=== PATIENT | male | born 1935 | race Caucasian/White ===

== ENCOUNTER 2018-01-16 23:20 | Emergency (ER) | payer OTHER, BC ==
[2018-01-17] MEDS ORDERED: NA CHLORIDE 0.9% 1,000 ML ONE (00:34)
[2018-01-17] MEDS ORDERED: IBUPROFEN 200 MG TAB PO ONE (04:43)
[2018-01-17] MEDS ORDERED: IBUPROFEN 400 MG TAB ONE (04:43)
--- NOTE | 2018-01-17 04:46 | ER ---
Nurse's Notes [facility] Name: Rashida Blank Age: 82 yrs Sex: Male : 1935 Arrival Date: 01/16/2018 Time: 23:23 Bed 7 Private MD: Nina Washington Diagnosis: Contusion of unspecified back wall of thorax Presentation: 01/16 23:18 Presenting complaint: EMS states: reported pt had a fall at about 2200, denies ea hitting head and negative LOC. Patient complaining of pain to left shoulder and left upper back. Transition of care: patient was not received from another setting of care. Onset of symptoms was January 16, 2018. Risk Assessment: Do you want to hurt yourself or someone else? Patient reports no desire to harm self or others. Initial Sepsis Screen: Does the patient meet any 2 criteria? No. Patient's initial sepsis screen is negative. Does the patient have a suspected source of infection? No. Patient's initial sepsis screen is negative. Care prior to arrival: 20 G to LAC. 23:18 Method Of Arrival: EMS: [facility] ea 23:18 Acuity: IVONNE 3 ea 23:18 Mechanism of Injury: Fall from standing position. Trauma event details: Injury occurred ea in the [facility], Injury occurred: at home. Injury occurred: January 16, 2018 Injury occurred at: 22:00. Triage Assessment: 23:18 General: Appears uncomfortable, Behavior is calm, cooperative, appropriate for age. ea Pain: Complains of pain in left scapular area, left subscapular area and mid back area Pain currently is 7 out of 10 on a pain scale. Quality of pain is described as aching, Pain began 1 hour ago. Is continuous, Aggravated by movement. EENT: No deficits noted. Neuro: Level of Consciousness is awake, alert, obeys commands, Oriented to person, place, time, situation. Cardiovascular: Patient's skin is warm and dry. Respiratory: Airway is patent Respiratory effort is even, unlabored, Respiratory pattern is regular, symmetrical. Derm: Skin is pink, warm \T\ dry. Trauma Activation: Not Applicable Physician: ED Physician; Name: ; Notified At: ; Arrived At: Physician: General Surgeon; Name: ; Notified At: ; Arrived At: Physician: Radiology; Name: ; Notified At: ; Arrived At: Physician: Respiratory; Name: ; Notified At: ; Arrived At: Physician: Lab; Name: ; Notified At: ; Arrived At: Historical: - Allergies: 23:37 No Known Allergies; ea - Home Meds: 23:37 simvastatin 40 mg Oral tab 1 tab once daily [Active]; sotalol 120 mg Oral tab 1 tab 2 ea times per day [Active]; levothyroxine 50 mcg tab 1 tab once daily [Active]; warfarin 2 mg Oral tab 1 tab once daily [Active]; warfarin 2.5 mg Oral tab 1 tab once daily [Active]; - PMHx: 23:37 Hypothyroidism; Atrial Fib; ea - PSHx: 23:37 pacemaker; brendan hip replacement; ea - Immunization history:: Adult Immunizations up to date. - Social history:: Smoking status: Patient/guardian denies using tobacco. - Immunization history: Last tetanus immunization: unknown. - Ebola Screening: : No symptoms or risks identified at this time. Screenin:39 Abuse screen: Denies threats or abuse. Nutritional screening: No deficits noted. ea Tuberculosis screening: No symptoms or risk factors identified. Fall Risk Fall in past 12 months (25 points). Primary Survey: 23:18 A: Airway: patent. Breathing/Chest: Respiratory pattern: regular, Respiratory effort: ea spontaneous, unlabored, Breath sounds: clear, bilaterally. Circulation: Heart tones present. Skin color: pink, Skin temperature: warm. Disability Alert. 23:18 Reassessment Breathing/Chest Respiratory pattern Regular Respiratory effort Spontaneous ea Unlabored Circulation Heart tones Present Color [place] Temperature Warm Disability Alert. Secondary Survey: 23:18 HEENT: No deficits noted. Gastrointestinal: Abdomen is soft, Bowel sounds present in ea all quadrants. Palpation No deficit noted. : No signs and/or symptoms were reported regarding the genitourinary system. Musculoskeletal: Circulation, motion, and sensation intact. Assessment: 23:18 General: Appears uncomfortable, Behavior is calm, cooperative, appropriate for age. ea Neuro: Level of Consciousness is awake, alert, obeys commands, Oriented to person, place, time, situation. Respiratory: Airway is patent Respiratory effort is even, unlabored, Respiratory pattern is regular, symmetrical. Derm: Skin is pink, warm \T\ dry. 01/17 00:11 Reassessment: patient still awaiting initial assessment from the provider. rv 00:39 Reassessment: patients seen by provider. started IV infusion of NS 1L bolus. awaiting rv for CT scan. 01:58 Reassessment: Patient and/or family updated on plan of care and expected duration. Pain ea level reassessed. Patient is alert, oriented x 3, equal unlabored respirations, skin warm/dry/pink. 02:19 Reassessment: still awaiting for CT scan. rv 02:30 Reassessment: patient went to ct scan. rv 03:32 Reassessment: Patient appears in no apparent distress at this time. Patient and/or rv family updated on plan of care and expected duration. Pain level reassessed. Patient is alert, oriented x 3, equal unlabored respirations, skin warm/dry/pink. patient came back from ct scan. awaiting result. vital signs are stable. patient is lying comfortably on bed. 04:14 Reassessment: Patient and/or family updated on plan of care and expected duration. Pain ea level reassessed. Patient is alert, oriented x 3, equal unlabored respirations, skin warm/dry/pink. Awaiting on results. 05:07 Reassessment: Patient and/or family updated on plan of care and expected duration. Pain ea level reassessed. Patient is alert, oriented x 3, equal unlabored respirations, skin warm/dry/pink. Discharge instructions given to patient, verbalized the understanding of instruction. Vital Signs: 01/16 23:38 BP 125 / 84; Pulse 82; Resp 18; Temp 98.0(O); Pulse Ox 99% on R/A; Weight 68.95 kg; ea Height 5 ft. 6 in. (167.64 cm); Pain 7/10; 01/17 00:01 BP 108 / 69; Pulse 81; Resp 16; Pulse Ox 96% on R/A; rv 00:37 BP 101 / 78; Pulse 81; Resp 16; Pulse Ox 99% on R/A; rv 01:11 BP 129 / 86; Pulse 81; Resp 16; Pulse Ox 99% on R/A; mt 02:18 BP 143 / 85; Pulse 79; Resp 16; Pulse Ox 99% on R/A; mt 03:32 BP 121 / 81; Pulse 80; Resp 17; Pulse Ox 96% ; rv 04:38 BP 115 / 65; Pulse 79; Resp 18; Pulse Ox 99% on R/A; Pain 9/10; ea 05:04 BP 102 / 58; Pulse 70; Resp 18; Temp 98(O); Pulse Ox 97% on R/A; ea 01/16 23:38 Body Mass Index 24.53 (68.95 kg, 167.64 cm) ea [place] Coma Score: 01/16 23:18 Eye Response: spontaneous(4). Verbal Response: oriented(5). Motor Response: obeys ea commands(6). Total: 15. 01/17 03:32 Eye Response: spontaneous(4). Verbal Response: oriented(5). Motor Response: obeys ea commands(6). Total: 15. 04:38 Eye Response: spontaneous(4). Verbal Response: oriented(5). Motor Response: obeys ea commands(6). Total: 15. 05:04 Eye Response: spontaneous(4). Verbal Response: oriented(5). Motor Response: obeys ea commands(6). Total: 15. Trauma Score (Adult): 01/16 23:18 Eye Response: spontaneous(1); Verbal Response: oriented(1); Motor Response: obeys ea commands(2); Systolic BP: > 89 mm Hg(4); Respiratory Rate: 10 to 29 per min(4); Elroy Score: 15; Trauma Score: 12 ED Course: 23:18 Patient has correct armband on for positive identification. Bed in low position. Call ea light in reach. Side rails up X2. 23:18 Arm band placed on right wrist. Patient placed in an exam room, on a stretcher, on ea secured entrance monitor, on pulse oximetry. 23:18 Thermoregulation: warm blanket given to patient. ea 23:23 Patient arrived in ED. am2 23:24 Nina Washington MD is Private Physician. am2 23:29 Triage completed. ea 23:31 Rohan Gill MD is Attending Physician. gs 23:40 Maintain EMS IV. Dressing intact. Site clean \T\ dry. Gauge \T\ site: 20G to LAC. ea 23:57 Patient maintains SpO2 saturation greater than 95% on room air. ea 01/17 03:15 CT Head C Spine In Process Unspecified. EDMS 03:15 CT Chest Wo Con In Process Unspecified. EDMS 03:15 CT completed. Patient tolerated procedure well. Patient moved back from CT. kw1 05:01 No provider procedures requiring assistance completed. IV discontinued, intact, ea bleeding controlled, No redness/swelling at site. Pressure dressing applied. Administered Medications: 00:37 Drug: NS 0.9% 750 ml Route: IV; Rate: 1 bolus; Site: left antecubital; rv 01:30 Follow up: Response: No adverse reaction; IV Status: Completed infusion ea Intake: 05:03 PO: 0ml; Total: 0ml. ea Outcome: 04:46 Discharge ordered by . blaine 05:[address] resultsPatient's length of stay extended due to ea 05:02 Condition: good ea 05:02 Discharge instructions given to patient, Instructed on discharge instructions, follow up and referral plans. Demonstrated understanding of instructions, follow-up care. 05:03 Discharged to home via wheelchair, with significant other. ea 05:17 Patient left the ED. ea Signatures: Dispatcher [employer] EDMS Leatha Overton Moriah mt Antunez, Elena, RN RN Rohan Sparks MD MD gs Wilhelm, Kimberly kw1 Anson Link, MAGNUS RN rv Corrections: (The following items were deleted from the chart) 03:15 02:21 Patient moved to [place] via stretcher. kw1 kw1 05:04 05:02 Discharged to home via wheelchair, with significant other, ea ea
--- NOTE | 2018-01-17 04:46 | EDPHYS ---
Physician Documentation [facility] Name: Rashida Blank Age: 82 yrs Sex: Male : 1935 Arrival Date: 01/16/2018 Time: 23:23 Bed 7 Private MD: Nina Washington ED Physician Rohan Gill HPI: 01/17 04:38 This 82 yrs old Male presents to ER via EMS with unknown complaint. gs 04:38 Details of fall: The patient fell from an upright position. Onset: The symptoms/episode gs began/occurred acutely, just prior to arrival. Associated injuries: The patient sustained neck injury, injury to the chest, specifically the left lateral posterior chest, contusion. Severity of symptoms: At their worst the symptoms were moderate, in the emergency department the symptoms are unchanged. The patient has experienced similar episodes in the past, a few times. Historical: - Allergies: 01/16 23:37 No Known Allergies; ea - Home Meds: 23:37 simvastatin 40 mg Oral tab 1 tab once daily [Active]; sotalol 120 mg Oral tab 1 tab 2 ea times per day [Active]; levothyroxine 50 mcg tab 1 tab once daily [Active]; warfarin 2 mg Oral tab 1 tab once daily [Active]; warfarin 2.5 mg Oral tab 1 tab once daily [Active]; - PMHx: 23:37 Hypothyroidism; Atrial Fib; ea - PSHx: 23:37 pacemaker; brendan hip replacement; ea - Immunization history:: Adult Immunizations up to date. - Social history:: Smoking status: Patient/guardian denies using tobacco. - Immunization history: Last tetanus immunization: unknown. - Ebola Screening: : No symptoms or risks identified at this time. ROS: 01/17 04:38 All other systems are negative. gs Exam: 04:38 Head/Face: Normocephalic, atraumatic. Eyes: Pupils equal round and reactive to light, gs extra-ocular motions intact. Lids and lashes normal. Conjunctiva and sclera are non-icteric and not injected. Cornea within normal limits. Periorbital areas with no swelling, redness, or edema. ENT: Nares patent. No nasal discharge, no septal abnormalities noted. Tympanic membranes are normal and external auditory canals are clear. Oropharynx with no redness, swelling, or masses, exudates, or evidence of obstruction, uvula midline. Mucous membranes moist. Neck: Trachea midline, no thyromegaly or masses palpated, and no cervical lymphadenopathy. Supple, full range of motion without nuchal rigidity, or vertebral point tenderness. No Meningismus. Cardiovascular: Regular rate and rhythm with a normal S1 and S2. No gallops, murmurs, or rubs. Normal PMI, no JVD. No pulse deficits. Respiratory: Lungs have equal breath sounds bilaterally, clear to auscultation and percussion. No rales, rhonchi or wheezes noted. No increased work of breathing, no retractions or nasal flaring. Abdomen/GI: Soft, non-tender, with normal bowel sounds. No distension or tympany. No guarding or rebound. No evidence of tenderness throughout. Back: No spinal tenderness. No costovertebral tenderness. Full range of motion. Skin: Warm, dry with normal turgor. Normal color with no rashes, no lesions, and no evidence of cellulitis. MS/ Extremity: Pulses equal, no cyanosis. Neurovascular intact. Full, normal range of motion. Neuro: Awake and alert, GCS 15, oriented to person, place, time, and situation. Cranial nerves II-XII grossly intact. Motor strength 5/5 in all extremities. Sensory grossly intact. Cerebellar exam normal. Normal gait. 04:38 Constitutional: The patient appears alert, awake. 04:38 Chest/axilla: Inspection: no acute changes, Palpation: tenderness, that is moderate, of the right lateral posterior chest and left lateral posterior chest, that totally reproduces the patient's complaints. 04:38 ECG was reviewed by the Attending Physician. Vital Signs: 01/16 23:38 BP 125 / 84; Pulse 82; Resp 18; Temp 98.0(O); Pulse Ox 99% on R/A; Weight 68.95 kg; ea Height 5 ft. 6 in. (167.64 cm); Pain 7/10; 01/17 00:01 BP 108 / 69; Pulse 81; Resp 16; Pulse Ox 96% on R/A; rv 00:37 BP 101 / 78; Pulse 81; Resp 16; Pulse Ox 99% on R/A; rv 01:11 BP 129 / 86; Pulse 81; Resp 16; Pulse Ox 99% on R/A; mt 02:18 BP 143 / 85; Pulse 79; Resp 16; Pulse Ox 99% on R/A; mt 03:32 BP 121 / 81; Pulse 80; Resp 17; Pulse Ox 96% ; rv 04:38 BP 115 / 65; Pulse 79; Resp 18; Pulse Ox 99% on R/A; Pain 9/10; ea 05:04 BP 102 / 58; Pulse 70; Resp 18; Temp 98(O); Pulse Ox 97% on R/A; ea 01/16 23:38 Body Mass Index 24.53 (68.95 kg, 167.64 cm) ea [place] Coma Score: 01/16 23:18 Eye Response: spontaneous(4). Verbal Response: oriented(5). Motor Response: obeys ea commands(6). Total: 15. 01/17 03:32 Eye Response: spontaneous(4). Verbal Response: oriented(5). Motor Response: obeys ea commands(6). Total: 15. 04:38 Eye Response: spontaneous(4). Verbal Response: oriented(5). Motor Response: obeys ea commands(6). Total: 15. 05:04 Eye Response: spontaneous(4). Verbal Response: oriented(5). Motor Response: obeys ea commands(6). Total: 15. Trauma Score (Adult): 01/16 23:18 Eye Response: spontaneous(1); Verbal Response: oriented(1); Motor Response: obeys ea commands(2); Systolic BP: > 89 mm Hg(4); Respiratory Rate: 10 to 29 per min(4); Elroy Score: 15; Trauma Score: 12 MDM: 01/17 00:24 Patient medically screened. 04:38 Differential diagnosis: closed head injury, contusion, fracture, ich. Data reviewed: vital signs, nurses notes. 01/17 00:25 Order name: CT Head C Spine gs 06 00:25 Order name: CT Chest Wo Con gs EC:38 Rate is 82 beats/min. Rhythm is regular, Paced. IN interval is prolonged. QRS interval gs is normal. T waves are Normal. No ST changes noted. Clinical impression: Abnormal EKG without significant change. Interpreted by me. Administered Medications: 00:37 Drug: NS 0.9% 750 ml Route: IV; Rate: 1 bolus; Site: left antecubital; rv 01:30 Follow up: Response: No adverse reaction; IV Status: Completed infusion ea Disposition: 01/17/18 04:46 Discharged to Home. Impression: Contusion of unspecified back wall of thorax. - Condition is Stable. - Discharge Instructions: Contusion. - Medication Reconciliation Form, Thank You Letter, Antibiotic Education, Prescription Opioid Use form. - Follow up: Private Physician; When: 2 - 3 days; Reason: Re-evaluation by your physician. Signatures: Dispatcher [employer] Mehreen Crawford RN RN Rohan Sparks MD MD gs Vicente, Ronaldo, RN RN rv Corrections: (The following items were deleted from the chart) 05:17 04:46 01/17/2018 04:46 Discharged to Home. Impression: Contusion of unspecified back ea wall of thorax. Condition is Stable. Forms are Medication Reconciliation Form, Thank You Letter, Antibiotic Education, Prescription Opioid Use. Follow up: Private Physician; When: 2 - 3 days; Reason: Re-evaluation by your physician.
--- NOTE | 2018-01-17 11:51 | RAD REPORT ---
EXAM DESCRIPTION: CT - CTHCSPWOC - 01/17/2018 7:26 am CLINICAL HISTORY: Trauma, head and neck injury. PAIN COMPARISON: Soft Tissue Neck W/Contr dated 09/04/2016 TECHNIQUE: Axial 5 mm thick images of the head were obtained. Axial 2 mm thick images of the cervical spine were obtained with sagittal and coronal reconstruction images generated and reviewed. All CT scans are performed using dose optimization technique as appropriate and may include automated exposure control or mA/KV adjustment according to patient size. FINDINGS: CT HEAD WITHOUT CONTRAST: No acute hemorrhage, hydrocephalus or extra-axial collection is identified.Advanced generalized brain atrophy is present with advanced periventricular and deep white matter chronic microvascular ischemi c changes.No areas of brain edema or midline shift. The paranasal sinuses and mastoids are clear.The calvarium is intact. CT CERVICAL SPINE WITHOUT CONTRAST: No fracture or subluxation.Prominent C4-5 spondylosis.No prevertebral soft tissues swelling is identi fied. IMPRESSION: No acute intracranial or cervical spine findings. Prominent C4-5 spondylosis.
--- NOTE | 2018-01-17 11:58 | RAD REPORT ---
EXAM DESCRIPTION: CT - Thorax Wo Con CLINICAL HISTORY: Chest pain PAIN COMPARISON: No comparisons FINDINGS: Mild basilar subsegmental atelectasis bilaterally. No focal infiltrate. No pleural thicken ing or pleural effusion. No pneumothorax. No axillary, mediastinal or hilar adenopathy. Pacemaker device noted. No concerning bony finding. No gross upper abdominal finding. All CT scans are performed using dose optimization technique as appropriate and may include automated exposure control or mA/KV adjustment according to patient size. IMPRESSION: No acute abnormality detected.
--- NOTE | 2018-01-19 07:00 | EKG ---
Test Date: 2018-01-16 Test Time: 23:22:09 Head Still Operator: DEBBIE MEASUREMENT RESULTS: Intervals: Rate: 82 MA: 216 QRSD: 78 QT: 378 QTc: 441 [place]: P: -5 MA: 216 QRS: 54 T: 47 INTERPRETIVE STATEMENTS: Atrial-paced rhythm with prolonged AV conduction Abnormal ECG Compared to ECG 09/22/2017 13:33:15 Prolonged QT interval no longer present Electronically Signed On 01-19-18 06:59:27 CDT by Víctor Packer
== END 2018-01-17 05:17 | disposition home or self-care (01) ==
LOC: ER 23:20
DX: S20.229A Contusion of unspecified back wall of thorax, initial encounter (principal); W18.30XA Fall on same level, unspecified, initial encounter; Y93.9 Activity, unspecified; Y92.009 Unspecified place in unspecified non-institutional (private) residence as the place of occurrence of the external cause; E03.9 Hypothyroidism, unspecified; I48.91 Unspecified atrial fibrillation; Z79.01 Long term (current) use of anticoagulants; Z95.0 Presence of cardiac pacemaker
CPT/HCPCS: 70450; 71250; 72125; 93005; 96360; 99285; J7030

== ENCOUNTER 2018-05-26 06:41 | Day surgery (SDC) | payer OTHER, BC ==
[2018-05-20 11:39] LABS: Urine Appearance CLEAR; Urine Bilirubin NEGATIVE (NEG); Urine Blood NEGATIVE (NEG); Urine Color YELLOW; Urine Glucose NEGATIVE (NEG); Urine Protein NEGATIVE (NEG)
--- NOTE | 2018-05-20 11:42 | RAD REPORT ---
EXAM DESCRIPTION: RAD - Chest Pa And Lat (2 Views) - 05/20/2018 11:25 am CLINICAL HISTORY: PRE OP Chest pain. COMPARISON: Chest Pa And Lat (2 Views) dated 03/02/2018; Chest Pa And Lat (2 Views) dated 01/27/2018 FINDINGS: The lungs are clear. The heart is normal in size. No displaced fractures. A dual lead pace r device is in place. IMPRESSION: No acute or concerning finding suspected.
[2018-05-20 11:45] LABS: Urine Microscopic Reflex NO UMIC
[2018-05-20 11:51] LABS: Absolute Lymphocytes (CBC) 1.1 K/uL (0.7-4.9); Absolute Monocytes 0.5 K/uL (0.1-1.3); Absolute Neutrophil 2.6 K/uL (1.8-8.0); Eosinophils % 7.7 % (0-4.4); Hematocrit 47.5 % (39.6-49.0); Lymphocytes % 24.7 % (15.3-44.8); MCH 32.3 pg (27.0-35.0); MCV 95.2 fL (80-100); MPV 9.2 fL (7.6-11.3); Monocytes % 10.2 % (3.3-12.3); RBC Red Blood Cell Count 4.99 M/uL (4.33-5.43)
[2018-05-20 11:56] LABS: Bilirubin Total 0.6 mg/dL (0.2-1.0); Potassium 4.2 mmol/L (3.5-5.1); Protein, Total 7.1 g/dL (6.4-8.2)
--- NOTE | 2018-05-20 13:29 | EKG ---
Test Date: 2018-05-20 Test Time: 11:11:09 Visual Presentation Manager: JANICE MEASUREMENT RESULTS: Intervals: Rate: 83 AK: 188 QRSD: 86 QT: 434 QTc: 509 [place]: P: 54 AK: 188 QRS: -2 T: 4 INTERPRETIVE STATEMENTS: Electronic atrial pacemaker Nonspecific ST abnormality Prolonged QT Abnormal ECG Compared to ECG 01/16/2018 23:22:09 ST (T wave) deviation now present Prolonged QT interval now present Ventricular-paced complex(es) or rhythm no longer present Electronically Signed On 05-20-18 13:28:41 CDT by Víctor Packer
--- OUTSIDE RECORDS SUMMARY | 2018-05-26 06:49 | XMS REPORT ---
:1935 Author Organization [employer] Care Team Providers Name Role Phone [place], Na Provider Role Unavailable Allergies, Adverse Reactions, Alerts Substance Reaction Event Type N.K.D.A. 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 Assessment Contusion of upper back, left, S20.222A Active initial encounter Problem Chronic depressive person F34.1 Active Problem Seasonal allergic rhinitis due to J30.1 Active pollen Problem Urinary incontinence, unspecified R32 Active type Problem Closed fracture of multiple ribs S22.42XD Active of left side with routine healing, subsequent encounter Problem Unsteady gait R26.81 Active Problem Hyperlipidemia, unspecified E78.5 Active hyperlipidemia type Problem Muscle spasm of back M62.830 Active Assessment History of fall Z91.81 Active Problem History of fall Z91.81 Active Problem Contusion of upper back, left, S20.222A Active initial encounter Problem correction current use of Z79.01 Active anticoagulant Problem Osteoarthritis of cervical spine, M47.812 Active unspecified spinal osteoarthritis complication status Problem Chronic a-fib I48.2 Active Problem Acquired hypothyroidism E03.9 Active Problem Hypothyroidism E03.9 Active Problem Periumbilical hernia K42.9 Active Problem Chronic generalized pain R52 Active Problem Tinnitus H93.19 Active Problem Separation of muscle M62.00 Active (nontraumatic), unspecified site Problem Basal cell carcinoma of skin of C44.211 Active unspecified ear and external auricular canal Medications Medication Code Code Instructions Start End Status Dosage System Date Date Centrum Silver [facility] 67245421886 - Orally Active not defined Betapace [facility] 69905197006 120 MG Orally Active 1 tablet every 12 hrs Levothyroxine Sodium [facility] 73947863414 50 MCG Active TAKE ONE DAILY MethylPREDNISolone [facility] 13242605225 4 MG Orally Active 1 tablet with food or milk in the morning Garrochales [facility] 45669940124 10-325 MG December Active 1 tablet Orally every 6 25, 02, as needed hrs 2017 2017 Simvastatin [facility] 53000433487 40 MG Orally Active 1 tablet Once a day in the evening Coumadin [facility] 90201573940 6 MG Orally Active 1 tablet Once a day Results No Known Results Summary Purpose [employer] Submission
--- OUTSIDE RECORDS SUMMARY | 2018-05-26 06:49 | XMS REPORT ---
:1935 Author Organization [employer] Care Team Providers Name Role Phone [place], Na Provider Role Unavailable Allergies, Adverse Reactions, Alerts Substance Reaction Event Type N.K.D.A. 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 Problem Chronic depressive person F34.1 Active Problem Lymphadenopathy R59.1 Active Problem Unsteady gait R26.81 Active Assessment Medicare annual wellness visit, Z00.00 Active initial Problem clinical program consultant current use of Z79.01 Active anticoagulant Problem History of fall Z91.81 Active Problem Seasonal allergic rhinitis due to J30.1 Active pollen Problem Urinary incontinence, unspecified R32 Active type Problem Osteoarthritis of cervical spine, M47.812 Active unspecified spinal osteoarthritis complication status Problem Contusion of upper back, left, S20.222A Active initial encounter Problem Chronic a-fib I48.2 Active Problem Acquired hypothyroidism E03.9 Active Problem Hyperlipidemia, unspecified E78.5 Active hyperlipidemia type Problem Separation of muscle M62.00 Active (nontraumatic), unspecified site Problem Basal cell carcinoma of skin of C44.211 Active unspecified ear and external auricular canal Problem Hypothyroidism E03.9 Active Problem Chronic generalized pain R52 Active Problem Periumbilical hernia K42.9 Active Problem Tinnitus H93.19 Active Medications Medication Code Code Instructions Start End Status Dosage System Date Date Levothyroxine Sodium [facility] 05903405256 50 MCG Active TAKE ONE DAILY Simvastatin ND 93409589815 40 MG Orally Active 1 tablet Once a day in the evening MethylPREDNISolone ND 28524419424 4 MG Orally Active 1 tablet with food or milk in the morning Centrum Silver ND 92095655614 - Orally Active not defined Coumadin ND 77542587414 6 MG Orally Active 1 tablet Once a day Betapace ND 22816324853 120 MG Orally Active 1 tablet every 12 hrs Results No Known Results Summary Purpose [employer] Submission
--- OUTSIDE RECORDS SUMMARY | 2018-05-26 06:49 | XMS REPORT ---
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
--- OUTSIDE RECORDS SUMMARY | 2018-05-26 06:49 | XMS REPORT ---
:1935 Author Organization eClinicalWorks Care Team Providers Name Role Phone [place], Na Provider Role Unavailable Allergies, Adverse Reactions, Alerts Substance Reaction Event Type N.K.D.A. Info Not Available Non Drug Allergy Problems Problem Type Condition Code Onset Dates Condition Status Assessment Atelectasis J98.11 Active Assessment Pleural effusion on left J90 Active Assessment Chronic a-fib I48.2 Active Assessment custodial current use of Z79.01 Active anticoagulant Assessment History of fall Z91.81 Active Assessment Unsteady gait R26.81 Active Assessment Muscle spasm of back M62.830 Active Assessment Osteoarthritis of cervical spine, M47.812 Active unspecified spinal osteoarthritis complication status Assessment Closed fracture of multiple ribs S22.42XD Active of left side with routine healing, subsequent encounter Problem Chronic depressive person F34.1 Active Assessment Contusion of upper back, left, S20.222A Active initial encounter Problem Urinary incontinence, unspecified R32 Active type Problem Seasonal allergic rhinitis due to J30.1 Active pollen Problem Unsteady gait R26.81 Active Problem custodial current use of Z79.01 Active anticoagulant Problem Atelectasis J98.11 Active Problem Closed fracture of multiple ribs S22.42XD Active of left side with routine healing, subsequent encounter Problem Hypothyroidism E03.9 Active Problem 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 Problem Muscle spasm of back M62.830 Active Problem Hyperlipidemia, unspecified E78.5 Active hyperlipidemia type Problem Contusion of upper back, left, S20.222A Active initial encounter Problem History of fall Z91.81 Active Problem Pleural effusion on left J90 Active Problem Osteoarthritis of cervical spine, M47.812 Active unspecified spinal osteoarthritis complication status Problem Acquired hypothyroidism E03.9 Active Problem Lymphadenopathy R59.1 Active Problem Periumbilical hernia K42.9 Active Problem Chronic a-fib I48.2 Active Problem Chronic generalized pain R52 Active Problem Tinnitus H93.19 Active Problem Separation of muscle M62.00 Active (nontraumatic), unspecified site Problem Basal cell carcinoma of skin of C44.211 Active unspecified ear and external auricular canal Medications Medication Code Code Instructions Start End Status Dosage System Date Date Tizanidine HCl [facility] 62994840795 2 MG Orally December Active 1 tablet Three times a , 02, as needed day 2017 2017 Coumadin [facility] 68353240072 6 MG Orally Active 1 tablet Once a day Centrum Silver [facility] 46666383015 - Orally Active not defined MethylPREDNISolone [facility] 58226993958 4 MG Orally Active 1 tablet with food or milk in the morning Simvastatin ND 49140300657 40 MG Orally Active 1 tablet Once a day in the evening Tramadol HCl ND 01459053397 50 MG Orally January Active 1 tablet every 6 hrs 03, 10, as needed 2017 2017 Betapace [facility] 62022380729 120 MG Orally Active 1 tablet every 12 hrs Levothyroxine Sodium [facility] 66029956028 50 MCG Active TAKE ONE DAILY Results Name Result Date Reference Range Unit Abnormality Flag Chest Pa And Lat (2 Views) Summary Purpose eClinicalWorks Submission
--- OUTSIDE RECORDS SUMMARY | 2018-05-26 06:49 | XMS REPORT ---
:1935 Author Organization eClinicalWorks Care Team Providers Name Role Phone [place], Na Provider Role Unavailable Allergies, Adverse Reactions, Alerts Substance Reaction Event Type N.K.D.A. 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 Assessment Chronic a-fib I48.2 Active Problem Chronic depressive person F34.1 Active Problem Seasonal allergic rhinitis due to J30.1 Active pollen Problem Urinary incontinence, unspecified R32 Active type Problem Closed fracture of multiple ribs S22.42XD Active of left side with routine healing, subsequent encounter Problem Unsteady gait R26.81 Active Problem Hyperlipidemia, unspecified E78.5 Active hyperlipidemia type Problem Muscle spasm of back M62.830 Active Assessment Hypothyroidism E03.9 Active Problem History of fall Z91.81 Active Problem Contusion of upper back, left, S20.222A Active initial encounter 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 Problem [...] Start End Status Dosage System Date Date MethylPREDNISolone NDC 73190698858 4 MG Orally Inactive 1 tablet with food or milk in the morning Betapace ND 88320263999 120 MG Orally Active 1 tablet every 12 hrs Levothyroxine Sodium [facility] 69155874088 50 MCG Active TAKE ONE DAILY Simvastatin [facility] 33973126767 40 MG Orally Active 1 tablet Once a day in the evening Centrum Silver [facility] 49539917165 - Orally Active not defined Coumadin [facility] 99051832118 6 MG Orally Active 1 tablet Once a day Results No Known Results Summary Purpose eClinicalWorks Submission
--- OUTSIDE RECORDS SUMMARY | 2018-05-26 06:49 | XMS REPORT ---
:1936 Author Organization eClinicalWorks Care Team Providers Name Role Phone [place], Na Provider Role Unavailable Allergies, Adverse Reactions, Alerts Substance Reaction Event Type N.K.D.A. Info Not Available Non Drug Allergy Problems Problem Type Condition Code Onset Dates Condition Status Assessment Chronic a-fib I48.2 Active Assessment FDC current use of Z79.01 Active anticoagulant Assessment Unsteady gait R26.81 Active Assessment History of fall Z91.81 Active Assessment Muscle spasm of back M62.830 Active Assessment Pleural effusion on left J90 Active Assessment Osteoarthritis of cervical spine, M47.812 Active unspecified spinal osteoarthritis complication status Assessment Atelectasis J98.11 Active Assessment Contusion of upper back, left, S20.222A Active initial encounter Problem Chronic depressive person F34.1 Active Assessment Closed fracture of multiple ribs S22.42XD Active of left side with routine healing, subsequent encounter Problem Urinary incontinence, unspecified R32 Active type Problem Seasonal allergic rhinitis due to J30.1 Active pollen Problem Unsteady gait R26.81 Active 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 Problem [...] End Status Dosage System Date Date MethylPREDNISolone [facility] 72805097799 4 MG Orally Active 1 tablet with food or milk in the morning Centrum Silver [facility] 88198183355 - Orally Active not defined Simvastatin [facility] 65733001653 40 MG Orally Active 1 tablet Once a day in the evening Betapace [facility] 23098001444 120 MG Orally Active 1 tablet every 12 hrs Coumadin [facility] 54405508971 6 MG Orally Active 1 tablet Once a day Tramadol HCl [facility] 01205054164 50 MG Orally Aug Active 1 tablet every 12 hrs 08, as needed as needed for 2018 pain Levothyroxine Sodium [facility] 31899767552 50 MCG Active TAKE ONE DAILY Tizanidine HCl [facility] 57595892179 2 MG Orally Active 1 tablet Three times a as needed day Results No Known Results Summary Purpose eClinicalWorks Submission
--- OUTSIDE RECORDS SUMMARY | 2018-05-26 06:50 | XMS REPORT ---
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 Problem Hyperlipidemia, unspecified E78.5 Active hyperlipidemia type Problem Muscle spasm of back M62.830 Active Problem Contusion of upper back, left, [...] muscle M62.00 Active (nontraumatic), unspecified site Problem Chronic depressive person F34.1 Active Problem Basal cell carcinoma of skin of C44.211 Active unspecified ear and external auricular canal Problem Urinary incontinence, unspecified R32 Active type Medications Medication Code Code Instructions Start End Date Status Dosage System Date Tizanidine HCl [facility] 91682955755 2 MG Orally January 22, February 01, Active 1 tablet Three times a 2017 2018 as needed day Results No Known Results Summary Purpose eClinicalWorks Submission
[2018-05-26 07:26] LABS: Protime INR 1.01
[2018-05-26] MEDS ORDERED: Ringers Lactate 1,000 ML IV ONE (07:41)
[2018-05-26] MEDS ORDERED: CEFAZOLIN/SWI 1gm 1 GM/10 ML SYR ONE (07:42)
[2018-05-26] MEDS ORDERED: DEPO-MEDROL 40 MG/ML IM ONE (08:24)
[2018-05-26] MEDS ORDERED: BUPIVACAINE 0.25% PF 10 ML VIAL ONE (08:25)
[2018-05-26] MEDS ORDERED: PROPOFOL 200 MG/20 ML VIAL IV ONE (08:40)
[2018-05-26] MEDS ORDERED: LIDOCAINE 2% MPF 5 ML VIAL ONE (08:41)
[2018-05-26] MEDS ORDERED: FENTANYL CITR 100 MCG/2 ML ONE (08:41)
[2018-05-26] MEDS ORDERED: ONDANSETRON HCL 40 MG/20 ML VIAL ONE (08:41)
--- NOTE | 2018-05-26 09:45 | P.BOP ---
Preoperative diagnosis: Tigger finger right ring finger Postoperative diagnosis: same Primary procedure: Trigger release right ringfinger A1 vipul Interpreter Translator: Jonathan Rosario Estimated blood loss: < 1 mL Specimen: none Findings: A1 vipul snug, released Anesthesia: General Complications: None Implants: injected 1 m Fluids & blood products: lnj. 0.25%Marcaine 1 mL Transferred to: Recovery Room Condition: Good
--- NOTE | 2018-05-26 20:45 | OP ---
Date of Procedure: 05/26/2018 Surgeon: Jonathan Rosario MD Division Service Manager: Dr. Harris Rosario. Preoperative Diagnosis: Trigger finger of right ring finger. Postoperative Diagnosis: Trigger finger of right ring finger. Primary Procedure: Trigger release, right ring finger A1 vipul. Indications: This 82-year-old male is having difficulty extending his ring finger on the right hand after flexion. He has pain and tenderness at the A1 vipul. He has elected after discussion of risk s and benefits with all questions answered to proceed with a trigger release for the right hand ring finger. Technique: The patient was taken to the operating room and given a general anesthesia. The right up per extremity was prepped and draped with a tourniquet in the area adjacent to the axilla. The limb was exsanguinated with an Esmarch bandage and the tourniquet was raised to 250 mmHg for 18 minutes. The transverse incision was made just distal to the transverse palmar crease. Incision was made just distal to the transverse palmar crease at the base of the right ring finger. The incision was 1 cm in length and carried sharply through the skin and subcutaneous tissue directly over the A1 vipul. The soft tissue dissection was carried out carefully identifying the proximal margin of the A1 vipul . The scissors were introduced and the A1 vipul was divided in a longitudinal line nearly to its di stal border, this made a v-shaped defect in the A1 vipul. The wound was injected with less than 1 m L of 0.25% Marcaine and after irrigation, the closure was affected with 2 interrupted sutures of 4-0 nylon. Xeroform gauze, 4x4 gauze, flats, soft roll, and an JORGE L bandage were applied for the postoper ative bandage. The patient was taken to the recovery room, having tolerated this procedure well. A time-out was called before the surgery and all pertinent facts were discussed and agreed upon and it was decided at that time to proceed with the procedure as dictated. CHILO/LEENA Voice ID: [id number] Report ID: [id number]
== END 2018-05-26 11:05 | disposition home or self-care (01) ==
LOC: OR 06:41
PROVIDERS: ATTEND Orthopaedic Surgery
PROC: 0LN70ZZ Release Right Hand Tendon, Open Approach (ICD-10-PCS; principal; 2018-05-26 08:00)
DX: M65.341 Trigger finger, right ring finger (principal); E03.9 Hypothyroidism, unspecified; Z85.828 Personal history of other malignant neoplasm of skin; Z86.718 Personal history of other venous thrombosis and embolism; Z79.01 Long term (current) use of anticoagulants; Z95.0 Presence of cardiac pacemaker; Z80.42 Family history of malignant neoplasm of prostate; Z82.49 Family history of ischemic heart disease and other diseases of the circulatory system
CPT/HCPCS: 26055; 36415 ×2; 71046; 80053; 81003; 85025; 85610; 85730; 93005; J0690; J1030; J2405; J3010; J2704

== ENCOUNTER 2019-12-24 08:55 | Day surgery (SDC) | payer OTHER, BC ==
[2019-12-17 11:08] LABS: Absolute Lymphocytes (CBC) 1.2 K/uL (0.7-4.9); Basophils % 0.9 % (0-1.3); Hematocrit 49.5 % (39.6-49.0); Lymphocytes % 21.8 % (15.3-44.8); MPV 9.4 fL (7.6-11.3); RBC Red Blood Cell Count 5.28 M/uL (4.33-5.43)
[2019-12-17 11:15] LABS: Protime INR 1.93
[2019-12-17 11:27] LABS: Potassium 4.2 mmol/L (3.5-5.1)
--- NOTE | 2019-12-17 12:28 | RAD REPORT ---
EXAM DESCRIPTION: Vin Torres (2 Views)12/17/2019 12:18 pm CLINICAL HISTORY: Preop for hand surgery COMPARISON: 2019 FINDINGS: The lungs appear clear of acute infiltrate. The heart is normal size. Pacemaker leads in place IMPRESSION: No acute abnormalities displayed
[2019-12-24] MEDS ORDERED: CEFAZOLIN/SWI 1gm 1 GM/10 ML SYR ONE (09:09)
[2019-12-24] MEDS ORDERED: Ringers Lactate 1,000 ML IV ONE (09:09)
[2019-12-24] MEDS ORDERED: BUPIVACAINE 0.25% PF 30 ML VIAL ONE (09:53)
[2019-12-24] MEDS ORDERED: FENTANYL CITR 100 MCG/2 ML ONE (10:01)
[2019-12-24] MEDS ORDERED: LIDOCAINE 2% MPF 5 ML VIAL ONE (10:01)
[2019-12-24] MEDS ORDERED: propofoL 200 MG/20 ML VIAL IV ONE ×3 (10:01→10:30)
--- OUTSIDE RECORDS SUMMARY | 2019-12-24 10:12 | XMS REPORT ---
:1935 Author Organization [facility] t Address [address] [place] [address] Care Team Providers Name Role Phone Unavailable Unavailable Unavailable Problems Condition Condition Condition Status Onset Resolution Last Treating Co mments Source Name Details Category Date Date Treatment Clinician Date Spinal Spinal Problem Active [facility] stenosis stenosis [facility] - of lumbar of lumbar [place] region region l with with Outpati neurogenic neurogenic en t claudicati claudicati Cl inics on on Chronic Chronic Problem Active [facility] depressive depressive Theodora kes - person person Memoria l Outpati ent Clinics Lymphadeno Lymphadeno Problem Active [facility] jose jose [facility] Out[facility] Clinics Unsteady Unsteady Problem Active [facility] gait gait [facility] Clinics [facility] 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 Active [facility] current current [facility] - use of use of Memoria anticoagul anticoagul l ant ant Outpati ent Clinics History of History of Problem Active [facility] fall fall [facility] - [facility] Clinics Seasonal Seasonal Problem Active [facility] allergic allergic [facility] - rhinitis rhinitis Memori a due to due to l pollen pollen Outpati ent Clinics Urinary Urinary Problem Active [facility] incontinen incontinen Theodora kes - ce, ce, Memoria unspecifie unspecifie l d type d type Outpati ent Clinics Osteoarthr Osteoarthr Problem Active [facility] itis of itis of [facility]ukes - cervical cervical Memori a spine, spine, l unspecifie unspecifie Ou tpati d spinal d spinal ent osteoarthr osteoarthr Cl inics itis itis complicati complicati on status on status Contusion Contusion Problem Active [facility] of upper of upper [facility] - back, back, Memoria left, left, l initial initial Outpati encounter encounter ent Clinics Chronic Chronic Problem Active [facility] a-fib a-fib [facility] - [facility]ics Hypothyroi Hypothyroi Problem Active [facility] dism dism [facility] Hyperlipid Hyperlipid Problem Active [facility] emia, emia, Lukes - unspecifie unspecifie Me moria d d l hyperlipid hyperlipid Ou tpati emia type emia type ent Clinics Separation Separation Problem Active [facility] of muscle of muscle Luke s - (nontrauma (nontrauma Me moria tic), tic), l unspecifie unspecifie Ou tpati d site d site ent Clinics Basal cell Basal cell Problem Active [facility] carcinoma carcinoma Luke s - of skin of of skin of [place] moria unspecifie unspecifie l d ear and d ear and Outp ati external external ent auricular auricular Clin ics canal canal Chronic Chronic Problem Active [facility] generalize generalize Theodora kes - d pain d pain [facility] ent Clinics Periumbili Periumbili Problem Active [facility] karie hernia karie hernia Theodora kes - [facility] ent Clinics Tinnitus Tinnitus Problem [facility] Closed Closed Problem Active [facility] fracture fracture [facility] - of of [facility] multiple multiple l ribs of ribs of [facility] left side left side ent with with Clinics routine routine healing, healing, subsequent subsequent encounter encounter Muscle Muscle Problem Active [facility] spasm of spasm of [facility] - back back [facility] ent Clinics Atelectasi Atelectasi Problem Active [facility] s s [facility] - [facility] ent Clin[facility] Pleural Pleural Problem Active [facility] effusion effusion [facility] - on left on left [facility] ent Clinics Pain, Pain, Problem Active [facility] joint, joint, [facility] - hand, hand, Memoria right right l [facility] Trigger Trigger Problem Active [facility] finger, finger, [facility] - right ring right ring Me moria finger finger l [facility] Allergic Allergic Problem Active [facility] rhinitis, rhinitis, Luke s - unspecifie unspecifie Me moria d d l seasonalit seasonalit Ou tpati y, y, ent unspecifie unspecifie Cl inics d trigger d trigger Trigger Trigger Problem Active [facility] middle middle [facility] - finger of finger of [place] right hand right hand l [facility] Other Other Problem Active [facility] chronic chronic [facility]ics Low back Low back Problem Active [facility] Problem Active [facility] right hand right hand Theodora kes - [facility] Allergies, Adverse Reactions, Alerts This patient has no known allergies or adverse reactions. Medications Ordered Filled Start Stop Current Ordering Indication Dosage Frequency Signature Comments Components Source Medication Medication Date Date Medication? Clinician (SIG) Name Name Tylenol Tylenol Yes Felton [address] [facility] with with 12-21 Trevizo as needed [facility] - Codeine #3 Codeine #3 00:00: M emoria [facility] Procedures This patient has no known procedures. Encounters Start End Encounter Admission Attending Care Care Encounter Source Date/Time Date/Time Type Type Clinicians Facility Department ID 2019-12-22 2019-12-22 [facility] [id number] [facility] 09:19:00 09:19:00 t [facility] 2019-12-17 2019-12-17 [facility] [id number] 11:13:00 11:13:00 t [facility] 2019-12-09 2019-12-09 [facility] [id number] [facility] 10:51:00 10:51:00 t [facility] 2019-11-25 2019-11-25 [facility] [id number] 10:30:00 10:30:00 t Bone [facility] 2019-10-07 2019-10-07 [facility] [id number] 11:28:00 11:28:00 t Bone [facility] 2019-10-07 2019-10-07 [facility] [id number] 10:45:00 10:45:00 t Bone [facility] 2019-08-23 2019-08-23 [facility] [id number] 09:21:00 09:21:00 t [place] [employer] [employer] [facility] - [address] [facility] Clinics 2019-08-06 2019-08-06 [facility] [id number] 10:00:00 10:00:00 t Bone Bone and [facility] ent Clinics 2018-02-02 2018-02-02 [facility] [id number] 11:15:00 11:15:00 t [place] [address] [employer] - [address] [facility] Out[facility] Clinics 2018-01-27 2018-01-27 [facility] [id number] 11:15:00 11:15:00 t [place] [address] [employer] [address] - [address] [facility] Out[facility] Clinics 2018-01-22 2018-01-22 [facility] [id number] 09:44:00 09:44:00 t [place] [employer] [address] [facility] Out[facility] Clinics 2018-01-19 2018-01-19 [facility] [id number] 14:00:00 14:00:00 t [place] [employer] [facility] Out[facility] Clinics 2018-01-19 2018-01-19 [facility] [id number] 08:33:00 08:33:00 t [place] [employer] [address] [facility] Out[facility] ent Clinics 2017-12-18 2017-12-18 [facility] [id number] 11:00:00 11:00:00 t [place] [employer] - [address] [facility] Out[facility] ent Clinics 2017-11-27 2017-11-27 [facility] [id number] 14:30:00 14:30:00 t [place] [employer] [facility] Out[facility] ent Clinics Results This patient has no known results.
--- OUTSIDE RECORDS SUMMARY | 2019-12-24 10:13 | XMS REPORT ---
:1935 Author Organization eClinicalWorks Care Team Providers Name Role Phone Felton Trevizo Provider Role Unavailable Allergies, Adverse Reactions, Alerts Substance Reaction Event Type N.K.D.A. 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 Problem Chronic depressive person F34.1 Ac tive Problem Urinary incontinence, unspecified R32 Active type Problem Hypothyroidism E03.9 Active Problem Contusion of upper back, left, S20.222A Active initial encounter Problem Pleural effusion on left J90 Act devi Problem Periumbilical hernia K42.9 Active Problem Muscle spasm of back M62.830 Active Problem Atelectasis J98.11 Active Problem Closed fracture of multiple ribs S22.42XD Active of left side with routine healing, subsequent encounter Problem Pain, joint, hand, right M25.541 Act devi Problem Allergic rhinitis, unspecified J30.9 Active seasonality, unspecified trigger Problem Separation of muscle M62.00 Active (nontraumatic), unspecified site Problem Lymphadenopathy R59.1 Active Problem Trigger middle finger of right M65.331 Active hand Problem Chronic a-fib I48.2 Active Problem Other chronic pain G89.29 Active Problem Low back pain M54.5 Active Problem Pain of right hand M79.641 Active Problem Trigger finger, right ring finger M65.341 Active Problem Tinnitus H93.19 Active Problem Seasonal allergic rhinitis due to J30.1 Active pollen Problem Basal cell carcinoma of skin of C44.211 Active unspecified ear and external auricular canal Problem Chronic generalized pain R52 Act devi Problem History of fall Z91.81 Active Problem Osteoarthritis of cervical spine, M47.812 Active unspecified spinal osteoarthritis complication status Problem assisted current use of Z79.01 Act devi anticoagulant Problem Unsteady gait R26.81 Active Medications Medication Code Code Instructions Start End Status Dosage System Date Date Levothyroxine [facility] 58637784665 50 MCG Orally Active 1 tablet Sodium Once a day on an empty stomach in the morning Simvastatin [facility] 10892792384 40 MG Orally Active 1 t ablet Once a day in the evening Warfarin Sodium [facility] 12757708756 2.5 MG Oral Active TK 2 TS PO QD Sotalol HCl [facility] 32844372866 120 MG Oral Active TK 1 T PO Q 12 H Levothyroxine [facility] 94759750904 50 MCG Orally Active 1 tablet Sodium Once a day on an empty stomach in the morning Results No Known Results Summary Purpose eClinicalWorks Submission
--- OUTSIDE RECORDS SUMMARY | 2019-12-24 10:13 | XMS REPORT ---
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
--- OUTSIDE RECORDS SUMMARY | 2019-12-24 10:13 | XMS REPORT ---
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 Problem Unsteady gait R26.81 Active Medications Medication Code Code Instructions Start End Status Dosage System Date Date Levothyroxine [facility] 43016820692 50 MCG Orally Active 1 tablet Sodium Once a day on an empty stomach in the morning Warfarin Sodium [facility] 51428517737 2.5 MG Oral Active TK 2 TS PO QD Levothyroxine [facility] 91567493406 50 MCG Orally Active 1 tablet Sodium Once a day on an empty stomach in the morning Simvastatin [facility] 32843323404 40 MG Orally Active 1 t ablet Once a day in the evening Sotalol HCl [facility] 08657163087 120 MG Oral Active TK 1 T PO Q 12 H Results No Known Results Summary Purpose eClinicalWorks Submission
--- OUTSIDE RECORDS SUMMARY | 2019-12-24 10:14 | XMS REPORT ---
[...] Active unspecified spinal osteoarthritis complication status Problem longterm current use of Z79.01 Act devi anticoagulant Problem Unsteady gait R26.81 Active Medications Medication Code Code Instructions Start End Date Status Dosage System Date Tylenol with NDC 89117039367 300-30 MG Orally December 21, Active 1 tablet Codeine #3 every 6 hrs 2019 as needed Results No Known Results Summary Purpose eClinicalWorks Submission
--- OUTSIDE RECORDS SUMMARY | 2019-12-24 10:14 | XMS REPORT ---
[...] Active unspecified spinal osteoarthritis complication status Problem intermediate current use of Z79.01 Act devi anticoagulant Problem Unsteady gait R26.81 Active Medications No Known Medications Results No Known Results Summary Purpose eClinicalWorks Submission
--- OUTSIDE RECORDS SUMMARY | 2019-12-24 10:14 | XMS REPORT ---
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
--- NOTE | 2019-12-24 10:50 | P.BOP ---
Preoperative diagnosis: right middle finger trigger digit Postoperative diagnosis: same Primary procedure: right middle finger A1 vipul release Sales Team Manager: NONE,NONE Estimated blood loss: <5 cc Specimen: none Findings: see dictation Anesthesia: MAC Implants: none Fluids & blood products: per anesthesia record; TT: 19 mins @ 250 mmHg Transferred to: Recovery Room Condition: Good
[2019-12-24 13:25] VITALS: BP 106/78; O2SAT 98
[2019-12-24 13:45] VITALS: TEMP 97.7
--- NOTE | 2019-12-24 23:55 | OP ---
Date of Procedure: 12/24/2019 Surgeon: Felton Trevizo MD Preoperative Diagnosis: Right hand middle finger trigger digit. Postoperative Diagnosis: Right hand middle finger trigger digit. Procedure Performed: Right hand middle finger A1 vipul release. Anesthesia: Local MAC. Estimated Blood Loss: Less than 5 mL. Complications: None. Implants: None. Fluids: Per Anesthesia record. Tourniquet Time: 19 minutes at 250 mmHg. Indication For Procedure: Rashida is an 84-year-old male presented to my clinic with signs and symptoms consistent with right hand middle finger trigger digit. Patient failed conservative treatment measu res including corticosteroid injections, had significant pain and limited his activities of daily shay ing. I discussed with the patient at length risks and benefits associated with operative and nonoper ative treatment. He expressed understanding and elected to proceed with operative treatment. Description Of Procedure: After informed consent was obtained, the patient was identified in the pre operative holding area. The right hand middle finger was marked. The patient was then brought back to the operating room, transferred to the operating table in supine fashion, placed under local MAC a nesthesia. The right upper extremity was then prepped and draped in usual fashion. A time-out was i nitiated. The correct patient and procedure were confirmed and identified. The patient received his preoperative prophylactic antibiotics. The right upper extremity was exsanguinated using an Esmarch and the tourniquet was inflated to 250 mmHg. Approximately 1.5 cm longitudinal incision was made ce ntered over the A1 vipul of the middle finger. Dissection was then taken down to the flexor tendon sheath using Ragnell. A 15 blade was then used to incise the flexor tendon sheath. It was split bot h proximally and distally over the course of the A1 vipul with some extravasation of inflammatory fl uid. After release, a small section of the flexor tendon sheath was excised using a Ragnell. The fl exor tendons were then brought out through the incision for full excursion of the digit without any t riggering noted. The wound was then irrigated thoroughly with normal saline. Skin was approximated using a 5-0 Prolene. Sterile dressings were applied. Tourniquet was let down. The patient was awak ened and transferred to PACU in stable condition. Postoperative Plan: Rashida will be nonweightbearing of his right upper extremity. He will be working on range of motion exercises. He will follow up in 1 week for reevaluation and suture removal. CV/MODL Voice ID: [id number] Report ID: [id number]
== END 2019-12-24 12:15 | disposition home or self-care (01) ==
LOC: OR 08:55
PROVIDERS: ATTEND Orthopaedic Surgery Sports Medicine
PROC: 0LN70ZZ Release Right Hand Tendon, Open Approach (ICD-10-PCS; principal; 2019-12-24 10:15)
DX: M65.351 Trigger finger, right little finger (principal); Z11.59 Encounter for screening for other viral diseases; E03.9 Hypothyroidism, unspecified; M48.062 Spinal stenosis, lumbar region with neurogenic claudication; G89.29 Other chronic pain; Z95.0 Presence of cardiac pacemaker; Z79.01 Long term (current) use of anticoagulants; Z85.828 Personal history of other malignant neoplasm of skin; Z90.49 Acquired absence of other specified parts of digestive tract; Z80.42 Family history of malignant neoplasm of prostate
CPT/HCPCS: 85025; 80048; 36415; 85610; 85730; 71046; 26055; J2704 ×2; J3010; J0690; J7120

== ENCOUNTER 2020-06-12 15:55 | Emergency (ER) | payer OTHER, BC ==
--- OUTSIDE RECORDS SUMMARY | 2020-06-12 16:03 | XMS REPORT | Clinical Summary ---
:1935 Author Organization [facility] Address [address] [place] [address] Care Team Providers Name Role Phone Sheba Washington Primary Care Provider Allergies No Known Active Allergies Medications Medication Sig Dispensed Refills Start Date End Date Status warfarin (COUMADIN) Take 3 mg by 0 Active 3 MG tablet mouth daily. Take 3.5mg a day simvastatin (ZOCOR) Take 40 mg by 0 Active 40 mg tablet mouth nightly. Take one a day sotaloL (BETAPACE) Take 80 mg by 0 Active 80 MG tablet mouth 2 (two) times a day. Two a day levothyroxine Take 50 mcg 0 Acti ve (SYNTHROID) 50 mcg by mouth tablet daily. One a day cyclobenzaprine Take 1 tablet 30 tablet 0 06/01/2020 Active (FLEXERIL) 10 mg (10 mg total) tablet by mouth 2 (two) times a day as needed for muscle spasms. traMADoL (ULTRAM) 50 Take 2 60 tablet 0 06/05/2020 06/20/20 Active mg tablets (100 20 tabletIndications: mg total) by acute pain mouth every 6 (six) hours as needed for moderate pain or severe pain for up to 15 days .acute pain. traMADoL (ULTRAM) 50 Take 1 tablet 40 tablet 0 05/03/202004/28 Discontinued mg (50 mg total) 20 tabletIndications: by mouth acute pain every 6 (six) hours as needed for moderate pain for up to 30 days .acute pain. traMADoL (ULTRAM) 50 Take 1 tablet 40 tablet 0 05/22/202020 Discontinued mg (50 mg total) 20 tabletIndications: by mouth chronic pain every 6 (six) hours as needed for moderate pain for up to 30 days .chronic pain. cyclobenzaprine Take 1 tablet 30 tablet 1 06/01/2020 06/01/20 Discontinued (FLEXERIL) 10 mg (10 mg total) 20 (Reorder) tablet by mouth every 8 (eight) hours as needed for muscle spasms. 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/2020 Dysthymia 05/03/2020 Hyperlipidemia 05/03/2020 Hypothyroidism 05/03/2020 nursing home (current) use of anticoagulants 05/03/2020 Atrial fibrillation 10/11/2013 Cholecystitis 10/11/2013 Encounters Date Type Specialty Care Team Description 06/05/2020 Refill Sports Medicine Braunreiter, Acute midlin e low back pain without sciatica; Carson Stephens MD Compression fra cture of L1 lumbar vertebra, closed, initial encounter ([facility]) 06/02/2020 Office Visit Sports Medicine Braunreiter, Acute midlin e low back pain without sciatica (Primary Dx); Carson Stephens MD Compression fra cture of L1 lumbar vertebra, closed, initial encounter ([facility]) 06/01/2020 Refill Sports Medicine Sebas Abel MA 06/01/2020 Refill Sports Medicine Sebas Abel MA 06/01/2020 Travel 05/21/2020 Refill Sports Medicine Braunreiter, Acute midlin e low back pain without sciatica; Carson Stephens MD Compression fra cture of L1 lumbar vertebra, closed, initial encounter ([facility]) 05/10/2020 Hospital Encounter Radiology Carson Cordero MD 05/10/2020 Office Visit Sports Medicine Braunreiter, Acute midlin e low back pain without sciatica (Primary Dx); Carson Stephens MD Compression fra cture of L1 lumbar vertebra, closed, initial encounter ([facility]) 05/10/2020 Travel 05/08/2020 Travel 05/05/2020 Telephone Orthopedic Surgery Deng Feliciano MA 05/04/2020 Orders Only Sports Medicine Braunreiter, Acute midlin e low back pain without sciatica (Primary Dx); Carson Stephens MD Compression fra cture of L1 lumbar vertebra, closed, initial encounter ([facility]) 05/04/2020 Telephone Sports Medicine Sebas Abel MA 05/03/2020 Office Visit Sports Medicine Anil Cordero e low back pain without sciatica (Primary Dx); Carson Stephens MD Compression fra cture of L1 lumbar vertebra, closed, initial encounter ([facility]) 05/03/2020 Travel 04/26/2020 Travel after 06/12/2019 Surgical History Surgery Date Site/Laterality Comments ABDOMINAL SURGERY [place] EYE SURGERY Cataracts JOINT REPLACEMENT right hip repl acement 2013 JOINT REPLACEMENT left hip repla cment 2011 PROSTATE SURGERY 07/28/2002 - 07/27/2003 CARDIAC SURGERY 07/28/2013 - 07/27/2014 pacemaker GALLBLADDER SURGERY 07/28/2013 - 07/27/2014 ORTHOPEDIC SURGERY Hip replacement ORTHOPEDIC SURGERY trigger finger 2019 Medical History Medical History Date Comments Arthritis Heart disease atrial fibrilation Incontinence Tinnitus Vertigo Begnign positional v ertigo 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 05/03/2020 Family History Medical History Relation Name Comments Cancer Father Father Prostate Heart attack Father Father Relation Name Status Comments Father Father Social History Tobacco Use Types Packs/Day Years Used Date Never Smoker 0 0 Smokeless Tobacco: Never Used Alcohol Use Drinks/Week oz/Week Comments Yes 0 Glasses of wine 100.0 0 Cans of beer 100 Shots of liquor 0 Standard drinks or equivalent Sex Assigned at Date Recorded Not on file COVID-19 Exposure Response Date Recorded In the last month, have you been in contact with No / Unsure 06/01/2020 3: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 Last Filed Vital Signs Vital Sign Reading Time Taken Comments Blood Pressure 129/86 06/02/2020 2:27 PM DRY CELL ASSEMBLY SUPERVISOR Pulse 85 06/02/2020 2:27 PM DRY CELL ASSEMBLY SUPERVISOR Temperature - - Respiratory Rate 20 06/02/2020 2:27 PM DRY CELL ASSEMBLY SUPERVISOR Oxygen Saturation - - Inhaled Oxygen Concentration - - Weight 83.9 kg (185 lb) 06/02/2020 2:27 PM DRY CELL ASSEMBLY SUPERVISOR Height 177.8 cm (5' 10") 05/10/2020 1:10 PM CDT Body Mass Index 26.54 05/10/2020 1:10 PM CDT Plan of Treatment Date Type Specialty Care Team Description 06/30/2020 [place] [address] [place], [place] [address] Health Maintenance Due Date Last Done Comments SHINGLES VACCINES (#1) 1986 65+ PNEUMOCOCCAL VACCINE (1 of 1 - PPSV23) 2001 INFLUENZA VACCINE 02/26/2020 Procedures Procedure Name Priority Date/Time Associated Diagnosis Comme nts XR LUMBAR SPINE Routine 06/02/2020 3:44 PM Acute midline low Results for this COMPLETE 4+ VW DRY CELL ASSEMBLY SUPERVISOR back pain without procedur e are in sciatica the results Compression fracture section . of L1 lumbar vertebra, closed, initial encounter (HCC) CT SPINE EXTERNAL Routine 05/10/2020 4:05 PM Res ults for this STUDY CDT procedure are i n the results section. XR LUMBAR SPINE Routine 05/03/2020 10:39 AM Acute midline low Results for this COMPLETE 4+ VW CDT back pain without procedur e are in sciatica the results section. after 06/12/2019 Results XR Lumbar Spine Complete 4+ Vw (06/02/2020 3:44 PM DRY CELL ASSEMBLY SUPERVISOR)Only the most recent of2 resultswithin the time period is included. Specimen Narrative Performed At This result has an attachment that is no t available. 4 view x-ray series of the lumbar spine demonstrate previously diagnosed [facility] spondylosis/scoliosis, and no interval change in appea kae of the L1 compression fracture. Performing Organization Address City/[facility]/ZIP [facility] Phon e Number [facility] [address] [place] [address] CT Spine External Study (05/10/2020 4:05 PM CDT) Specimen Narrative Performed At This exam was not acquired at a [facility] t facility and has not been [facility] interpreted by a [facility] Provider. T he exam was imported into our imaging system. Performing Organization Address City/State/[facility] Phon e Number [facility] [address] [place] [address] after 06/12/2019 Insurance Payer Benefit Plan / Subscriber ID Effective Phone Address T ype Group Dates MEDICARE MEDICARE PART A [id number] 2001-Pres [place], [place] Medicare AND B ent BCBS COMMERCIAL BCBS MEDICARE [id number] 2001-Pres Commercial SUPPLEMENT ent Guarantor Name Account Type Relation to Date of Phone Billing Address Patient Rashida Blank Personal/Family Self 1935 [address] [place] [address] Advance Directives For more information, please contact: [phone] Type Date Recorded Patient 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
--- OUTSIDE RECORDS SUMMARY | 2020-06-12 16:04 | XMS REPORT | Continuity of Care Document ---
:1935 Author Organization [facility] t Address [address] [place] [address] Care Team Providers Name Role Phone Sheba Washington DO Primary Care Physician Gil PAK, A. Attending Clinician Colten ZAPATA Attending Clinician Unavailable Diego COMMERCIAL PROJECT MANAGER, F Attending Clinician Unavailable Kimberley PT Attending Clinician Unavailable Doctor Unassigned, Name Attending Clinician Unavailable Braden ZAPATA Attending Clinician Unavailable Payers Payer Name Policy Type Policy Effective Date Expiration Date Sour ce Number MEDICAREMEDICARE PART [id number] 2001 [place] A AND 00:00:00 [facility] [id number] [place] [facility] [place] [id number] 2001 [place] MEDICARE 3 00:00:00 [facility] [id number] 2001-PresentComm ercial Problems Condition Condition Condition Status Onset Resolution Last Treating Co mments Source Name Details Category Date Date Treatment Clinician Date Acquired Acquired Disease Active 2019-07 [place] trigger trigger 0-07 Methodi finger finger 00:00: st 00 Allergic Allergic Disease Active 2019-07 [place] rhinitis rhinitis 0-07 Method i 00:00: st 00 Basal cell Basal cell Disease Active 2019-07 [place] carcinoma carcinoma 0-07 Meth cayetano of auricle of auricle 00:00: st of ear of ear 00 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 0-07 Me thodi s without s without 00:00: st myelopathy myelopathy 00 Diastasis Diastasis Disease Active 2019-07 Lidia ston of muscle of muscle 0-07 Meth cayetano 00:00: st 00 Dysthymia Dysthymia Disease Active 2019-07 Lidia ston 0-07 Methodi 00:00: st 00 Hyperlipid Hyperlipid Disease Active 2019-07 H priyanka emia emia 0-07 Methodi 00:00: st 00 Hypothyroi Hypothyroi Disease Active 2019-07 H priyanka dism dism 0-07 Methodi 00:00: st 00 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 Family History Family Member Diagnosis Comments Start Date Stop Date Source Natural father Cancer [facility] Natural father Heart attack [facility] Social History Social Habit Start Date Stop Date Quantity Comments Source Sex Assigned At [facility] Tobacco use and 2020-06-02 2020-06-02 [facility]:00 00:00:00 Alcohol intake 2020-06-02 2020-06-02 Current drinker [facility] [facility] 00:00:00 00:00:00 of alcohol (finding) Smoking Status Start Date Stop Date Source Never smoker [facility] Medications Ordered Filled Start Stop Current Ordering Indication Dosage Frequency Signature Comments Components Source Medication Medication Date Date Medication? Clinician (SIG) Name Name traMADoL 2019-07 2020- Yes acute pain 100mg Q6H Take 2 [facility] (ULTRAM) 50 08-0524 tablets Meth c[place] mg tablet 00:00: 23:59 ([address] 00 :00 total) by mouth every 6 (six) hours as needed for moderate pain or severe pain for up to 15 days .acute pain. cyclobenzap 2019-07 Yes 10mg Q.5D Take 1 [place] rine 1-05 tablet (10 Methodi (FLEXERIL) 00:00: mg total) st 10 mg 00 by mouth 2 tablet (two) times a day as needed for muscle spasms. cyclobenzap 2019-07- No 10mg Q8H Take 1 Lidia ston rine 1-05 11-05 tablet (10 Methodi (FLEXERIL) 00:00: 00:00 mg total) s t 10 mg 00 :00 by mouth tablet every 8 (eight) hours as needed for muscle spasms. traMADoL 2019-07- No chronic 50mg Q6H Take 1 Lidia ston (ULTRAM) 50 0-26 11-09 pain tablet (50 M ethodi mg tablet 00:00: 00:00 mg total) st 00 :00 by mouth every 6 (six) hours as needed for moderate pain for up to 30 days .chronic pain. warfarin 2019-07 Yes 3mg QD Take 3 mg [place] (COUMADIN) 0-14 by mouth Metho di 3 MG tablet 13:15: daily. st 41 Take 3.5mg a day simvastatin 2019-07 Yes 40mg QD Take 40 mg [facility] (ZOCOR) 40 0-14 by mouth Metho di mg tablet 13:15: nightly. st 41 Take one a day sotaloL 2019-07 Yes 80mg Q.5D Take 80 mg [place] (BETAPACE) 0-14 by mouth 2 Met hodi 80 MG 13:15: (two) st tablet 41 times a day. Two a day levothyroxi 2019-07 Yes 50ug QD Take 50 Lidia ston ne 0-14 mcg by Methodi (SYNTHROID) 13:15: mouth st 50 mcg 41 daily. One tablet a day traMADoL 2019-07- No acute pain 50mg Q6H Take 1 Pathak (ULTRAM) 50 0-07 10-26 tablet (50 M ethodi mg tablet 00:00: 00:00 mg total) st 00 :00 by mouth every 6 (six) hours as needed for moderate pain for up to 30 days .acute pain. Tylenol Tylenol Yes Felton [address] [facility] with with 5-27 Trevizo as needed [facility] Code[facility]3 Codeine #3 00:00: M emoria 00 l [facility] Sotalol HCl Sotalol HCl Yes [place] TK [address] [facility] Trevizo Q 12 H [facility] Warfarin Warfarin Yes Felton TK [address] [facility] Sodium Sodium Trevizo QD [facility] Simvastatin Simvastatin Yes Felton [address] [facility] Trevizo in the [facility] Levothyroxi Levothyroxi Yes Felton [address] [facility] ne Sodium ne Sodium Trevizo on an Luke s - empty Memoria stomach in l the Outpati morning ent Clinics Betapace Betapace Yes [place] [address] [facility] Trevizo [facility] Sulfamethox Sulfamethox Yes Felton not [facility] azole-Trime azole-Trime Trevizo defined [facility] thoprim thoprim [facility] Tramadol Tramadol Yes [place] not [facility] HCl HCl Trevizo defined [facility] Cephalexin Cephalexin Yes [place] not [facility] Trevizo defined [facility] Acetaminoph Acetaminoph Yes [place] not [facility] en-Codeine en-Codeine Trevizo defined [facility]3 [facility] Tizanidine Tizanidine Yes Fel[place] not [facility] HCl HCl Trevizo defined [facility] Fluzone Fluzone Yes [place]ton not [facility] High-Dose High-Dose Trevizo defined Theodora kes - [facility] Vital Signs Vital Name Observation Time Observation Value Comments Source Systolic blood 2020-06-02 14:27:00 129 mm[Hg] Myles n [facility] pressure Diastolic blood 2020-06-02 14:27:00 86 mm[Hg] Nori on [facility] pressure Heart rate 2020-06-02 14:27:00 85 /min [facility] Respiratory rate 2020-06-02 14:27:00 20 /min Molly bunn [facility] Body weight 2020-06-02 14:27:00 83.915 kg Lawson Escalanteist BMI 2020-06-02 14:27:00 26.54 kg/m2 [place] Escalanteist Body height 2020-05-10 13:10:00 177.8 cm [place] Procedures Procedure Date / Time Performed Performing Clinician Sourc e XR LUMBAR SPINE 2020-06-02 15:44:10 Jason Cordero COMPLETE 4+ VW CT SPINE EXTERNAL STUDY 2020-05-10 16:05:52 Jason Cordero XR LUMBAR SPINE 2020-05-03 10:39:45 Jason Cordero COMPLETE 4+ VW Plan of Care Planned Activity Planned Date Details Comments Source Future Scheduled 2020-02-26 INFLUENZA VACCINE Myles jha [facility] Test 00:00:00 [code = INFLUENZA VACCINE] Future Scheduled 2001 65+ PNEUMOCOCCAL [facility] Test 00:00:00 VACCINE (1 of 1 - PPSV23) [code = 65+ PNEUMOCOCCAL VACCINE (1 of 1 - PPSV23)] Future Scheduled 1986 SHINGLES VACCINES (#1) [place] [facility] Test 00:00:00 [code = SHINGLES VACCINES (#1)] Encounters Start End Encounter Admission Attending Care Care Encounter Source Date/Time Date/Time Type Type Clinicians Facility Department ID 2020-06-06 2020-06-06 Outpatient [facility] [id number] [facility] 00:00:00 00:00:00 [facility] Clin[facility] 2020-06-02 2020-06-02 Out[place] [id number] [place] 00:00:00 00:00:00 , JASON [address] 2020-06-02 2020-06-02 Outpatient [facility] [id number] [place] 00:00:00 00:00:00 , JASON [address] 2020-05-30 2020-05-30 Ancillary LEIGHANN Cortez [id number] 15:32:51 16:12:51 Visit Fam Scott [id number] [place] [id number] Profsonja [id number] nal 179 [facility] 2020-05-25 2020-05-25 Ancillary LEIGHANN Cortez [id number] 09:07:19 09:47:19 Visit Fam Scott [id number] [place] [id number] Profsonja [id number] nal 179 [facility] 2020-05-23 2020-05-23 Ancillary LEIGHANN Cortez [id number] 15:31:51 16:11:51 Visit Fam Scott [id number] [place] [id number] Profsonja [id number] nal 179 [facility] 2020-05-17 2020-05-17 Ancillary Kimberley, NYKORI [id number] 08:27:26 09:27:26 Visit Aaliyah Scott [id number] [place] [id number] Professmacarena [id number] nal 179 [facility] 2020-05-17 2020-05-17 Orders Doctor AMOR [id number] 00:00:00 00:00:00 Only Unassigned, MIT[place] [id number] [place] [facility] [id number] [facility] 2020-05-10 2020-05-10 Outpatient [place] [id number] [place] 00:00:00 00:00:00 , JASON 708 Method i 2020-05-10 2020-05-10 Outpatient [place] [id number] [place] 00:00:00 00:00:00 , JASON 587 Method i 2020-05-03 2020-05-03 Outpatient [place] [id number] [place] 00:00:00 00:00:00 , JASON 732 Method i 2020-05-03 2020-05-03 Outpatient [place] [id number] [place] 00:00:00 00:00:00 , JASON [address] 2020-04-06 2020-04-06 [facility] [id number] [facility] [address] 13:00:00 13:00:00 t [facility] 2020-02-03 2020-02-03 [facility] [id number] 13:30:00 13:30:00 t [facility] 2020-02-03 2020-02-03 [facility] [id number] 11:00:00 11:00:00 t [employer] [facility] 2020-01-04 2020-01-04 [facility] [id number] 13:40:00 13:40:00 t [employer] [facility] 2019-12-30 2019-12-30 [facility] [id number] 08:30:00 08:30:00 t [facility] 2019-12-22 2019-12-22 [facility] [id number] 09:19:00 09:19:00 t [facility] 2019-12-17 2019-12-17 [facility] [id number] 11:13:00 11:13:00 t [facility] ent [facility] 2019-12-09 2019-12-09 [facility] [id number] 10:51:00 10:51:00 t [facility] ent [facility] 2019-11-25 2019-11-25 [facility] [id number] 10:30:00 10:30:00 t [facility] ent [facility] 2019-10-07 2019-10-07 [facility] [id number] 11:28:00 11:28:00 t [facility] ent [facility] 2019-10-07 2019-10-07 [facility] [id number] 10:45:00 10:45:00 t [facility] 2019-08-23 2019-08-23 [facility] [id number] 09:21:00 09:21:00 t [employer] [facility] Clin[facility] 2019-08-06 2019-08-06 [facility] [id number] 10:00:00 10:00:00 t [facility] ent Clinics 2018-02-02 2018-02-02 [facility] [id number] 11:15:00 11:15:00 t [employer] [facility] 2018-01-27 2018-01-27 [facility] [id number] 11:15:00 11:15:00 t [employer] [facility] 2018-01-22 2018-01-22 [facility] [id number] 09:44:00 09:44:00 t [employer] [facility] 2018-01-19 2018-01-19 [facility] [id number] 14:00:00 14:00:00 t [employer] [facility] 2018-01-19 2018-01-19 [facility] [id number] 08:33:00 08:33:00 t [employer] [facility] 2017-12-18 2017-12-18 [facility] [id number] 11:00:00 11:00:00 t [employer] [facility] 2017-11-27 2017-11-27 [facility] [id number] 14:30:00 14:30:00 t [employer] [facility] Results Test Description Test Time Test Comments Results Result [facility] e Comments CT Spine External 2020-05-10 This exam was not [facility] Study 16:05:56 acquired at a [facility] facility and has not been interpreted by a [facility] Provider. The exam was imported into our imaging system.
--- OUTSIDE RECORDS SUMMARY | 2020-06-12 16:04 | XMS REPORT ---
:1935 Author Organization [employer] Care Team Providers Name Role Phone Felton Trevizo Provider Role Unavailable Allergies, Adverse Reactions, Alerts Substance Reaction Event Type N.K.D.A. Info Not Available Non Drug Allergy Problems Problem Type Condition Code Onset Dates Condition Statu s Assessment Pain in joint of left hand M25.542 A ctive Assessment Trigger finger, right ring finger M65.341 Active Assessment Pain in joint of right hand M25.541 Active Assessment Trigger middle finger of left hand M65.332 Active Problem Hyperlipidemia, unspecified E78.5 Active hyperlipidemia [...] finger M65.341 Active Problem Tinnitus H93.19 Active Assessment Pain, joint, hand, right M25.541 Act devi Problem Seasonal allergic rhinitis due to J30.1 Active pollen Problem Basal cell carcinoma of skin of C44.211 Active unspecified ear and external auricular canal Problem Chronic generalized pain R52 Act devi Problem History of fall Z91.81 Active Problem Osteoarthritis of cervical spine, M47.812 Active unspecified spinal osteoarthritis complication status 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 Problem Unsteady gait R26.81 Active Medications Medication Code Code Instructions Start End Status Dosage System Date Date Sulfamethoxazole [facility] [address]-31 Active n ot -Trimethoprim defined Betapace ND 96025934455 80 MG Orally Active 1 tabl et every 12 hrs Tramadol HCl NDC 0 Active not defined Cephalexin [facility] [address]-73 Active not defined Tylenol with [facility] 47012351178 300-30 MG December 21, Active 1 tab let Codeine #3 Orally every 6 2020 as nee ded hrs Acetaminophen-Co [facility] [address]-20 Active n ot deine #3 defined Simvastatin ND 34774405144 40 MG Orally Active 1 t ablet Once a day in the evening Tizanidine HCl [facility] [address]-82 Active not defined Warfarin Sodium [facility] 58635588640 2.5 MG Oral Active TK 2 TS PO QD Fluzone NDC 0 Active not High-Dose defined Sotalol HCl ND 78895959845 120 MG Oral Active TK 1 T PO Q 12 H Levothyroxine ND 03592992991 50 MCG Orally Active 1 tablet Sodium Once a day on an empty stomach in the morning Results No Known Results Summary Purpose [employer] Submission
--- OUTSIDE RECORDS SUMMARY | 2020-06-12 16:04 | XMS REPORT ---
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 Problem Hypothyroidism E03.9 Active 70097542 Problem Urinary R32 Active 008491109 incontinence, unspecified type Problem Chronic a-fib I48.2 Active 32334454 Problem Periumbilical K42.9 Active 656669251 hernia Problem Muscle spasm of M62.830 Active 358111853 back Problem Pleural effusion J90 Active 59819404 on left Problem Tinnitus H93.19 Active 77510653 Problem Chronic R52 Active 91503047 generalized pain Problem longterm current Z79.01 Active 810243867 use of anticoagulant Problem Seasonal allergic J30.1 Active 40419112 rhinitis due to pollen Problem History of fall Z91.81 Active 865970912 Problem Unsteady gait R26.81 Active 63411815 Problem Contusion of S20.222A Active 20232987 upper back, left, initial encounter Problem 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 683438571 cervical spine, unspecified spinal osteoarthritis complication status Problem Closed fracture S22.42XD Active 66161831 of multiple ribs of left side with routine healing, subsequent encounter Problem Atelectasis J98.11 Active 65484031 Problem Low back pain M54.5 Active 021621018 Problem Pain, joint, M25.541 Active [id number] hand, right Problem Separation of M62.00 Active 602942910 muscle (nontraumatic), unspecified site Problem Trigger middle M65.331 Active 550794195 finger of right hand Problem Lymphadenopathy R59.1 Active 48150489 Problem Basal cell C44.211 Active 258471134 carcinoma 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 Problem Other chronic G89.29 Active 68442969 pain Problem Trigger finger, M65.341 Active 729879419 right ring finger Problem Pain of right M79.641 Active 439793105147444 hand Problem Allergic J30.9 Active 20962291 rhinitis, unspecified seasonality, unspecified trigger ALLERGIES No Known Allergies ENCOUNTERS from 1935 to 2020-06-07 Encounter Location Date Provider Diagnosis [facility] [address] May, 2020 Felton Trevizo Trig evi [facility] [address], finger of left hand [facility] [address] M65.332 ; Pain in joint of right hand M25.541 ; Pain in joint of left h and M25.542 and Tri gger finger, right r ing finger M65.341 IMMUNIZATIONS Vaccine Route Administration Date Status Depo-Medrol (Methylprednisolone) 40mg Unknown February 02 020 Administered LIDOCAINE HCL 20MG/ML Unknown Mar 02, 2018 Administer ed Betamethasone Sodium Phosphate Unknown Aug 06, 2019 A dministered Betamethasone Sodium Phosphate Unknown Mar 02, 2018 A dministered Depo Medrol (40mg) Unknown January 26, 2019 Administered LIDOCAINE HCL 10MG/ML Unknown February 03, 2020 Administer ed LIDOCAINE HCL 10MG/ML Unknown Aug 06, 2019 Administer ed LIDOCAINE HCL 10MG/ML Unknown January 26, 2019 Administer ed SOCIAL HISTORY Tobacco Use: Social History Observation Description Date Details (start date - stop date) Never Smoker Sex Assigned At : Social History Observation Description Sex Assigned At Unknown PHQ9 Question Answer Notes Little interest or pleasure in doing things Not at all Feeling down, depressed, or hopeless Not at all Trouble falling or staying asleep or sleeping too much Not a t all Feeling tired or having little energy Not at all Poor appetite or overeating Not at all Feeling bad about yourself, or that you are a failure, or goetz ve let Not at all yourself or your family down Trouble concentrating on things, such as reading the newspap er or Not at all watching television Moving or speaking so slowly that other people could have no ticed; Not at all or the opposite, being so fidgety or restless that you have been moving around a lot more than usual Total Score 0 Thoughts that you would be better off or of hurting you rself in Not at all some way Alcohol Screen Question Answer Notes Did you have a drink containing alcohol in the past year? No Points 0 Interpretation Negative Tobacco Use/Smoking Question Answer Notes Are you a never smoker Additional Findings: Tobacco Non-User Current non-smoker REASON FOR REFERRAL No Information VITAL SIGNS Height 70.00 in May, Weight 185 lbs May, Temperature 97.5 degrees Fahrenheit May, BMI 26.54 kg/m2 May, Blood pressure systolic 122 mm Hg May, Blood pressure diastolic 78 mm Hg May, MEDICATIONS Medication SIG (Take, Route, Start Date End Date Status Frequency, Duration) Acetaminophen-Codeine #3 Not -Taking Warfarin Sodium 2.5 MG TK 2 TS PO QD Oral for Active 30 Sotalol HCl 120 MG TK 1 T PO Q 12 H Oral Active for 90 Fluzone High-Dose Not-Taking Tylenol with Codeine #3 1 tablet as needed November, Active 300-30 MG Orally every 6 hrs Cyclobenzaprine HCl Active Tramadol HCl Active Cephalexin Not-Taking Betapace 80 MG 1 tablet Orally every Acti ve 12 hrs Sulfamethoxazole-Trimethoprim Not-Taking Levothyroxine Sodium 50 MCG 1 tablet on an empty Active stomach in the morning Orally Once a day for 90 Simvastatin 40 MG 1 tablet in the evening Active Orally Once a day Tizanidine HCl Not-Taking PROCEDURES No Information RESULTS No Results REASON FOR VISIT FU ARTUR. 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 Medical History Periumbilical hernia Medical History Separation of muscle (nontraumatic), uns pecified site Surgical History pacemaker 2013 Surgical History gallbladder 2013 Surgical History cholecystectomy Surgical History lt hip replacement 2011 Surgical History rt hip replacement 2013 Surgical History prostate surgery( radical s/p cancer) 20 03 Surgical History sling for UI 2003 Surgical History cataract 2002 Surgical History DVT (L) 2008 Surgical History uretheral sling 2012 Surgical History excision of male uretheral sling 2012 Surgical History right hand/ring finger A1 vipul release 2017 Surgical History right hand middle finger A1 vipul relea se 12/24/19 Goals Section No Information Health Concerns No Information MEDICAL EQUIPMENT No Information MENTAL STATUS No Information FUNCTIONAL STATUS No Information ASSESSMENTS Encounter Date Diagnosis Notes May, Pain in joint of left hand (ICD-10 - M25 .542) May, Pain in joint of right hand (ICD-10 - M2 5.541) May, Trigger finger, right ring finger (ICD-1 0 - M65.341) May, Trigger middle finger of left hand (ICD- 10 - M65.332) PLAN OF TREATMENT Treatment Notes Assessment Notes Clinical Notes Trigger middle finger of left hand -continue with conservati ve treatment measures-f/u in 2 months for reevaluation; if continued pain will discuss repeat injection Trigger finger, right ring finger -progress with activities as tolerated-f/u as needed Next Appt Details 2 Months Reason: Provider Name:Nina Washington, 2020-06-28 10:0 0:00 AM, [address], [address], [place], [address], Provider Name:Felton Trevizo 2020-08-03 0 1:00:00 PM, [address], [address], [place], [address], Provider Name:Nina Washington, 2021-02-07 11:0 0:00 AM, [address], [place], [address], Insurance Providers Payer Name Payer Address Payer Insured Patient Coverage Cover age Phone Name Relationship to Start Date End Date Insured [facility] [id number] [phone] Rosamaria,Onto self [address] [address] MEDICARE Attn Part B [id number] Rosamaria,Onto self 2000 [employer] Claims [phone] [facility] [address]
[2020-06-12] MEDS ORDERED: MORPHINE 4 MG/ML SYR ONE ×2 (20:17→21:40)
[2020-06-12] MEDS ORDERED: ONDANSETRON 4 MG (ODT) TAB ONE (20:18)
--- NOTE | 2020-06-12 20:43 | RAD REPORT ---
EXAM DESCRIPTION: US - Extrem Venous W Compress Christopher - 06/12/2020 8:35 pm CLINICAL HISTORY: SWELLING Bilateral leg edema and swelling. COMPARISON: Extremity Nonvascular Complete dated 01/17/2017 TECHNIQUE: Real-time sonographic interrogation of the left and right lower extremity deep venous sys tems was performed. FINDINGS: Normal compressibility, flow augmentation, phasic flow and spontaneous flow is identified in both the left and right lower extremity deep venous systems. IMPRESSION: No sonographic evidence of left or right lower extremity deep venous thrombosis.
--- NOTE | 2020-06-12 21:21 | EDPHYS ---
Physician Documentation [facility] Name: Rashida Blank Age: 84 yrs Sex: Male : 1935 Arrival Date: 06/12/2020 Time: 15:59 Bed 24 Private MD: Nina Washington ED Physician Omid Garcia HPI: 06/12 19:30 This 84 yrs old Male presents to ER via Wheelchair with complaints of Leg pm1 Swelling, Back Pain. 19:30 The patient presents with pain that is chronic, with no known mechanism of injury. The pm1 symptoms are located in the low back. Onset: The symptoms/episode began/occurred many years ago. The pain does not radiate. Associated signs and symptoms: Pertinent positives:. Patient presents to the ER with complaints of bilateral lower extremity swelling. 3 weeks ago right lower leg swelling and then 1 week ago left lower leg swelling. No chest pain or shortness of breath present. Patient also has chronic low back pain for many years. Historical: - Allergies: 16:18 No Known Allergies; ll1 - PMHx: 16:18 Atrial Fib; Hypothyroidism; ll1 - PSHx: 16:18 pacemaker; brendan hip replacement; prostate sx; Cholecystectomy; ll1 - Immunization history:: Flu vaccine is up to date. - Social history:: Smoking status: Patient denies any tobacco usage or history of. ROS: 19:30 Constitutional: Negative for fever, chills, and weight loss, Neck: Negative for injury, pm1 pain, and swelling, Respiratory: Negative for shortness of breath, cough, wheezing, and pleuritic chest pain, Abdomen/GI: Negative for abdominal pain, nausea, vomiting, diarrhea, and constipation, MS/Extremity: Negative for injury and deformity. 19:30 Skin: Negative for injury, rash, and discoloration, Neuro: Negative for headache, weakness, numbness, tingling, and seizure. 19:30 Cardiovascular: Positive for edema, Negative for chest pain, palpitations. 19:30 Back: Positive for chronic low back pain. Exam: 19:30 Constitutional: This is a well developed, well nourished patient who is awake, alert, pm1 and in no acute distress. Head/Face: Normocephalic, atraumatic. 19:30 MS/ Extremity: Pulses equal, no cyanosis. Neurovascular intact. Full, normal range of motion. 19:30 Cardiovascular: Exam negative for acute changes, Rate: normal, Rhythm: regular, Pulses: no pulse deficits are appreciated, Edema: pedal edema, that is mild. 19:30 Respiratory: Exam negative for acute changes, respiratory distress, shortness of breath. 19:30 Abdomen/GI: Exam negative for acute changes, Inspection: abdomen appears normal, Palpation: abdomen is soft and non-tender, in all quadrants. 19:30 Back: vertebral tenderness, is appreciated at lumbar spine. 19:30 Neuro: Exam negative for acute changes, Orientation: is normal, Mentation: is normal, Motor: is normal, moves all fours. Vital Signs: 16:13 BP 132 / 93; Pulse 88; Resp 17; Temp 97.9; Pulse Ox 95% ; Weight 83.91 kg; Height 5 ft. ll1 10 in. (177.80 cm); Pain 10/10; 19:20 BP 138 / 97; Pulse 90; Resp 15 S; Pulse Ox 100% on R/A; ca1 20:30 BP 136 / 98; Pulse 90; Resp 15 S; Pulse Ox 100% on R/A; ca1 21:30 BP 147 / 98; Pulse 85; Resp 16 S; Pulse Ox 100% on R/A; ca1 22:30 BP 138 / 89; Pulse 91; Resp 16 S; Pulse Ox 100% on R/A; ca1 16:13 Body Mass Index 26.54 (83.91 kg, 177.80 cm) ll1 MDM: 19:11 Patient medically screened. [facility] 21:19 Data reviewed: vital signs. Data interpreted: Pulse oximetry: on room air is 100 %. pm1 Interpretation: normal. Counseling: I had a detailed discussion with the patient and/or guardian regarding: the historical points, exam findings, and any diagnostic results supporting the discharge/admit diagnosis, radiology results, the need for outpatient follow up, to return to the emergency department if symptoms worsen or persist or if there are any questions or concerns that arise at home. 06/12 19:30 Order name: Extrem Venous W Compression Brendan US; Complete Time: 20:55 pm1 Administered Medications: 20:05 Drug: Ondansetron (Zofran) 4 mg Route: PO; ca1 21:00 Follow up: Response: No adverse reaction ca1 20:11 Drug: morphine 4 mg {Note: rass 0.} Route: IM; Site: right deltoid; ca1 21:20 Follow up: Response: No adverse reaction; Pain is unchanged, physician notified; RASS: ca1 Alert and Calm (0) 21:30 Drug: morphine 4 mg Route: IM; Site: left deltoid; ca1 22:30 Follow up: Response: No adverse reaction; Pain is decreased; RASS: Alert and Calm (0) ca1 Disposition: 06/13 08:30 Co-signature as Attending Physician, Omid Garcia MD I agree with the assessment and shea plan of care. Disposition: 06/12/20 21:21 Discharged to Home. Impression: Edema, unspecified - bialteral lower extermities, Low back pain. - Condition is Stable. - Discharge Instructions: Chronic Back Pain, Peripheral Edema. - Prescriptions for Tylenol- Codeine #3 300-30 mg Oral Tablet - take 2 tablets by ORAL route every 6 hours As needed; 20 tablet. - Medication Reconciliation Form, Thank You Letter, Antibiotic Education, Prescription Opioid Use form. - Follow up: Emergency Department; When: As needed; Reason: Worsening of condition. Follow up: Private Physician; When: 2 - 3 days; Reason: Recheck today's complaints, Continuance of care, Re-evaluation by your physician. - Problem is new. - Symptoms have improved. Signatures: Dispatcher [employer] EDOmid Fernandez MD MD cha Marinas, Patrick, PROCESS ENGINEERING INTERN PROCESS ENGINEERING INTERN pm1 Lucero Lee RN RN ca1 Quentin Roper RN RN ll1 Corrections: (The following items were deleted from the chart) 06/12 22:48 21:21 06/12/2020 21:21 Discharged to Home. Impression: Edema, unspecified - bialteral ca1 lower extermitiesLow back pain. Condition is Stable. Forms are Medication Reconciliation Form, Thank You Letter, Antibiotic Education, Prescription Opioid Use. Follow up: Emergency Department; When: As needed; Reason: Worsening of condition. Follow up: Private Physician; When: 2 - 3 days; Reason: Recheck today's complaints, Continuance of care, Re-evaluation by your physician. Problem is new. Symptoms have improved. pm1
--- NOTE | 2020-06-12 21:21 | ER ---
Nurse's Notes [facility] Name: Rashida Blank Age: 84 yrs Sex: Male : 1935 Arrival Date: 06/12/2020 Time: 15:59 Bed 24 Private MD: Nina Washington Diagnosis: Low back pain;Edema, unspecified-bialteral lower extermities Presentation: 06/12 16:13 Chief complaint: Patient states: Bilateral leg swelling for 4 days. Back pain/spasms ll1 for over 3 weeks, seeing his doctor for this. Coronavirus screen: Client denies travel out of the [place] in the last 14 days. At this time, the client does not indicate any symptoms associated with coronavirus-19. Ebola Screen: Patient denies travel to an Ebola-affected area in the 21 days before illness onset. Initial Sepsis Screen: Does the patient meet any 2 criteria? No. Patient's initial sepsis screen is negative. Initial Sepsis Screen: Does the patient have a suspected source of infection? No. Patient's initial sepsis screen is negative. Risk Assessment: Do you want to hurt yourself or someone else? Patient reports no desire to harm self or others. Onset of symptoms was May 28, 2020. 16:13 Method Of Arrival: Wheelchair ll1 16:13 Acuity: IVONNE 3 ll1 Historical: - Allergies: 16:18 No Known Allergies; ll1 - PMHx: 16:18 Atrial Fib; Hypothyroidism; ll1 - PSHx: 16:18 pacemaker; brendan hip replacement; prostate sx; Cholecystectomy; ll1 - Immunization history:: Flu vaccine is up to date. - Social history:: Smoking status: Patient denies any tobacco usage or history of. Screenin:20 Abuse screen: Denies threats or abuse. Denies injuries from another. Nutritional ca1 screening: No deficits noted. Tuberculosis screening: No symptoms or risk factors identified. 21:06 Fall Risk Ambulatory Aid- Crutches/Cane/Walker (15 pts). Total Nguyen Fall Scale ca1 indicates No Risk (0-24 pts). Assessment: 19:20 General: Appears in no apparent distress. uncomfortable, Behavior is calm, cooperative, ca1 appropriate for age. Pain: Complains of pain in low back area and mid back area Pain currently is 10 out of 10 on a pain scale. Pain began a week ago. Neuro: Level of Consciousness is awake, alert, obeys commands, Oriented to person, place, time, situation. Cardiovascular: Heart tones S1 S2 present Capillary refill < 3 seconds Patient's skin is warm and dry. Edema pitting to left ankle, left foot, left toes, right ankle, right foot and right toes Rhythm is regular. Respiratory: Airway is patent Respiratory effort is even, unlabored, Respiratory pattern is regular, symmetrical, Breath sounds are clear bilaterally. GI: Abdomen is round non-distended, Bowel sounds present X 4 quads. Abd is soft and non tender X 4 quads. : No signs and/or symptoms were reported regarding the genitourinary system. EENT: No signs and/or symptoms were reported regarding the EENT system. Derm: Skin is intact, is healthy with good turgor, Skin is pink, warm \T\ dry. Musculoskeletal: Circulation, motion, and sensation intact. Capillary refill < 3 seconds. 20:30 Reassessment: Patient appears in no apparent distress at this time. Patient and/or ca1 family updated on plan of care and expected duration. Pain level reassessed. Patient is alert, oriented x 3, equal unlabored respirations, skin warm/dry/pink. 21:30 Reassessment: Patient appears in no apparent distress at this time. Patient and/or ca1 family updated on plan of care and expected duration. Pain level reassessed. Patient is alert, oriented x 3, equal unlabored respirations, skin warm/dry/pink. 22:30 Reassessment: Patient appears in no apparent distress at this time. Patient and/or ca1 family updated on plan of care and expected duration. Pain level reassessed. Patient is alert, oriented x 3, equal unlabored respirations, skin warm/dry/pink. Vital Signs: 16:13 BP 132 / 93; Pulse 88; Resp 17; Temp 97.9; Pulse Ox 95% ; Weight 83.91 kg; Height 5 ft. ll1 10 in. (177.80 cm); Pain 10/10; 19:20 BP 138 / 97; Pulse 90; Resp 15 S; Pulse Ox 100% on R/A; ca1 20:30 BP 136 / 98; Pulse 90; Resp 15 S; Pulse Ox 100% on R/A; ca1 21:30 BP 147 / 98; Pulse 85; Resp 16 S; Pulse Ox 100% on R/A; ca1 22:30 BP 138 / 89; Pulse 91; Resp 16 S; Pulse Ox 100% on R/A; ca1 16:13 Body Mass Index 26.54 (83.91 kg, 177.80 cm) ll1 ED Course: 15:59 Patient arrived in ED. mr 15:59 Nina Washington MD is Private Physician. mr 16:17 Triage completed. ll1 16:18 Arm band placed on. ll1 18:57 Lucero Lee, MAGNUS is Primary Nurse. ca1 18:57 Rigo Womack NP is PHCP. pm1 18:57 Scott Cox MD is Attending Physician. pm1 19:11 Attending Physician role handed off by Scott Cox MD shea 19:11 Omid Garcia MD is Attending Physician. [facility] 19:20 Patient has correct armband on for positive identification. Placed in gown. Bed in low ca1 position. Call light in reach. Side rails up X 1. Pulse ox on. NIBP on. Warm blanket given. 20:36 Extrem Venous W Compression Brendan US In Process Unspecified. EDMS 22:48 No provider procedures requiring assistance completed. Patient did not have IV access ca1 during this emergency room visit. Administered Medications: 20:05 Drug: Ondansetron (Zofran) 4 mg Route: PO; ca1 21:00 Follow up: Response: No adverse reaction ca1 20:11 Drug: morphine 4 mg {Note: rass 0.} Route: IM; Site: right deltoid; ca1 21:20 Follow up: Response: No adverse reaction; Pain is unchanged, physician notified; RASS: ca1 Alert and Calm (0) 21:30 Drug: morphine 4 mg Route: IM; Site: left deltoid; ca1 22:30 Follow up: Response: No adverse reaction; Pain is decreased; RASS: Alert and Calm (0) ca1 Outcome: 21:21 Discharge ordered by MD. pm1 22:48 Discharged to home via wheelchair, with significant other. ca1 22:48 Condition: stable 22:48 Discharge instructions given to patient, Instructed on discharge instructions, follow up and referral plans. no drinking with medication, no driving heavy equipment, medication usage, Demonstrated understanding of instructions, follow-up care, medications, Prescriptions given X 1. 22:48 Patient left the ED. ca1 Signatures: Dispatcher [employer] EDOmid Fernandez MD MD cha Rivera, Lucie mr VuRigo, COFFEE FARMER COFFEE FARMER pm1 Lucero Lee RN RN ca1 Quentin Roper RN RN ll1 Corrections: (The following items were deleted from the chart) 21:06 19:20 Fall Risk IV access (20 points). ca1 ca1
[2020-06-13 07:06] VITALS: TEMP 97.9
[2020-06-13 07:08] VITALS: O2SAT 100
[2020-06-13 07:12] VITALS: BP 138/89
== END 2020-06-12 22:48 | disposition home or self-care (01) ==
LOC: ER 15:55
DX: R60.0 Localized edema (principal); I48.91 Unspecified atrial fibrillation; Z96.643 Presence of artificial hip joint, bilateral; Z95.0 Presence of cardiac pacemaker
CPT/HCPCS: 93970; 96372; 99284

== ENCOUNTER 2020-06-15 09:02 | Emergency (ER) | payer OTHER, BC ==
--- OUTSIDE RECORDS SUMMARY | 2020-06-15 09:32 | XMS REPORT | Continuity of Care Document ---
:1935 Author Organization [facility] t Address [address] [place] [address] Care Team Providers Name Role Phone Sheba Washington DO Primary Care Physician Gil PAK, A. Attending Clinician Colten ZAPATA Attending Clinician Unavailable Diego QM NURSE, F Attending Clinician Unavailable Kimberley PT Attending Clinician Unavailable Doctor Unassigned, Name Attending Clinician Unavailable Braden ZAPATA Attending Clinician Unavailable Payers Payer Name Policy Type Policy Effective Date Expiration Date Sour ce Number MEDICAREMEDICARE PART [id number] 2001 [place] A AND 00:00:00 [facility] [id number] 2002[place] [place] COMMERCIALBCBS [id number] 2001 [place] MEDICARE 3 00:00:00 Sabianist [id number] 2001-PresentComm ercial Problems Condition Condition Condition Status [...] dism dism 0-07 Methodi 00:00: st 00 [facility] 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 Family History Family Member Diagnosis Comments Start Date Stop Date Source Natural father Cancer [facility] Natural father Heart attack [facility] Social History Social Habit Start Date Stop Date Quantity Comments Source Sex Assigned At [facility] Exposure to Not sure [place] Metho dist SARS-CoV-2 (event) Tobacco use and 2020-06-02 2020-06-02 Never used [facility] exposure 00:00:00 00:00:00 Alcohol intake 2020-06-02 2020-06-02 Current drinker [place] [facility]ist 00:00:00 00:00:00 of alcohol (finding) Smoking Status Start Date Stop Date Source Never smoker [facility] t Medications Ordered Filled Start Stop Current Ordering Indication Dosage Frequency Signature Comments Components Source Medication Medication Date Date Medication? Clinician (SIG) Name Name cyclobenzap 2019-07 Yes 10mg Q.5D Take 1 [place] 1-18 tablet (10 Methodi (FLEXERIL) 00:00: mg total) st 10 mg 00 by mouth 2 tablet (two) times a day as needed for muscle spasms. traMADoL 2019-07- Yes acute pain 100mg Q6H Take 2 Pathak (ULTRAM) 50 1- 11-24 tablets Meth cayetano mg tablet 00:00: 23:59 ([address] 00 :00 total) by mouth every 6 (six) hours as needed for moderate pain or severe pain for up to 15 days .acute pain. cyclobenzap 2019-07- No 10mg Q.5D Take 1 Lidia ston rine 1-05 11-18 tablet (10 Methodi (FLEXERIL) 00:00: 00:00 mg total) s t 10 mg 00 :00 by mouth 2 tablet (two) times a [...] Take 1 Lidia ston (ULTRAM) 50 0-26 - pain tablet (50 M ethodi mg tablet [...] Codeine #3 00:00: M [facility] Sotalol HCl Sotalol HCl Yes Felton TK [address] [facility] Q 12 H [facility] Warfarin Warfarin Yes Fel[place] TK [address] [facility] [address] Sodium Sodium Tre[facility]izo QD [facility] Simvastatin Simvastatin Yes Felton [address] [facility] in the [facility] Levothyroxi Levothyroxi Yes Fel[place] [address] ne Sodium ne Sodium Trevizo on an Luke s - empty Memoria stomach in l the Out[facility] morning ent Clinics Betapace Betapace Yes Felton [address] [facility] Sulfamethox Sulfamethox Yes Felton not [facility] azole-Trime azole-Trime Trevizo defined [facility] th[facility]rim [facility]rim [facility] Tramadol Tramadol Yes Fel[place] not [facility] HCl HCl Trevizo defined [facility] Cephalexin Cephalexin Yes [place] not [facility] defined [facility] Acetaminoph Acetaminoph Yes [place] not [facility] en-Codeine en-Codeine Trevizo defined [facility] #3 #3 [facility] Tizanidine Tizanidine Yes Fel[place] not [facility] HCl HCl Trevizo defined [facility] Fluzone Fluzone Yes Felton not [facility] High-Dose High-Dose Trevizo defined Theodora [facility] Vital Signs Vital Name Observation Time Observation Value Comments Source Systolic blood 2020-06-02 14:27:00 129 mm[Hg] Myles jha [facility] pressure Diastolic blood 2020-06-02 14:27:00 86 mm[Hg] Nori plaza Sabianist pressure Heart rate 2020-06-02 14:27:00 85 /min Lawson Ecsalanteist Respiratory rate 2020-06-02 14:27:00 20 /min Molly [place] Body weight 2020-06-02 14:27:00 83.915 kg Lawson [place] BMI 2020-06-02 14:27:00 26.54 kg/m2 Lawson Castle Body height 2020-05-10 13:10:00 177.8 cm Lawson Castle Procedures Procedure Date / Time Performed Performing Clinician Sourc e XR LUMBAR SPINE 2020-06-02 15:44:10 Jason Cordero COMPLETE 4+ VW CT SPINE EXTERNAL STUDY 2020-05-10 16:05:52 Jason Cordero XR LUMBAR SPINE 2020-05-03 10:39:45 Jason Cordero COMPLETE 4+ VW Plan of Care Planned Activity Planned Date Details Comments Source Future Scheduled 2020-02-26 INFLUENZA VACCINE Myles jha [facility] Test 00:00:00 [code = INFLUENZA VACCINE] Future Scheduled 2001 65+ PNEUMOCOCCAL [place] Test 00:00:00 VACCINE (1 of 1 - PPSV23) [code = 65+ PNEUMOCOCCAL VACCINE (1 of 1 - PPSV23)] Future Scheduled 1986 SHINGLES VACCINES (#1) [place] [facility] Test 00:00:00 [code = SHINGLES VACCINES (#1)] Encounters Start End Encounter Admission Attending Care Care Encounter Source Date/Time Date/Time Type Type Clinicians Facility Department ID 2020-06-13 2020-06-13 [id number] 2020-06-12 2020-06-12 [facility] [id number] [facility] 2020-06-06 2020-06-06 [facility] [id number] [facility] 2020-06-02 2020-06-02 Outpatient [facility] [id number] [place] 00:00:00 00:00:00 JASON [address] 2020-06-02 2020-06-02 [id number] [place] 00:00:00 00:00:00 JASON [address] 2020-05-30 2020-05-30 LEIGHANN Scott [id number] 15:32:51 16:12:51 Visit Fam Scott [id number] [place] [id number] Professio [phone] nal [address] [facility] 2020-05-25 2020-05-25 Ancillary Diego [facility] [id number] 09:07:19 09:47:19 Visit Fam cSott [id number] [place] [id number] Professio [id number] nal [address] [facility] 2020-05-23 2020-05-23 Ancillary Diego [facility] [id number] 15:31:51 16:11:51 Visit Fam Scott [id number] [place] [id number] Professio [phone] nal [address] [facility] 2020-05-17 2020-05-17 Ancillary Kimberley [facility] [id number] 08:27:26 09:27:26 Visit Aaliyah Scott [id number] [place] [id number] Professio [id number] [facility] [address] [facility] 2020-05-17 2020-05-17 Orders Doctor AMOR [id number] 00:00:00 00:00:00 Only Unassigned, MITCHELL [id number] [place] [facility] [id number] [facility] 2020-05-10 2020-05-10 [facility] [id number] [place] 00:00:00 00:00:00 , JASON [address] 2020-05-10 2020-05-10 [facility] [id number] [place] 00:00:00 00:00:00 , JASON [address] 2020-05-03 2020-05-03 [facility] [id number] [place] 00:00:00 00:00:00 , JASON [address] 2020-05-03 2020-05-03 [facility] [id number] [place] 00:00:00 00:00:00 , JASON [address] 2020-04-06 2020-04-06 [facility] [id number] 13:00:00 13:00:00 t [facility] 2020-02-03 2020-02-03 [facility] [id number] 13:30:00 13:30:00 t [facility] 2020-02-03 2020-02-03 [facility] [id number] 11:00:00 11:00:00 t [facility] 2020-01-04 2020-01-04 [facility] [id number] 13:40:00 13:40:00 t [facility] 2019-12-30 2019-12-30 [facility] [id number] 08:30:00 08:30:00 t [facility] 2019-12-22 2019-12-22 [facility] [id number] 09:19:00 09:19:00 t [facility] 2019-12-17 2019-12-17 [facility] [id number] 11:13:00 11:13:00 t [facility] 2019-12-09 2019-12-09 [facility] [id number] 10:51:00 10:51:00 t [facility] 2019-11-25 2019-11-25 [facility] [id number] 10:30:00 10:30:00 t [facility] 2019-10-07 2019-10-07 [facility] [id number] 11:28:00 11:28:00 t Bone [facility] 2019-10-07 2019-10-07 [facility] [id number] 10:45:00 10:45:00 t Bone [facility] ent [facility] 2019-08-23 2019-08-23 [facility] [id number] 09:21:00 09:21:[address] [facility] [address] - [address] [facility] ent [facility] 2019-08-06 2019-08-06 [facility] [id number] 10:00:00 10:00:00 t Bone [facility] Clinics 2018-02-02 2018-02-02 [facility] [id number] 11:15:00 11:15:[address] [facility] 2018-01-27 2018-01-27 [facility] [id number] 11:15:00 11:15:[address] [facility] - [facility] 2018-01-22 2018-01-22 [facility] [id number] 09:44:00 09:44:[address] [facility] [address] [facility] 2018-01-19 2018-01-19 [facility] [id number] 14:00:00 14:00:[address] [facility] [address] - [address] [facility] 2018-01-19 2018-01-19 [facility] [id number] 08:33:00 08:33:[address] [facility] [address] [facility] 2017-12-18 2017-12-18 [facility] [id number] 11:00:00 11:00:00 [facility] 2017-11-27 2017-11-27 Outpatient Martha Putnam [id number] 14:30:00 14:30:00 [facility] ent [facility] Results Test Description Test Time Test Comments Results Result [facility] e Comments CT Spine External 2020-05-10 This exam was not Pathak Study 16:05:56 acquired at a Sabianist Sabian[facility] facility and has not been interpreted by a [facility]ian[facility] Provider. The exam was imported into our imaging system.
--- OUTSIDE RECORDS SUMMARY | 2020-06-15 09:32 | XMS REPORT | Clinical Summary ---
:1935 Author Organization [facility] Address [address] [place] [address] Care Team Providers Name Role Phone Sheba [...] by mouth tablet daily. One a day traMADoL (ULTRAM) 50 Take 2 60 tablet 0 06/05/2020 06/20/20 Active mg tablets (100 20 tabletIndications: mg total) by acute pain mouth every 6 (six) hours as needed for moderate pain or severe pain for up to 15 days .acute pain. cyclobenzaprine Take 1 tablet 30 tablet 0 06/14/2020 Active (FLEXERIL) 10 mg (10 mg total) tablet by mouth 2 (two) times a day as needed for muscle spasms. traMADoL (ULTRAM) 50 Take 1 tablet 40 tablet 0 05/03/202004/28 Discontinued mg (50 mg total) 20 tabletIndications: by mouth acute pain every 6 (six) hours as needed for moderate pain for up to 30 days .acute pain. traMADoL (ULTRAM) 50 Take 1 tablet 40 tablet 0 05/22/202004/16 Discontinued mg (50 mg total) 20 tabletIndications: by mouth chronic pain every 6 (six) hours as needed for moderate pain for up to 30 days .chronic pain. cyclobenzaprine Take 1 tablet 30 tablet 1 06/01/2020 06/01/20 Discontinued (FLEXERIL) 10 mg (10 mg total) 20 (Reorder) tablet by mouth every 8 (eight) hours as needed for muscle spasms. cyclobenzaprine Take 1 tablet 30 tablet 0 06/01/2020 06/14/20 Discontinued (FLEXERIL) 10 mg (10 mg total) 20 tablet by mouth 2 (two) times a day as needed for muscle spasms. 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/2020 Dysthymia 05/03/2020 Hyperlipidemia 05/03/2020 Hypothyroidism 05/03/2020 FPC (current) use of anticoagulants 05/03/2020 Atrial fibrillation 10/11/2013 Cholecystitis 10/11/2013 Encounters Date Type Specialty Care Team Description 06/14/2020 Refill Sports Medicine Carson Cordero MD 06/05/2020 Refill Sports Medicine Panchitoiter, Acute midlin e low back pain without sciatica; Carson Stephens MD Compression fra cture of L1 lumbar vertebra, closed, initial encounter (HCC) 06/02/2020 Office Visit Sports Medicine Panchitoiter, Acute midlin e low back pain without sciatica (Primary Dx); Carson Stephens MD Compression fra cture of L1 lumbar vertebra, closed, initial encounter ([facility]) 06/01/2020 Refill Sports Medicine Sebas Abel MA 06/01/2020 Refill Sports Medicine Sebas Abel MA 06/01/2020 Travel 05/21/2020 Refill Sports Medicine Panchitoiter, Acute midlin e low back pain without sciatica; Carson Stephens MD Compression fra cture of L1 lumbar vertebra, closed, initial encounter ([facility]) 05/10/2020 Hospital Encounter Radiology Carson Cordero MD 05/10/2020 Office Visit Sports Medicine Gil, Acute midlin e low back pain without sciatica (Primary Dx); Carson Stephens MD Compression fra cture of L1 lumbar vertebra, closed, initial encounter (HCC) 05/10/2020 Travel 05/08/2020 Travel 05/05/2020 Telephone Orthopedic Surgery Deng Feliciano MA 05/04/2020 Orders Only Sports Medicine Braunreiter, Acute midlin e low back pain without sciatica (Primary Dx); Carson Stephens MD Compression fra cture of L1 lumbar vertebra, closed, initial encounter ([facility]) 05/04/2020 Telephone Sports Medicine Sebas Abel MA 05/03/2020 Office Visit Sports Medicine Braunreiter, Acute midlin e low back pain without sciatica (Primary Dx); Carson Stephens MD Compression fra cture of L1 lumbar vertebra, closed, initial encounter ([facility]) 05/03/2020 Travel 04/26/2020 Travel after 06/15/2019 Surgical History Surgery Date Site/Laterality Comments ABDOMINAL [...] with No / Unsure 06/01/2020 3:09 PM [employer] someone who was confirmed or suspected to have Coronavirus / COVID-19? Last Filed Vital Signs Vital Sign Reading Time Taken Comments Blood Pressure 129/86 06/02/2020 2:27 PM [employer] Pulse 85 06/02/2020 2:27 PM [employer] Temperature - - Respiratory Rate 20 06/02/2020 2:27 PM [employer] Oxygen Saturation - - Inhaled Oxygen Concentration - - Weight 83.9 kg (185 lb) 06/02/2020 2:27 PM [employer] Height 177.8 cm (5' 10") 05/10/2020 1:10 PM CDT Body Mass Index 26.54 05/10/2020 1:10 PM CDT Plan of Treatment Date Type Specialty Care Team Description 06/30/2020 Office Visit [place] [address] [place], [place] [address] Health Maintenance Due Date Last Done Comments SHINGLES VACCINES (#1) 1986 65+ PNEUMOCOCCAL VACCINE (1 of 1 - PPSV23) 2001 INFLUENZA VACCINE 02/26/2020 Procedures Procedure Name Priority Date/Time Associated Diagnosis Comme nts XR LUMBAR SPINE Routine 06/02/2020 3:44 PM Acute midline low Results for this COMPLETE 4+ VW [employer] back pain without procedur e are in [...] are in sciatica the results section. after 06/15/2019 Results XR Lumbar Spine Complete 4+ Vw (06/02/2020 3:44 PM [employer])Only the most recent of2 resultswithin the time period is included. Specimen Narrative Performed At This result has an attachment that is no t available. 4 view x-ray series of the lumbar spine demonstrate previously diagnosed [facility] spondylosis/scoliosis, and no interval change in appea kae of the L1 compression fracture. Performing Organization Address City/[facility] Phon e Number [facility] [address] [place] [address] CT Spine External Study (05/10/2020 4:05 PM CDT) Specimen Narrative Performed At This exam was not acquired at a Methodis t facility and has not been [facility] interpreted by a [facility] Provider. T he exam was imported into our imaging system. Performing Organization Address City/State/ZIP Code Phon e Number [facility] [address] [place] [address] after 06/15/2019 Insurance Payer Benefit Plan / Subscriber ID Effective Phone Address T ype Group Dates MEDICARE MEDICARE PART A [id number] 2001-[place], [place] Medicare AND B ent BCBS COMMERCIAL BCBS MEDICARE [id number] 2001-Pres Commercial SUPPLEMENT ent Guarantor Name Account Type Relation to Date of Phone Billing Address Patient Rashida Blank Personal/Family Self 1935 [address] [place] [address] Advance Directives For more information, please contact: [phone] Type Date Recorded Patient Traveling Phlebotomist Explanati on Advance Directives, Living Will and Medical Power of Dry Box Tender
--- OUTSIDE RECORDS SUMMARY | 2020-06-15 09:32 | XMS REPORT ---
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 [address]-02 Active n ot -Trimethoprim defined Betapace ND 80673494638 80 MG Orally Active 1 tabl et every 12 hrs Tramadol HCl NDC 0 Active not defined Cephalexin [facility] [address]-58 Active not defined Tylenol with [facility] 59304867744 300-30 MG December 21, Active 1 tab let Codeine #3 Orally every 6 2020 as nee ded hrs Acetaminophen-Co [facility] [address]-58 Active n ot deine #3 defined Simvastatin ND 72795761288 40 MG Orally Active 1 t ablet Once a day in the evening Tizanidine HCl [facility] [address]-44 Active not defined Warfarin Sodium [facility] 51418976927 2.5 MG Oral Active TK 2 TS PO QD Fluzone NDC 0 Active not High-Dose defined Sotalol HCl ND 38286536929 120 MG Oral Active TK 1 T PO Q 12 H Levothyroxine ND 30764159353 50 MCG Orally Active 1 tablet Sodium Once a day on an empty stomach in the morning Results No Known Results Summary Purpose eClinicalWorks Submission
--- OUTSIDE RECORDS SUMMARY | 2020-06-15 09:33 | XMS REPORT ---
:1935 Author Organization [facility] Address 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 Problem Hypothyroidism E03.9 Active 97683605 Problem Urinary R32 Active 214146964 incontinence, unspecified type Problem Chronic a-fib I48.2 Active 72037378 Problem Periumbilical K42.9 Active 225885046 hernia Problem Muscle spasm of M62.830 Active 069626555 back Problem Pleural effusion J90 Active 10818216 on left Problem Tinnitus H93.19 Active 91500508 Problem Chronic R52 Active 15155185 generalized pain Problem senior care current Z79.01 Active 851306855 use of anticoagulant Problem Seasonal allergic J30.1 Active 82762042 rhinitis due to pollen Problem History of fall Z91.81 Active 157088027 Problem Unsteady gait R26.81 Active 16386737 Problem Contusion of S20.222A Active 99967805 upper back, left, initial encounter Problem 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 979122227 cervical spine, unspecified spinal osteoarthritis complication status Problem Closed fracture S22.42XD Active 93408066 of multiple ribs of left side with routine healing, subsequent encounter Problem Atelectasis J98.11 Active 28883763 Problem Low back pain M54.5 Active 641083708 Problem Pain, joint, M25.541 Active 7602042106768513 hand, right Problem Separation of M62.00 Active 683534302 muscle (nontraumatic), unspecified site Problem Trigger middle M65.331 Active 446011004 finger of right hand Problem Lymphadenopathy R59.1 Active 69778189 Problem Basal cell C44.211 Active 418860754 carcinoma 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 Problem Other chronic G89.29 Active 72840496 pain Problem Trigger finger, M65.341 Active 762513071 right ring finger Problem Pain of right M79.641 Active 890180511955601 hand Problem Allergic J30.9 Active 29294422 rhinitis, unspecified seasonality, unspecified trigger ALLERGIES No Known Allergies ENCOUNTERS from 1935 to 2020-06-13 Encounter Location Date Provider Diagnosis [facility] [address] [facility] [address] 17 May, 2020 [place] [address] IMMUNIZATIONS Vaccine Route Administration Date Status Depo-Medrol [...] REASON FOR REFERRAL No Information VITAL SIGNS No information MEDICATIONS Medication SIG (Take, Route, Notes Start Date End Date Status Frequency, Duration) Acetaminophen-Codeine #3 Not-Taking Warfarin Sodium 2.5 MG TK 2 TS PO QD Oral Active for 30 Sotalol HCl 120 MG TK 1 T PO Q 12 H Active Oral for 90 Fluzone High-Dose Not-Tommy ing Tylenol with Codeine #3 1 tablet as needed November, Active 300-30 MG Orally every 6 hrs Cyclobenzaprine HCl Activ e Tramadol HCl Active Cephalexin Not-Taking Betapace 80 MG 1 tablet Orally Activ e every 12 hrs Sulfamethoxazole-Trimethop Not-Taking rim Levothyroxine Sodium 50 1 tablet on an empty Active MCG stomach in the morning Orally Once a day for 90 Simvastatin 40 MG 1 tablet in the Ac tive evening Orally Once a day Tizanidine HCl Not-Taking PROCEDURES No Information RESULTS No Results REASON FOR VISIT ER follow up MEDICAL (GENERAL) HISTORY Type Description Date Medical [...] History cataract 2002 Surgical History DVT (L) 2009 Surgical History uretheral sling 2012 Surgical History excision of male uretheral sling 2012 Surgical History right hand/ring finger A1 ivpul release 2017 Surgical History right hand middle finger A1 vipul relea se 12/24/19 Goals Section No Information Health Concerns No Information MEDICAL EQUIPMENT No Information MENTAL STATUS No Information FUNCTIONAL STATUS No Information ASSESSMENTS No Information PLAN OF TREATMENT Next Appt Details Provider Name:Nina Washington, 2020-06-15 11:4 0:00 AM, [address], [place], [address], Provider Name:Nina Washington, 2020-06-28 10:0 0:00 AM, [address], [place], [address], Provider Name:Felton Trevizo, 2020-08-03 0 1:00:00 PM, [address] [facility] [address], [place], [address], Provider Name:Nina Washington, 2021-02-07 11:0 0:00 AM, [address], [place], [address], Insurance Providers Payer Name Payer Address Payer Insured Patient Coverage Cover age Phone Name Relationship to Start Date End Date Insured [facility] [address] [phone] Rosamaria,Onto self 2000 and [facility] [address] [facility] [address] MEDICARE Attn Part B [id number] Rosamaria,Onto self 2000 [employer] Claims [phone] [facility] [address]
--- OUTSIDE RECORDS SUMMARY | 2020-06-15 09:33 | XMS REPORT ---
:1935 Author Organization [facility] Address 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 Problem Hypothyroidism E03.9 Active 63043682 Problem Urinary R32 Active 547025815 incontinence, unspecified type Problem Chronic a-fib I48.2 Active 93258403 Problem Periumbilical K42.9 Active 311601918 hernia Problem Muscle spasm of M62.830 Active 970988202 back Problem Pleural effusion J90 Active 80593685 on left Problem Tinnitus H93.19 Active 22650617 Problem Chronic R52 Active 10532363 generalized pain Problem detention current Z79.01 Active 801099706 use of anticoagulant Problem Seasonal allergic J30.1 Active 40765346 rhinitis due to pollen Problem History of fall Z91.81 Active 328705824 Problem Unsteady gait R26.81 Active 56365349 Problem Contusion of S20.222A Active 98187107 upper back, left, initial encounter Problem 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, unspecified spinal osteoarthritis complication status Problem Closed fracture S22.42XD Active 54284619 of multiple ribs of left side with routine healing, subsequent encounter Problem Atelectasis J98.11 Active 71736558 Problem Low back pain M54.5 Active 063079278 Problem Pain, joint, M25.541 Active 6582450383781647 hand, right Problem Separation of M62.00 Active 004271389 muscle (nontraumatic), unspecified site Problem Trigger middle M65.331 Active 587083887 finger of right hand Problem Lymphadenopathy R59.1 Active 45362406 Problem Basal cell C44.211 Active 356137146 carcinoma 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 Problem Other chronic G89.29 Active 51701861 pain Problem Trigger finger, M65.341 Active 517125005 right ring finger Problem Pain of right M79.641 Active 465071119827652 hand Problem Allergic J30.9 Active 15205720 rhinitis, unspecified seasonality, unspecified trigger ALLERGIES No Known Allergies ENCOUNTERS from 1935 to 2020-06-12 Encounter Location Date Provider Diagnosis [facility] [address] May, 2020 [place] [address] IMMUNIZATIONS Vaccine Route Administration Date Status Depo-Medrol [...] Information RESULTS No Results REASON FOR VISIT swelling of legs MEDICAL (GENERAL) HISTORY Type Description Date Medical History Hypothyroidism Medical History Chronic generalized pain Medical History Spinal stenosis of lumbar region with ne urogenic claudication Medical History Chronic depressive person Medical History Tinnitus Medical History Lymphadenopathy Medical History 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 Medical History Periumbilical hernia Medical [...] 2012 Surgical History right hand/ring finger A1 vpiul release 2017 Surgical History right hand middle finger A1 vipul relea se 12/24/19 Goals Section No Information Health Concerns No Information MEDICAL EQUIPMENT No Information MENTAL STATUS No Information FUNCTIONAL STATUS No Information ASSESSMENTS No Information PLAN OF TREATMENT Next Appt Details Provider Name:Nina Washington, 2020-06-28 10:0 0:00 AM, [address], [place], [address], Provider Name:Felton Trevizo, 2020-08-03 0 1:00:00 PM, [address] [facility] [address], [place], [address], Provider Name:Nina Washington, 2021-02-07 11:0 0:00 AM, [address], [place], [address], Insurance Providers Payer Name Payer Address Payer Insured Patient Coverage Cover age Phone Name Relationship to Start Date End Date Insured MEDICARE Attn Part B [id number] Rosamaria,Onto self 2000 [employer] Claims [address] [facility] [address] [facility] [address] [phone] Rosamaria,Onto self 2000 and [facility] [address] [facility] [address]
[2020-06-15] MEDS ORDERED: LIDOCAINE 4% PATCH ONE (09:49)
[2020-06-15] MEDS ORDERED: MORPHINE 4 MG/ML SYR ONE (11:42)
[2020-06-15] MEDS ORDERED: ONDANSETRON 4 MG/2 ML VIAL ONE (11:42)
--- NOTE | 2020-06-15 13:21 | RAD REPORT ---
EXAM DESCRIPTION: RAD - Abdomen 1 View (KUB) - 06/15/2020 1:04 pm CLINICAL HISTORY: CONSTIPATION Pain COMPARISON: No comparisons FINDINGS: The bowel gas pattern is non-obstructive. No evidence of free air or pneumatosis. Signific ant stool is retained in the colon. Prostatectomy clips seen. Bilateral hip arthroplasties. IMPRESSION: Prominent constipation pattern.
--- NOTE | 2020-06-15 13:30 | ER ---
Nurse's Notes [facility] Name: Rashida Blank Age: 84 yrs Sex: Male : 1935 Arrival Date: 06/15/2020 Time: 09: Bed 18 Private MD: Diagnosis: Low back pain-chronic;Constipation Presentation: 06/15 09:05 Chief complaint: Chief complaint: EMS states: Pt. is 84 yr old c/o of back pain. Has a rb3 history of chronic back pain. NKDA, Vital signs are stable. BS 101. 20 G L AC. 09:05 Coronavirus screen: Client denies travel out of the [place] in the last 14 days. At this rb3 time, the client does not indicate any symptoms associated with coronavirus-19. Ebola Screen: Patient denies travel to an Ebola-affected area in the 21 days before illness onset. Initial Sepsis Screen: Does the patient meet any 2 criteria? No. Patient's initial sepsis screen is negative. Does the patient have a suspected source of infection? No. Patient's initial sepsis screen is negative. Risk Assessment: Do you want to hurt yourself or someone else? Patient reports no desire to harm self or others. Onset of symptoms is unknown. 09:05 Method Of Arrival: EMS: [facility] rb3 09:05 Acuity: IVONNE 3 rb3 Triage Assessment: 09:05 General: Appears uncomfortable, Behavior is calm, cooperative. Pain: Complains of pain rb3 in back Pain currently is 10 out of 10 on a pain scale. Neuro: Level of Consciousness is awake, alert, obeys commands, Oriented to person, place, time, situation. Cardiovascular: Capillary refill < 3 seconds Patient's skin is warm and dry. Respiratory: Airway is patent Respiratory effort is even, unlabored, Respiratory pattern is regular, symmetrical. GI: No signs and/or symptoms were reported involving the gastrointestinal system. : No signs and/or symptoms were reported regarding the genitourinary system. Historical: - Allergies: 09:05 No Known Allergies; rb3 - Home Meds: 09:05 levothyroxine 50 mcg tab 1 tab once daily [Active]; simvastatin 40 mg Oral tab 1 tab rb3 once daily [Active]; sotalol 120 mg Oral tab 1 tab 2 times per day [Active]; warfarin 2 mg Oral tab 1 tab once daily [Active]; warfarin 2.5 mg Oral tab 1 tab once daily [Active]; - PMHx: 09:05 Atrial Fib; Hypothyroidism; rb3 - PSHx: 09:05 pacemaker; brendan hip replacement; prostate sx; Cholecystectomy; rb3 - Immunization history:: Adult Immunizations up to date. - Social history:: Smoking status: Patient/guardian denies using. Screenin:05 Abuse screen: Denies threats or abuse. Nutritional screening: No deficits noted. rb3 Tuberculosis screening: No symptoms or risk factors identified. Fall Risk None identified. Assessment: 09:05 General: See triage assessment. rb3 10:02 Reassessment: Patient appears in no apparent distress at this time. No changes from rb3 previously documented assessment. Family at the bedside. 11:00 Reassessment: Patient appears in no apparent distress at this time. Patient and/or rb3 family updated on plan of care and expected duration. Pain level reassessed. Patient is alert, oriented x 3, equal unlabored respirations, skin warm/dry/pink. 12:05 Reassessment: Patient appears in no apparent distress at this time. Family at the 3 bedside. 13:00 Reassessment: Patient appears in no apparent distress at this time. Patient and/or rb3 family updated on plan of care and expected duration. Pain level reassessed. Patient is alert, oriented x 3, equal unlabored respirations, skin warm/dry/pink. 14:13 Reassessment: Patient appears in no apparent distress at this time. No changes from rb3 previously documented assessment. Discharge took time due to the pt. having to move slowly to get out of bed into the wheelchair because of his back pain. Surgical Training Specialist: 14:20 Surgical Training Specialist Note: Sw met with pt and pt. at the bedside. Pt. stated he has had cm8 many years of chronic back pain and recently it has been getting worse. Pt. stated he is falling at home and having back spasms where he is not able to get up off the floor. Pt. stated that he has an appointment with a payer specialist in 2 weeks in [facility]. Pt. stated he is concerned about going home because his cannot pick him up if he falls at home. Pt. stated he would like to try and go somewhere if possible to get therapy and give his a break. Sw stated there is different levels of care and since pt is not admitted to the hospital, there is some limitations. Juliana stated there is a rehab facility in [place], called [facility] that can accept patients from home into their rehab. Stated pt. would be able to work with PT and have specialist look at his spine. Pt. stated he would like to try that. Juliana provided pt. with information on [facility] as well as provider services at home to assist while they are working on getting pt. into Rehab. Juliana sent information to [facility], . Pt. was discharged home with this information. Vital Signs: 09:05 BP 141 / 115; Pulse 100; Resp 19; Temp 97.1(TE); Pulse Ox 98% ; Weight 83.91 kg; Height rb3 5 ft. 10 in. (177.80 cm); Pain 10/10; 10:01 BP 139 / 95; Pulse 103; Resp 17; Pulse Ox 98% ; rb3 11:35 BP 122 / 89; Pulse 106; Resp 19; Pulse Ox 99% ; rb3 12:30 BP 117 / 94; Pulse 101; Resp 20; Pulse Ox 97% ; rb3 13:30 BP 130 / 79; Pulse 107; Resp 19; Pulse Ox 97% ; rb3 09:05 Body Mass Index 26.54 (83.91 kg, 177.80 cm) rb3 ED Course: 09:05 Arm band placed on right wrist. rb3 09:05 Patient has correct armband on for positive identification. Bed in low position. Call rb3 light in reach. Side rails up X 1. Pulse ox on. NIBP on. Pillow given. 09:05 Maintain EMS IV. Dressing intact. Good blood return noted. Site clean \T\ dry. Gauge \T\ rb 3 site: 20 g L AC. 09:19 Patient arrived in ED. iw 09:20 Marilyn Kate FNP-C is PHCP. kb 09:20 Omid Garcia MD is Attending Physician. kb 09:29 Elin Ewing, MAGNUS is Primary Nurse. rb3 09:35 Triage completed. rb3 13:04 Abdomen 1 View (KUB) XRAY In Process Unspecified. EDMS 14:13 No provider procedures requiring assistance completed. IV discontinued, intact, rb3 bleeding controlled, No redness/swelling at site. Pressure dressing applied. Administered Medications: 09:41 Drug: Lidocaine Solution (4%) 1 patches Route: Topical; Site: affected area; iw 10:00 Drug: Robaxin 1 grams Route: IVPB; Infused Over: 1 hrs; Site: left antecubital; rb3 11:07 CANCELLED (Physician Discretion): Fairbanks 10 mg-325 mg 1 tabs PO once; RASS on ADMIN: kb Combtv4, Very Agttd3, Agttd2, Rstlss1, AlertClm0, Drwsy-1, Lt Sdtn-2, Mod Sdtn-3, Dp Sdtn-4, UnArsble-5 11:30 Drug: morphine 4 mg Route: IVP; Site: left antecubital; rb3 11:45 Follow up: Response: No adverse reaction; Pain is decreased rb3 11:30 Drug: Zofran (Ondansetron) 4 mg Route: IVP; Site: left antecubital; rb3 11:45 Follow up: Response: No adverse reaction rb3 13:40 Drug: Magnesium Citrate Liquid 300 ml Route: PO; rb3 14:14 Follow up: Response: No adverse reaction rb3 13:40 Drug: Dulcolax Suppository 10 mg Route: TX; rb3 14:13 Follow up: Response: No adverse reaction rb3 13:40 Drug: Fairbanks 10 mg-325 mg 1 tabs Route: PO; rb3 14:13 Follow up: Response: No adverse reaction rb3 Output: 10:01 Urine: 225ml (Voided); Total: 225ml. rb3 Outcome: 13:30 Discharge ordered by . germaine 14:13 Discharged to home via wheelchair, with family. rb3 14:13 Condition: stable 14:13 Discharge instructions given to patient, Instructed on discharge instructions, follow up and referral plans. medication usage, Demonstrated understanding of instructions, follow-up care, medications, Prescriptions given X 1. 14:16 Patient left the ED. rb3 Signatures: Dispatcher [employer] EDMS Marilyn Kate, Devi Guevara RN RN iw Elin Ewing RN RN rb3 Prachi Giron cm8 Corrections: (The following items were deleted from the chart) 09:35 09:30 Chief complaint: rb3 rb3
--- NOTE | 2020-06-15 13:30 | EDPHYS ---
Physician Documentation [facility] Name: Rashida Blank Age: 84 yrs Sex: Male : 1935 Arrival Date: 06/15/2020 Time: : Bed 18 Private MD: LORENZO Physician Omid Garcia HPI: 06/15 11:04 This 84 yrs old Male presents to ER via EMS with complaints of chronic back kb pain. 11:04 The patient presents with pain that is chronic, with no known mechanism of injury. The kb symptoms are located in the low back. Onset: The symptoms/episode began/occurred 30 year(s) ago, and became worse. The pain does not radiate. Associated signs and symptoms: The patient has no apparent associated signs or symptoms. The problem was sustained from a chronic condition. Modifying factors: The patient symptoms are alleviated by nothing, the patient symptoms are aggravated by any movement. Severity of symptoms: At their worst the symptoms were severe, in the emergency department the symptoms are unchanged. The patient has experienced similar episodes in the past, chronically. The patient has been recently seen by a physician:. Pt reports he has had lumbar back pain for 20-30 years. States it has been getting worse with spasms that cause him to fall. States he has been to several doctors for this, but no one has been able to resolve the issue. . Historical: - Allergies: 09:05 No Known Allergies; rb3 - Home Meds: 09:05 levothyroxine 50 mcg tab 1 tab once daily [Active]; simvastatin 40 mg Oral tab 1 tab rb3 once daily [Active]; sotalol 120 mg Oral tab 1 tab 2 times per day [Active]; warfarin 2 mg Oral tab 1 tab once daily [Active]; warfarin 2.5 mg Oral tab 1 tab once daily [Active]; - PMHx: 09:05 Atrial Fib; Hypothyroidism; rb3 - PSHx: 09:05 pacemaker; brendan hip replacement; prostate sx; Cholecystectomy; rb3 - Immunization history:: Adult Immunizations up to date. - Social history:: Smoking status: Patient/guardian denies using. ROS: 12:08 Constitutional: Negative for fever, chills, and weight loss, Cardiovascular: Negative kb for chest pain, palpitations, and edema, Respiratory: Negative for shortness of breath, cough, wheezing, and pleuritic chest pain, Abdomen/GI: Negative for abdominal pain, nausea, vomiting, diarrhea, and constipation, MS/Extremity: Negative for injury and deformity, Skin: Negative for injury, rash, and discoloration, Neuro: Negative for headache, weakness, numbness, tingling, and seizure. 12:08 Back: Positive for pain at rest, pain with movement, of the low back area. Exam: 12:08 Constitutional: This is a well developed, well nourished patient who is awake, alert, kb and in no acute distress. Head/Face: Normocephalic, atraumatic. Chest/axilla: Normal chest wall appearance and motion. Nontender with no deformity. No lesions are appreciated. Cardiovascular: Regular rate and rhythm with a normal S1 and S2. No gallops, murmurs, or rubs. Normal PMI, no JVD. No pulse deficits. Respiratory: Lungs have equal breath sounds bilaterally, clear to auscultation and percussion. No rales, rhonchi or wheezes noted. No increased work of breathing, no retractions or nasal flaring. Abdomen/GI: Soft, non-tender, with normal bowel sounds. No distension or tympany. No guarding or rebound. No evidence of tenderness throughout. Skin: Warm, dry with normal turgor. Normal color with no rashes, no lesions, and no evidence of cellulitis. MS/ Extremity: Pulses equal, no cyanosis. Neurovascular intact. Full, normal range of motion. Neuro: Awake and alert, GCS 15, oriented to person, place, time, and situation. Cranial nerves II-XII grossly intact. Motor strength 5/5 in all extremities. Sensory grossly intact. Cerebellar exam normal. Normal gait. 12:08 Back: pain, that is moderate, of the lumbar area, ROM is painful, muscle spasm, is appreciated in the low back area. Vital Signs: 09:05 BP 141 / 115; Pulse 100; Resp 19; Temp 97.1(TE); Pulse Ox 98% ; Weight 83.91 kg; Height rb3 5 ft. 10 in. (177.80 cm); Pain 10/10; 10:01 BP 139 / 95; Pulse 103; Resp 17; Pulse Ox 98% ; rb3 11:35 BP 122 / 89; Pulse 106; Resp 19; Pulse Ox 99% ; rb3 12:30 BP 117 / 94; Pulse 101; Resp 20; Pulse Ox 97% ; rb3 13:30 BP 130 / 79; Pulse 107; Resp 19; Pulse Ox 97% ; rb3 09:05 Body Mass Index 26.54 (83.91 kg, 177.80 cm) rb3 MDM: 09:20 Patient medically screened. kb 12:07 Data reviewed: vital signs, nurses notes. Data interpreted: Pulse oximetry: on room air kb is 99 %. Interpretation: normal. ED course: director volunteer services at bedside. 13:15 ED course: home health care social worker gave pt and information on resources and set up in home kb appt for evaluation for placement. . 13:29 Counseling: I had a detailed discussion with the patient and/or guardian regarding: the kb historical points, exam findings, and any diagnostic results supporting the discharge/admit diagnosis, radiology results, the need for outpatient follow up, a family practitioner, to return to the emergency department if symptoms worsen or persist or if there are any questions or concerns that arise at home. 06/15 11:30 Order name: Abdomen 1 View (KUB) XRAY; Complete Time: 13:28 kb 06/15 12:08 Order name: consult Order-director volunteer services kb Administered Medications: 09:41 Drug: Lidocaine Solution (4%) 1 patches Route: Topical; Site: affected area; iw 10:00 Drug: Robaxin 1 grams Route: IVPB; Infused Over: 1 hrs; Site: left antecubital; rb3 11:07 CANCELLED (Physician Discretion): Fountain 10 mg-325 mg 1 tabs PO once; RASS on ADMIN: kb Combtv4, Very Agttd3, Agttd2, Rstlss1, AlertClm0, Drwsy-1, Lt Sdtn-2, Mod Sdtn-3, Dp Sdtn-4, UnArsble-5 11:30 Drug: morphine 4 mg Route: IVP; Site: left antecubital; rb3 11:45 Follow up: Response: No adverse reaction; Pain is decreased rb3 11:30 Drug: Zofran (Ondansetron) 4 mg Route: IVP; Site: left antecubital; rb3 11:45 Follow up: Response: No adverse reaction rb3 13:40 Drug: Magnesium Citrate Liquid 300 ml Route: PO; rb3 14:14 Follow up: Response: No adverse reaction rb3 13:40 Drug: Dulcolax Suppository 10 mg Route: MI; rb3 14:13 Follow up: Response: No adverse reaction rb3 13:40 Drug: Fountain 10 mg-325 mg 1 tabs Route: PO; rb3 14:13 Follow up: Response: No adverse reaction rb3 Disposition: 15:11 Co-signature as Attending Physician, Omid Garcia MD I agree with the assessment and shea plan of care. Disposition: 06/15/20 13:30 Discharged to Home. Impression: Low back pain - chronic, Constipation. - Condition is Stable. - Discharge Instructions: Constipation, Adult, [id number], Back Pain, Adult, [id number]. - Prescriptions for Robaxin 500 mg Oral Tablet - take 2 tablets by ORAL route every 8 hours As needed; 20 tablet. - Medication Reconciliation Form, Thank You Letter, Antibiotic Education, Prescription Opioid Use form. - Follow up: Private Physician; When: 2 - 3 days; Reason: Recheck today's complaints, Continuance of care, Re-evaluation by your physician. Follow up: Emergency Department; When: As needed; Reason: Worsening of condition. Signatures: Dispatcher [employer] Marilyn Crowder, MEETA-C MEETA-Omid Pardo MD MD cha Williams, Irene, Elin Cortes RN, MAGNUS RN rb3 Corrections: (The following items were deleted from the chart) 11:07 11:06 Fountain 10 mg-325 mg 1 tabs PO once; RASS on ADMIN: Combtv4, Very Agttd3, Agttd2, kb Rstlss1, AlertClm0, Drwsy-1, Lt Sdtn-2, Mod Sdtn-3, Dp Sdtn-4, UnArsble-5 ordered. kb 14:16 13:30 06/15/2020 13:30 Discharged to Home. Impression: Low back pain - chronic; rb3 Constipation. Condition is Stable. Forms are Medication Reconciliation Form, Thank You Letter, Antibiotic Education, Prescription Opioid Use. Follow up: Private Physician; When: 2 - 3 days; Reason: Recheck today's complaints, Continuance of care, Re-evaluation by your physician. Follow up: Emergency Department; When: As needed; Reason: Worsening of condition. kb
[2020-06-15] MEDS ORDERED: BISACODYL 10 MG RECTAL SUPP ONE (13:52)
[2020-06-15] MEDS ORDERED: HYDROCODONE/APAP 10/325 TAB ONE (13:53)
[2020-06-15] MEDS ORDERED: MAGNESIUM CITRATE 300 ML BOT ONE (13:53)
[2020-06-15 22:52] VITALS: TEMP 97.1
[2020-06-15 22:56] VITALS: O2SAT 97
[2020-06-15 22:58] VITALS: BP 130/79
== END 2020-06-15 14:16 | disposition home or self-care (01) ==
LOC: ER 09:02
DX: K59.00 Constipation, unspecified (principal); E03.9 Hypothyroidism, unspecified; I48.91 Unspecified atrial fibrillation; Z95.0 Presence of cardiac pacemaker; Z79.01 Long term (current) use of anticoagulants
CPT/HCPCS: 74018; 96375; 96374; 99284; J2405; J2800

== ENCOUNTER 2021-01-01 02:41 | Emergency (ER) | payer OTHER, BC ==
--- OUTSIDE RECORDS SUMMARY | 2021-01-01 02:44 | XMS REPORT | Continuity of Care Document ---
:1935 Author Organization [facility] t Address [address] [place] [address] Care Team Providers Name Role Phone ABEL MORALES Primary Care Physician Unavailable ZAC MALDONADO Attending Clinician Unavailable Andreas ZAPATA Attending Clinician Unavailable Gil PAK, A. Attending Clinician Colten ZAPATA Attending Clinician Unavailable Diego BAKERY TEAM MEMBER, F Attending Clinician Unavailable Kimberley SQUIRES Attending Clinician Unavailable Doctor Unassigned, Name Attending Clinician Unavailable Braden ZAPATA Attending Clinician Unavailable Payers Payer Name Policy Type Policy Effective Date Expiration Date Sour ce Number MEDICAREMEDICARE PART [id number] 2001 Pavel Bell AND 00:00:00 Sabianist [id number] 2002- [place] [id number] 2001 [place] MED[place]ARE 3 00:00:00 Sabianist [id number] 2001- ercial Problems Condition Condition Condition Status Onset Resolution Last Treating Co mments Source Name Details Category Date Date Treatment Clinician Date Acquired Acquired Disease Active 2019-07 [place] trigger trigger 0-07 Methodi finger finger 00:00: st 00 Allergic Allergic Disease Active 2019-07 [place] rhinitis rhinitis 0-07 Method i 00:00: st 00 Basal cell Basal cell Disease Active 2019-07 H priyanka carcinoma carcinoma 0-07 Meth cayetano of auricle of auricle 00:00: st of ear of ear 00 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 0-07 Me thodi s without s without 00:00: st myelopathy myelopathy 00 Diastasis Diastasis Disease Active 2019-07 Ildia ston of muscle of muscle 0-07 Meth cayetano 00:00: st 00 Dysthymia Dysthymia Disease Active 2019-07 Lidia ston 0-07 Methodi 00:00: st 00 Hyperlipid Hyperlipid Disease Active 2019-07 H priyanka emia emia 0-07 Methodi 00:00: st 00 Hypothyroi Hypothyroi Disease Active 2019-07 H priyanka dism dism 0-07 Methodi 00:00: st 00 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 2019-07 Lidia ston (current) (current) 0-07 Meth cayetano use of use of 00:00: st anticoagul anticoagul 00 ants ants Atrial Atrial Disease Active [place] fibrillati fibrillati 3-17 Me thodi on on 00:00: st 00 Cholecysti Cholecysti Disease Active H priyanka tis tis 3-17 Methodi 00:00: st 00 Allergies, Adverse Reactions, Alerts Allergy Allergy Status Severity Reaction(s) Onset Inactive Treating Comm ents Source Name Type Date Date Clinician IODINE Allergy Active 2019-07 ENCGEN 2-14 21:02: 22 PORK Allergy Active 2019-07 ENCGEN 2-14 21:02: 22 TRAMADOL Allergy Active 2019-07 ENCGEN 2-14 21:02: 22 SHELLFIS Allergy Active 2019-07 ENCGEN H 2-14 21:02: 22 IODINE Allergy Active 2019-07 ENCGEN 2-14 21:02: 22 PORK Allergy Active 2019-07 ENCGEN 2-14 21:02: 22 TRAMADOL Allergy Active 2019-07 ENCGEN 2-14 21:02: 22 SHELLFIS Allergy Active 2019-07 ENCGEN H 2-14 21:02: 22 NKA Allergy Active 2019-07 ENCGEN 2-06 12:22: 47 NKA Allergy Active 2019-07 ENCGEN 2-06 12:22: 47 Family History Family Member Diagnosis Comments Start Date Stop Date Source Natural father Cancer [facility] thodist Natural father Heart attack [place] Sabianist Social History Social Habit Start Date Stop Date Quantity Comments Source Tobacco use and 2020-06-02 2020-06-02 Never used Lawson Ibarra ethodist exposure 00:00:00 00:00:00 Alcohol intake 2020-06-02 2020-06-02 Current drinker Mollyt on Sabianist 00:00:00 00:00:00 of alcohol (finding) Sex Ass[birth year] Lawson kirklandodist 00:00:00 00:00:00 Smoking Status Start Date Stop Date Source Never smoker Lawson Methodis t Medications Ordered Filled Start Stop Current Ordering Indication Dosage Frequency Signature Comments Components Source Medication Medication Date Date Medication? Clinician (SIG) Name Name cyclobenzap 2019-07 Yes 10mg Q.5D Take 1 [place] 1-18 tablet (10 Methodi (FLEXERIL) 00:00: mg total) st 10 mg 00 by mouth 2 tablet (two) times a day as needed for muscle spasms. traMADoL 2019-07- No acute pain 100mg Q6H Take 2 Pathak (ULTRAM) 50 08-05-24 tablets Meth cayetano mg tablet 00:00: 23:59 ([address] 00 :00 total) by mouth every 6 (six) hours as needed for moderate pain or severe pain for up to 15 days .acute pain. cyclobenzap 2019-07- No 10mg Q.5D Take 1 Lidia ston rine 1-05 -18 tablet (10 Methodi (FLEXERIL) 00:00: 00:00 mg total) s t 10 mg 00 :00 by mouth 2 tablet (two) times a day as needed for muscle spasms. cyclobenzap 2019-07- No 10mg Q8H Take 1 Lidia ston rine 1-05 -05 tablet (10 Methodi (FLEXERIL) 00:00: 00:00 mg total) s t 10 mg 00 :00 by mouth tablet every 8 (eight) hours as needed for muscle spasms. traMADoL 2019-07- No chronic 50mg Q6H Take 1 Lidia ston (ULTRAM) 50 0-06-05 pain tablet (50 M ethodi mg tablet [...] 41 daily. One tablet a day traMADoL 2019-07 2020- No acute pain 50mg Q6H Take 1 [...] Source Systolic blood 2020-06-02 14:27:00 129 mm[Hg] Mollyto n Sabianist pressure Diastolic blood 2020-06-02 14:27:00 86 mm[Hg] Nori on Sabianist pressure Heart rate 2020-06-02 14:27:00 85 /min [place] Respiratory rate 2020-06-02 14:27:00 20 /min Molly [...] Planned Date Details Comments Source Future Scheduled 2021-02-25 INFLUENZA VACCINE Mollyto n Sabianist Test 00:00:00 [code = INFLUENZA VACCINE] Future Scheduled 2001 65+ PNEUMOCOCCAL Lawson Sabianist Test 00:00:00 VACCINE (1 of 1 - PPSV23) [code = 65+ PNEUMOCOCCAL VACCINE (1 of 1 - PPSV23)] Future Scheduled 1986 SHINGLES VACCINES (#1) Yessi mathew Sabianist Test 00:00:00 [code = SHINGLES VACCINES (#1)] Future Scheduled 1947 COVID-19 VACCINE (1) Lidia mcbride Sabianist Test 00:00:00 [code = COVID-19 VACCINE (1)] Encounters Start End Encounter Admission Attending Care Care Encounter Source Date/Time Date/Time Type Type Clinicians Facility Department ID 2020-12-15 2020-12-15 Out[facility] [id number] 2020-11-27 2020-11-27 [facility] [id number] [facility] 2020-09-19 2020-09-19 [facility] [id number] [facility] 2020-07-02 2020-08-11 Outpatient READMISSIO ZAC ENCGEN ENCGEN [id number] ENCGEN 00:00:00 00:00:00 SANDY SIMMONS 2020-07-24 2020-07-24 [facility] [id number] [facility] 2020-07-06 2020-07-06 [facility] [id number] [facility] 2020-07-03 2020-07-03 [facility] [id number] [facility] 2020-06-15 2020-06-15 [facility] [id number] [facility] 2020-06-13 2020-06-13 Out[facility] [id number] [facility] 2020-06-12 2020-06-12 [facility] [id number] [facility] 2020-06-06 2020-06-06 Outpatient [facility] [id number] [facility] 2020-06-02 2020-06-02 [facility] [id number] [place] 00:00:00 00:00:00 , JASON [address] 2020-06-02 2020-06-02 Outpatient [facility] [id number] [place] 00:00:00 00:00:00 , JASON [address] 2020-05-30 2020-05-30 Ancillary Diego [facility] [id number] 15:32:51 16:12:51 Visit Fam Marieton [id number] Taylor [id number] Professio [id number] nal 179 [facility] 2020-05-25 2020-05-25 Ancillary Diego [facility] [id number] 09:07:19 09:47:19 Visit Fam Stewart Sonia [id number] Mickey [id number] Professio [phone] nal 179 [facility] 2020-05-23 2020-05-23 Ancillary Diego [facility] [id number] 15:31:51 16:11:51 Visit Fam Marieton [id number] Taylor [id number] Professio [id number] nal 179 [facility] 2020-05-17 2020-05-17 Ancillary Kimberley [facility] [id number] 08:27:26 09:27:26 Visit Aaliyah Scott [id number] Taylor [id number] Professio [phone] nal 179 [facility] 2020-05-17 2020-05-17 Orders Doctor CHINCHILLA [id number] 00:00:00 00:00:00 Only Unassigned, MITCHELL [id number] [place] [facility] [id number] [facility] 2020-05-10 2020-05-10 Outpatient [facility] [id number] [place] 00:00:00 00:00:00 , JASON [address] 2020-05-10 2020-05-10 [facility] [id number] [place] 00:00:00 00:00:00 , JASON [address] 2020-05-03 2020-05-03 [facility] [id number] [place] 00:00:00 00:00:00 , JASON [address] 2020-05-03 2020-05-03 [facility] [id number] [place] 00:00:00 00:00:00 , JASON [address] 2020-04-06 2020-04-06 [facility] [id number] [address] 13:00:00 13:00:00 [facility] 2020-02-03 2020-02-03 [facility] [id number] 13:30:00 13:30:00 t [facility] 2020-02-03 2020-02-03 [facility] [id number] 11:00:00 11:00:00 t [facility] 2020-01-04 2020-01-04 [facility] [id number] 13:40:00 13:40:00 t [facility] 2019-12-30 2019-12-30 [facility] [id number] 08:30:00 08:30:00 t [facility] 2019-12-22 2019-12-22 [facility] [id number] 09:19:00 09:19:00 t [facility] 2019-12-17 2019-12-17 [facility] [id number] 11:13:00 11:13:00 t [facility] 2019-12-09 2019-12-09 [facility] [id number] 10:51:00 10:51:00 t [facility] Clinics 2019-11-25 2019-11-25 [facility] [id number] 10:30:00 10:30:00 t [facility] 2019-10-07 2019-10-07 [facility] [id number] 11:28:00 11:28:00 t [facility] 2019-10-07 2019-10-07 [facility] [id number] 10:45:00 10:45:00 t [facility] Clinics 2019-08-23 2019-08-23 [facility] [id number] 09:21:00 09:21:00 t Lowell FabZat s - [facility] 2019-08-06 2019-08-06 [facility] [id number] 10:00:00 10:00:00 t [facility] Clinics 2018-02-02 2018-02-02 [facility] [id number] 11:15:00 11:15:00 t Lowell Lowell crobo s - [facility] ent Clinics 2018-01-27 2018-01-27 [facility] [id number] 11:15:00 11:15:[address] [employer] s - Drive [facility] ent Clinics 2018-01-22 2018-01-22 [facility] [id number] 09:44:00 09:44:00 t Lowell Lowell crobo s - [facility] ent Clinics 2018-01-19 2018-01-19 [facility] [id number] 14:00:00 14:00:00 [facility] ent Clinics 2018-01-19 2018-01-19 [facility] [id number] 08:33:00 08:33:00 [facility] Clinics 2017-12-18 2017-12-18 [facility] [id number] 11:00:00 11:00:00 Ingenic [employer] [facility] Clinics 2017-11-27 2017-11-27 [facility] [id number] 14:30:00 14:30:00 Ingenic [employer] [facility] Results Test Description Test Time Test Comments Results Result [facility] e Comments CT Spine External 2020-05-10 This exam was not Pathak Study 16:05:56 acquired at a Sabianist Sabianist facility and has not been interpreted by a Sabianist Provider. The exam was imported into our imaging system.
[2021-01-01] MEDS ORDERED: TRAMADOL HCL 50 MG TAB ONE (05:21)
[2021-01-01] MEDS ORDERED: HYDROCODONE/APAP 5/325 MG TAB ONE (06:50)
--- NOTE | 2021-01-01 06:57 | ER ---
Nurse's Notes [facility] Name: Rashida Blank Age: 85 yrs Sex: Male : 1935 Arrival Date: 01/01/2021 Time: 02:43 Bed 5 Private MD: Diagnosis: Contusion of lower back and pelvis Presentation: 01/01 02:40 Coronavirus screen: Client denies travel out of the [place] in the last 14 days. Ebola jb4 Screen: No symptoms or risks identified at this time. Initial Sepsis Screen: Does the patient meet any 2 criteria? HR > 90 bpm. Yes Does the patient have a suspected source of infection? No. Patient's initial sepsis screen is negative. Risk Assessment: Do you want to hurt yourself or someone else? Patient reports no desire to harm self or others. Onset of symptoms was January 01, 2021. 02:40 Transition of care: patient was not received from another setting of care. jb4 02:43 Chief complaint: EMS states: He was in the bathroom and fell. He is not on blood jb4 thinners, denies LOC and head injury. Is reporting lower back pain that radiates from the mid back down. Care prior to arrival: None. Mechanism of Injury: Fall from standing position. Trauma event details: Injury occurred in the [facility]. 02:43 Acuity: IVONNE 3 jb4 02:43 Method Of Arrival: EMS: [facility] jb4 Trauma Activation: Alert Physician: ED Physician; Name: ; Notified At: ; Arrived At: Physician: General Surgeon; Name: ; Notified At: ; Arrived At: Physician: Radiology; Name: ; Notified At: ; Arrived At: Physician: Respiratory; Name: ; Notified At: ; Arrived At: Physician: Lab; Name: ; Notified At: ; Arrived At: Historical: - Allergies: 02:54 No Known Allergies; jb4 - Home Meds: 02:54 warfarin 4 mg Oral tab 1 tab once daily [Active]; simvastatin 40 mg Oral tab 1 tab once jb4 daily [Active]; sotalol 80 mg oral tab 1 tab 2 times per day [Active]; levothyroxine 50 mcg tab 1 tab once daily [Active]; furosemide 40 mg Oral tab 1 tab once daily [Active]; methocarbamol 750 mg Oral tab 1 tab 3 times per day [Active]; Hydrocodone-Acetaminophen Oral [Active]; - PMHx: 02:54 Atrial Fib; Hypothyroidism; Arthritis; incontinence; tinnitus; benign positional jb4 vertigo; back pain; - PSHx: 02:54 pacemaker; brendan hip replacement; prostate sx; Cholecystectomy; trigger finger; back jb4 surgery; cataracts; - Immunization history:: Adult Immunizations up to date. - Social history:: Smoking status: Patient denies any tobacco usage or history of. - Immunization history: Last tetanus immunization: unknown. Screenin:40 Abuse screen: Denies threats or abuse. Nutritional screening: No deficits noted. jb4 Tuberculosis screening: No symptoms or risk factors identified. Fall risk At risk due to injury, prior history of falls. 07:45 Fall Risk Fall in past 12 months (25 points). Ambulatory Aid- Crutches/Cane/Walker (15 jd3 pts). Gait- Weak (10 pts.). Mental Status- Oriented to own ability (0 pts). Total Nguyen Fall Scale indicates High Risk Score (45 or more points). Fall prevention measures have been instituted. Side Rails Up X 2 Placed Close to Nursing Station Frequent Obs/Assessments Occuring Family Present and informed to notify staff if the need to leave the bedside. Primary Survey: 02:40 NO uncontrolled hemorrhage observed. A: The patient is alert. Airway: patent, No jb4 supplemental oxygen in use on arrival. Oral cavity: clear, gag reflex present. Breathing/Chest: Respiratory pattern: regular, Respiratory effort: spontaneous, unlabored, Chest inspection: symmetrical rise and fall of the chest. Circulation: Skin color: pink, Skin temperature: warm, dry. Disability Alert. Exposure/Environment: All clothing and personal items were removed. Forensic evidence collection is not deemed to be indicated at this time. Items placed in patient belonging bag. 03:30 Reassessment Airway Airway Patent Oxygen No O2 Oral cavity Clear +Gag reflex jb4 Breathing/Chest Respiratory pattern Regular Respiratory effort Spontaneous Unlabored Chest inspection Symmetrical Circulation Color [place] Temperature Warm Dry Disability Alert. Assessment: 02:40 General: Appears in no apparent distress. uncomfortable, Behavior is calm, cooperative, jb4 appropriate for age. Pain: Complains of pain in mid back area Pain does not radiate. Pain currently is 8 out of 10 on a pain scale. Neuro: Level of Consciousness is awake, alert, obeys commands, Oriented to person, place, time, situation. EENT: No signs and/or symptoms were reported regarding the EENT system. Cardiovascular: Patient's skin is warm and dry. Respiratory: Airway is patent Respiratory effort is even, unlabored, Respiratory pattern is regular, symmetrical. GI: No signs and/or symptoms were reported involving the gastrointestinal system. : No signs and/or symptoms were reported regarding the genitourinary system. Derm: Skin is intact, Skin is pink, warm \T\ dry. Musculoskeletal: Circulation, motion, and sensation intact. Range of motion: intact in all extremities. 03:40 Reassessment: Patient appears in no apparent distress at this time. Patient and/or jb4 family updated on plan of care and expected duration. Pain level reassessed. Patient is alert, oriented x 3, equal unlabored respirations, skin warm/dry/pink. 04:30 Reassessment: Patient appears in no apparent distress at this time. Patient and/or jb4 family updated on plan of care and expected duration. Pain level reassessed. Patient is alert, oriented x 3, equal unlabored respirations, skin warm/dry/pink. 05:30 Reassessment: Patient appears in no apparent distress at this time. Patient and/or jb4 family updated on plan of care and expected duration. Pain level reassessed. Patient is alert, oriented x 3, equal unlabored respirations, skin warm/dry/pink. 06:30 Reassessment: Patient appears in no apparent distress at this time. Patient and/or jb4 family updated on plan of care and expected duration. Pain level reassessed. Patient is alert, oriented x 3, equal unlabored respirations, skin warm/dry/pink. 07:44 Reassessment: Patient appears in no apparent distress at this time. Patient and/or jd3 family updated on plan of care and expected duration. Pain level reassessed. Patient is alert, oriented x 3, equal unlabored respirations, skin warm/dry/pink. Patient states feeling better. Vital Signs: 02:40 BP 123 / 87; Pulse 93; Resp 18; Temp 97.2(TE); Pulse Ox 92% ; Weight 74.84 kg; Height 5 jb4 ft. 6 in. (167.64 cm); Pain 8/10; 03:30 BP 112 / 81; Pulse 101; Resp 16; Pulse Ox 94% on R/A; jb4 04:30 BP 102 / 74; Pulse 98; Resp 18; Pulse Ox 92% on R/A; jb4 05:30 BP 105 / 81; Pulse 92; Resp 17; Pulse Ox 93% on R/A; jb4 06:15 BP 106 / 81; Pulse 98; Resp 18; Pulse Ox 92% on R/A; jb4 07:46 BP 109 / 74; Pulse 91; Resp 17 S; Pulse Ox 95% on R/A; jd3 02:40 Body Mass Index 26.63 (74.84 kg, 167.64 cm) jb4 [place] Coma Score: 02:40 Eye Response: spontaneous(4). Verbal Response: oriented(5). Motor Response: obeys jb4 commands(6). Total: 15. 03:30 Eye Response: spontaneous(4). Verbal Response: oriented(5). Motor Response: obeys jb4 commands(6). Total: 15. 04:30 Eye Response: spontaneous(4). Verbal Response: oriented(5). Motor Response: obeys jb4 commands(6). Total: 15. 06:15 Eye Response: spontaneous(4). Verbal Response: oriented(5). Motor Response: obeys jb4 commands(6). Total: 15. 07:47 Eye Response: spontaneous(4). Verbal Response: oriented(5). Motor Response: obeys jd3 commands(6). Total: 15. Trauma Score (Adult): 02:40 Eye Response: spontaneous(1); Verbal Response: oriented(1); Motor Response: obeys jb4 commands(2); Systolic BP: > 89 mm Hg(4); Respiratory Rate: 10 to 29 per min(4); Elroy Score: 15; Trauma Score: 12 03:30 Eye Response: spontaneous(1); Verbal Response: oriented(1); Motor Response: obeys jb4 commands(2); Systolic BP: > 89 mm Hg(4); Respiratory Rate: 10 to 29 per min(4); [place] Score: 15; Trauma Score: 12 04:30 Eye Response: spontaneous(1); Verbal Response: oriented(1); Motor Response: obeys jb4 commands(2); Systolic BP: > 89 mm Hg(4); Respiratory Rate: 10 to 29 per min(4); [place] Score: 15; Trauma Score: 12 06:15 Eye Response: spontaneous(1); Verbal Response: oriented(1); Motor Response: obeys jb4 commands(2); Systolic BP: > 89 mm Hg(4); Respiratory Rate: 10 to 29 per min(4); Elroy Score: 15; Trauma Score: 12 07:47 Eye Response: spontaneous(1); Verbal Response: oriented(1); Motor Response: obeys jd3 commands(2); Systolic BP: > 89 mm Hg(4); Respiratory Rate: 10 to 29 per min(4); [place] Score: 15; Trauma Score: 12 ED Course: 02:40 Patient has correct armband on for positive identification. Bed in low position. Call jb4 light in reach. Side rails up X 1. 02:40 Patient maintains SpO2 saturation greater than 95% on room air. Thermoregulation: warm jb4 blanket given to patient. 02:43 Patient arrived in ED. jb4 02:43 Marc Marinelli MD is Attending Physician. tw4 02:45 Triage completed. jb4 02:54 Arm band placed on right wrist. jb4 03:53 CT Head C Spine In Process Unspecified. EDMS 03:53 CT Thoracic Spine Wo Cont In Process Unspecified. EDMS 03:53 CT Lumbar Spine Wo Con In Process Unspecified. EDMS 04:00 Fede Canchola, RN is Primary Nurse. jb4 07:21 Primary Nurse role handed off by Fede Canchola, RN sv 07:44 No provider procedures requiring assistance completed. Patient did not have IV access jd3 during this emergency room visit. Administered Medications: 05:30 Drug: traMADol 50 mg Route: PO; jb4 06:32 Follow up: Response: No adverse reaction; No change in condition; RASS: Alert and Calm jb4 (0) 06:32 Not Given (Other Intervention Used): morphine 4 mg IM once; RASS on ADMIN: Combtv4, jb4 Very Agttd3, Agttd2, Rstlss1, AlertClm0, Drwsy-1, Lt Sdtn-2, Mod Sdtn-3, Dp Sdtn-4, UnArsble-5 06:39 Drug: [place] (HYDROcodone-acetaminophen) 5 mg-325 mg 1 tabs Route: PO; jb4 07:35 Follow up: Response: No adverse reaction; RASS: Alert and Calm (0) jd3 Intake: 02:40 PO: 0ml; Total: 0ml. jb4 Output: 02:40 Urine: 0ml; Total: 0ml. jb4 Outcome: 06:57 Discharge ordered by . tw4 07:45 Discharged to home via wheelchair, with family. jd3 07:45 Condition: stable 07:45 Discharge instructions given to patient, Instructed on discharge instructions, follow up and referral plans. medication usage, Demonstrated understanding of instructions, follow-up care, medications, Prescriptions given X 1. 07:46 Patient's length of stay in the Emergency Department was greater than 2 hours. due to jatiya waiting for resultsPatient's length of stay extended due to 07:48 Patient left the ED. anayeli Signatures: Dispatcher [employer] EDMS Tori Silva RN RN sv Bryson, James, RN RN jb4 Davies, Jonathon, RN RN jd3 Wadley, Terrence, MD MD tw4
--- NOTE | 2021-01-01 06:58 | EDPHYS ---
Physician Documentation [facility] Name: Rashida Blank Age: 85 yrs Sex: Male : 1935 Arrival Date: 01/01/2021 Time: 02:43 Bed 5 Private MD: ED Physician Marc Marinelli HPI: 01/01 06:27 This 85 yrs old Male presents to ER via EMS with complaints of Fall Injury. tw4 06:27 Details of fall: The patient fell from an upright position, while walking. Onset: The tw4 symptoms/episode began/occurred today. Severity of symptoms: At their worst the symptoms were moderate, in the emergency department the symptoms are unchanged. The patient has not experienced similar symptoms in the past. 06:29 Associated injuries: The patient sustained upper back injury, contusion, injury to the tw4 low back, contusion. Historical: - Allergies: 02:54 No Known Allergies; jb4 - Home Meds: 02:54 warfarin 4 mg Oral tab 1 tab once daily [Active]; simvastatin 40 mg Oral tab 1 tab once jb4 daily [Active]; sotalol 80 mg oral tab 1 tab 2 times per day [Active]; levothyroxine 50 mcg tab 1 tab once daily [Active]; furosemide 40 mg Oral tab 1 tab once daily [Active]; methocarbamol 750 mg Oral tab 1 tab 3 times per day [Active]; Hydrocodone-Acetaminophen Oral [Active]; - PMHx: 02:54 Atrial Fib; Hypothyroidism; Arthritis; incontinence; tinnitus; benign positional jb4 vertigo; back pain; - PSHx: 02:54 pacemaker; brendan hip replacement; prostate sx; Cholecystectomy; trigger finger; back jb4 surgery; cataracts; - Immunization history:: Adult Immunizations up to date. - Social history:: Smoking status: Patient denies any tobacco usage or history of. - Immunization history: Last tetanus immunization: unknown. ROS: 06:27 Constitutional: Negative for fever, chills, and weight loss, Eyes: Negative for injury, tw4 pain, redness, and discharge, Cardiovascular: Negative for chest pain, palpitations, and edema, Respiratory: Negative for shortness of breath, cough, wheezing, and pleuritic chest pain, Abdomen/GI: Negative for abdominal pain, nausea, vomiting, diarrhea, and constipation. Exam: 06:29 Constitutional: This is a well developed, well nourished patient who is awake, alert, tw4 and in no acute distress. Head/Face: Normocephalic, atraumatic. Chest/axilla: Normal chest wall appearance and motion. Nontender with no deformity. No lesions are appreciated. Cardiovascular: Regular rate and rhythm with a normal S1 and S2. No gallops, murmurs, or rubs. Normal PMI, no JVD. No pulse deficits. Respiratory: Lungs have equal breath sounds bilaterally, clear to auscultation and percussion. No rales, rhonchi or wheezes noted. No increased work of breathing, no retractions or nasal flaring. Abdomen/GI: Soft, non-tender, with normal bowel sounds. No distension or tympany. No guarding or rebound. No evidence of tenderness throughout. 06:29 MS/ Extremity: Pulses equal, no cyanosis. Neurovascular intact. Full, normal range of motion. Neuro: Awake and alert, GCS 15, oriented to person, place, time, and situation. Cranial nerves II-XII grossly intact. Motor strength 5/5 in all extremities. Sensory grossly intact. Cerebellar exam normal. Normal gait. 06:29 Back: pain, that is mild, ROM is normal, normal spinal alignment noted. Vital Signs: 02:40 BP 123 / 87; Pulse 93; Resp 18; Temp 97.2(TE); Pulse Ox 92% ; Weight 74.84 kg; Height 5 jb4 ft. 6 in. (167.64 cm); Pain 8/10; 03:30 BP 112 / 81; Pulse 101; Resp 16; Pulse Ox 94% on R/A; jb4 04:30 BP 102 / 74; Pulse 98; Resp 18; Pulse Ox 92% on R/A; jb4 05:30 BP 105 / 81; Pulse 92; Resp 17; Pulse Ox 93% on R/A; jb4 06:15 BP 106 / 81; Pulse 98; Resp 18; Pulse Ox 92% on R/A; jb4 07:46 BP 109 / 74; Pulse 91; Resp 17 S; Pulse Ox 95% on R/A; jd3 02:40 Body Mass Index 26.63 (74.84 kg, 167.64 cm) jb4 Elroy Coma Score: 02:40 Eye Response: spontaneous(4). Verbal Response: oriented(5). Motor Response: obeys jb4 commands(6). Total: 15. 03:30 Eye Response: spontaneous(4). Verbal Response: oriented(5). Motor Response: obeys jb4 commands(6). Total: 15. 04:30 Eye Response: spontaneous(4). Verbal Response: oriented(5). Motor Response: obeys jb4 commands(6). Total: 15. 06:15 Eye Response: spontaneous(4). Verbal Response: oriented(5). Motor Response: obeys jb4 commands(6). Total: 15. 07:47 Eye Response: spontaneous(4). Verbal Response: oriented(5). Motor Response: obeys jd3 commands(6). Total: 15. Trauma Score (Adult): 02:40 Eye Response: spontaneous(1); Verbal Response: oriented(1); Motor Response: obeys jb4 commands(2); Systolic BP: > 89 mm Hg(4); Respiratory Rate: 10 to 29 per min(4); Elroy Score: 15; Trauma Score: 12 03:30 Eye Response: spontaneous(1); Verbal Response: oriented(1); Motor Response: obeys jb4 commands(2); Systolic BP: > 89 mm Hg(4); Respiratory Rate: 10 to 29 per min(4); Elroy Score: 15; Trauma Score: 12 04:30 Eye Response: spontaneous(1); Verbal Response: oriented(1); Motor Response: obeys jb4 commands(2); Systolic BP: > 89 mm Hg(4); Respiratory Rate: 10 to 29 per min(4); Elroy Score: 15; Trauma Score: 12 06:15 Eye Response: spontaneous(1); Verbal Response: oriented(1); Motor Response: obeys jb4 commands(2); Systolic BP: > 89 mm Hg(4); Respiratory Rate: 10 to 29 per min(4); Elroy Score: 15; Trauma Score: 12 07:47 Eye Response: spontaneous(1); Verbal Response: oriented(1); Motor Response: obeys jd3 commands(2); Systolic BP: > 89 mm Hg(4); Respiratory Rate: 10 to 29 per min(4); Elroy Score: 15; Trauma Score: 12 MDM: 02:43 Patient medically screened. tw4 06/07 02:48 Order name: CT Head C Spine 4 01/01 03:21 Order name: CT Thoracic Spine Wo Cont 4 01/01 03:21 Order name: CT Lumbar Spine Wo Con tw4 Administered Medications: 05:30 Drug: traMADol 50 mg Route: PO; jb4 06:32 Follow up: Response: No adverse reaction; No change in condition; RASS: Alert and Calm jb4 (0) 06:32 Not Given (Other Intervention Used): morphine 4 mg IM once; RASS on ADMIN: Combtv4, jb4 Very Agttd3, Agttd2, Rstlss1, AlertClm0, Drwsy-1, Lt Sdtn-2, Mod Sdtn-3, Dp Sdtn-4, UnArsble-5 06:39 Drug: [place] (HYDROcodone-acetaminophen) 5 mg-325 mg 1 tabs Route: PO; jb4 07:35 Follow up: Response: No adverse reaction; RASS: Alert and Calm (0) jd3 Disposition: 01/01/21 06:57 Discharged to Home. Impression: Contusion of lower back and pelvis. - Condition is Stable. - Discharge Instructions: Contusion. - Prescriptions for Tramadol 50 mg Oral Tablet - take 1 tablet by ORAL route every 8 hours as needed; 12 tablet. - Medication Reconciliation Form, Thank You Letter, Antibiotic Education, Prescription Opioid Use form. - Follow up: Private Physician; When: Upon discharge from the Emergency Department; Reason: Recheck today's complaints, Continuance of care, Re-evaluation by your physician. - Problem is new. - Symptoms have improved. Signatures: Dispatcher [employer] EDMS Fede Canchola RN RN jb4 Parish Mondragon RN RN jd3 Marc Marinelli MD MD tw4 Corrections: (The following items were deleted from the chart) 06:30 06:27 Associated injuries: The patient sustained no obvious injury, 07:48 06:57 01/01/2021 06:57 Discharged to Home. Impression: Contusion of lower back and jd3 pelvis. Condition is Stable. Forms are Medication Reconciliation Form, Thank You Letter, Antibiotic Education, Prescription Opioid Use. Follow up: Private Physician; When: Upon discharge from the Emergency Department; Reason: Recheck today's complaints, Continuance of care, Re-evaluation by your physician. Problem is new. Symptoms have improved. tw4
[2021-01-01 07:58] VITALS: BP 109/74; O2SAT 95
--- NOTE | 2021-01-01 10:55 | RAD REPORT ---
EXAM DESCRIPTION: CT - Head C Spine Mpr Wo Con - 01/01/2021 9:23 am CLINICAL HISTORY: PAIN COMPARISON: None. TECHNIQUE: CT Head and Cervical spine WO contrast on 01/01/2021 2:48 AM CDT This exam was performed according to our departmental dose-optimization program, which includes autom ated exposure control, adjustment of the mA and/or kV according to patient size and/or use of iterati ve reconstruction technique. FINDINGS: Brain: There is no acute hemorrhage, mass effect or midline shift. Parks-white differentiat ion is preserved. There is no hydrocephalus. There is no significant volume loss for age. The calvarium is intact. Orbits and globes are unremarkable. The paranasal sinuses are clear. Mastoid air cells are clear. Cervical Spine: There is no acute fracture. Alignment is anatomic. Mild diffuse facet arthritis. There is mild narrowing of the C4-5 and C5-6 and C6-7 discs. Vertebral body heights are preserved. So ft tissues are unremarkable. IMPRESSION: No acute postraumatic findings. Electronically signed by: Jamari Diaz MD 01/01/2021 4:29 AM CDT Due to temporary technical issues with the PACS/Fluency reporting system, reports are being signed by the in house radiologist without review as a courtesy to ensure prompt reporting. The interpreting r adiologist is fully responsible for the content of the report.
--- NOTE | 2021-01-01 10:57 | RAD REPORT ---
EXAM DESCRIPTION: CTThoracic Spine W/o Cont01/01/2021 9:24 am CLINICAL HISTORY: The patient is 85 years old and is Male; LOWER BACK PAIN TECHNIQUE: Axial computed tomography images of the thoracic spine without intravenous contrast. Sa gittal and coronal reformatted images were created and reviewed. This CT exam was performed using o ne or more of the following dose reduction techniques: automated exposure control, adjustment of th e mA and/or kV according to patient size, and/or use of iterative reconstruction technique. COMPARISON: No relevant prior studies available. FINDINGS: Vertebrae: There is vertebral body height loss with evidence of vertebral augmentation f rom T11-L1. Osteopenia. Exaggerated kyphosis of the thoracic spine. Artifact from vertebral augmentation limiting evaluation of the canal and neural foramina. No acute fracture. Discs/spinal canal/neural foramina: Moderate bilateral neural foraminal narrowing at T11-T12 and T12-L1. Multilevel disc space narrowing with degenerative endplate changes. Soft tissues: Unremarkable. * A single impression for all exams can be found at the end of this report EXAM DESCRIPTION: CT Lumbar Spine Without Intravenous Contrast CLINICAL HISTORY: The patient is 85 years old and is Male; LOWER BACK PAIN TECHNIQUE: Axial computed tomography images of the lumbar spine without intravenous contrast. Sagi ttal and coronal reformatted images were created and reviewed. This CT exam was performed using one or more of the following dose reduction techniques: automated exposure control, adjustment of the mA and/or kV according to patient size, and/or use of iterative reconstruction technique. COMPARISON: No relevant prior studies available. FINDINGS: Vertebrae: Osteopenia. Minimal vertebral body height loss at L5. Artifact from vertebral augmentation limiting evaluation of the canal and neural foramina. No acute fracture. Discs/spinal canal/neural foramina: There is the suggestion of trilateral moderate spinal canal narrowing at L3-L4. Moderate bilateral neural foraminal narrowing at L2-L3. Moderate bilateral neural foraminal narrowing at L3-L4. Moderate bilateral neural foraminal narrowing at L4-L5. Soft tissues: Unremarkable. Other findings: Partially visualized bilateral hip arthroplasty. * A single impression for all exams can be found at the end of this report IMPRESSION: CT Thoracic Spine Without Intravenous Contrast: 1. No acute fracture. 2. There is vertebral body height loss with evidence of vertebral augmentation from T11-L1. 3. Osteopenia limiting evaluation. 4. Moderate bilateral neural foraminal narrowing at T11-T12 and T12-L1. CT Lumbar Spine Without Intravenous Contrast: 1. No acute fracture. 2. Osteopenia limiting evaluation. 3. There is the suggestion of trilateral moderate spinal canal narrowing at L3-L4. 4. Multilevel neural foraminal narrowing as described above. Electronically signed by: Rosalino Roth MD 01/01/2021 4:34 AM CDT Due to temporary technical issues with the PACS/Fluency reporting system, reports are being signed by the in house radiologist without review as a courtesy to ensure prompt reporting. The interpreting r adiologist is fully responsible for the content of the report.
== END 2021-01-01 07:48 | disposition home or self-care (01) ==
LOC: ER 02:41
DX: S30.0XXA Contusion of lower back and pelvis, initial encounter (principal); S29.9XXA Unspecified injury of thorax, initial encounter; W19.XXXA Unspecified fall, initial encounter; I48.91 Unspecified atrial fibrillation; E03.9 Hypothyroidism, unspecified; M19.90 Unspecified osteoarthritis, unspecified site; Z95.0 Presence of cardiac pacemaker; Z96.643 Presence of artificial hip joint, bilateral
CPT/HCPCS: 70450; 72125; 72128; 72131; 99284; G0390

== ENCOUNTER 2021-06-21 08:39 | Emergency (ER) | payer OTHER, BC ==
--- OUTSIDE RECORDS SUMMARY | 2021-06-21 08:43 | XMS REPORT | Continuity of Care Document ---
:1935 Author Organization [facility] t Address [address] [place] [address] Care Team Providers Name Role Phone Sebas Doshi MD Primary Care Physician WILLIAM MONTANEZ Attending Clinician Unavailable Nurse, Pob Immunization Attending Clinician Unavailable William Montanez DO Attending Clinician Fred KIRAN Attending Clinician Unavailable ZAC MALDONADO Attending Clinician Unavailable BECKY Attending Clinician Unavailable ASHANTI Attending Clinician Unavailable Diego TEMPLATE CHECKER, F Attending Clinician Unavailable Sebas Doshi MD Attending Clinician SEBAS DOSHI Attending Clinician Unavailable Kimberley SQUIRES Attending Clinician Unavailable Natalio Jacobsen MD Attending Clinician Natalio JACOBSEN Attending Clinician Unavailable Doctor Unassigned, Name Attending Clinician Unavailable Payers Payer Name Policy Type Policy Number Effective Date Expiration Date S ource MEDICARE PART A \T\ [id number] 2001 B 00:00:00 [employer] TRADITIONAL [id number] 2001 00:00:00 Problems Condition Condition Condition Status Onset Resolution Last Treating Co mments Source Name Details Category Date Date Treatment Clinician Date Acute low Acute low Disease Active 2019-07 Uni vers back pain back pain 0-21 ity of without without 00:00: [place] sciatica sciatica 00 Medica l Branch Compressio Compressio Disease Active 2019-07 U nivers n fracture n fracture 0- it y of of L1 of L1 00:00: [place] lumbar lumbar Medical vertebra vertebra Branch Unspecifie Unspecifie Disease Active 2019-07 U nivers d d 0-21 ity of abnormalit abnormalit [place] of 00 Medical gait and gait and Branch mobility mobility Muscle Muscle Disease Active 2019-07 Univers weakness-g weakness-g 021 it y of eneral eneral 00:00: [place] 00 [facility] Allergies, Adverse Reactions, Alerts Allergy Allergy Status [...] Allergy Active 2019-07 ENCGEN 2-06 12:22: 47 NO KNOWN Drug Active Univers ALLERGIE Class ity of S [facility] Social History Social Habit Start Date Stop Date Quantity Comments Source Exposure to Not sure [facility] SARS-CoV-2 (event) Medica l Branch Sex Assigned At [birth year] [facility] 00:00:00 00:00:00 [facility] Smoking Status Start Date Stop Date Source Unknown if ever smoked [facility] Medications Ordered Filled Start Stop Current Ordering [...] Betapace Yes Fel[place] [address] [facility] Immunizations Ordered Filled Immunization Date Status Comments Sourc e Immunization Name Name SARS-COV-2 COVID-19 2021-05-03 Completed Unive rsity of [facility] VACCINE 00:00:00 [facility] SARS-COV-2 COVID-19 2020-10-10 Completed Unive rsity of [facility] VACCINE 00:00:00 [facility] SARS-COV-2 COVID-19 2020-09-19 Completed Unive rsity of [facility] VACCINE 00:00:00 [facility] Procedures Procedure Date / Time Performed Performing Clinician Sour e SARS-COV-2 COVID-19 2021-05-03 15:48:34 Doctor Unassigned, No [facility] [place] VACCINE,0.3ML,IM Name Medical Branch ([facility]) REFERRAL- 2020-05-17 05:01:00 Doctor Unassigned, No [facility] REQUEST/RESPONSE Name [facility] Encounters Start End Encounter Admission Attending Care Care Encounter Source Date/Time Date/Time Type Type Clinicians Facility Department ID 2021-05-22 2021-05-22 Out[facility] [id number] [facility] 2021-05-17 2021-05-17 Out[facility] [id number] [facility] 2021-05-09 2021-05-09 Out[facility] [id number] [facility] 2021-05-07 2021-05-07 Outpatient Dayanara MONTANEZ [facility] [id number] Univers 10:30[facility]00 [facility]-03 2021-05-03 Outpatient Dayanara MONTANEZ [facility] [id number] Univers 10:50:00 10:50:00 OSITO ricardo [facility] 2021-05-03 2021-05-03 Imm/Inj Nurse, Adc Pob Immunization [facility] [id number] Univers 10:47:40 10:47:55 Visit Osito Montanez [id number] .10 [facility] [id number] Luis Appiah [phone] Mo dical [address] 2021-05-03 2021-05-03 Outpatient [facility] [id number] [facility] 2021-05-03 2021-05-03 Out[facility] [id number] [facility] 2021-04-26 2021-04-26 [facility] [id number] [facility] 2021-04-26 2021-04-26 Outpatient [facility] [id number] [facility] 2021-04-19 2021-04-19 Outpatient [facility] [id number] [facility] 2021-02-13 2021-02-13 Outpatient [facility] [id number] [facility] 2021-02-13 2021-02-13 Outpatient [facility] [id number] [facility] 2021-02-08 2021-02-08 Outpatient [facility] [id number] [facility] 2021-01-09 2021-01-09 Outpatient [facility] [id number] [facility] 2021-01-08 2021-01-08 Outpatient [facility] [id number] [facility] 2020-12-15 2020-12-15 Outpatient [facility] [id number] [facility] 2020-11-27 2020-11-27 Outpatient [facility] [id number] [facility] 2020-10-10 2020-10-10 Outpatient Dayanara KIRAN [facility] [id number] Univers 10:20:00 10:20:[id number] [facility] 2020-10-10 2020-10-10 Outpatient Dayanara KIRAN [facility] [id number] Univers 10:20:00 10:20:[address] [facility] 2020-09-19 2020-09-19 Outpatient Dayanara KIRAN [facility] [id number] Univers 09:40:00 09:40:[id number] [facility] 2020-09-19 2020-09-19 Outpatient Dayanara KIRAN, [facility] [id number] Univers 09:40:00 09:40:[address] [facility] 2020-09-19 2020-09-19 Outpatient [facility] [id number] [facility] 2020-07-02 2020-08-11 Outpatient READMISSIO ZAC ENCGEN ENCGEN [id number] ENCGEN 00:00:00 00:00:00 SANDY SIMMONS 2020-07-24 2020-07-24 Outpatient [facility] [id number] [facility] 2020-07-06 2020-07-06 Outpatient [facility] [id number] [facility] 2020-07-03 2020-07-03 Outpatient [facility] [id number] [facility] 2020-06-23 2020-06-23 Outpatient BECKYSAW [id number] [facility] 13:57:00 13:57:00 KIMBERLEY [id number] [facility] 2020-06-15 2020-06-15 Outpatient [facility] [id number] [facility] 2020-06-13 2020-06-13 Outpatient [facility] [id number] [facility] 2020-06-12 2020-06-12 Outpatient [facility] [id number] [facility] 2020-06-08 2020-06-08 Outpatient [facility] [id number] Univers 15:40:00 15:40:[id number] [facility] 2020-06-06 2020-06-06 Outpatient [facility] [id number] Univers 15:40:00 15:40:00 ity [facility] 2020-06-06 2020-06-06 Outpatient [facility] [id number] [facility] 2020-06-02 2020-06-02 Outpatient [facility]ITER [facility] [id number] [place] 00:00:00 00:00:00 , JASON [address] 2020-06-02 2020-06-02 Outpatient [facility] [id number] [place] 00:00:00 00:00:00 , JASON [address] 2020-06-01 2020-06-01 Outpatient [facility] [id number] Univers 15:40:00 [facility]40[facility] 2020-05-30 2020-05-30 Ancillary Fam Cortez [facility] 1.2.840. [id number] Univers 15:32:51 16:12:51 Visit Parish Doshi 350.1.1 3.10 itricardo [facility] [id number] [place] [phone] Mo dical [address] 2020-05-30 2020-05-30 Ancillary LEIGHANN Cortez [id number] 15:32:51 16:12:51 Visit Fam Scott [id number] [place] [id number] Professio [phone] [address] 2020-05-30 2020-05-30 Outpatient [facility] [id number] Univers 15:40:00 15:40:00 ity [facility] 2020-05-30 2020-05-30 Outpatient Dayanara DOSHI [facility] [id number] Univers 15:40:00 15:40:00 PARISH ity [facility] 2020-05-25 2020-05-25 Outpatient [facility] [id number] Univers 16:00:00 16:00:[id number] [facility] 2020-05-25 2020-05-25 Ancillary Fam Cortez [facility] 1.2.840. [id number] Univers 09:07:19 09:47:19 Visit Parish Doshi Sonia 350.1.1 3.10 it[id number] [phone] Mo dical nal 179 [facility] 2020-05-25 2020-05-25 Ancillary Diego [facility] [id number] 09:07:19 09:47:19 Visit Fam Stewrat Sonia [id number] [place] [id number] Professio [phone] [facility] 179 Building 2020-05-23 2020-05-23 Ancillary Fam Cortez [facility] 1.2.840. [id number] [facility] [place] [facility] 15:31:51 16:11:51 Visit Parish Doshi Sonia 350.1.1 3.10 [id number] [phone] Mo dical nal 179 [facility] 2020-05-23 2020-05-23 Jarocho Cortez [facility] [id number] 15:31:51 16:11:51 Visit Fam Stewart [place] [id number] [place] [id number] Professio [phone] [facility] 179 [facility] 2020-05-23 2020-05-23 Outpatient R [facility] [id number] [facility] [place] [facility] 15:40:00 15:40:00 [id number] ity of [facility] 2020-05-17 2020-05-17 Ancillary Aaliyah Chu [facility] 1.2.840. [id number] [facility] [place] [facility] 08:27:26 09:27:26 Visit Keith Jacobsen [id number] [place] [id number] [phone] Mo dical nal 179 [facility] 2020-05-17 2020-05-17 Ancillary Kimberley [facility] [id number] 08:27:26 09:27:26 Visit Aaliyah Scott [id number] [place] [id number] Professio [phone] [address] 2020-05-17 2020-05-17 Outpatient Dayanara JACOBSEN [facility] [id number] [facility] [place] [facility] 08:20:00 08:20:00 KEITH itricardo [facility] 2020-05-17 2020-05-17 Orders Doctor AMOR [id number] Univers 00:00:00 00:00:00 Only Unassigned, [place] [id number] ity [place] [facility] [id number] [facility] as [phone] [address] 2020-05-17 2020-05-17 Orders Doctor AMOR [id number] 00:00:00 00:00:00 Only Unassigned, MITCHELL [id number] [place] [facility] [id number] [phone] [facility] 2020-05-10 2020-05-10 Outpatient [facility] [id number] [place] 00:00:00 00:00:00 , JASON [address] 2020-05-10 2020-05-10 Outpatient [facility] [id number] [place] 00:00:00 00:00:00 , JASON [address] 2020-05-03 2020-05-03 Outpatient [facility] [id number] [place] 00:00:00 00:00:00 , JASON [address] 2020-05-03 2020-05-03 Outpatient [facility] [id number] [place] 00:00:00 00:00:00 , JASON [address] 2020-04-06 2020-04-06 [facility] [id number] 13:00:00 13:00:00 t [facility] Clinics 2020-02-03 2020-02-03 [facility] [id number] 13:30:00 13:30:00 t [facility] ent Clinics 2020-02-03 2020-02-03 [facility] [id number] 11:00:00 11:00:[address] [facility] s [facility] 2020-01-04 2020-01-04 [facility] [id number] 13:40:00 13:40:00 t [employer] [facility] 2019-12-30 2019-12-30 [facility] [id number] 08:30:00 08:30:00 t [facility] 2019-12-22 2019-12-22 [facility] [id number] 09:19:00 09:19:00 t [facility] 2019-12-17 2019-12-17 [facility] [id number] 11:13:00 11:13:00 t [facility] 2019-12-09 2019-12-09 [facility] [id number] 10:51:00 10:51:00 t [facility] 2019-11-25 2019-11-25 [facility] [id number] 10:30:00 10:30:00 t [facility] 2019-10-07 2019-10-07 [facility] [id number] 11:28:00 11:28:00 t [facility] 2019-10-07 2019-10-07 [facility] [id number] 10:45:00 10:45:00 t [facility] 2019-08-23 2019-08-23 [facility] [id number] 09:21:00 09:21:00 t Almo [employer] s - Drive [facility] [place] Medicine Outpati ent Clinics 2019-08-06 2019-08-06 [facility] [id number] 10:00:00 10:00:00 t [facility] Clinics 2018-02-02 2018-02-02 [facility] [id number] 11:15:00 11:15:00 t Almo [employer] s - Drive [facility] Medicine Medicine Outpati ent Clinics 2018-01-27 2018-01-27 [facility] [id number] 11:15:00 11:15:00 t Almo [employer] s - [employer] [facility] [place] Medicine Outpati ent Clinics 2018-01-22 2018-01-22 [facility] [id number] 09:44:00 09:44:00 t Almo [employer] s - [employer] [facility] [place] Medicine Outpati ent Clinics 2018-01-19 2018-01-19 [facility] [id number] 14:00:00 14:00:00 t Almo [employer] s - [employer] [facility] [place] Medicine Outpati ent Clinics 2018-01-19 2018-01-19 [facility] [id number] 08:33:00 08:33:00 t Almo [employer] s - [employer] [facility] [place] Medicine Outpati ent Clinics 2017-12-18 2017-12-18 [facility] [id number] 11:00:00 11:00:00 t Almo [employer] [facility] [place] Medicine Outpati ent Clinics 2017-11-27 2017-11-27 [facility] [id number] 14:30:00 14:30:00 t [employer]mo [employer] [place] [facility] [place] Medicine Outpati ent Clinics Results Test Description Test Time Test Comments Results Result Comments Source PROTHROMBIN TIME 2020-06-23 14:28:00 Test Item Value Reference Range Interpretation Comme nts PT PATIENT (test code = PTP) 18.4 SECONDS 9.3-12.9 H INTERNATIONAL NORMAL RATIO (test code = INR) 1.61 INR Unit 0.8-1.2 H BASIC METABOLIC [id number] 14:27:00 Test Item Value Reference Range Interpretation Comments SODIUM (test code = NA) 137 mmol/L 134-147 N POTASSIUM (test code = 3.3 mmol/L 3.4-5.0 L K) CHLORIDE (test code = 100 mmol/L 100-108 N CL) CARBON DIOXIDE (test 28 mmol/L 21-32 N code = CO2) ANION GAP (test code = 9.0 GAP calc 4.0-15.0 N GAP) GLUCOSE (test code = 116 MG/DL 70-110 H GLU) BLOOD UREA NITROGEN 17 MG/DL 7-18 N (test code = BUN) GLOMERULAR FILTRATION >=60 max estimate >60 RATE (test code = GFR) estGFR CREATININE (test code = 0.8 MG/DL 0.6-1.0 N CREAT) CALCIUM (test code = CA) 8.6 MG/DL 8.5-10.1 N CBC W/AUTO [id number] 14:23:00 Test Item Value Reference Range Interpretation Comments WHITE BLOOD CELL (test code = 4.1 K/mm3 3.5-11.0 N WBC) RED BLOOD CELL (test code = 5.14 M/mm3 4.70-6.10 N RBC) HEMOGLOBIN (test code = HGB) 16.1 G/DL 10.4-14.9 H HEMATOCRIT (test code = HCT) 48.1 % 31.5-44.1 H MEAN CELL VOLUME (test code = 93.6 Fl 84.5-98.6 N MCV) MEAN CELL HGB (test code = MCH) 31.3 pg 27.0-34.2 N MEAN CELL HGB CONCETRATION 33.5 G/DL 31.5-34.0 N (test code = MCHC) RED CELL DISTRIBUTION WIDTH 12.6 SD 11.5-14.5 N (test code = RDW) PLATELET COUNT (test code = 180 K/mm3 150-450 N PLT) MEAN PLATELET VOLUME (test code 10.70 fL 7.0-10.5 H = MPV) NEUTROPHIL % (test code = NT%) 69.8 % 40-76 N IMMATURE GRANULOCYTE % (test 0.5 % 0.0-5.0 N code = IG%) LYMPHOCYTE % (test code = LY%) 19.9 % 20.5-51.1 L MONOCYTE % (test code = MO%) 8.1 % 1.7-9.3 N EOSINOPHIL % (test code = EO%) 1.5 % 0.0-6.0 N BASOPHIL % (test code = BA%) 0.2 % 0.0-2.0 N NUCLEATED RBC % (test code = 0.0 /100WBC% 0.0-1.0 N NRBC%) NEUTROPHIL # (test code = NT#) 2.9 K/mm3 1.8-7.6 N IMMATURE GRANULOCYTE # (test 0.02 x10 3/uL 0.00-0.03 N code = IG#) LYMPHOCYTE # (test code = LY#) 0.8 K/mm3 0.6-3.2 N MONOCYTE # (test code = MO#) 0.3 K/mm3 0.3-1.1 N EOSINOPHIL # (test code = EO#) 0.1 K/mm3 0.0-0.4 N BASOPHIL # (test code = BA#) 0.0 K/mm3 0.0-0.1 N NUCLEATED RBC # (test code = 0.0 K/mm3 0.0-0.1 N NRBC#) MANUAL DIFF REQUIRED (test code NO DIFF/SCN CRITERIA = MDIFF)
[2021-06-21] MEDS ORDERED: ONDANSETRON 4 MG/2 ML VIAL ONE (09:10)
[2021-06-21] MEDS ORDERED: NA CHLORIDE 0.9% 1,000 ML ONE (09:10)
[2021-06-21] MEDS ORDERED: HYDROMORPHONE HCL 1 MG/ML INJ ONE ×3 (09:11→14:33)
[2021-06-21 09:46] LABS: Absolute Lymphocytes (CBC) 1.2 K/uL (0.7-4.9); Basophils % 0.9 % (0-1.3); Lymphocytes % 11.1 % (15.3-44.8); MPV 7.7 fL (7.6-11.3); RBC Red Blood Cell Count 4.96 M/uL (4.33-5.43)
[2021-06-21 10:00] LABS: Albumin 3.6 g/dL (3.4-5.0); Bilirubin Direct 0.2 mg/dL (0-0.2); Potassium 3.6 mmol/L (3.5-5.1); Protein, Total 7.1 g/dL (6.4-8.2)
[2021-06-21] MEDS ORDERED: TETANUS & DIPHTHERIA TOX,ADULT 0.5 ML VIAL ONE (10:20)
--- NOTE | 2021-06-21 10:24 | RAD REPORT ---
EXAM DESCRIPTION: CT - Head C Spine Cap Jose Rafael Rees - 06/21/2021 9:53 am CLINICAL HISTORY: Head and neck injury with chest and abdominal pain status post fall. Head and neck pain . TECHNIQUE: Computed axial tomography of the head and cervical spine was obtained Computed axial tomography of the chest, abdomen and pelvis was obtained. 100 cc Isovue-300 was given intravenously coronal and sagittal reconstruction was performed. All CT scans are performed using dose optimization technique as appropriate and may include automated exposure control or mA/KV adjustment according to patient size. COMPAR[facility]: [facility] [facility] FINDINGS: An intracranial bleed is not seen. Cerebral atrophy. Mild to moderate low-density areas wi thin periventricular, deep and subcortical white matter likely ischemic changes secondary to small ve ssel disease. Prominence of the ventricles without significant change likely related to atrophy. . An extra-axial fluid collection is not noted. Fluid within the sinuses is not seen A cervical fracture is not seen. No dislocation is seen. A mediastinal hematoma is not noted. A pleural effusion is not present. A lung contusion is not seen. The liver, spleen, pancreas, adrenals, kidneys and bladder do not demonstrate a traumatic injury. Small renal and hepatic cysts. Bilateral hip arthroplasties have been performed. Cement has been placed into old vertebral fractures . Cortical regularity involves the left inferior pubic ramus IMPRESSION: No acute intracranial abnormality is seen A cervical fracture is not visualized. If the patient continues have symptoms to suggest intracranial /spinal cord pathology then MRI would be recommended. No acute traumatic injury involving the chest, or abdomen Cortical regularity left inferior pubic ramus may represent a nondisplaced fracture of indeterminate age
--- NOTE | 2021-06-21 10:36 | RAD REPORT ---
EXAM DESCRIPTION: Vin Single View06/21/2021 10:05 am CLINICAL HISTORY: Chest pain COMPARISON: 2019 FINDINGS: The lungs appear clear of acute infiltrate. The heart is mildly enlarged. Pacemaker leads are in place. IMPRESSION: No acute abnormalities displayed
--- NOTE | 2021-06-21 10:37 | RAD REPORT ---
EXAM DESCRIPTION: RAD - Hip Left 2 View - 06/21/2021 10:06 am CLINICAL HISTORY: Left hip pain status post injury FINDINGS: A left hip prosthesis in good position without evidence of loosening. No dislocation Cortical regularity involves the left inferior pubic ramus consistent with a nondisplaced fracture. I t probably is acute or subacute
--- NOTE | 2021-06-21 10:39 | RAD REPORT ---
EXAM DESCRIPTION: RAD - Elbow Left 3 View - 06/21/2021 10:05 am CLINICAL HISTORY: Left elbow pain status post trauma FINDINGS: No fracture or dislocation is seen.
[2021-06-21 10:55] LABS: Protime INR 1.65
--- NOTE | 2021-06-21 11:11 | EDPHYS ---
Physician Documentation [facility] Name: Rashida Blank Age: 85 yrs Sex: Male : 1935 Arrival Date: 06/21/2021 Time: 08:41 Bed 5 Private MD: ED Physician Bobby Hanna HPI: 06/21 09:52 This 85 yrs old Male presents to ER via EMS with complaints of Fall Injury. ma2 09:52 Details of fall: The patient fell from an upright position. Onset: The symptoms/episode ma2 began/occurred suddenly, 1 hour(s) ago. Associated injuries: The patient sustained injury to the low back, left elbow and left knee and left hip. Severity of symptoms: At their worst the symptoms were mild, in the emergency department the symptoms are unchanged. The patient has not experienced similar symptoms in the past. Historical: - Allergies: 08:45 No Known Allergies; kd3 - Home Meds: 08:45 simvastatin 40 mg Oral tab 1 tab once daily [Active]; levothyroxine 50 mcg tab 1 tab kd3 once daily [Active]; sotalol 80 mg oral tab 1 tab 2 times per day [Active]; warfarin 4 mg oral tab 1 tab once daily [Active]; - PMHx: 08:45 Arthritis; Atrial Fib; Back pain; benign positional vertigo; Hypothyroidism; kd3 incontinence; tinnitus; - Immunization history:: Adult Immunizations up to date. - Social history:: Smoking status: Patient denies any tobacco usage or history of. Patient/guardian denies using alcohol, street drugs, The patient lives with family. - Family history:: not pertinent. ROS: 09:52 Constitutional: Negative for fever, chills, and weight loss. ma2 09:52 All other systems are negative. Exam: 09:52 Constitutional: This is a well developed, well nourished patient who is awake, alert, ma2 and in no acute distress. Head/Face: Normocephalic, atraumatic. Eyes: Pupils equal round and reactive to light, extra-ocular motions intact. Lids and lashes normal. Conjunctiva and sclera are non-icteric and not injected. Cornea within normal limits. Periorbital areas with no swelling, redness, or edema. ENT: Nares patent. No nasal discharge, no septal abnormalities noted. Tympanic membranes are normal and external auditory canals are clear. Oropharynx with no redness, swelling, or masses, exudates, or evidence of obstruction, uvula midline. Mucous membranes moist. Neck: Trachea midline, no thyromegaly or masses palpated, and no cervical lymphadenopathy. Supple, full range of motion without nuchal rigidity, or vertebral point tenderness. No Meningismus. Chest/axilla: Normal chest wall appearance and motion. Nontender with no deformity. No lesions are appreciated. Cardiovascular: Regular rate and rhythm with a normal S1 and S2. No gallops, murmurs, or rubs. Normal PMI, no JVD. No pulse deficits. Respiratory: Lungs have equal breath sounds bilaterally, clear to auscultation and percussion. No rales, rhonchi or wheezes noted. No increased work of breathing, no retractions or nasal flaring. Abdomen/GI: Soft, non-tender, with normal bowel sounds. No distension or tympany. No guarding or rebound. No evidence of tenderness throughout. Back: No spinal tenderness. has bilateral lower back costovertebral tenderness. Full range of motion. Skin: abrasions to left knee, wound with skin loss on left elbow Warm, dry with normal turgor. Normal color with no rashes, no lesions, and no evidence of cellulitis. MS/ Extremity: Pulses equal, no cyanosis. Neurovascular intact. Full, normal range of motion. Neuro: Awake and alert, GCS 15, oriented to person, place, time, and situation. Cranial nerves II-XII grossly intact. Motor strength 5/5 in all extremities. Sensory grossly intact. Cerebellar exam normal. Normal gait. Vital Signs: 08:45 Pulse 97; Resp 16; Pulse Ox 100% on R/A; kd3 10:55 BP 144 / 101; Pulse 126; Resp 16; Pulse Ox 100% on R/A; bp 10:55 Pain 8/10; bp 13:51 BP 112 / 86; Pulse 140; Resp 16; Pulse Ox 100% on R/A; kd3 MDM: 08:57 Patient medically screened. ma2 09:53 Differential diagnosis: abrasion, closed head injury, contusion, fracture. ma2 11:09 Data reviewed: vital signs, nurses notes, EMS record. Counseling: I had a detailed ma2 discussion with the patient and/or guardian regarding: the historical points, exam findings, and any diagnostic results supporting the discharge/admit diagnosis, the presence of at least one elevated blood pressure reading (>120/80) during this emergency department visit, the need to transfer to another facility. Response to treatment: the patient's symptoms have markedly improved after treatment. 11:09 ED course: Patient has inferior pubic ramus fracture, no orthopedic available in our [facility] will transfer to higher level of care.. 12:04 ED course: discussed and accepted by orthopedics at [facility] 06/21 09:02 Order name: BMP; Complete Time: 10:19 [facility] 06/21 09:02 Order name: CBC with Diff; Complete Time: 10: [facility] 06/21 09:02 Order name: Hepatic Function; Complete Time: 10: [facility] 06/21 09:02 Order name: Lipase; Complete Time: 10: [facility] 06/21 09:02 Order name: Amylase, Serum; Complete Time: 10: [facility] 06/21 09:02 Order name: ETOH Level; Complete Time: 10: [facility] 06/21 10:23 Order name: COVID-19 SARS RT PCR (Document "Date of Onset" if Symptomatic) ss 06/21 10:29 Order name: Protime (+inr); Complete Time: 12:00 bp 06/21 09:02 Order name: XRAY Chest (1 view); Complete Time: 10:50 [facility] 06/21 09:02 Order name: Hip Left 2 View XRAY; Complete Time: 10:50 [facility] 06/21 09:02 Order name: Elbow Left 3 View XRAY; Complete Time: 10:50 [facility] 06/21 09:26 Order name: Head C Spine Cap W Con; Complete Time: 10:33 EDMS 06/21 10:29 Order name: Ptt, Activated; Complete Time: 12:00 bp 06/21 09:02 Order name: IV Saline Lock; Complete Time: :38 [facility] 06/21 09:02 Order name: Labs collected and sent; Complete Time: 09:38 [facility] 06/21 09:02 Order name: NPO; Complete Time: :38 [facility] 06/21 09:02 Order name: EKG; Complete Time: 09:03 [facility] 06/21 09:02 Order name: EKG - Nurse/Tech; Complete Time: 11:47 ma2 06/21 09:02 Order name: O2 Per Protocol; Complete Time: 09:39 ma2 06/21 09:02 Order name: O2 Sat Monitoring; Complete Time: 09:39 ma2 Administered Medications: 09:38 Drug: Dilaudid (HYDROmorphone) 1 mg Route: IVP; Site: left forearm; kd3 09:38 Drug: NS 0.9% 1000 ml Route: IV; Rate: 1000 ml; Site: left forearm; kd3 13:52 Follow up: IV Status: Completed infusion; IV Intake: 1000ml kd3 09:38 Drug: Zofran (Ondansetron) 4 mg Route: IVP; Site: left forearm; kd3 10:29 Drug: Tetanus-Diphtheria Toxoid Adult 0.5 ml {Production [employer]: [employer]. Exp: 12/08/2022. Lot #: [id number]. } Route: IM; Site: right deltoid; 10:48 Follow up: Response: No adverse reaction bp 13:53 Follow up: Response: No adverse reaction kd3 11:21 Drug: Dilaudid (HYDROmorphone) 1 mg Route: IVP; Site: left forearm; kd3 12:30 Follow up: Response: Pain is decreased kd3 13:53 Follow up: Response: No adverse reaction kd3 11:29 Drug: Ativan (LORazepam) 1 mg Route: IVP; Site: left forearm; kd3 12:29 Follow up: Response: Anxiety decreased kd3 13:52 Follow up: Response: No adverse reaction kd3 Disposition Summary: 06/21/21 11:11 Transfer Ordered Transfer Location: Other Acute Care Facility ma2 Reason: Higher level of care ma2 Condition: Stable ma2 Problem: new ma2 Symptoms: are unchanged ma2 Accepting Physician: ortho\\E\\(06/21/21 14:52) kd3 Diagnosis - Fracture of other parts of pelvis - inferior pubic ramus fracture - left ma2 Forms: - Medication Reconciliation Form ma2 - SBAR form ma2 Signatures: Dispatcher [employer] Gerard Paris RN RN bp Bobby Hanna MD MD ma2 Ronit Harden RN RN kd3 Corrections: (The following items were deleted from the chart) 09:03 09:03 BASIC METABOLIC PANEL+C.LAB.BRZ ordered. EDMS EDMS 09: 09:03 Head C Spine MPR Wo Con+CT.RAD.BRZ ordered. EDMS EDMS 09: 09:03 Abdomen Pelvis W Con+CT.RAD.BRZ ordered. EDMS EDMS 09: 09:03 Thoracic Spine WO Cont+CT.RAD.BRZ ordered. EDMS EDMS 09: 09:03 Spine Lumbar Wo Con+CT.RAD.BRZ ordered. EDMS EDMS 10:27 09:03 TYPE AND SCREEN+BB.LAB.BRZ ordered. EDMS EDMS 10:46 10:35 Pelvis+RAD.RAD.BRZ ordered. EDMS EDMS 14:52 11:11 ortho\\E\\ ma2 kd3
--- NOTE | 2021-06-21 11:11 | ER ---
Nurse's Notes [facility] Name: Rashida Blank Age: 85 yrs Sex: Male : 1935 Arrival Date: 06/21/2021 Time: 08:41 Bed 5 Private MD: Diagnosis: Fracture of other parts of pelvis-inferior pubic ramus fracture - left Presentation: 06/21 08:42 Chief complaint: Patient states: MECHANICAL FALL FROM STANDING. Coronavirus screen: At kd3 this time, the client does not indicate any symptoms associated with coronavirus-19. Ebola Screen: No symptoms or risks identified at this time. Initial Sepsis Screen: Does the patient meet any 2 criteria? No. Patient's initial sepsis screen is negative. Does the patient have a suspected source of infection? No. Patient's initial sepsis screen is negative. Risk Assessment: Do you want to hurt yourself or someone else? Patient reports no desire to harm self or others. Onset of symptoms was June 21, 2021. 08:42 Method Of Arrival: EMS: [facility] 08:42 Acuity: IVONNE 3 kd3 Triage Assessment: 08:45 General: Appears in no apparent distress. Behavior is calm, cooperative, appropriate kd3 for age. Pain: Complains of pain in left hip. 08:45 EENT: No deficits noted. Neuro: No deficits noted. Level of Consciousness is awake, kd3 alert, obeys commands, Oriented to person, Appropriate for age. Cardiovascular: No deficits noted. Rhythm is atrial pacer. Respiratory: No deficits noted. Airway is patent. GI: Reports diarrhea. : No deficits noted. No signs and/or symptoms were reported regarding the genitourinary system. Derm: SCATTERED ABRASIONS, VARIOUS STAGES OF HEALING. Musculoskeletal: Reports pain in left hip. Injury Description: Abrasion is SCATTERED VARIOUS STAGES OF HEALING. Historical: - Allergies: 08:45 No Known Allergies; kd3 - Home Meds: 08:45 simvastatin 40 mg Oral tab 1 tab once daily [Active]; levothyroxine 50 mcg tab 1 tab kd3 once daily [Active]; sotalol 80 mg oral tab 1 tab 2 times per day [Active]; warfarin 4 mg oral tab 1 tab once daily [Active]; - PMHx: 08:45 Arthritis; Atrial Fib; Back pain; benign positional vertigo; Hypothyroidism; kd3 incontinence; tinnitus; - Immunization history:: Adult Immunizations up to date. - Social history:: Smoking status: Patient denies any tobacco usage or history of. Patient/guardian denies using alcohol, street drugs, The patient lives with family. - Family history:: not pertinent. Screenin:52 Abuse screen: Denies threats or abuse. Denies injuries from another. Nutritional kd3 screening: No deficits noted. Tuberculosis screening: No symptoms or risk factors identified. Fall Risk Fall in past 12 months (25 points). Assessment: 08:45 General: SEE TRIAGE NOTE . kd3 Vital Signs: 08:45 Pulse 97; Resp 16; Pulse Ox 100% on R/A; kd3 10:55 BP 144 / 101; Pulse 126; Resp 16; Pulse Ox 100% on R/A; bp 10:55 Pain 8/10; bp 13:51 BP 112 / 86; Pulse 140; Resp 16; Pulse Ox 100% on R/A; kd3 ED Course: 08:41 Patient arrived in ED. kd3 08:45 Triage completed. kd3 08:45 Arm band placed on right wrist. kd3 08:52 Patient has correct armband on for positive identification. Bed in low position. Call kd3 light in reach. Side rails up X2. 08:53 Dressings: 4X4s. kd3 08:54 Ronit Harden, MAGNUS is Primary Nurse. kd3 08:57 Bobby Hanna MD is Attending Physician. ma2 09:52 Head C Spine Cap W Con In Process Unspecified. EDMS 10:03 XRAY Chest (1 view) In Process Unspecified. EDMS 10:03 Hip Left 2 View XRAY In Process Unspecified. EDMS 10:03 Elbow Left 3 View XRAY In Process Unspecified. EDMS Administered Medications: 09:38 Drug: Dilaudid (HYDROmorphone) 1 mg Route: IVP; Site: left forearm; kd3 09:38 Drug: NS 0.9% 1000 ml Route: IV; Rate: 1000 ml; Site: left forearm; kd3 13:52 Follow up: IV Status: Completed infusion; IV Intake: 1000ml kd3 09:38 Drug: Zofran (Ondansetron) 4 mg Route: IVP; Site: left forearm; kd3 10:29 Drug: Tetanus-Diphtheria Toxoid Adult 0.5 ml {Healthcare Specialist: [employer]. Exp: bp 12/08/2022. Lot #: [id number]. } Route: IM; Site: right deltoid; 10:48 Follow up: Response: No adverse reaction bp 13:53 Follow up: Response: No adverse reaction kd3 11:21 Drug: Dilaudid (HYDROmorphone) 1 mg Route: IVP; Site: left forearm; kd3 12:30 Follow up: Response: Pain is decreased kd3 13:53 Follow up: Response: No adverse reaction kd3 11:29 Drug: Ativan (LORazepam) 1 mg Route: IVP; Site: left forearm; kd3 12:29 Follow up: Response: Anxiety decreased kd3 13:52 Follow up: Response: No adverse reaction kd3 Intake: 13:52 IV: 1000ml; Total: 1000ml. kd3 Outcome: 11:11 ER care complete, transfer ordered by . donna 14:52 Patient left the ED. kd3 Signatures: Dispatcher [employer] Gerard Paris RN RN bp Alzahri, Mohammad, MD MD ma2 Doucette, Kyli, RN RN kd3
[2021-06-21] MEDS ORDERED: LORazepam 2 MG/ML VIAL ONE (11:25)
[2021-06-21 14:59] VITALS: O2SAT 100
[2021-06-21 15:02] VITALS: BP 112/86
== END 2021-06-21 14:52 ==
LOC: ER 08:39
DX: S32.592A Other specified fracture of left pubis, initial encounter for closed fracture (principal); W19.XXXA Unspecified fall, initial encounter; E03.9 Hypothyroidism, unspecified; I48.91 Unspecified atrial fibrillation; Z79.01 Long term (current) use of anticoagulants; Z23 Encounter for immunization; Z20.822 Contact with and (suspected) exposure to COVID-19
CPT/HCPCS: 96361; 93005; 85025; 80048; 36415; 80320; 82150; 85610; 82565; 80076; 85730; 83690; 70450; 72125; 71260; 74177; 71045; 73502; 73080; 90471; 90714; 96375; 96374; 99284; U0003; Q9967; J1170 ×3; J7030; J2405

== ENCOUNTER 2021-06-27 11:18 | Inpatient (IN) | payer OTHER, BC ==
--- NOTE | 2021-06-28 12:10 | R.PREADM ---
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 ACUTE HOSPITAL RECRUITER/DC PROGRAM EVALUATION CONSULTANT Connie Fortune ATTENDING PHYSICIAN Dr. Laura Deleon REFERRING PHYSICIAN Dr. Laura Deleon REHAB FACILITY [facility] CLINICAL LIAISON Colleen Xiao PHYSICIAN REVIEWER Dr. Gato Vasquez M.D. MR# [id number] NAME Rashida Blank Sharri ADDRESS [address] [place] [address] PHONE [facility] [id number] DATE OF 1935 AGE 85 SSN# [id number] GENDER male MARITAL STATUS RACE white ADMIT FROM 02 - [facility] PRE-HOSPITAL LIVING SETTING 01 - Home (private home/apt. board/care, assisted living, intermediate, transitional living) HOME TYPE AND DETAILS Type of home: single family house # of steps to enter the residence: 0 # of steps within the residence: 0 # of levels in the residence: 1 PRE-HOSPITAL LIVING WITH Family/Relatives FAMILY SUPPORT Yes FAMILY SUPPORT DETAILS Per OT Noel kincaid lives at home with his elderly PRIMARY FAMILY CONTACT NAME Hollie Onto PRIMARY FAMILY CONTACT PHONE PRIMARY FAMILY CONTACT RELATIONSHIP Spouse PHONE PRIMARY FAMILY CONTACT ON ADM.? no IS PRIMARY FAMILY CONTACT AUTH. REP.? no 1ST EMERGENCY CONTACT Hollie Onto 1ST CONTACT PHONE 1ST CONTACT RELATIONSHIP Spouse PHONE 1ST CONTACT ON ADM. no IS 1ST CONTACT AUTH. REP.? no PHONE 2ND CONTACT ON ADM.? no PATIENT EMPLOYMENT STATUS Retired (for age) PATIENT EMPLOYER No Employer PAYOR INFORMATION: 1ST PAYOR NAME Medicare 1ST PAYOR PHONE 1ST PAYOR 2ND PAYOR NAME [employer] [place] 2ND PAYOR INJURY/ILLNESS DUE TO ACCIDENT? No ANOTHER [employer] RESPONSIBLE? No PRIMARY REHAB/ACUTE DIAGNOSIS: L Pelvic Fracture after mechanical fall ONSET DATE 06/21/2021 REHAB IMPAIRMENT CATEGORY (CORBIN): 07 Fracture of LE (FracLE) MEETS 60% rule PRIMARY DIAGNOSIS-RELATED SURGERIES: No surgeries related to the primary diagnosis were performed. INTERVENTIONS: - A Fib with RVR administer medication as ordered by MD - Mechanical Fall, recurrent Xrays and CT demonstrate no acute injuries Continue with therapy intervention - Hypothyroidism Administer meds as ordered by MD - Non-Displaced Left Inferior Pubic Ramus Fracture Conservative management and therapy All of the above information was obtained from MD progress notes on 06/23/2021 and 06/25/2021 RISK FOR COMPLICATIONS: - Fx Educate on prevention of worsening pelvic fx - UTI Monitor for frequency, burning, discomfort, or incontinence - Skin Breakdown Nursing will assess skin daily using assessment tool and will place on Skin Breakdown Precautions as Indicated per protocol - Pain Clinical staff will assess patient's pain level every shift per protocol to monitor for pain manageme nt effectiveness Educate patient on pain management strategies Medications will be given and the pain level reassessed. Clinical Staff may employ other methods such as: massage, distraction, decrease stimulus, etc. as needed - Falls Educated pt on fall prevention strategies to reduce/eliminate fall risk Patient will be evaluated for Fall Precautions and will be placed on Fall Precautions as indicated pe r protocol. - Impaired Safety Educate patient on safety awareness strategies. Educate patient on safety hazards SUMMARY OF ACUTE HOSPITALIZATION: Pt. is a 85 yo white male. On 06/21/2021 he was admitted to [facility] with diagnosis L Pelvic Fracture after mechanical fall. His impairment category is Orthopaedic Disorders 08 - Pelvic Fracture (08.3). Pre-morbidly, Pt. was independent/mod-I in Locomotion, Social Cognition, Sphincter Control, Communica tion, and Endurance; and he had good Locomotion, Social Cognition, Sphincter Control, Communication, and Endurance. Currently, he has deficits of Locomotion, Safety Awareness, Balance, Transfers Control, Self-Care, an d Endurance. Pt. is now referred to [facility] for acute in-patient rehabilitation in order to maximize patient's functional independence in activities of daily living, strength, ROM, and mobi lity. Patient has realistic goal of being discharged at assistance level partial assist to set up to reside at Home with Family/Relatives. interdisciplinary approach by acute IRF, pt. demonstrates great potential and motivation to get stronger, safer, and more independent to return to [facility]. Pt demonstrates a strong need for an intensive team: rehab doctor, nurse, health and social care teacher, and therapist to meet functional and medical goals. It is reasonable and necessary for the patient to come to acute IRF to safely dc. Pt is medically stable but in need of 24 hour nursing, doctor supervision, and oversight while receiving active and ongoing intensive (OT/PT/ST). The patient is reasonably expected to participate in 3 hours of therapy a day/15 hours a week. COVID-19 screening performed. Patient denies a new onset of fever, cough, difficulty breathing, sore throat, body aches and non-allergy nasal congestion in the past 24 hours. Patient denies travel outside of [place] in the past 14 days. Patient denies any contact with someone who has a confirmed diagnosis of or is under investigation for COVID-19 in the past 14 days. Patient has been tested negative for COVID- 19. 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 Eye Surgery 2007 Joint replacement left and right hips 2011,2013 Prostatectomy 12 years ago at age 66 Robotic Laparoscopy, Cholecystectomy 01/25/2014 Urethral Sling done 3x (18 months after prostatectomy MEDICATION ALLERGIES: ENVIRONMENTAL ALLERGIES: - Substance Allergies - Other Allergies CODE STATUS: Full code WEIGHT/HEIGHT/BMI: WEIGHT 173 lbs HEIGHT 5' 10" BMI 24.8 DIET: - Diet Type Clear Liquid Diet per MD progress note on 06/25/2021 - Diet - Solid Texture Regular - Diet - Liquid Texture Regular - Tube Feed N/A Chronic Back pain reported in OT eval as severe Left elbow pain reported, scale not provided LLE pain reported in OT eval, scale not provided L pelvis pain reported in OT note and rated as 6/10 REVIEW OF SYSTEMS: - Gen Alert and awake Lying in bed No apparent distress Oriented to: person, time, and place - Vital Signs Temperature: 96.1 F SBP/DBP: 120/68 Pulse: 87 Resp: 18 Vital signs stable, afebrile - CVS RRR VITAL SIGNS Temperature: 96.1 F Tympanic SBP/DBP: 120/68 R arm Pulse: 87 Resp: 18 Vital signs stable, afebrile Vitals recorded on MD progress note for 06/25/2021 MEDICATIONS/TREATMENT: Other- See attached MAR (Medication Administration Record). CURRENT SPHINCTER CONTROL: Pre-hospital bladder status: unspecified # of bladder accidents in the last 7 days prior to screenin Pre-hospital bowel status: unspecified # of bowel accidents in the last 7 days prior to screenin Last Bowel Movement Date: 06/27/2021 CURRENT LOCOMOTION STATUS: distance walked 0 feet DETAILED CURRENT FUNCTIONAL STATUS: - Bladder accident frequency: 7-Ind - No accidents in the past 7 days - Bowel accident frequency: 7-Ind - No accidents in the past 7 days - Walking score based on distance walked: 0(N/A) - Wheelchair score based on distance traveled: 0(N/A) QI SCORES: - Self-Care A. Eating 05-Setup or clean-up assistance B. Oral hygiene 04-Supervision or touching assistance C. Toileting hygiene 02-Substantial/maximal assistance E. Shower/bathe self 02-Substantial/maximal assistance F. Upper body dressing 02-Substantial/maximal assistance G. Lower body dressing 02-Substantial/maximal assistance H. Putting on/taking off footwear 02-Substantial/maximal assistance - Mobility A. Roll left and right 01-Dependent B. Sit to lying 01-Dependent C. Lying to sitting on side of bed 01-Dependent D. Sit to stand 01-Dependent E. Chair/frl-el-wauuv transfer 88-Not attempted due to medical condition or safety concerns F. Toilet transfer 88-Not attempted due to medical condition or safety concerns G. Car transfer 88-Not attempted due to medical condition or safety concerns I. Walk 10 feet 88-Not attempted due to medical condition or safety concerns J. Walk 50 feet with two turns 88-Not attempted due to medical condition or safety concerns K. Walk 150 feet 88-Not attempted due to medical condition or safety concerns L. Walking 10 feet on uneven surfaces 88-Not attempted due to medical condition or safety concerns M. 1 step (curb) 88-Not attempted due to medical condition or safety concerns N. 4 steps 88-Not attempted due to medical condition or safety concerns O. 12 steps 88-Not attempted due to medical condition or safety concerns P. Picking up object 88-Not attempted due to medical condition or safety concerns R. Wheel 50 feet with two turns 09-Not applicable S. Wheel 150 feet 09-Not applicable - Bladder and Bowel Bladder continence Bowel continence - Endurance Poor - Balance Poor - Safety Awareness Poor CURRENT FUNC. DEFICITS: Self-Care, Mobility, Endurance, Balance, and Safety Awareness CURRENT / PREVIOUS ASSISTIVE DEVICES: BSC Raised Toilet Rolling Walker HISTORY OF FALLS. HAS THE PATIENT HAD TWO OR MORE FALLS IN THE PAST YEAR OR ANY FALL WITH INJURY IN T HE PAST YEAR?: Yes PRIOR SURGERY. DID THE PATIENT HAVE MAJOR SURGERY DURING THE 100 DAYS PRIOR TO ADMISSION?: Unknown THERAPY NOTES FROM ACUTE CARE: Zeny Blank Clinicals.pdf ttached. SPECIAL NEEDS: - Safety Concerns Skin breakdown precautions needed due to skin breakdown risk Chair alarm Bed alarm Fall precautions needed due to Poor balance - Pain Medications as prescribed by MD. PRECAUTIONS: - Fall Precaution Bed alarm TABS alarm Wheel chair alarm - Pelvis fracture WBAT per OT note, pt cleared by Ortho PATIENT NEEDS ACTIVE AND ONGOING THERAPEUTIC INTERVENTION OF MULTIPLE THERAPY DISCIPLINES, INCLUDING: - Dietary and Nutrition Adequate Nutrition. Nutritional Education. Nutritional Supplements. - Occupational Therapy Cognitive Retraining. Visual Perceptual Training. ADL Training. Adaptive Equipment. Community Reinteg ration. Evaluate and Treat. Household Tasks. Patient/Family Education. Safety Awareness. Transfer Tra ining. UE ROM. UE Strengthening. - Speech Therapy Cognitive Training. Expressive Language Skills. Memory Strategies. Receptive Language Skills. Speech Intelligibility Training. - Physical Therapy Balance Training. Evaluate and Treat. Gait Training. LE ROM. LE Strengthening. Medical Equipment Asse ssment and Evaluation. Mobility Training. Patient/Family Education. Safety Awareness. Transfer Traini ng. PATIENT NEEDS CLOSE MEDICAL SUPERVISION BY A REHABILITATION PHYSICIAN FOR: Coordination of Treatment Team Medical and Co-Morbidity Management Pain Management medication management PATIENT REQUIRES 24X7 REHAB NURSING FOR MEDICAL AND FUNCTIONAL MGT. OF THE FOLLOWING DEFICITS: Disease Management Medication Management Patient/Family Education Providing Safe Environment Skin Integrity Ambulation ADL's Pain Management Transfers PATIENT REQUIRES INTENSIVE, COORDINATED INTERDISCIPLINARY APPROACH TO REHAB: Arranging Home Equipment/Services Discharge Planning Family Intervention/Training Re Etcher/Case Management PATIENT REHAB POTENTIAL: Shari Blank is able and expected to receive 3 hours of individualized therapy daily on at least 5 of steve ry 7 days Shari Blank's prognosis for significant practical improvement within a reasonable period of time appears Good Expected level of measurable improvement will be of a practical value to Shari Blank's functional capaci ty or adaptations to impairments Has a viable Discharge Plan Medically appropriate; condition is sufficiently stable to participate in intensive rehab program DISCHARGE PLAN: - Estimated Length of Stay (days) 14. - Consensus on plan Discharge plan has been discussed with primary caregiver. Patient/Family is in agreement with the regino n. Primary caregiver is in agreement with the plan. - Patient/Family Goals Return home independently. - Planned Living Setting Upon Discharge Home, to live with Family/Relatives. Transitional Living. RECOMMENDED CARE LEVEL: IRF RECOMMENDATION DETAILS: Recommended Admission to Comprehensive Rehabilitation Program to Increase Functional [place] SCREENER'S COMPLETENESS CONFIRMATION: - Screening Confirmation The patient data collection on this preadmission screening form is finished PHYSICIANS REVIEW AND ADMISSION DETERMINATION Admit - Based on my review of the Pre-Admission Screening results, in my medical judgment and experie nce, I concur with the findings and recommend admission to [facility], as this patient requires an IRF level of care. 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 Gato Vasquez M.D. on 06/28/2021 at 12:08 (SI[employer] HORSE HITCH DRIVER )
--- OUTSIDE RECORDS SUMMARY | 2021-06-28 20:16 | XMS REPORT | Continuity of Care Document ---
:1935 Author Organization [facility] t Address [address] [place] [address] Care Team Providers Name Role Phone ILAN Primary Care Physician Unavailable ARMOND Attending Clinician Unavailable NEAL ALVARADO Attending Clinician Unavailable WILLIAM MONTANEZ Attending Clinician Unavailable Nurse, Pob Immunization Attending Clinician Unavailable William Montanez DO Attending Clinician Fred KIRAN Attending Clinician Unavailable ZAC MALDONADO Attending Clinician Unavailable BECKY Attending Clinician Unavailable ASHANTI Attending Clinician Unavailable Diego POWER [employer]IVEN BRUSH MAKER, F Attending Clinician Unavailable Sebas Doshi MD Attending Clinician SEBAS DOSHI Attending Clinician Unavailable Kimberley SQUIRES Attending Clinician Unavailable Natalio Jacobsen MD Attending Clinician Natalio JACOBSEN Attending Clinician Unavailable Doctor Unassigned, Name Attending Clinician Unavailable ROBBIE SORIANO Admitting Clinician Unavailable Payers Payer Name Policy Type Policy Number Effective Date Expiration Date S ource MEDICARE A B [id number] 2001 00:00:00 [facility] [id number] 2001 OS 00:00:00 MEDICARE PART A \T\ [id number] 2001 B 00:00:00 BC TRADITIONAL [id number] 2001 00:00:00 Problems Condition Condition Condition Status Onset Resolution Last Treating Co mments Source Name Details Category Date Date Treatment Clinician Date Acute low Acute low Disease Active 2019-07 Uni vers back pain back pain 0-21 ity of without without 00:00: [place] sciatica sciatica 00 Medica l Branch Compressio Compressio Disease Active 2019-07 U nivers n fracture n fracture 0-21 it y of of L1 of L1 00:00: [place] lumbar lumbar 00 Medical vertebra vertebra Branch Unspecifie Unspecifie Disease Active 2019-07 U nivers d d 0-21 ity of abnormalit abnormalit [place] of 00 Medical gait and gait and Branch mobility mobility Muscle Muscle Disease Active 2019-07 Univers weakness-g weakness-g 0-21 it y of eneral eneral 00:00: [place] 00 Medical Branch Allergies, Adverse Reactions, Alerts Allergy Allergy Status Severity Reaction(s) Onset Inactive Treating Comm ents Source Name Type Date Date Clinician SHELLFIS Allergy Active 2019-07 ENCGEN H 2-14 [...] Allergy Active 2019-07 ENCGEN 2-14 21:02: 22 NKA Allergy Active 2019-07 ENCGEN 2-06 12:22: 47 NKA Allergy Active 2019-07 ENCGEN 2-06 12:22: 47 NO KNOWN Drug Active Univers ALLERGIE Class ity of S [facility] NO KNOWN Allergy Active [facility] ALLERGIE S Social History Social Habit Start Date Stop Date Quantity Comments Source Exposure to Not sure [facility] SARS-CoV-2 (event) Medica l Branch Sex Assigned At [birth year] [facility] [place] 00:[facility] 00:00:00 Medical Branch Smoking Status Start Date Stop Date Source Unknown if ever smoked [facility] Medications Ordered Filled Start Stop Current [...] Immunizations Ordered Filled Immunization Date Status Comments Sour e Immunization Name Name SARS-COV-2 COVID-19 2021-05-03 Completed Unive rsity of PFIZER VACCINE 00:00:00 [facility] SARS-COV-2 COVID-19 2020-10-10 Completed Unive rsity of PFIZER VACCINE 00:00:00 [facility] SARS-COV-2 COVID-19 2020-09-19 Completed Unive rsity of PFIZER VACCINE 00:00:00 [facility] Procedures Procedure Date / Time Performed Performing Clinician Sourc e SARS-COV-2 COVID-19 2021-05-03 15:48:34 Doctor Unassigned, No [facility] [place] VACCINE,0.3ML,IM Name [facility] Branch (PFIZER) REFERRAL- 2020-05-17 05:01:00 Doctor Unassigned, No [facility] [place] REQUEST/RESPONSE Name [facility] Branch Encounters Start End Encounter Admission Attending Care Care Encounter Source Date/Time Date/Time Type Type Clinicians Facility Department ID 2021-06-21 2021-06-28 Inpatient ER LEAHY [facility] Orthopaedic 004 [id number] [facility] 15:58:00 19:06:00 PREETI 2021-06-22 2021-06-22 Outpatient [facility] [id number] [facility] 00:00:00 23:59:00 Santiago campo of Medicin e 2021-05-22 2021-05-22 Out[facility] [id number] [facility] 2021-05-17 2021-05-17 Out[facility] [id number] [facility] 2021-05-09 2021-05-09 Out[facility] [id number] [facility] 2021-05-07 2021-05-07 Outpatient Dayanara MONTANEZ [facility] [id number] Univers 10:30:00 10:30:00 OSITO eden [facility] 2021-05-03 2021-05-03 Outpatient Dayanara MONTANEZ [facility] [id number] Univers 10:50:00 10:50:00 OSITO eden [facility] 2021-05-03 2021-05-03 Imm/Inj Nurse, Dee Pob Immunization [facility] [[email or web address]] [id number] Univers 10:47:40 10:47:55 Visit Osito Montanez 350.1.13 .10 Domingo [id number] Luis Appiah [phone] [place]ical [facility] [address] [facility] 2021-05-03 2021-05-03 Outpatient [facility] [id number] [facility] 2021-05-03 2021-05-03 Outpatient [facility] [id number] [facility] 2021-04-26 2021-04-26 Outpatient [facility] [id number] [facility] 2021-04-26 2021-04-26 Outpatient [facility] [id number] [facility] 2021-04-19 2021-04-19 Outpatient [facility] [id number] [facility] 2021-02-13 2021-02-13 Outpatient [facility] [id number] [facility] 2021-02-13 2021-02-13 Outpatient [facility] [id number] [facility] 2021-02-08 2021-02-08 Outpatient [facility] [id number] [facility] 2021-01-09 2021-01-09 Outpatient [facility] [id number] [facility] 2021-01-08 2021-01-08 Outpatient [facility] [id number] [facility] 2020-12-15 2020-12-15 Outpatient [facility] [id number] [facility] 2020-11-27 2020-11-27 Outpatient [facility] [id number] [facility] 2020-10-10 2020-10-10 Outpatient Dayanara KIRAN [facility] [id number] Univers 10:20:00 10:20:00 ZIYAD [id number] [facility] 2020-10-10 2020-10-10 Outpatient Dayanara KIRAN [facility] [id number] Univers 10:20:00 10:20:00 ZIYAD [facility] 2020-09-19 2020-09-19 Outpatient Dayanara KIRAN [facility] [id number] Univers 09:40:00 09:40:00 ZIYAD [id number] [facility] 2020-09-19 2020-09-19 Outpatient Dayanara KIRAN [facility] [id number] Univers 09:40:00 09:40:00 ZIYAD [facility] 2020-09-19 2020-09-19 Outpatient [facility] [id number] [facility] 2020-07-02 2020-08-11 Outpatient READMISSIO ZAC ENCGEN ENCGEN [id number] ENCGEN 00:00:00 00:00:00 SANDY SIMMONS 2020-07-24 2020-07-24 Outpatient [facility] [id number] [facility] 2020-07-06 2020-07-06 Outpatient [facility] [id number] [facility] 2020-07-03 2020-07-03 Outpatient [facility] [id number] [facility] 2020-06-23 2020-06-23 Outpatient SAW PENA [id number] [id number] [facility] 13:57:00 13:57:00 KIMBERLEY [id number] [facility] 2020-06-15 2020-06-15 Outpatient [facility]ML[facility] [id number] [facility] 2020-06-13 2020-06-13 [facility] [id number] [facility] 2020-06-12 2020-06-12 [facility] [id number] [facility] 2020-06-08 2020-06-08 Outpatient [facility] [id number] Univers 15:40:00 15:40:00 [id number] [facility] 2020-06-06 2020-06-06 Outpatient [facility] [id number] Univers 15:40:00 15:40:00 [facility] 2020-06-06 2020-06-06 [id number] 2020-06-02 2020-06-02 [facility] [id number] [place] 00:00:00 00:00:00 , JASON [address] 2020-06-02 2020-06-02 [facility] [id number] [place] 00:00:00 00:00:00 , JASON [address] 2020-06-01 2020-06-01 Outpatient [facility] [id number] Univers 15:40:00 15:40:00 [facility] 2020-05-30 2020-05-30 Ancillary Fam Cortez [facility] [[email or web address]] 1.2.840. 114 [id number] [facility] 15:32:51 16:12:51 Visit Parish Doshi 350.1.1 3.10 ity Mickey [id number] Luis Appiah [phone] [address] 2020-05-30 2020-05-30 Ancillary Diego [facility] [[email or web address]] [id number] 15:32:51 16:12:51 Visit Fam Scott [id number] [place] [id number] Professio [phone] nal 179 [facility] 2020-05-30 2020-05-30 Outpatient [facility] [id number] Univers 15:40:00 15:40:00 ity [facility] 2020-05-30 2020-05-30 Outpatient R GLENDA [facility] [id number] Univers 15:40:00 15:40:00 PARISH ity [facility] 2020-05-25 2020-05-25 Outpatient [facility] [id number] Univers 16:00:00 16:00:00 [id number] ity [facility] 2020-05-25 2020-05-25 Ancillary DiegoFam [facility] [[email or web address]] 1.2.840. 114 [id number] [facility] 09:07:19 09:47:19 Visit Parish Doshi 350.1.1 3.10 ity [place] [phone] [place] dical nal [address] [facility] 2020-05-25 2020-05-25 Ancillary Diego [facility] [[email or web address]] [id number] 09:07:19 09:47:19 Visit Fam Scott [id number] [place] [id number] Professio [phone] [facility] 179 [facility] 2020-05-23 2020-05-23 Ancillary Fam Cortez [facility] [[email or web address]] 1.2.840. 114 [id number] Univers 15:31:51 16:11:51 Visit Parish Doshi 350.1.1 3.10 [place] [phone] [place] nal [address] [facility] 2020-05-23 2020-05-23 Ancillary Diego [facility] [[email or web address]] [id number] 15:31:51 16:11:51 Visit Fam Scott [id number] [place] [id number] Professio [phone] nal 179 [facility] 2020-05-23 2020-05-23 Outpatient R [facility] [id number] Univers 15:40:00 15:40:00 [id number] ity [facility] 2020-05-17 2020-05-17 Ancillary Aaliyah Chu [facility] [[email or web address]] 1.2.840. 114 [id number] [facility] 08:27:26 09:27:26 Visit Delmar Keith Natalio Parsons [id number] it[id number] [phone] [place] dical [address] 2020-05-17 2020-05-17 Ancillary Kimberley [facility] [[email or web address]] [id number] 08:27:26 09:27:26 Visit Aaliyah Scott 350.1.13.10 [place] [id number] Professio [phone] [address] 2020-05-17 2020-05-17 Outpatient R DELMAR [facility] [id number] [facility] 08:20:00 08:20:00 KEITH eden [facility] 2020-05-17 2020-05-17 Orders Doctor AMOR 1.2.840.114 [id number] [facility] 00:00:00 00:00:00 Only Unassigned, MITCHELL 350.1.13.10 ity of [place] [facility] 4.2.7.2.686 Raúl as [phone] [address] 2020-05-17 2020-05-17 Orders Doctor AMOR 1.2.840.114 [id number] 00:00:00 00:00:00 Only Unassigned, MITCHELL 350.1.13.10 [place] [facility] 4.2.7.2.686 [phone] [facility] 2020-05-10 2020-05-10 Outpatient [facility] 821 [id number] [place] 00:00:00 00:00:00 , JASON [address] 2020-05-10 2020-05-10 Outpatient [facility] [id number] [place] 00:00:00 00:00:00 , JASON [address] 2020-05-03 2020-05-03 Outpatient [facility] [id number] [place] 00:00:00 00:00:00 , JASON 732 [facility] 2020-05-03 2020-05-03 Outpatient [facility] [id number] [place] 00:00:00 00:00:[address] [facility] 2020-04-06 2020-04-06 [facility] [id number] [facility] 13:00:00 13:00:00 [facility] 2020-02-03 2020-02-03 [facility] [id number] 13:30:00 13:30:00 t [facility] 2020-02-03 2020-02-03 [facility] [id number] 11:00:00 11:00:00 t [facility] 2020-01-04 2020-01-04 [facility] [id number] [facility] 13:40:00 13:40:00 t [facility] 2019-12-30 2019-12-30 [facility] [id number] 08:30:00 08:30:00 [facility] 2019-12-22 2019-12-22 [facility] [id number] 09:19:00 09:19:00 t [facility] 2019-12-17 2019-12-17 [facility] [id number] 11:13:00 11:13:00 t [facility] 2019-12-09 2019-12-09 [facility] [id number] 10:51:00 10:51:00 t [facility] 2019-11-25 2019-11-25 [facility] [id number] 10:30:00 10:30:00 t [facility] ent Clinics 2019-10-07 2019-10-07 [facility] [id number] 11:28:00 11:28:00 t [facility] ent Clinics 2019-10-07 2019-10-07 [facility] [id number] 10:45:00 10:45:00 t [facility] ent Clinics 2019-08-23 2019-08-23 [facility] [id number] 09:21:00 09:21:[address] - Drive [facility] ent Clinics 2019-08-06 2019-08-06 [facility] [id number] 10:00:00 10:00:00 t [facility] ent Clinics 2018-02-02 2018-02-02 [facility] [id number] 11:15:00 11:15:[address] Luke [address] - Drive [facility] ent Clinics 2018-01-27 2018-01-27 [facility] [id number] 11:15:00 11:15:[address] Luke [address] - Drive [facility] 2018-01-22 2018-01-22 [facility] [id number] 09:44:00 09:44:[address] Luke [address] - Drive [facility] 2018-01-19 2018-01-19 [facility] [id number] 14:00:00 14:00:[address] Luke s - Drive [facility] 2018-01-19 2018-01-19 [facility] [id number] 08:33:00 08:33:[address] Luke [address] - Drive [facility] 2017-12-18 2017-12-18 Outpatient Martha Putnam [id number] 11:00:00 11:00:00 [facility] [place] [facility] ent [facility] 2017-11-27 2017-11-27 Outpatient Martha Putnam [id number] 14:30:00 14:30:00 [facility] Results Test Description Test Time Test Comments Results Result Comments Source SARS-COV2/RT-PCR ([facility]) 2021-06-28 13:58:57 Test Item Value Reference Range Interpretation Comme nts SARS-COV2/RT-PCR (test code = Negative Negative The SARS-CoV-2 target nucleic [id number]) acids are not d etected in this specimen. Nega tive results do not preclude SA RS-CoV-2 infection and s hould not be used as the sole bas is for patient management deci sions. Negative results must be combined with clinical observ ations, patient history, and ep idemiological information. A false negative result may occu r if a specimen is improperly c ollected, transported or handled. This SARS CoV-2 test is a rapid, real-time RT-PC R test intended for the qualita tive detection of nucleic acid fr om SARS-CoV-2 in a nasopharyngea l swab specimen collected from individuals suspected of CO VID-19 by their healthcare [facility] ider. This test has been authorized by FDA under an EUA for use by authorized laboratories. This test is only authorized for the duration of the declaration that circumstances exist justifying the authorization of emergency use of in vitro diagnostic tests for detection and/or diagnosis of COVID-19 under Section 564(b)(1) of the Federal Food, Drug and Cosmetic Act, 21 U.S.C. 360bbb- 3(b)(1), unless the authorization is terminated or revoked sooner. Fact Sheet for Healthcare Providers: https://www.[employer]/Documents/Xpert%20Xpress%20SARS%20CoV-2/Fact%20Sheets/302-9996%20SARS-COV -2%20HEALTHCARE%20PROVIDERS%20FACT%20SHEET.pdf Fact Sheet for Healthcare Patients: https://www.[employer]/Documents/Xpert %20Xpress%20SARS%20CoV-2/Fact%20Sheets/3023801%17AINO-YBK-6%20PATIENT%20FACT%20 SHEET.pdfPROTHROMBIN TIME/[id number] 14:32:25 Test Item Value Reference Range Interpretation Comments PROTIME (BEAKER) 13.3 seconds 11.9-14.2 (test code = 759) INR (BEAKER) (test 1.03 See_Comment [Automat ed message] code = 370) The system [employer]port[employer] generated this result transmitted ref erence range: <=5.90. The reference range was not used to int erpret this result as normal/abnormal . RECOMMENDED COUMADIN/WARFARIN INR THERAPY RANGESSTANDARD DOSE: 2.0 - 3.0 Includes: PROPHYLAXIS forvenous thrombosis, systemic embolization; TREATMENT for venous thrombosis and/or pulmonary embolus.HIGH RISK: Target INR is 2.5-3.5 for patients with mechanical heart valves.BASIC METABOLIC [id number] 06:43:21 Test Item Value Reference Range Interpretation Comments SODIUM (BEAKER) 133 meq/L 136-145 L (test code = 381) POTASSIUM (BEAKER) 4.1 meq/L 3.5-5.1 Specimen slightly (test code = 379) hemolyzed CHLORIDE (BEAKER) 102 meq/L 98-107 (test code = 382) CO2 (BEAKER) (test 22 meq/L 22-29 code = 355) BLOOD UREA NITROGEN 7 mg/dL 7-21 (BEAKER) (test code = 354) CREATININE (BEAKER) 0.58 mg/dL 0.57-1.25 Specimen slightly (test code = 358) hemolyzed GLUCOSE RANDOM 87 mg/dL 70-105 (BEAKER) (test code = 652) CALCIUM (BEAKER) 8.6 mg/dL 8.4-10.2 (test code = 697) EGFR (BEAKER) (test 133 mL/min/1.73 ESTIM ATED GFR IS code = 1092) sq m NOT ACCURATE CREATININE CLEARANCE IN PREDICTING GLOMERULAR FILTRATION RATE . ESTIMATED GFR I S NOT APPLICABLE FOR DIALYSIS PATIEN TS. Collections Agent ID - SANAM [id number] 06:43:20 Test Item Value Reference Range Interpretation Comments MAGNESIUM (BEAKER) 1.7 mg/dL 1.6-2.6 Specimen slightly (test code = 627) hemolyzed Collections Agent RADHA MARION WCBC W/PLT COUNT & AUTO [id number] 06:20:37 Test Item Value Reference Range Interpretation Comments WHITE BLOOD CELL COUNT (BEAKER) 6.1 K/ L 3.5-10.5 (test code = 775) RED BLOOD CELL COUNT (BEAKER) 3.84 M/ L 4.63-6.08 L (test code = 761) HEMOGLOBIN (BEAKER) (test code = 12.7 GM/DL 13.7-17.5 L 410) HEMATOCRIT (BEAKER) (test code = 36.3 % 40.1-51.0 L 411) MEAN CORPUSCULAR VOLUME (BEAKER) 94.5 fL 79.0-92.2 H (test code = 753) MEAN CORPUSCULAR HEMOGLOBIN 33.1 pg 25.7-32.2 H (BEAKER) (test code = 751) MEAN CORPUSCULAR HEMOGLOBIN CONC 35.0 GM/DL 32.3-36.5 (BEAKER) (test code = 752) RED CELL DISTRIBUTION WIDTH 12.9 % 11.6-14.4 (BEAKER) (test code = 412) PLATELET COUNT (BEAKER) (test 143 K/CU MM 150-450 L code = 756) MEAN PLATELET VOLUME (BEAKER) 9.4 fL 9.4-12.4 (test code = 754) NUCLEATED RED BLOOD CELLS 0 /100 WBC 0-0 (BEAKER) (test code = 413) NEUTROPHILS RELATIVE PERCENT 72 % (BEAKER) (test code = 429) LYMPHOCYTES RELATIVE PERCENT 14 % (BEAKER) (test code = 430) MONOCYTES RELATIVE PERCENT 10 % (BEAKER) (test code = 431) EOSINOPHILS RELATIVE PERCENT 3 % (BEAKER) (test code = 432) BASOPHILS RELATIVE PERCENT 1 % (BEAKER) (test code = 437) NEUTROPHILS ABSOLUTE COUNT 4.43 K/ L 1.78-5.38 (BEAKER) (test code = 670) LYMPHOCYTES ABSOLUTE COUNT 0.84 K/ L 1.32-3.57 L (BEAKER) (test code = 414) MONOCYTES ABSOLUTE COUNT (BEAKER) 0.60 K/ L 0.30-0.82 (test code = 415) EOSINOPHILS ABSOLUTE COUNT 0.17 K/ L 0.04-0.54 (BEAKER) (test code = 416) BASOPHILS ABSOLUTE COUNT (BEAKER) 0.03 K/ L 0.01-0.08 (test code = 417) IMMATURE GRANULOCYTES-RELATIVE 1 % 0-1 PERCENT (BEAKER) (test code = 2801) [id number] 04:59:17 Test Item Value Reference Range Interpretation Comments MAGNESIUM (BEAKER) 1.6 mg/dL 1.6-2.6 Specimen slightly (test code = 627) hemolyzed Collections Agent ID - SANAM WBASIC METABOLIC [id number] 04:59:17 Test Item Value Reference Range Interpretation Comments SODIUM (BEAKER) 129 meq/L 136-145 L (test code = 381) POTASSIUM (BEAKER) 3.9 meq/L 3.5-5.1 Specimen slightly (test code = 379) hemolyzed CHLORIDE (BEAKER) 101 meq/L 98-107 (test code = 382) CO2 (BEAKER) (test 19 meq/L 22-29 L code = 355) BLOOD UREA NITROGEN 10 mg/dL 7-21 (BEAKER) (test code = 354) CREATININE (BEAKER) 0.56 mg/dL 0.57-1.25 L Specimen slightly (test code = 358) hemolyzed GLUCOSE RANDOM 84 mg/dL 70-105 (BEAKER) (test code = 652) CALCIUM (BEAKER) 8.1 mg/dL 8.4-10.2 L (test code = 697) EGFR (BEAKER) (test 139 mL/min/1.73 ESTIM ATED GFR IS code = 1092) sq m NOT ACCURATE CREATININE CLEARANCE IN PREDICTING GLOMERULAR FILTRATION RATE . ESTIMATED GFR I S NOT APPLICABLE FOR DIALYSIS PATIEN TS. Collections Agent ID - SANAM WCBC W/PLT COUNT & AUTO [id number] 04:42:53 Test Item Value Reference Range Interpretation Comments WHITE BLOOD CELL COUNT (BEAKER) 6.9 K/ L 3.5-10.5 (test code = 775) RED BLOOD CELL COUNT (BEAKER) 3.87 M/ L 4.63-6.08 L (test code = 761) HEMOGLOBIN (BEAKER) (test code = 12.4 GM/DL 13.7-17.5 L 410) HEMATOCRIT (BEAKER) (test code = 36.9 % 40.1-51.0 L 411) MEAN CORPUSCULAR VOLUME (BEAKER) 95.3 fL 79.0-92.2 H (test code = 753) MEAN CORPUSCULAR HEMOGLOBIN 32.0 pg 25.7-32.2 (BEAKER) (test code = 751) MEAN CORPUSCULAR HEMOGLOBIN CONC 33.6 GM/DL 32.3-36.5 (BEAKER) (test code = 752) RED CELL DISTRIBUTION WIDTH 12.9 % 11.6-14.4 (BEAKER) (test code = 412) PLATELET COUNT (BEAKER) (test 124 K/CU MM 150-450 L code = 756) MEAN PLATELET VOLUME (BEAKER) 9.7 fL 9.4-12.4 (test code = 754) NUCLEATED RED BLOOD CELLS 0 /100 WBC 0-0 (BEAKER) (test code = 413) NEUTROPHILS RELATIVE PERCENT 75 % (BEAKER) (test code = 429) LYMPHOCYTES RELATIVE PERCENT 12 % (BEAKER) (test code = 430) MONOCYTES RELATIVE PERCENT 9 % (BEAKER) (test code = 431) EOSINOPHILS RELATIVE PERCENT 3 % (BEAKER) (test code = 432) BASOPHILS RELATIVE PERCENT 0 % (BEAKER) (test code = 437) NEUTROPHILS ABSOLUTE COUNT 5.13 K/ L 1.78-5.38 (BEAKER) (test code = 670) LYMPHOCYTES ABSOLUTE COUNT 0.84 K/ L 1.32-3.57 L (BEAKER) (test code = 414) MONOCYTES ABSOLUTE COUNT (BEAKER) 0.64 K/ L 0.30-0.82 (test code = 415) EOSINOPHILS ABSOLUTE COUNT 0.18 K/ L 0.04-0.54 (BEAKER) (test code = 416) BASOPHILS ABSOLUTE COUNT (BEAKER) 0.03 K/ L 0.01-0.08 (test code = 417) IMMATURE GRANULOCYTES-RELATIVE 1 % 0-1 PERCENT (BEAKER) (test code = 2801) BASIC METABOLIC [id number] 05:46:43 Test Item Value Reference Range Interpretation Comments SODIUM (BEAKER) 129 meq/L 136-145 L (test code = 381) POTASSIUM (BEAKER) 4.2 meq/L 3.5-5.1 Specimen slightly (test code = 379) hemolyzed CHLORIDE (BEAKER) 102 meq/L 98-107 (test code = 382) CO2 (BEAKER) (test 18 meq/L 22-29 L code = 355) BLOOD UREA NITROGEN 12 mg/dL 7-21 (BEAKER) (test code = 354) CREATININE (BEAKER) 0.56 mg/dL 0.57-1.25 L Specimen slightly (test code = 358) hemolyzed GLUCOSE RANDOM 91 mg/dL 70-105 (BEAKER) (test code = 652) CALCIUM (BEAKER) 8.2 mg/dL 8.4-10.2 L (test code = 697) EGFR (BEAKER) (test 139 mL/min/1.73 ESTIM ATED GFR IS code = 1092) sq m NOT ACCURATE CREATININE CLEARANCE IN PREDICTING GLOMERULAR FILTRATION RATE . ESTIMATED GFR I S NOT APPLICABLE FOR DIALYSIS PATIEN TS. Collections Agent ID - YUNIER [id number] 05:46:42 Test Item Value Reference Range Interpretation Comments MAGNESIUM (BEAKER) 1.7 mg/dL 1.6-2.6 Specimen slightly (test code = 627) hemolyzed Collections Agent ID - YUNIER MCBC W/PLT COUNT & AUTO [id number] 05:37:48 Test Item Value Reference Range Interpretation Comments WHITE BLOOD CELL COUNT (BEAKER) 7.1 K/ L 3.5-10.5 (test code = 775) RED BLOOD CELL COUNT (BEAKER) 4.16 M/ L 4.63-6.08 L (test code = 761) HEMOGLOBIN (BEAKER) (test code = 13.8 GM/DL 13.7-17.5 410) HEMATOCRIT (BEAKER) (test code = 40.3 % 40.1-51.0 411) MEAN CORPUSCULAR VOLUME (BEAKER) 96.9 fL 79.0-92.2 H (test code = 753) MEAN CORPUSCULAR HEMOGLOBIN 33.2 pg 25.7-32.2 H (BEAKER) (test code = 751) MEAN CORPUSCULAR HEMOGLOBIN CONC 34.2 GM/DL 32.3-36.5 (BEAKER) (test code = 752) RED CELL DISTRIBUTION WIDTH 13.2 % 11.6-14.4 (BEAKER) (test code = 412) PLATELET COUNT (BEAKER) (test 153 K/CU MM 150-450 code = 756) MEAN PLATELET VOLUME (BEAKER) 10.0 fL 9.4-12.4 (test code = 754) NUCLEATED RED BLOOD CELLS 0 /100 WBC 0-0 (BEAKER) (test code = 413) NEUTROPHILS RELATIVE PERCENT 72 % (BEAKER) (test code = 429) LYMPHOCYTES RELATIVE PERCENT 15 % (BEAKER) (test code = 430) MONOCYTES RELATIVE PERCENT 10 % (BEAKER) (test code = 431) EOSINOPHILS RELATIVE PERCENT 2 % (BEAKER) (test code = 432) BASOPHILS RELATIVE PERCENT 1 % (BEAKER) (test code = 437) NEUTROPHILS ABSOLUTE COUNT 5.09 K/ L 1.78-5.38 (BEAKER) (test code = 670) LYMPHOCYTES ABSOLUTE COUNT 1.05 K/ L 1.32-3.57 L (BEAKER) (test code = 414) MONOCYTES ABSOLUTE COUNT (BEAKER) 0.67 K/ L 0.30-0.82 (test code = 415) EOSINOPHILS ABSOLUTE COUNT 0.16 K/ L 0.04-0.54 (BEAKER) (test code = 416) BASOPHILS ABSOLUTE COUNT (BEAKER) 0.04 K/ L 0.01-0.08 (test code = 417) IMMATURE GRANULOCYTES-RELATIVE 1 % 0-1 PERCENT (BEAKER) (test code = 2801) LACTIC ACID, [id number] 05:37:01 Test Item Value Reference Range Interpretation Comments LACTATE BLOOD VENOUS 1.11 mmol/L 0.50-2.20 Specime n moderately (2) (BEAKER) (test hemolyzed code = 2872) Collections Agent ID - ADMINSARS-COV2/RT-PCR ([facility])2021-06-22 12:12:39 Test Item Value Reference Range Interpretation Comments SARS-COV2/RT-PCR (test Negative Not Detected, Negative, code = 0416668) See external report for linked test SARS-COV-[address] [facility] (test code = 7331688) Negative result for this test determines that SARS-CoV-2 RNA was not present in the specimen above the Limit of Detection (LOD). However, Negative results do not preclude SARS-CoV-2 infection and should not be used as the sole basis for treatment or patient management decisions. Negative results mustbe combined with clinical observations, patient history, and epidemiological information. A false negative result may occur if a specimen is improperly collected, transported or handled. A false negative result should be considered if patient's recent exposures or clinical presentation indicate that COVID-19 (SARS-CoV-2) is likely and diagnostic tests for other causes of illness are negative. Re-testing should be considered in cases of suspected false negatives.The limit of detection for this assay is 800 copies/mL.This SARS CoV-2 test is a real-time RT-PCR test intended for the qualitative detection of nucleic acid from SARS-CoV-2 in a nasopharyngeal swab specimen collected from individuals susp ected of COVID-19 by their healthcare provider.This test has not been Food and Drug Administration (FDA) cleared or approved. This is a modified version of an approved Emergency Use Authorization (EUA) and is in the process of review by the FDA. Once authorized by the FDA, the issued EUA will be effective until the declaration that circumstances exist justifying the authorization of the emergency use of in vitro diagnostic tests for detection and/or diagnosis of COVID-19 is terminated under Section 564(b)(2) of the Act or the EUA is revoked under Section 564(g) of the Act.Fact Sheet for Healthcare Providers:https://www.[employer]/sites/default/files/product/documents/Fact_Shee i_WK_Pyutjsrov_Jqlj_JXFY-WbV-5.pdfFact Sheet for Healthcare Patients:https://www.[employer]/sites/default/files/product/ documents/Zmxb_Qnpvf_Ckwzvmru_Diih_AOXQ-QyK-6.pdfPerforming Laboratory:[facility], [place] [id number] 06:00:33 Test Item Value Reference Range Interpretation Comments MAGNESIUM (BEAKER) (test code = 1.8 mg/dL 1.6-2.6 627) Collections Agent RADHA MARION WBASIC METABOLIC [id number] 06:00:32 Test Item Value Reference Range Interpretation Comments SODIUM (BEAKER) 130 meq/L 136-145 L (test code = 381) POTASSIUM (BEAKER) 4.0 meq/L 3.5-5.1 (test code = 379) CHLORIDE (BEAKER) 102 meq/L 98-107 (test code = 382) CO2 (BEAKER) (test 18 meq/L 22-29 L code = 355) BLOOD UREA NITROGEN 12 mg/dL 7-21 (BEAKER) (test code = 354) CREATININE (BEAKER) 0.62 mg/dL 0.57-1.25 (test code = 358) GLUCOSE RANDOM 87 mg/dL 70-105 (BEAKER) (test code = 652) CALCIUM (BEAKER) 8.3 mg/dL 8.4-10.2 L (test code = 697) EGFR (BEAKER) (test 124 mL/min/1.73 ESTIM ATED GFR IS code = 1092) sq m NOT ACCURATE CREATININE CLEARANCE IN PREDICTING GLOMERULAR FILTRATION RATE . ESTIMATED GFR I S NOT APPLICABLE FOR DIALYSIS PATIEN TS. Collections Agent ID - SANAM WCBC W/PLT COUNT & AUTO [id number] 05:25:03 Test Item Value Reference Range Interpretation Comments WHITE BLOOD CELL COUNT (BEAKER) 7.1 K/ L 3.5-10.5 (test code = 775) RED BLOOD CELL COUNT (BEAKER) 4.40 M/ L 4.63-6.08 L (test code = 761) HEMOGLOBIN (BEAKER) (test code = 14.3 GM/DL 13.7-17.5 410) HEMATOCRIT (BEAKER) (test code = 42.0 % 40.1-51.0 411) MEAN CORPUSCULAR VOLUME (BEAKER) 95.5 fL 79.0-92.2 H (test code = 753) MEAN CORPUSCULAR HEMOGLOBIN 32.5 pg 25.7-32.2 H (BEAKER) (test code = 751) MEAN CORPUSCULAR HEMOGLOBIN CONC 34.0 GM/DL 32.3-36.5 (BEAKER) (test code = 752) RED CELL DISTRIBUTION WIDTH 13.2 % 11.6-14.4 (BEAKER) (test code = 412) PLATELET COUNT (BEAKER) (test 150 K/CU MM 150-450 code = 756) MEAN PLATELET VOLUME (BEAKER) 9.4 fL 9.4-12.4 (test code = 754) NUCLEATED RED BLOOD CELLS 0 /100 WBC 0-0 (BEAKER) (test code = 413) NEUTROPHILS RELATIVE PERCENT 74 % (BEAKER) (test code = 429) LYMPHOCYTES RELATIVE PERCENT 14 % (BEAKER) (test code = 430) MONOCYTES RELATIVE PERCENT 9 % (BEAKER) (test code = 431) EOSINOPHILS RELATIVE PERCENT 2 % (BEAKER) (test code = 432) BASOPHILS RELATIVE PERCENT 1 % (BEAKER) (test code = 437) NEUTROPHILS ABSOLUTE COUNT 5.29 K/ L 1.78-5.38 (BEAKER) (test code = 670) LYMPHOCYTES ABSOLUTE COUNT 0.96 K/ L 1.32-3.57 L (BEAKER) (test code = 414) MONOCYTES ABSOLUTE COUNT (BEAKER) 0.63 K/ L 0.30-0.82 (test code = 415) EOSINOPHILS ABSOLUTE COUNT 0.14 K/ L 0.04-0.54 (BEAKER) (test code = 416) BASOPHILS ABSOLUTE COUNT (BEAKER) 0.04 K/ L 0.01-0.08 (test code = 417) IMMATURE GRANULOCYTES-RELATIVE 1 % 0-1 PERCENT (BEAKER) (test code = 2801) TSH/FREE T4 IF [id number] 00:09:17 Test Item Value Reference Range Interpretation Comments THYROID STIMULATING HORMONE 2.803 uIU/mL 0.350-4.940 (BEAKER) (test code = 772) Collections Agent ID - DBCOMPREHENSIVE METABOLIC [id number] 23:49:41 Test Item Value Reference Range Interpretation Comments TOTAL PROTEIN 5.9 gm/dL 6.0-8.3 L (BEAKER) (test code = 770) ALBUMIN (BEAKER) 3.7 g/dL 3.5-5.0 (test code = 1145) ALKALINE PHOSPHATASE 47 U/L 40-150 (BEAKER) (test code = 346) BILIRUBIN TOTAL 1.6 mg/dL 0.2-1.2 H (BEAKER) (test code = 377) SODIUM (BEAKER) (test 133 meq/L 136-145 L code = 381) POTASSIUM (BEAKER) 4.2 meq/L 3.5-5.1 (test code = 379) CHLORIDE (BEAKER) 102 meq/L 98-107 (test code = 382) CO2 (BEAKER) (test 21 meq/L 22-29 L code = 355) BLOOD UREA NITROGEN 11 mg/dL 7-21 (BEAKER) (test code = 354) CREATININE (BEAKER) 0.67 mg/dL 0.57-1.25 (test code = 358) GLUCOSE RANDOM 104 mg/dL 70-105 (BEAKER) (test code = 652) CALCIUM (BEAKER) 8.9 mg/dL 8.4-10.2 (test code = 697) AST (SGOT) (BEAKER) 21 U/L 5-34 (test code = 353) ALT (SGPT) (BEAKER) 24 U/L 6-55 (test code = 347) EGFR (BEAKER) (test 113 ESTIMATE D GFR IS code = 1092) mL/min/1.73 sq NOT ACCURA TE m CREATININE CLEARANCE IN PREDICTING GLOMERULAR FILTRATION RATE . ESTIMATED GFR I S NOT APPLICABLE FOR DIALYSIS PATIEN TS. Collections Agent ID - [id number] 23:49:41 Test Item Value Reference Range Interpretation Comments MAGNESIUM (BEAKER) (test code = 1.8 mg/dL 1.6-2.6 627) Collections Agent ID - [id number] 23:42:15 Test Item Value Reference Range Interpretation Comments PROTIME (BEAKER) (test 18.6 seconds 11.9-14.2 H code = 759) INR (BEAKER) (test 1.58 See_Comment [Automat ed code = 370) message] The sy stem which generated this result transmitted reference range : <=5.90. The reference range was not used to interpret this result as normal/abnormal . PARTIAL THROMBOPLASTIN 40.7 seconds 22.5-36.0 H TIME (BEAKER) (test code = 760) RECOMMENDED COUMADIN/WARFARIN INR THERAPY RANGESSTANDARD DOSE: 2.0 - 3.0 Includes: PROPHYLAXIS forvenous thrombosis, systemic embolization; TREATMENT for venous thrombosis and/or pulmonary embolus.HIGH RISK: Target INR is 2.5-3.5 for patients with mechanical heart valves.RAD, ELBOW, 3 VIEWS, [id number] 23:36:00Reason for exam:->trauma [facility] : 1935 Sex: MFINAL REPORT TECHNIQUE: Frontal, oblique, and lateral views of the leftelbow. INDICATION: trauma. COMPARISON: None. FINDINGS:No acute fracture or dislocation.Joint spaces are preserved. No evidence of a joint effusion.Soft tissues are unremarkable. IMPRESSION:No acute osseous abnormality of the left elbow. Signed: Parish Tysno MDReport Verified Date/Time: 06/21/2021 23:36:16 CBC W/PLT COUNT & AUTO [id number] 23:35:37 Test Item Value Reference Range Interpretation Comments WHITE BLOOD CELL COUNT (BEAKER) 8.2 K/ L 3.5-10.5 (test code = 775) RED BLOOD CELL COUNT (BEAKER) 4.48 M/ L 4.63-6.08 L (test code = 761) HEMOGLOBIN (BEAKER) (test code = 14.5 GM/DL 13.7-17.5 410) HEMATOCRIT (BEAKER) (test code = 41.4 % 40.1-51.0 411) MEAN CORPUSCULAR VOLUME (BEAKER) 92.4 fL 79.0-92.2 H (test code = 753) MEAN CORPUSCULAR HEMOGLOBIN 32.4 pg 25.7-32.2 H (BEAKER) (test code = 751) MEAN CORPUSCULAR HEMOGLOBIN CONC 35.0 GM/DL 32.3-36.5 (BEAKER) (test code = 752) RED CELL DISTRIBUTION WIDTH 13.1 % 11.6-14.4 (BEAKER) (test code = 412) PLATELET COUNT (BEAKER) (test 145 K/CU MM 150-450 L code = 756) MEAN PLATELET VOLUME (BEAKER) 9.7 fL 9.4-12.4 (test code = 754) NUCLEATED RED BLOOD CELLS 0 /100 WBC 0-0 (BEAKER) (test code = 413) NEUTROPHILS RELATIVE PERCENT 76 % (BEAKER) (test code = 429) LYMPHOCYTES RELATIVE PERCENT 12 % (BEAKER) (test code = 430) MONOCYTES RELATIVE PERCENT 10 % (BEAKER) (test code = 431) EOSINOPHILS RELATIVE PERCENT 1 % (BEAKER) (test code = 432) BASOPHILS RELATIVE PERCENT 0 % (BEAKER) (test code = 437) NEUTROPHILS ABSOLUTE COUNT 6.19 K/ L 1.78-5.38 H (BEAKER) (test code = 670) LYMPHOCYTES ABSOLUTE COUNT 0.99 K/ L 1.32-3.57 L (BEAKER) (test code = 414) MONOCYTES ABSOLUTE COUNT (BEAKER) 0.78 K/ L 0.30-0.82 (test code = 415) EOSINOPHILS ABSOLUTE COUNT 0.10 K/ L 0.04-0.54 (BEAKER) (test code = 416) BASOPHILS ABSOLUTE COUNT (BEAKER) 0.03 K/ L 0.01-0.08 (test code = 417) IMMATURE GRANULOCYTES-RELATIVE 1 % 0-1 PERCENT (BEAKER) (test code = 2801) RAD, CHEST, 1 VIEW, NON [id number] 23:35:00Reason for exam:->eval pacemakerShould this be performed at the bedside?->Yes [facility] : 1935 Sex: MFINAL REPORT INDICATION: eval pacemaker COMPARISON: None TECHNIQUE: Single frontal view of the chest. IMPRESSION: Lungs and pleura: There is central venous congestion without airspace consolidation or sizable effusion. No pneumothorax. Heart and mediastinum: Cardiac mediastinal silhouette is magnified by technique. A left subclavian pacemaker is in place with leads overlying the right atrium and right ventricle. Osseous structures: No acute abnormality. Prior multilevel vertebral body augmentation of the lower thoracic spine. Other: None. Signed: Parish Tyson MDReport Verified Date/Time: 06/21/2021 23:35:25 PROTHROMBIN [id number] 14:28:00 Test Item Value Reference Range Interpretation Comments PT PATIENT (test code = PTP) 18.4 SECONDS 9.3-12.9 H INTERNATIONAL NORMAL RATIO 1.61 INR Unit 0.8-1.2 H (test code = INR) BASIC METABOLIC [id number] 14:27:00 Test Item Value Reference Range Interpretation [...] CA) 8.6 MG/DL 8.5-10.1 N CBC W/AUTO [id number] 14:23:00 Test Item Value Reference Range Interpretation [...]
[2021-06-28] MEDS: ATORVASTATIN 20 MG TAB PO SCH ×2 (21:00→21:29)
[2021-06-28] MEDS ORDERED: HYDROCODONE/APAP 5/325 MG TAB PO PRN (21:25)
[2021-06-29] MEDS: HYDROCODONE/APAP 5/325 MG TAB PO PRN ×4 (04:04→19:54)
[2021-06-29] MEDS: SOTALOL HCL 80 MG TAB PO SCH ×2 (05:07→17:16)
[2021-06-29 05:09] LABS: Urine Appearance CLEAR (Clear); Urine Blood NEGATIVE (Negative); Urine Color DK YELLOW (Yellow); Urine Glucose NEGATIVE (Negative); Urine Protein NEGATIVE (Negative); Urine Specific Gravity 1.025 (1.005-1.030); Urine Urobilinogen 0.2 mg/dL (0.2-1.0); Urine pH 5.5 (5.0-7.0)
[2021-06-29 05:18] LABS: Urine Bilirubin NEGATIVE (Negative)
[2021-06-29 05:23] LABS: Urine Bacteria 20-50 /HPF (NONE SEEN); Urine Mucus 3+ /HPF (NONE SEEN); Urine RBC <5 /HPF (NONE SEEN)
[2021-06-29 06:30] LABS: Absolute Lymphocytes (CBC) 0.9 K/uL (0.7-4.9); Basophils % 0.6 % (0-1.3); Hematocrit 42.3 % (39.6-49.0); Lymphocytes % 15.4 % (15.3-44.8); MPV 7.5 fL (7.6-11.3); RBC Red Blood Cell Count 4.35 M/uL (4.33-5.43)
[2021-06-29] MEDS: LEVOTHYROXINE SOD 0.05 MG TABLET PO SCH (06:33)
[2021-06-29 07:24] LABS: Albumin 2.9 g/dL (3.4-5.0); BUN Blood Urea Nitrogen 13 mg/dL (7-18); Bicarbonate 21 mmol/L (21-32); Glucose Level 80 mg/dL (74-106); Magnesium 1.9 mg/dL (1.8-2.4); Potassium 3.8 mmol/L (3.5-5.1); Prealbumin 18.4 mg/dL (20-40); Sodium Level 131 mmol/L (136-145)
[2021-06-29] MEDS ORDERED: POLYETHYL GLY 3350 17 GM/DOSE PO SCH (08:00)
[2021-06-29] MEDS ORDERED: HYDROCODONE/APAP 5/325 MG TAB PO SCH ×2 (08:00)
[2021-06-29] MEDS ORDERED: DOCUSATE NA/SENNA CONC 1 TAB PO SCH (08:00)
--- NOTE | 2021-06-29 09:59 | P.RH.PN ---
Estimated Length of Stay: 14 Expected Discharge Date: 07/11/21 Discharge Disposition Plan: Home Family Support: Yes Vital Signs: Last Vital Signs Temp 97.7 F 06/29/21 07:31 Pulse 120 H 06/29/21 07:31 Resp 14 06/29/21 09:01 BP 109/88 06/29/21 07:31 Pulse Ox 98 06/29/21 09:01 Laboratory: Laboratory Last Values WBC 5.60 K/uL (4.3-10.9) D 06/29/21 06:11 RBC 4.35 M/uL (4.33-5.43) 06/29/21 06:11 Hgb 14.1 g/dL (13.6-17.9) 06/29/21 06:11 Hct 42.3 % (39.6-49.0) 06/29/21 06:11 MCV 97.2 fL (80-100) 06/29/21 06:11 MCH 32.5 pg (27.0-35.0) 06/29/21 06:11 MCHC 33.4 g/dL (32.0-36.0) 06/29/21 06:11 RDW 13.4 % (12.1-15.2) 06/29/21 06:11 Plt Count 224 K/uL (152-406) 06/29/21 06:11 MPV 7.5 fL (7.6-11.3) L 06/29/21 06:11 Neutrophils % 72.0 % (41.7-73.7) 06/29/21 06:11 Lymphocytes % 15.4 % (15.3-44.8) 06/29/21 06:11 Monocytes % 9.5 % (3.3-12.3) 06/29/21 06:11 Eosinophils % 2.5 % (0-4.4) 06/29/21 06:11 Basophils % 0.6 % (0-1.3) 06/29/21 06:11 Absolute Neutrophils 4.1 K/uL (1.8-8.0) 06/29/21 06:11 Absolute Lymphocytes 0.9 K/uL (0.7-4.9) 06/29/21 06:11 Absolute Monocytes 0.5 K/uL (0.1-1.3) 06/29/21 06:11 Absolute Eosinophils 0.1 K/uL (0-0.5) 06/29/21 06:11 Absolute Basophils 0.0 K/uL (0-0.5) 06/29/21 06:11 Sodium 131 mmol/L (136-145) L 06/29/21 06:11 Potassium 3.8 mmol/L (3.5-5.1) 06/29/21 06:11 Chloride 100 mmol/L (98-107) 06/29/21 06:11 Carbon Dioxide 21 mmol/L (21-32) 06/29/21 06:11 BUN 13 mg/dL (7-18) 06/29/21 06:11 Creatinine 0.46 mg/dL (0.55-1.3) L 06/29/21 06:11 Estimated GFR > 90 mL/min (=/>90) 06/29/21 06:11 Glucose 80 mg/dL (74-106) 06/29/21 06:11 Calcium 8.5 mg/dL (8.5-10.1) 06/29/21 06:11 Magnesium 1.9 mg/dL (1.8-2.4) D 06/29/21 06:11 Albumin 2.9 g/dL (3.4-5.0) L 06/29/21 06:11 Prealbumin 18.4 mg/dL (20-40) L 06/29/21 06:11 Urine Color Dk yellow (Yellow) 06/29/21 04:50 Urine Appearance Clear (Clear) 06/29/21 04:50 Urine pH 5.5 (5.0-7.0) 06/29/21 04:50 Ur Specific Center 1.025 (1.005-1.030) 06/29/21 04:50 Glucose (UA)(Auto) Negative (Negative) 06/29/21 04:50 Urine Ketones 2+ (Negative) H 06/29/21 04:50 Urine Blood Negative (Negative) 06/29/21 04:50 Urine Nitrite Negative (Negative) 06/29/21 04:50 Urine Bilirubin Negative (Negative) 06/29/21 04:50 Urine Urobilinogen 0.2 mg/dL (0.2-1.0) 06/29/21 04:50 Ur Leukocyte Esterase Negative (Negative) 06/29/21 04:50 Urine RBC <5 /HPF (NONE SEEN) 06/29/21 04:50 Urine WBC <5 /HPF (<5) 06/29/21 04:50 Ur Squamous Epith Cells <5 /HPF (NONE SEEN) 06/29/21 04:50 Urine Bacteria 20-50 /HPF (NONE SEEN) H 06/29/21 04:50 Urine Mucus 3+ /HPF (NONE SEEN) H 06/29/21 04:50 Urine Culture Reflexed Not needed 06/29/21 04:50 Urine Total Protein Negative (Negative) 06/29/21 04:50 SARS-CoV-2 Rap RNA(RT-PCR) Negative (NEGATIVE) 06/28/21 23:30 Weight: 173 lb 3.2 oz Wound Present: Yes Physician Update: He is a moderate to max assistance to do sit to stand due to pelvic pain. He is fearful of pain in the pelvic fracture area. Labs were reviewed and are stable. Summary: Patient's care plan and nursing home goals have been reviewed and revised as necessary. Please see the Rehabilitation Signature page for all necessary signatures.
[2021-06-29] MEDS: LIDOCAINE 4% PATCH TOP SCH (10:47)
[2021-06-29] MEDS ORDERED: POLYETHYL GLY 3350 17 GM/DOSE PO PRN (12:13)
--- NOTE | 2021-06-29 13:08 | R.HP ---
HISTORY AND PHYSICAL FACILITY: [facility] ENCOUNTER DATE AND TIME: 06/29/2021 13:02 (SYSTEMS MGR) MR#: [id number] NAME Rashida Blank ADDRESS: [address] [place] [address] CITY: [place] [address]IP [address] PHONE: DATE OF : 1935 AGE: 85 SSN# [id number] GENDER: Male DEXTERITY Unknown dexterity MARITAL STATUS RACE White PRE-HOSPITAL LIVING SETTING 01 - Home (private home/apt. board/care, assisted living, fpc, transitional living) PRE-HOSPITAL LIVING WITH Family/Relatives ENCOUNTER PHYSICIAN: Dr. Gato Vasquez M.D. REFERRING DOCTOR: Dr. Laura Deleon DATE OF ADMISSION: 06/29/2021 13:02 (SYSTEMS MGR) REFERRING FACILITY [facility] HOME TYPE AND DETAILS: Type of home: single family house # of steps to enter the residence: 0 # of steps within the residence: 0 # of levels in the residence: 1 ONSET DATE: 06/21/2021 PRIMARY DIAGNOSIS-RELATED SURGERIES: No surgeries related to the primary diagnosis were performed. HISTORY OF PRESENT ILLNESS (HPI): Pt. is a 85 yo white male. On 06/21/2021 he was admitted to [facility] with diagnosis L Pelvic Fracture after mechanical fall. His impairment category is Orthopaedic Disorders 08 - Pelvic Fracture (08.3). Pre-morbidly, Pt. was independent/mod-I in Locomotion, Social Cognition, Sphincter Control, Communica tion, and Endurance; and he had good Locomotion, Social Cognition, Sphincter Control, Communication, and Endurance. Currently, he has deficits of Locomotion, Safety Awareness, Balance, Transfers Control, Self-Care, an d Endurance. Pt. is now referred to [facility] for acute in-patient rehabilitation in order to maximize patient's functional independence in activities of daily living, strength, ROM, and mobi lity. Patient has realistic goal of being discharged at assistance level partial assist to set up to reside at Home with Family/Relatives. interdisciplinary approach by acute IRF, pt. demonstrates great potential and motivation to get stronger, safer, and more independent to return to [facility]. Pt demonstrates a strong need for an intensive team: rehab doctor, nurse, social service director, and therapist to meet functional and medical goals. It is reasonable and necessary for the patient to come to acute IRF to safely dc. Pt is medically stable but in need of 24 hour nursing, doctor supervision, and oversight while receiving active and ongoing intensive (OT/PT/ST). The patient is reasonably expected to participate in 3 hours of therapy a day/15 hours a week. COVID-19 screening performed. Patient denies a new onset of fever, cough, difficulty breathing, sore throat, body aches and non-allergy nasal congestion in the past 24 hours. Patient denies travel outside of [place] in the past 14 days. Patient denies any contact with someone who has a confirmed diagnosis of or is under investigation for COVID-19 in the past 14 days. Patient has been tested negative for COVID- 19. 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 Eye Surgery 2006 Joint replacement left and right hips 2011,2013 Prostatectomy 12 years ago at age 66 Robotic Laparoscopy, Cholecystectomy 01/25/2014 Urethral Sling done 3x (18 months after prostatectomy SOCIAL HISTORY: - Home Living Family/Relatives REVIEW OF SYSTEMS: - Gen No Chills Fatigue No Fever - Eyes No Double Vision No itchiness - ENMT No Difficulty Swallowing - CVS No Chest Discomfort No Chest Pain Fatigue No Weight Gain - Resp No Cough No Shortness of Breath - GI Continent No Abdominal Pain No Constipation No Diarrhea - Continent No Kidney Pain No Painful Urination No Urinary Urgency - MSK No Joint Pain Muscle Cramps Stiffness - Skin No Itching No Rash No Suspicious Lesions - Neuro Coordination Difficulty No Difficulty with Concentration No Memory Loss No Seizures Weakness - Psych No Anxiety No Depression No HIV Exposure No Persistent Infections No Seasonal Allergies - Endo No Cold/Heat Intolerance No Excessive Hunger No Excessive Thirst No Excessive Urination PHYSICAL EXAM - Gen Alert and awake Lying in bed No apparent distress Oriented to: person, time, and place - Skin No skin breakdown. Normacephalic - Eyes No abnormalities - ENMT No abnormalities - Neck No abnormalities - CVS RRR - Chest No abnormalities - Abd Soft - GI Non distended Deferred - No abnormalities - Ext Mild bilateral lower extremity edema. - MSK 4+/5 weakness in both lower extremities. - Neuro No focal deficits - Psych No abnormalities VITAL SIGNS Temperature: 97.7 F Tympanic SBP/DBP: 109/88 R arm Pulse: 97 Resp: 18 NURSING: - Shower allowing shower - Skin care per protocol PRECAUTIONS: - Fall Precaution Bed alarm TABS alarm Wheel chair alarm - Pelvis fracture WBAT per OT note, pt cleared by Ortho ACTIVITIES OOB only with supervision QI SCORES: - Self-Care A. Eating 05-Setup or clean-up assistance B. Oral hygiene 04-Supervision or touching assistance C. Toileting hygiene 02-Substantial/maximal assistance E. Shower/bathe self 02-Substantial/maximal assistance F. Upper body dressing 02-Substantial/maximal assistance G. Lower body dressing 02-Substantial/maximal assistance H. Putting on/taking off footwear 02-Substantial/maximal assistance - Mobility A. Roll left and right 01-Dependent B. Sit to lying 01-Dependent C. Lying to sitting on side of bed 01-Dependent D. Sit to stand 01-Dependent E. Chair/wfg-cd-[id number] transfer 88-Not attempted due to medical condition or safety concerns F. Toilet transfer 88-Not attempted due to medical condition or safety concerns G. Car transfer 88-Not attempted due to medical condition or safety concerns I. Walk 10 feet 88-Not attempted due to medical condition or safety concerns J. Walk 50 feet with two turns 88-Not attempted due to medical condition or safety concerns K. Walk 150 feet 88-Not attempted due to medical condition or safety concerns L. Walking 10 feet on uneven surfaces 88-Not attempted due to medical condition or safety concerns M. 1 step (curb) 88-Not attempted due to medical condition or safety concerns N. 4 steps 88-Not attempted due to medical condition or safety concerns O. 12 steps 88-Not attempted due to medical condition or safety concerns P. Picking up object 88-Not attempted due to medical condition or safety concerns R. Wheel 50 feet with two turns 09-Not applicable S. Wheel 150 feet 09-Not applicable - Bladder and Bowel Bladder continence Bowel continence - Endurance Poor - Balance Poor - Safety Awareness Poor CURRENT FUNC. DEFICITS: Self-Care, Mobility, Endurance, Balance, and Safety Awareness MEDICATIONS: - Other See attached MAR (Medication Administration Record) ASSESSMENT: Pt. is a 85 yo white male.On 06/21/2021 he was admitted to [facility] with diagnosis L Pelvic Fracture after mechanical fall.His impairment category is Orthopa edic Disorders 08 - Pelvic Fracture (08.3).Pre-morbidly, Pt. was independent/mod-I in Locomotion, So cial Cognition, Sphincter Control, Communication, and Endurance; and he had good Locomotion, Social C ognition, Sphincter Control, Communication, and Endurance.Currently, he has deficits of Locomotion, S afety Awareness, Balance, Transfers Control, Self-Care, and Endurance.Pt. is now referred to [facility] for acute in-patient rehabilitation in order to maximize patient's function al independence in activities of daily living, strength, ROM, and mobility.- Rehab Goal Patient has realistic goal of being discharged at assistance level partial assist to set up to reside at Home with Family/Relatives. interdisciplinary approach by acute IRF, pt. demonstrates great potential and motivation to get stronger, safer, and more independent to return to [facility]. Pt demonstrates a strong need for an intensive team: rehab doctor, nurse, social service director, and therapist to meet functional and medical goals. It is reasonable and necessary for the patient to come to acute IRF to safely dc. Pt is medically stable but in need of 24 hour nursing, doctor supervision, and oversight while receiving active and ongoing intensive (OT/PT/ST). The patient is reasonably expected to participate in 3 hours of therapy a day/15 hours a week. COVID-19 screening performed. Patient denies a new onset of fever, cough, difficulty breathing, sore throat, body aches and non-allergy nasal congestion in the past 24 hours. Patient denies travel outside of [place] in the past 14 days. Patient denies any contact with someone who has a confirmed diagnosis of or is under investigation for COVID-19 in the past 14 days. Patient has been tested negative for COVID- 19.REHAB PLAN: - Physical Therapy Decreased range of motion - to improve, our physical therapists will perform initial evaluation of pt 's status upon admission and devise an individualized program for increasing patient's Range of Motio n. Gait dysfunction - to improve, our physical therapists will perform initial evaluation of pt's status upon admission and devise an individualized program for Gait Training, and Wheel Chair mobility Inability to transfer - to improve, our physical therapists will perform initial evaluation of pt's s tatus upon admission and devise an individualized program for Bed mobility Need for home safety evaluation - to improve, our physical therapists will perform initial evaluation of pt's status upon admission and devise an individualized program for Home Evaluation Need in caregiver upon discharge - to improve, our physical therapists will perform initial evaluatio n of pt's status upon admission and devise an individualized program for Caregiver Training New precaution - to improve, our physical therapists will perform initial evaluation of pt's status u ghazal admission and devise an individualized program for Patient precaution education Edema - to improve, our physical therapists will perform initial evaluation of pt's status upon admi ssion and devise an individualized program for Elevation Training, and Lymphedema Therapy Poor balance - to improve, our physical therapists will perform initial evaluation of pt's status upo n admission and devise an individualized program for Balance Training Poor endurance - to improve, our physical therapists will perform initial evaluation of pt's status u ghazal admission and devise an individualized program for Endurance Training Weakness - to improve, our physical therapists will perform initial evaluation of pt's status upon ad mission and devise an individualized program for Aquatic Therapy, Neuromuscular Reeducation, and Stre ngthening Achieving independence - to improve, our physical therapists will perform initial evaluation of pt's status upon admission and devise an individualized program for Community Reintegration Activities - Occupational Therapy ADL deficits - to improve, our occupation therapists will perform initial evaluation of pt's status u ghazal admission and devise an individualized program for Bathing, Bed mobility, Community Reintegration , Cooking, Dressing, Eating, Fine Motor Skills, Grooming, Homemaking, Kitchen Mobility, Laundry, Christine ent Education, Safety Awareness, Splinting - Positioning, Transfers(Toilet, Tub, Shower), and Wheel C hair Management Need for career development coordinator/teacher - to improve, our occupation therapists will perform initial evaluation of pt's s tatus upon admission and devise an individualized program for Caregiver Training Weakness - to improve, our occupation therapists will perform initial evaluation of pt's status upon admission and devise an individualized program for Aquatic Therapy, Balance, Endurance, UE ROM, and U E strengthening MEDICAL PLAN: - Diet Type Start Clear Liquid Diet per MD progress note on 06/25/2021 - Diet - Liquid Texture Start Regular - Tube Feed Start N/A - Fall Precaution Bed alarm TABS alarm Wheel chair alarm - Skin care per protocol - Other See attached MAR (Medication Administration Record) - Diet - Solid Texture Regular - Shower shower - Pelvis fracture WBAT per OT note, pt cleared by Ortho DISCHARGE PLAN: - Estimated Length of Stay (days) 14. - Consensus on plan Discharge plan has been discussed with primary caregiver. Patient/Family is in agreement with the regino n. Primary caregiver is in agreement with the plan. - Patient/Family Goals Return home independently. - Planned Living Setting Upon Discharge Home, to live with Family/Relatives. Transitional Living. SIGNATURE PANEL: (SYSTEMS MGR)
--- NOTE | 2021-06-29 13:10 | PAPE ---
POST ADMISSION PHYSICIAN EVALUATION PATIENT: [facility] MR# [id number] REFERRING DOCTOR Dr. Laura Deleon EVALUATION DATE AND TIME 06/29/2021 13:08 (GAS METER PROVER) NAME Rashida Blank DATE OF 1935 AGE 85 PHONE SSN# [id number] GENDER male EVALUATING PHYSICIAN Dr. Gato Vasquez M.D. ADMISSION DIAGNOSIS: L Pelvic Fracture after mechanical fall ONSET DATE 06/21/2021 POST-ADMISSION FUNCTIONAL/MEDICAL STATUS: - Bladder Same accident frequency: 7-Ind - No accidents in the past 7 days - Bowel Same accident frequency: 7-Ind - No accidents in the past 7 days - Walking Same score based on distance walked: 0(N/A) - Wheelchair Same score based on distance traveled: 0(N/A) STATUS CHANGE EVALUATION: No change in Functional or Medical Status is identified compared with Pre-Admission screening. PATIENT NEEDS CLOSE MEDICAL SUPERVISION BY A REHABILITATION PHYSICIAN FOR: Coordination of Treatment Team Medical and Co-Morbidity Management Pain Management medication management PATIENT REQUIRES 24X7 REHAB NURSING FOR MEDICAL AND FUNCTIONAL MGT. OF THE FOLLOWING DEFICITS: Disease Management Medication Management Patient/Family Education Providing Safe Environment Skin Integrity Ambulation ADL's Pain Management Transfers PATIENT REQUIRES INTENSIVE, COORDINATED INTERDISCIPLINARY APPROACH TO REHAB: Arranging Home Equipment/Services Discharge Planning Family Intervention/Training Pediatric Intensive Physician/Case Management LIST OF IDENTIFIED AND POTENTIAL PROBLEMS: Alteration in leisure activities Bladder, Incontinence Bowel, Incontinence Falls, Actual or Potential Infection, Actual or Potential Mobility Impaired Pain, Alteration in Comfort Self Care Deficit Skin Integrity, Actual or Potential Urinary Tract Infection (UTI), Actual or Potential RISK FOR COMPLICATIONS - Fx Educate on prevention of worsening pelvic fx. - UTI Monitor for frequency, burning, discomfort, or incontinence. - Skin Breakdown Nursing will assess skin daily using assessment tool and will place on Skin Breakdown Precautions as Indicated per protocol. - Pain Clinical staff will assess patient's pain level every shift per protocol to monitor for pain manageme nt effectiveness. Educate patient on pain management strategies. Medications will be given and the pa in level reassessed. Clinical Staff may employ other methods such as: massage, distraction, decrease stimulus, etc. as needed. - Falls Educated pt on fall prevention strategies to reduce/eliminate fall risk. Patient will be evaluated fo r Fall Precautions and will be placed on Fall Precautions as indicated per protocol. - Impaired Safety Educate patient on safety awareness strategies. Educate patient on safety hazards. INTERVENTIONS - A Fib with RVR administer medication as ordered by MD. - Mechanical Fall, recurrent Xrays and CT demonstrate no acute injuries. Continue with therapy intervention. - Hypothyroidism Administer meds as ordered by MD. - Non-Displaced Left Inferior Pubic Ramus Fracture Conservative management and therapy. All of the above information was obtained from MD progress notes on 06/23/2021 and 06/25/2021. PATIENT COULD BE AT RISK FOR COMPLICATIONS FROM ADVERSE MEDICAL CONDITIONS DUE TO HIS/HER COMORBIDITI ES AND THE RIGORS OF THE INTENSIVE REHABILLITATION PROGRAM. METHODS OR INTERVENTIONS TO AVOID COMPLIC ATIONS INCLUDE: - Infection Clinical staff to assess and manage the signs and symptoms of infection including fever, redness, war mth, etc. - Urinary Tract Infection - Falls Patient will be evaluated for Fall Precautions and will be placed on Fall Precautions as indicated pe r protocol. - Skin Breakdown Nursing will assess skin daily using assessment tool and will place on Skin Breakdown Precautions as indicated per protocol. - Pain Clinical staff may employ non-medication methods such as massage, distraction, decrease stimulus, etc . as needed. Clinical staff will assess patient's pain level every shift per protocol to assess and e nsure pain management effectiveness. Medications will be given and the pain level re-assessed. PRELIMINARY PLAN OF CARE: - Physical Therapy Patient needs Physical Therapy for a daily minimum of 1.5 hours at least 5 out of 7 days, to improve: Mobility, Strengthening, Transfers, Stretching, ROM, Endurance, Ability to manage stairs, Gait, and Balance. - Speech Therapy Patient needs Speech Therapy for a daily minimum of 0.5 hours at least 5 out of 7 days, to improve: S wallowing, Cognition, Language Skills, and Compensatory Strategies. - Rehabilitation Nursing Patient requires 24x7 Rehabilitation Nursing for: Pain Issues, Identifying and preventing risk factor s, Monitoring and reporting current medical conditions, Assisting with ambulation and transfer, Ernesto ting with all ADL-s, Teaching patients about disease process and medications, Family teaching, Provid ing safe environment, Bowel and Bladder Issues, Skin Integrity, and Medication Management. Patient needs Pediatric Intensive Physician and/or Case Management for: Discharge Planning, Arranging Home Equipmen t or Services, and Family Interventions. - Dietary and Nutrition Services Patient needs Dietary and Nutrition Services for: Adequate Nutrition, Nutritional Supplements, and Nu tritional Education. - Occupational Therapy Patient needs Occupational Therapy for a daily minimum of 1.5 hours at least 5 out of 7 days, to impr ove Activities of Daily Living, including: Eating, Grooming, Bathing, Dressing, Toileting, Toilet Tra nsfers, Community Reintegration, Higher functional activities, Adaptive Equipment, Splinting, Househo ld Tasks, and Other activities as determined. QI SCORES: - Self-Care A. Eating 05-Setup or clean-up assistance B. Oral hygiene 04-Supervision or touching assistance C. Toileting hygiene 02-Substantial/maximal assistance E. Shower/bathe self 02-Substantial/maximal assistance F. Upper body dressing 02-Substantial/maximal assistance G. Lower body dressing 02-Substantial/maximal assistance H. Putting on/taking off footwear 02-Substantial/maximal assistance - Mobility A. Roll left and right 01-Dependent B. Sit to lying 01-Dependent C. Lying to sitting on side of bed 01-Dependent D. Sit to stand 01-Dependent E. Chair/kpy-qi-rmuba transfer 88-Not attempted due to medical condition or safety concerns F. Toilet transfer 88-Not attempted due to medical condition or safety concerns G. Car transfer 88-Not attempted due to medical condition or safety concerns I. Walk 10 feet 88-Not attempted due to medical condition or safety concerns J. Walk 50 feet with two turns 88-Not attempted due to medical condition or safety concerns K. Walk 150 feet 88-Not attempted due to medical condition or safety concerns L. Walking 10 feet on uneven surfaces 88-Not attempted due to medical condition or safety concerns M. 1 step (curb) 88-Not attempted due to medical condition or safety concerns N. 4 steps 88-Not attempted due to medical condition or safety concerns O. 12 steps 88-Not attempted due to medical condition or safety concerns P. Picking up object 88-Not attempted due to medical condition or safety concerns R. Wheel 50 feet with two turns 09-Not applicable S. Wheel 150 feet 09-Not applicable - Bladder and Bowel Bladder continence Bowel continence - Endurance Poor - Balance Poor - Safety Awareness Poor POTENTIAL FUNCTIONAL GOALS FOR PATIENT TO ACHIEVE BY DISCHARGE: - Safety Precaution Patient will remain free from falls or injury at time of discharge. - Bed Mobility Patient will perform bed mobility at 4-[place]ak[place] level of assistance. - Transfers Patient will complete transfers from bed to chair at 4-[place]ak[place] level of assistance. - Mobility Patient will ambulate 150 ft with 4-Dakota level of assistance with RW. PATIENT REHAB POTENTIAL Shari Blank is able and expected to receive 3 hours of individualized therapy daily on at least 5 of steve ry 7 days Shari Smiths prognosis for significant practical improvement within a reasonable period of time appears Good Expected level of measurable improvement will be of a practical value to Shari Blank's functional capaci ty or adaptations to impairments Has a viable Discharge Plan Medically appropriate; condition is sufficiently stable to participate in intensive rehab program DISCHARGE PLAN: - Estimated Length of Stay (days) 14. - Consensus on plan Discharge plan has been discussed with primary caregiver. Patient/Family is in agreement with the regino n. Primary caregiver is in agreement with the plan. - Patient/Family Goals Return home independently. - Planned Living Setting Upon Discharge Home, to live with Family/Relatives. Transitional Living. CONCLUSION ON REHABILITATION NECESSITY: I have evaluated patient's pre-admission functional status and, comparing it to the patient's post-ad mission functional status now, I conclude that the pre-admission assessment was accurate. Patient's c ondition on admission supports the medical necessity of admission to IRF. It is safe to proceed with patient's therapy program. SIGNATURE PANEL: (GAS METER PROVER)
[2021-06-29] MEDS: GABAPENTIN 300 MG CAP PO SCH ×2 (16:05→19:54)
[2021-06-29 17:45] LABS: Protime INR 1.92
[2021-06-29] MEDS: WARFARIN SODIUM 4 MG TAB PO SCH (18:14)
[2021-06-29] MEDS: ATORVASTATIN 20 MG TAB PO SCH (19:54)
[2021-06-29] MEDS: DOCUSATE NA/SENNA CONC 1 TAB PO PRN (19:54)
[2021-06-29] MEDS: CRANBERRY FRUIT EXTRACT 400 MG CAP PO SCH (19:54)
[2021-06-30] MEDS: SOTALOL HCL 80 MG TAB PO SCH ×2 (05:05→18:00)
[2021-06-30] MEDS: LEVOTHYROXINE SOD 0.05 MG TABLET PO SCH (06:22)
[2021-06-30] MEDS: HYDROCODONE/APAP 5/325 MG TAB PO PRN ×2 (06:22→18:48)
[2021-06-30 07:24] LABS: Protime INR 1.91
[2021-06-30] MEDS: GABAPENTIN 300 MG CAP PO SCH ×2 (08:11→18:48)
[2021-06-30] MEDS: CRANBERRY FRUIT EXTRACT 400 MG CAP PO SCH ×2 (08:11→18:48)
[2021-06-30] MEDS: LIDOCAINE 4% PATCH TOP SCH (08:14)
[2021-06-30] MEDS: TRAMADOL HCL 50 MG TAB PO PRN ×2 (08:47→17:14)
[2021-06-30] MEDS: WARFARIN SODIUM 4 MG TAB PO SCH (17:15)
[2021-06-30] MEDS: DOCUSATE NA/SENNA CONC 1 TAB PO PRN (18:48)
[2021-06-30] MEDS: ATORVASTATIN 20 MG TAB PO SCH (18:48)
[2021-07-01] MEDS: HYDROCODONE/APAP 5/325 MG TAB PO PRN ×4 (02:22→20:26)
[2021-07-01] MEDS: SOTALOL HCL 80 MG TAB PO SCH ×2 (05:02→17:05)
[2021-07-01] MEDS: LEVOTHYROXINE SOD 0.05 MG TABLET PO SCH (06:29)
[2021-07-01] MEDS: LIDOCAINE 4% PATCH TOP SCH ×2 (07:26→08:00)
[2021-07-01] MEDS: GABAPENTIN 300 MG CAP PO SCH ×2 (08:03→20:26)
[2021-07-01] MEDS: CRANBERRY FRUIT EXTRACT 400 MG CAP PO SCH ×2 (08:03→20:26)
[2021-07-01] MEDS: DOCUSATE NA/SENNA CONC 1 TAB PO PRN (12:48)
[2021-07-01] MEDS: WARFARIN SODIUM 4 MG TAB PO SCH (17:06)
[2021-07-01] MEDS ORDERED: POLYETHYL GLY 3350 17 GM/DOSE PO SCH (20:00)
[2021-07-01] MEDS: ATORVASTATIN 20 MG TAB PO SCH (20:26)
[2021-07-02] MEDS: SOTALOL HCL 80 MG TAB PO SCH ×2 (05:13→17:18)
[2021-07-02] MEDS: LEVOTHYROXINE SOD 0.05 MG TABLET PO SCH (06:50)
[2021-07-02] MEDS: CRANBERRY FRUIT EXTRACT 400 MG CAP PO SCH ×2 (07:23→20:54)
[2021-07-02] MEDS: POLYETHYL GLY 3350 17 GM/DOSE PO SCH (07:23)
[2021-07-02] MEDS: GABAPENTIN 300 MG CAP PO SCH ×2 (07:23→20:54)
[2021-07-02] MEDS: LIDOCAINE 4% PATCH TOP SCH (07:23)
[2021-07-02] MEDS: DOCUSATE NA/SENNA CONC 1 TAB PO PRN (07:48)
[2021-07-02] MEDS: HYDROCODONE/APAP 5/325 MG TAB PO PRN ×3 (13:37→21:15)
[2021-07-02] MEDS ORDERED: SILVER SULFADIAZINE 1% 25 GM TOP SCH (16:00)
[2021-07-02] MEDS: WARFARIN SODIUM 4 MG TAB PO SCH (16:55)
--- NOTE | 2021-07-02 17:51 | R.PN ---
PROGRESS NOTES ENCOUNTER DATE AND TIME: 07/02/2021 17:40 (SPA COORDINATOR) NAME Rashida Blank DATE OF : 1935 DATE OF ADMISSION: 06/29/2021 13:02 (SPA COORDINATOR) L Pelvic Fracture after mechanical fallCHIEF COMPLAINT: Pelvic fracture SUBJECTIVE: Pt denied any depression. Pt denied any Shortness of Breath. CBC with differential is normal. INR is 1.91. Prealbumin 18.4, Na is 131. UA: bacteria 20-50. COVID-1 9 is negative. Ambulated 5' with maximum assistance using a rolling walker. Left elbow superficial scrap after falling is followed by wound care with Silver Sulfadiazine applica tion and wet to dry dressing daily. VITAL SIGNS Temperature: 97.4 F SBP/DBP: 118/75 R arm Pulse: 84 Resp: 16 MEDICATION ALLERGIES: ENVIRONMENTAL ALLERGIES: - Substance Allergies - Other Allergies NURSING: - Shower allowing shower - Skin care per protocol PRECAUTIONS: - Fall Precaution Bed alarm TABS alarm Wheel chair alarm - Pelvis fracture WBAT per OT note, pt cleared by Ortho ACTIVITIES OOB only with supervision THERAPIES: - Dietary and Nutrition Adequate Nutrition. Nutritional Education. Nutritional Supplements. - Occupational Therapy Cognitive Retraining. Visual Perceptual Training. ADL Training. Adaptive Equipment. Community Reinteg ration. Evaluate and Treat. Household Tasks. Patient/Family Education. Safety Awareness. Transfer Tra ining. UE ROM. UE Strengthening. - Speech Therapy Cognitive Training. Expressive Language Skills. Memory Strategies. Receptive Language Skills. Speech Intelligibility Training. - Physical Therapy Balance Training. Evaluate and Treat. Gait Training. LE ROM. LE Strengthening. Medical Equipment Asse ssment and Evaluation. Mobility Training. Patient/Family Education. Safety Awareness. Transfer Traini ng. PHYSICAL EXAM - Gen Alert and awake Lying in bed No apparent distress Oriented to: person, time, and place - Skin Left elbow superficial scrap after falling. Normacephalic - Eyes No abnormalities - ENMT No abnormalities - Neck No abnormalities - CVS RRR - Chest No abnormalities - Abd Soft - GI Non distended Deferred - No abnormalities - Ext Mild bilateral lower extremity edema. - MSK 4+/5 weakness in both lower extremities. - Neuro No focal deficits - Psych No abnormalities ASSESSMENT: Pt. is a 85 yo white male.On 06/21/2021 he was admitted to [facility] with diagnosis L Pelvic Fracture after mechanical fall.His impairment category is Orthopa edic Disorders 08 - Pelvic Fracture (08.3).Pre-morbidly, Pt. was independent/mod-I in Locomotion, So cial Cognition, Sphincter Control, Communication, and Endurance; and he had good Locomotion, Social C ognition, Sphincter Control, Communication, and Endurance.Currently, he has deficits of Locomotion, S afety Awareness, Balance, Transfers Control, Self-Care, and Endurance.Pt. is now referred to [facility] for acute in-patient rehabilitation in order to maximize patient's function al independence in activities of daily living, strength, ROM, and mobility.- Rehab Goal Patient has realistic goal of being discharged at assistance level partial assist to set up to reside at Home with Family/Relatives. MDM/PLAN: - Physical Therapy Decreased range of motion - to improve, our physical therapists will perform initial evaluation of p t's status upon admission and devise an individualized program for increasing patient's Range of [place] on. Gait dysfunction - to improve, our physical therapists will perform initial evaluation of pt's statu s upon admission and devise an individualized program for Gait Training, and Wheel Chair mobility Inability to transfer - to improve, our physical therapists will perform initial evaluation of pt's status upon admission and devise an individualized program for Bed mobility Need for home safety evaluation - to improve, our physical therapists will perform initial evaluatio n of pt's status upon admission and devise an individualized program for Home Evaluation Need in caregiver upon discharge - to improve, our physical therapists will perform initial evaluati on of pt's status upon admission and devise an individualized program for Caregiver Training New precaution - to improve, our physical therapists will perform initial evaluation of pt's status upon admission and devise an individualized program for Patient precaution education Edema - to improve, our physical therapists will perform initial evaluation of pt's status upon admis rolando and devise an individualized program for Elevation Training, and Lymphedema Therapy Poor balance - to improve, our physical therapists will perform initial evaluation of pt's status up on admission and devise an individualized program for Balance Training Poor endurance - to improve, our physical therapists will perform initial evaluation of pt's status upon admission and devise an individualized program for Endurance Training Weakness - to improve, our physical therapists will perform initial evaluation of pt's status upon a dmission and devise an individualized program for Aquatic Therapy, Neuromuscular Reeducation, and Str engthening Achieving independence - to improve, our physical therapists will perform initial evaluation of pt's status upon admission and devise an individualized program for Community Reintegration Activities - Occupational Therapy ADL deficits - to improve, our occupation therapists will perform initial evaluation of pt's status upon admission and devise an individualized program for Bathing, Bed mobility, Community Reintegratio n, Cooking, Dressing, Eating, Fine Motor Skills, Grooming, Homemaking, Kitchen Mobility, Laundry, Pat ient Education, Safety Awareness, Splinting - Positioning, Transfers(Toilet, Tub, Shower), and Wheel Chair Management Need for summer child caregiver - to improve, our occupation therapists will perform initial evaluation of pt's status upon admission and devise an individualized program for Caregiver Training Weakness - to improve, our occupation therapists will perform initial evaluation of pt's status upon admission and devise an individualized program for Aquatic Therapy, Balance, Endurance, UE ROM, and UE strengthening - Other See attached MAR (Medication Administration Record) - Diet Type Continue Clear Liquid Diet per MD progress note on 06/25/2021 - Diet - Liquid Texture Continue Regular - Tube Feed Continue N/A - Fall Precaution Bed alarm TABS alarm Wheel chair alarm - Skin care per protocol - Diet - Solid Texture Continue Regular - Shower allowing shower - Pelvis fracture WBAT per OT note, pt cleared by Ortho FUNCTIONAL STATUS: UPDATED AT WEEKLY TEAM CONFERENCE - Bladder Same accident frequency: 7-Ind - No accidents in the past 7 days - Bowel Same accident frequency: 7-Ind - No accidents in the past 7 days - Walking Same score based on distance walked: 0(N/A) - Wheelchair Same score based on distance traveled: 0(N/A) FUNCTIONAL STATUS: - Self-Care A. Eating Ind B. Grooming sup C. Bathing modA D. Dressing - [place] E. Dressing - Lower modA F. Toileting Monika - Sphincter Control G. Bladder control sup H. Bowel control Monika - Transfers Control I. Bed/Chair/Wheelchair maxA J. Toilet maxA K. Tub/Shower maxA - Locomotion L. Walk/Wheelchair (B) maxA M. Stairs maxA - Communication N. Comprehension (B) Ind O. Expression (B) Ind - Social Cognition P. Social Interaction Monika Q. Problem Solving Monika R. Memory Ind - Endurance Poor - Balance Poor - Safety Awareness Good QI SCORES: - Self-Care A. Eating 05-Setup or clean-up assistance B. Oral hygiene 04-Supervision or touching assistance C. Toileting hygiene 02-Substantial/maximal assistance E. Shower/bathe self 02-Substantial/maximal assistance F. Upper body dressing 02-Substantial/maximal assistance G. Lower body dressing 02-Substantial/maximal assistance H. Putting on/taking off footwear 02-Substantial/maximal assistance - Mobility A. Roll left and right 01-Dependent B. Sit to lying 01-Dependent C. Lying to sitting on side of bed 01-Dependent D. Sit to stand 01-Dependent E. Chair/dhn-gu-[id number] transfer 88-Not attempted due to medical condition or safety concerns F. Toilet transfer 88-Not attempted due to medical condition or safety concerns G. Car transfer 88-Not attempted due to medical condition or safety concerns I. Walk 10 feet 88-Not attempted due to medical condition or safety concerns J. Walk 50 feet with two turns 88-Not attempted due to medical condition or safety concerns K. Walk 150 feet 88-Not attempted due to medical condition or safety concerns L. Walking 10 feet on uneven surfaces 88-Not attempted due to medical condition or safety concerns M. 1 step (curb) 88-Not attempted due to medical condition or safety concerns N. 4 steps 88-Not attempted due to medical condition or safety concerns O. 12 steps 88-Not attempted due to medical condition or safety concerns P. Picking up object 88-Not attempted due to medical condition or safety concerns R. Wheel 50 feet with two turns 09-Not applicable S. Wheel 150 feet 09-Not applicable - Bladder and Bowel Bladder continence Bowel continence - Endurance Poor - Balance Poor - Safety Awareness Poor CURRENT FUNC. DEFICITS: Self-Care, Mobility, Endurance, Balance, and Safety Awareness SIGNATURE PANEL: (SPA COORDINATOR)
[2021-07-02] MEDS: ATORVASTATIN 20 MG TAB PO SCH (20:54)
[2021-07-03] MEDS: SOTALOL HCL 80 MG TAB PO SCH ×2 (05:22→17:16)
[2021-07-03] MEDS: LEVOTHYROXINE SOD 0.05 MG TABLET PO SCH (06:34)
[2021-07-03] MEDS: HYDROCODONE/APAP 5/325 MG TAB PO PRN ×3 (06:36→16:02)
[2021-07-03] MEDS ORDERED: SILVER SULFADIAZINE 1% 50 GM TOP SCH (08:00)
[2021-07-03] MEDS: POLYETHYL GLY 3350 17 GM/DOSE PO SCH (08:30)
[2021-07-03] MEDS: CRANBERRY FRUIT EXTRACT 400 MG CAP PO SCH ×2 (08:30→21:08)
[2021-07-03] MEDS: GABAPENTIN 300 MG CAP PO SCH ×2 (08:30→21:08)
[2021-07-03] MEDS: LIDOCAINE 4% PATCH TOP SCH (09:03)
[2021-07-03] MEDS: SILVER SULFADIAZINE 1% 25 GM TOP SCH (10:09)
[2021-07-03] MEDS: WARFARIN SODIUM 4 MG TAB PO SCH (17:16)
--- NOTE | 2021-07-03 17:25 | R.PN ---
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 Pt denied any Shortness of Breath. CBC with differential is normal. INR is 1.91. Prealbumin 18.4, Na is 131. UA: bacteria 20-50. COVID-1 9 is negative. Ambulated 26' with moderate assistance using a rolling walker. Left elbow superficial scrap after falling is followed by wound care with Silver Sulfadiazine applica tion and wet to dry dressing daily. VITAL SIGNS Temperature: 97.0 F SBP/DBP: 119/69 R arm Pulse: 79 Resp: 16 MEDICATION ALLERGIES: ENVIRONMENTAL ALLERGIES: - Substance Allergies - Other Allergies NURSING: - Shower allowing shower - Skin care per protocol PRECAUTIONS: - Fall Precaution Bed alarm TABS alarm Wheel chair alarm - Pelvis fracture WBAT per OT note, pt cleared by Ortho ACTIVITIES OOB only with supervision THERAPIES: - Dietary and Nutrition Adequate Nutrition. Nutritional Education. Nutritional Supplements. - Occupational Therapy Cognitive Retraining. Visual Perceptual Training. ADL Training. Adaptive Equipment. Community Reinteg ration. Evaluate and Treat. Household Tasks. Patient/Family Education. Safety Awareness. Transfer Tra ining. UE ROM. UE Strengthening. - Speech Therapy Cognitive Training. Expressive Language Skills. Memory Strategies. Receptive Language Skills. Speech Intelligibility Training. - Physical Therapy Balance Training. Evaluate and Treat. Gait Training. LE ROM. LE Strengthening. Medical Equipment Asse ssment and Evaluation. Mobility Training. Patient/Family Education. Safety Awareness. Transfer Traini ng. PHYSICAL EXAM - Gen Alert and awake Lying in bed No apparent distress Oriented to: person, time, and place - Skin Left elbow superficial scrap after falling. Normacephalic - Eyes No abnormalities - ENMT No abnormalities - Neck No abnormalities - CVS RRR - Chest No abnormalities - Abd Soft - GI Non distended Deferred - No abnormalities - Ext Mild bilateral lower extremity edema. - MSK 4+/5 weakness in both lower extremities. - Neuro No focal deficits - Psych No abnormalities ASSESSMENT: Pt. is a 85 yo white male.On 06/21/2021 he was admitted to [facility] with diagnosis L Pelvic Fracture after mechanical fall.His impairment category is Orthopa edic Disorders 08 - Pelvic Fracture (08.3).Pre-morbidly, Pt. was independent/mod-I in Locomotion, So cial Cognition, Sphincter Control, Communication, and Endurance; and he had good Locomotion, Social C ognition, Sphincter Control, Communication, and Endurance.Currently, he has deficits of Locomotion, S afety Awareness, Balance, Transfers Control, Self-Care, and Endurance.Pt. is now referred to [facility] for acute in-patient rehabilitation in order to maximize patient's function al independence in activities of daily living, strength, ROM, and mobility.- Rehab Goal Patient has realistic goal of being discharged at assistance level partial assist to set up to reside at Home with Family/Relatives. MDM/PLAN: - Physical Therapy Decreased range of motion - to improve, our physical therapists will perform initial evaluation of p t's status upon admission and devise an individualized program for increasing patient's Range of [place] on. Gait dysfunction - to improve, our physical therapists will perform initial evaluation of pt's statu s upon admission and devise an individualized program for Gait Training, and Wheel Chair mobility Inability to transfer - to improve, our physical therapists will perform initial evaluation of pt's status upon admission and devise an individualized program for Bed mobility Need for home safety evaluation - to improve, our physical therapists will perform initial evaluatio n of pt's status upon admission and devise an individualized program for Home Evaluation Need in caregiver upon discharge - to improve, our physical therapists will perform initial evaluati on of pt's status upon admission and devise an individualized program for Caregiver Training New precaution - to improve, our physical therapists will perform initial evaluation of pt's status upon admission and devise an individualized program for Patient precaution education Edema - to improve, our physical therapists will perform initial evaluation of pt's status upon admi ssion and devise an individualized program for Elevation Training, and Lymphedema Therapy Poor balance - to improve, our physical therapists will perform initial evaluation of pt's status up on admission and devise an individualized program for Balance Training Poor endurance - to improve, our physical therapists will perform initial evaluation of pt's status upon admission and devise an individualized program for Endurance Training Weakness - to improve, our physical therapists will perform initial evaluation of pt's status upon a dmission and devise an individualized program for Aquatic Therapy, Neuromuscular Reeducation, and Str engthening Achieving independence - to improve, our physical therapists will perform initial evaluation of pt's status upon admission and devise an individualized program for Community Reintegration Activities - Occupational Therapy ADL deficits - to improve, our occupation therapists will perform initial evaluation of pt's status upon admission and devise an individualized program for Bathing, Bed mobility, Community Reintegratio n, Cooking, Dressing, Eating, Fine Motor Skills, Grooming, Homemaking, Kitchen Mobility, Laundry, Pat ient Education, Safety Awareness, Splinting - Positioning, Transfers(Toilet, Tub, Shower), and Wheel Chair Management Need for adult daycare coordinator - to improve, our occupation therapists will perform initial evaluation of pt's status upon admission and devise an individualized program for Caregiver Training Weakness - to improve, our occupation therapists will perform initial evaluation of pt's status upon admission and devise an individualized program for Aquatic Therapy, Balance, Endurance, UE ROM, and UE strengthening - Other See attached MAR (Medication Administration Record) - Diet Type Continue Clear Liquid Diet per MD progress note on 06/25/2021 - Diet - Liquid Texture Continue Regular - Tube Feed Continue N/A - Fall Precaution Bed alarm TABS alarm Wheel chair alarm - Skin care per protocol - Diet - Solid Texture Continue Regular - Shower allowing shower - Pelvis fracture WBAT per OT note, pt cleared by Ortho FUNCTIONAL STATUS: UPDATED AT WEEKLY TEAM CONFERENCE - Bladder Same accident frequency: 7-Ind - No accidents in the past 7 days - Bowel Same accident frequency: 7-Ind - No accidents in the past 7 days - Walking Same score based on distance walked: 0(N/A) - Wheelchair Same score based on distance traveled: 0(N/A) FUNCTIONAL STATUS: - Self-Care A. Eating Ind B. Grooming sup C. Bathing modA D. Dressing - [place] E. Dressing - Lower modA F. Toileting Monika - Sphincter Control G. Bladder control sup H. Bowel control Monika - Transfers Control I. Bed/Chair/Wheelchair maxA J. Toilet maxA K. Tub/Shower maxA - Locomotion L. Walk/Wheelchair (B) maxA M. Stairs maxA - Communication N. Comprehension (B) Ind O. Expression (B) Ind - Social Cognition P. Social Interaction Monika Q. Problem Solving Monika R. Memory Ind - Endurance Poor - Balance Poor - Safety Awareness Good QI SCORES: - Self-Care A. Eating 05-Setup or clean-up assistance B. Oral hygiene 04-Supervision or touching assistance C. Toileting hygiene 02-Substantial/maximal assistance E. Shower/bathe self 02-Substantial/maximal assistance F. Upper body dressing 02-Substantial/maximal assistance G. Lower body dressing 02-Substantial/maximal assistance H. Putting on/taking off footwear 02-Substantial/maximal assistance - Mobility A. Roll left and right 01-Dependent B. Sit to lying 01-Dependent C. Lying to sitting on side of bed 01-Dependent D. Sit to stand 01-Dependent E. Chair/[id number] transfer 88-Not attempted due to medical condition or safety concerns F. Toilet transfer 88-Not attempted due to medical condition or safety concerns G. Car transfer 88-Not attempted due to medical condition or safety concerns I. Walk 10 feet 88-Not attempted due to medical condition or safety concerns J. Walk 50 feet with two turns 88-Not attempted due to medical condition or safety concerns K. Walk 150 feet 88-Not attempted due to medical condition or safety concerns L. Walking 10 feet on uneven surfaces 88-Not attempted due to medical condition or safety concerns M. 1 step (curb) 88-Not attempted due to medical condition or safety concerns N. 4 steps 88-Not attempted due to medical condition or safety concerns O. 12 steps 88-Not attempted due to medical condition or safety concerns P. Picking up object 88-Not attempted due to medical condition or safety concerns R. Wheel 50 feet with two turns 09-Not applicable S. Wheel 150 feet 09-Not applicable - Bladder and Bowel Bladder continence Bowel continence - Endurance Poor - Balance Poor - Safety Awareness Poor CURRENT FUNC. 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
[2021-07-03] MEDS: DOCUSATE NA/SENNA CONC 1 TAB PO PRN (21:08)
[2021-07-03] MEDS: ATORVASTATIN 20 MG TAB PO SCH (21:08)
[2021-07-04] MEDS: HYDROCODONE/APAP 5/325 MG TAB PO PRN ×3 (04:19→20:31)
[2021-07-04] MEDS: SOTALOL HCL 80 MG TAB PO SCH ×2 (05:13→17:23)
[2021-07-04] MEDS: LEVOTHYROXINE SOD 0.05 MG TABLET PO SCH (06:50)
[2021-07-04 07:21] LABS: Basophils % 0.9 % (0-1.3); Hematocrit 38.3 % (39.6-49.0); MPV 7.3 fL (7.6-11.3); Protime INR 2.4; RBC Red Blood Cell Count 3.99 M/uL (4.33-5.43)
[2021-07-04 07:48] LABS: BUN Blood Urea Nitrogen 14 mg/dL (7-18); Bicarbonate 25 mmol/L (21-32); Glucose Level 91 mg/dL (74-106); Potassium 3.5 mmol/L (3.5-5.1); Sodium Level 138 mmol/L (136-145)
[2021-07-04] MEDS: LIDOCAINE 4% PATCH TOP SCH ×2 (08:00→08:44)
[2021-07-04] MEDS: POLYETHYL GLY 3350 17 GM/DOSE PO SCH ×2 (08:00→08:44)
[2021-07-04] MEDS: CRANBERRY FRUIT EXTRACT 400 MG CAP PO SCH ×2 (08:45→20:31)
[2021-07-04] MEDS: GABAPENTIN 300 MG CAP PO SCH ×2 (08:45→20:32)
[2021-07-04] MEDS: SILVER SULFADIAZINE 1% 25 GM TOP SCH (11:00)
[2021-07-04] MEDS: WARFARIN SODIUM 4 MG TAB PO SCH (17:23)
[2021-07-04] MEDS: ATORVASTATIN 20 MG TAB PO SCH (20:31)
[2021-07-04] MEDS: DOCUSATE NA/SENNA CONC 1 TAB PO PRN (20:31)
[2021-07-05] MEDS: SOTALOL HCL 80 MG TAB PO SCH ×2 (05:24→17:09)
[2021-07-05] MEDS: LEVOTHYROXINE SOD 0.05 MG TABLET PO SCH (06:41)
[2021-07-05] MEDS: POLYETHYL GLY 3350 17 GM/DOSE PO SCH (08:00)
[2021-07-05] MEDS: LIDOCAINE 4% PATCH TOP SCH (08:26)
[2021-07-05] MEDS: CRANBERRY FRUIT EXTRACT 400 MG CAP PO SCH ×2 (08:26→19:42)
[2021-07-05] MEDS: GABAPENTIN 300 MG CAP PO SCH ×2 (08:27→19:42)
[2021-07-05] MEDS: HYDROCODONE/APAP 5/325 MG TAB PO PRN ×2 (08:29→19:42)
[2021-07-05] MEDS: DOCUSATE NA/SENNA CONC 1 TAB PO PRN (08:39)
[2021-07-05] MEDS: SILVER SULFADIAZINE 1% 25 GM TOP SCH (11:23)
[2021-07-05] MEDS: WARFARIN SODIUM 4 MG TAB PO SCH (17:09)
--- NOTE | 2021-07-05 18:18 | R.PN ---
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 Pt denied any Shortness of Breath. CBC with differential is normal. INR is 2.4. Prealbumin 17.0, Na is 131. UA: bacteria 20-50. COVID-19 is negative. Ambulated 40' with minimum assistance using a rolling walker. Self-propelled wheelchair 60' with seema dby assistance. Left elbow superficial scrap is improving while being treated by wound care with Silver Sulfadiazine application and wet to dry dressing daily. VITAL SIGNS Temperature: 97.0 F SBP/DBP: 126/62 R arm Pulse: 92 Resp: 16 MEDICATION ALLERGIES: ENVIRONMENTAL ALLERGIES: - Substance Allergies - Other Allergies NURSING: - Shower allowing shower - Skin care per protocol PRECAUTIONS: - Fall Precaution Bed alarm TABS alarm Wheel chair alarm - Pelvis fracture WBAT per OT note, pt cleared by Ortho ACTIVITIES OOB only with supervision THERAPIES: - Dietary and Nutrition Adequate Nutrition. Nutritional Education. Nutritional Supplements. - Occupational Therapy Cognitive Retraining. Visual Perceptual Training. ADL Training. Adaptive Equipment. Community Reinteg ration. Evaluate and Treat. Household Tasks. Patient/Family Education. Safety Awareness. Transfer Tra ining. UE ROM. UE Strengthening. - Speech Therapy Cognitive Training. Expressive Language Skills. Memory Strategies. Receptive Language Skills. Speech Intelligibility Training. - Physical Therapy Balance Training. Evaluate and Treat. Gait Training. LE ROM. LE Strengthening. Medical Equipment Asse ssment and Evaluation. Mobility Training. Patient/Family Education. Safety Awareness. Transfer Traini ng. PHYSICAL EXAM - Gen Alert and awake Lying in bed No apparent distress Oriented to: person, time, and place - Skin Left elbow superficial scrap after falling. Normacephalic - Eyes No abnormalities - ENMT No abnormalities - Neck No abnormalities - CVS RRR - Chest No abnormalities - Abd Soft - GI Non distended Deferred - No abnormalities - Ext Mild bilateral lower extremity edema. - MSK 4+/5 weakness in both lower extremities. - Neuro No focal deficits - Psych No abnormalities ASSESSMENT: Pt. is a 85 yo white male.On 06/21/2021 he was admitted to [facility] with diagnosis L Pelvic Fracture after mechanical fall.His impairment category is Orthopa edic Disorders 08 - Pelvic Fracture (08.3).Pre-morbidly, Pt. was independent/mod-I in Locomotion, So cial Cognition, Sphincter Control, Communication, and Endurance; and he had good Locomotion, Social C ognition, Sphincter Control, Communication, and Endurance.Currently, he has deficits of Locomotion, S afety Awareness, Balance, Transfers Control, Self-Care, and Endurance.Pt. is now referred to [facility] for acute in-patient rehabilitation in order to maximize patient's function al independence in activities of daily living, strength, ROM, and mobility.- Rehab Goal Patient has realistic goal of being discharged at assistance level partial assist to set up to reside at Home with Family/Relatives. MDM/PLAN: - Physical Therapy Decreased range of motion - to improve, our physical therapists will perform initial evaluation of p t's status upon admission and devise an individualized program for increasing patient's Range of [place] on. Gait dysfunction - to improve, our physical therapists will perform initial evaluation of pt's statu s upon admission and devise an individualized program for Gait Training, and Wheel Chair mobility Inability to transfer - to improve, our physical therapists will perform initial evaluation of pt's status upon admission and devise an individualized program for Bed mobility Need for home safety evaluation - to improve, our physical therapists will perform initial evaluatio n of pt's status upon admission and devise an individualized program for Home Evaluation Need in caregiver upon discharge - to improve, our physical therapists will perform initial evaluati on of pt's status upon admission and devise an individualized program for Caregiver Training New precaution - to improve, our physical therapists will perform initial evaluation of pt's status upon admission and devise an individualized program for Patient precaution education Edema - to improve, our physical therapists will perform initial evaluation of pt's status upon admi ssion and devise an individualized program for Elevation Training, and Lymphedema Therapy Poor balance - to improve, our physical therapists will perform initial evaluation of pt's status up on admission and devise an individualized program for Balance Training Poor endurance - to improve, our physical therapists will perform initial evaluation of pt's status upon admission and devise an individualized program for Endurance Training Weakness - to improve, our physical therapists will perform initial evaluation of pt's status upon a dmission and devise an individualized program for Aquatic Therapy, Neuromuscular Reeducation, and Str engthening Achieving independence - to improve, our physical therapists will perform initial evaluation of pt's status upon admission and devise an individualized program for Community Reintegration Activities - Occupational Therapy ADL deficits - to improve, our occupation therapists will perform initial evaluation of pt's status upon admission and devise an individualized program for Bathing, Bed mobility, Community Reintegratio n, Cooking, Dressing, Eating, Fine Motor Skills, Grooming, Homemaking, Kitchen Mobility, Laundry, Pat ient Education, Safety Awareness, Splinting - Positioning, Transfers(Toilet, Tub, Shower), and Wheel Chair Management Need for clinical manager home care - to improve, our occupation therapists will perform initial evaluation of pt's status upon admission and devise an individualized program for Caregiver Training Weakness - to improve, our occupation therapists will perform initial evaluation of pt's status upon admission and devise an individualized program for Aquatic Therapy, Balance, Endurance, UE ROM, and UE strengthening - Other See attached MAR (Medication Administration Record) - Diet Type Continue Clear Liquid Diet per MD progress note on 06/25/2021 - Diet - Liquid Texture Continue Regular - Tube Feed Continue N/A - Fall Precaution Bed alarm TABS alarm Wheel chair alarm - Skin care per protocol - Diet - Solid Texture Continue Regular - Shower allowing shower - Pelvis fracture WBAT per OT note, pt cleared by Ortho FUNCTIONAL STATUS: UPDATED AT WEEKLY TEAM CONFERENCE - Bladder Same accident frequency: 7-Ind - No accidents in the past 7 days - Bowel Same accident frequency: 7-Ind - No accidents in the past 7 days - Walking Same score based on distance walked: 0(N/A) - Wheelchair Same score based on distance traveled: 0(N/A) FUNCTIONAL STATUS: - Self-Care A. Eating Ind B. Grooming sup C. Bathing modA D. Dressing - [place] E. Dressing - Lower modA F. Toileting Monika - Sphincter Control G. Bladder control sup H. Bowel control Monika - Transfers Control I. Bed/Chair/Wheelchair maxA J. Toilet maxA K. Tub/Shower maxA - Locomotion L. Walk/Wheelchair (B) maxA M. Stairs maxA - Communication N. Comprehension (B) Ind O. Expression (B) Ind - Social Cognition P. Social Interaction Monika Q. Problem Solving Monika R. Memory Ind - Endurance Poor - Balance Poor - Safety Awareness Good QI SCORES: - Self-Care A. Eating 05-Setup or clean-up assistance B. Oral hygiene 04-Supervision or touching assistance C. Toileting hygiene 02-Substantial/maximal assistance E. Shower/bathe self 02-Substantial/maximal assistance F. Upper body dressing 02-Substantial/maximal assistance G. Lower body dressing 02-Substantial/maximal assistance H. Putting on/taking off footwear 02-Substantial/maximal assistance - Mobility A. Roll left and right 01-Dependent B. Sit to lying 01-Dependent C. Lying to sitting on side of bed 01-Dependent D. Sit to stand 01-Dependent E. Chair/[id number] transfer 88-Not attempted due to medical condition or safety concerns F. Toilet transfer 88-Not attempted due to medical condition or safety concerns G. Car transfer 88-Not attempted due to medical condition or safety concerns I. Walk 10 feet 88-Not attempted due to medical condition or safety concerns J. Walk 50 feet with two turns 88-Not attempted due to medical condition or safety concerns K. Walk 150 feet 88-Not attempted due to medical condition or safety concerns L. Walking 10 feet on uneven surfaces 88-Not attempted due to medical condition or safety concerns M. 1 step (curb) 88-Not attempted due to medical condition or safety concerns N. 4 steps 88-Not attempted due to medical condition or safety concerns O. 12 steps 88-Not attempted due to medical condition or safety concerns P. Picking up object 88-Not attempted due to medical condition or safety concerns R. Wheel 50 feet with two turns 09-Not applicable S. Wheel 150 feet 09-Not applicable - Bladder and Bowel Bladder continence Bowel continence - Endurance Poor - Balance Poor - Safety Awareness Poor CURRENT FUNC. 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
[2021-07-05] MEDS: ATORVASTATIN 20 MG TAB PO SCH (19:43)
[2021-07-06] MEDS: SOTALOL HCL 80 MG TAB PO SCH ×2 (05:22→16:51)
[2021-07-06] MEDS: LEVOTHYROXINE SOD 0.05 MG TABLET PO SCH (07:31)
[2021-07-06] MEDS: LIDOCAINE 4% PATCH TOP SCH ×2 (07:32→08:00)
[2021-07-06] MEDS: CRANBERRY FRUIT EXTRACT 400 MG CAP PO SCH ×2 (07:32→20:31)
[2021-07-06] MEDS: POLYETHYL GLY 3350 17 GM/DOSE PO SCH (07:33)
[2021-07-06] MEDS: GABAPENTIN 300 MG CAP PO SCH ×2 (07:33→20:31)
[2021-07-06] MEDS: SILVER SULFADIAZINE 1% 25 GM TOP SCH (07:33)
--- NOTE | 2021-07-06 09:56 | P.RH.PN ---
Estimated Length of Stay: 17 Expected Discharge Date: 07/15/21 Discharge Disposition Plan: Home Family Support: Yes Detention Goal: Mobility, Transfers, Self Care Vital Signs: Last Vital Signs Temp 97.8 F 07/06/21 07:41 Pulse 89 07/06/21 07:41 Resp 16 07/06/21 07:41 BP 118/82 07/06/21 07:41 Pulse Ox 98 07/06/21 07:41 Laboratory: Laboratory Last Values WBC 5.70 K/uL (4.3-10.9) 07/04/21 06:45 RBC 3.99 M/uL (4.33-5.43) L 07/04/21 06:45 Hgb 13.0 g/dL (13.6-17.9) L 07/04/21 06:45 Hct 38.3 % (39.6-49.0) L 07/04/21 06:45 MCV 95.9 fL (80-100) 07/04/21 06:45 MCH 32.5 pg (27.0-35.0) 07/04/21 06:45 MCHC 33.9 g/dL (32.0-36.0) 07/04/21 06:45 RDW 13.8 % (12.1-15.2) 07/04/21 06:45 Plt Count 323 K/uL (152-406) D 07/04/21 06:45 MPV 7.3 fL (7.6-11.3) L 07/04/21 06:45 Neutrophils % 68.6 % (41.7-73.7) 07/04/21 06:45 Lymphocytes % 18.0 % (15.3-44.8) 07/04/21 06:45 Monocytes % 9.1 % (3.3-12.3) 07/04/21 06:45 Eosinophils % 3.4 % (0-4.4) 07/04/21 06:45 Basophils % 0.9 % (0-1.3) 07/04/21 06:45 Absolute Neutrophils 3.9 K/uL (1.8-8.0) 07/04/21 06:45 Absolute Lymphocytes 1.0 K/uL (0.7-4.9) 07/04/21 06:45 Absolute Monocytes 0.5 K/uL (0.1-1.3) 07/04/21 06:45 Absolute Eosinophils 0.2 K/uL (0-0.5) 07/04/21 06:45 Absolute Basophils 0.1 K/uL (0-0.5) 07/04/21 06:45 PT 27.9 SECONDS (9.5-12.5) H 07/04/21 06:45 INR 2.40 07/04/21 06:45 Sodium 138 mmol/L (136-145) 07/04/21 06:45 Potassium 3.5 mmol/L (3.5-5.1) 07/04/21 06:45 Chloride 105 mmol/L (98-107) 07/04/21 06:45 Carbon Dioxide 25 mmol/L (21-32) 07/04/21 06:45 BUN 14 mg/dL (7-18) 07/04/21 06:45 Creatinine 0.55 mg/dL (0.55-1.3) 07/04/21 06:45 Estimated GFR > 90 mL/min (=/>90) 07/04/21 06:45 Glucose 91 mg/dL (74-106) 07/04/21 06:45 Calcium 8.9 mg/dL (8.5-10.1) 07/04/21 06:45 Magnesium 1.9 mg/dL (1.8-2.4) D 06/29/21 06:11 Albumin 3.0 g/dL (3.4-5.0) L 07/04/21 06:45 Prealbumin 17.0 mg/dL (20-40) L 07/04/21 06:45 Urine Color Dk yellow (Yellow) 06/29/21 04:50 Urine Appearance Clear (Clear) 06/29/21 04:50 Urine pH 5.5 (5.0-7.0) 06/29/21 04:50 Ur Specific [place] 1.025 (1.005-1.030) 06/29/21 04:50 Glucose (UA)(Auto) Negative (Negative) 06/29/21 04:50 Urine Ketones 2+ (Negative) H 06/29/21 04:50 Urine Blood Negative (Negative) 06/29/21 04:50 Urine Nitrite Negative (Negative) 06/29/21 04:50 Urine Bilirubin Negative (Negative) 06/29/21 04:50 Urine Urobilinogen 0.2 mg/dL (0.2-1.0) 06/29/21 04:50 Ur Leukocyte Esterase Negative (Negative) 06/29/21 04:50 Urine RBC <5 /HPF (NONE SEEN) 06/29/21 04:50 Urine WBC <5 /HPF (<5) 06/29/21 04:50 Ur Squamous Epith Cells <5 /HPF (NONE SEEN) 06/29/21 04:50 Urine Bacteria 20-50 /HPF (NONE SEEN) H 06/29/21 04:50 Urine Mucus 3+ /HPF (NONE SEEN) H 06/29/21 04:50 Urine Culture Reflexed Not needed 06/29/21 04:50 Urine Total Protein Negative (Negative) 06/29/21 04:50 SARS-CoV-2 Rap RNA(RT-PCR) Negative (NEGATIVE) 07/05/21 01:30 Weight: 172 lb 4.8 oz Wound Present: Yes Closed Surgical Incision Present: No Negative Pressure Wound Therapy Present: No Physician Update: Labs reviewed and are stable. Contact with transfers. Walking 16' with contact guard. Wheelchair 60' with standby assistance. Minimum assistance with BADLs. Needs total assistance for socks. Functional Improvement: Patient has met all short-term goals, and is progressing well toward long-term goals. Patient continues to be self-limiting by apprehension toward "falling", and "pain". 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 Please see the Rehabilitation Signature page for all necessary signatures.
[2021-07-06] MEDS: HYDROCODONE/APAP 5/325 MG TAB PO PRN ×2 (12:15→20:33)
[2021-07-06] MEDS: WARFARIN SODIUM 4 MG TAB PO SCH (16:51)
[2021-07-06] MEDS: ATORVASTATIN 20 MG TAB PO SCH (20:31)
[2021-07-06] MEDS: DOCUSATE NA/SENNA CONC 1 TAB PO PRN (20:32)
[2021-07-07] MEDS: SOTALOL HCL 80 MG TAB PO SCH ×2 (05:08→18:16)
[2021-07-07] MEDS: HYDROCODONE/APAP 5/325 MG TAB PO PRN (05:13)
[2021-07-07 05:37] VITALS: BMI 24.7
[2021-07-07] MEDS: LEVOTHYROXINE SOD 0.05 MG TABLET PO SCH (06:35)
[2021-07-07] MEDS: LIDOCAINE 4% PATCH TOP SCH (07:29)
[2021-07-07] MEDS: POLYETHYL GLY 3350 17 GM/DOSE PO SCH (07:30)
[2021-07-07 07:34] LABS: Protime INR 2.52
[2021-07-07] MEDS: CRANBERRY FRUIT EXTRACT 400 MG CAP PO SCH ×2 (07:42→19:21)
[2021-07-07] MEDS: GABAPENTIN 300 MG CAP PO SCH ×2 (07:42→19:21)
[2021-07-07] MEDS: SILVER SULFADIAZINE 1% 25 GM TOP SCH (07:59)
[2021-07-07] MEDS: DOCUSATE NA/SENNA CONC 1 TAB PO PRN (15:40)
--- NOTE | 2021-07-07 18:14 | R.PN ---
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 Pt denied any Shortness of Breath. CBC with differential is normal. INR is 2.52. Prealbumin 17.0, Na is 131. UA: bacteria 20-50. COVID-1 9 is negative. Left elbow superficial scrap is improving while being treated by wound care with Silver Sulfadiazine application and wet to dry dressing daily. Mobilized wheelchair 250' with verbal cues. He took 5 steps x 2 with a rolling walker and contact ethel rd assistance. VITAL SIGNS Temperature: 97.0 F SBP/DBP: 104/70 Pulse: 87 Resp: 16 MEDICATION ALLERGIES: ENVIRONMENTAL ALLERGIES: - Substance Allergies - Other Allergies NURSING: - Shower allowing shower - Skin care per protocol PRECAUTIONS: - Fall Precaution Bed alarm TABS alarm Wheel chair alarm - Pelvis fracture WBAT per OT note, pt cleared by Ortho ACTIVITIES OOB only with supervision THERAPIES: - Dietary and Nutrition Adequate Nutrition. Nutritional Education. Nutritional Supplements. - Occupational Therapy Cognitive Retraining. Visual Perceptual Training. ADL Training. Adaptive Equipment. Community Reinteg ration. Evaluate and Treat. Household Tasks. Patient/Family Education. Safety Awareness. Transfer Tra ining. UE ROM. UE Strengthening. - Speech Therapy Cognitive Training. Expressive Language Skills. Memory Strategies. Receptive Language Skills. Speech Intelligibility Training. - Physical Therapy Balance Training. Evaluate and Treat. Gait Training. LE ROM. LE Strengthening. Medical Equipment Asse ssment and Evaluation. Mobility Training. Patient/Family Education. Safety Awareness. Transfer Traini ng. PHYSICAL EXAM - Gen Alert and awake Lying in bed No apparent distress Oriented to: person, time, and place - Skin Left elbow superficial scrap after falling. Normacephalic - Eyes No abnormalities - ENMT No abnormalities - Neck No abnormalities - CVS RRR - Chest No abnormalities - Abd Soft - GI Non distended Deferred - No abnormalities - Ext Mild bilateral lower extremity edema. - MSK 4+/5 weakness in both lower extremities. - Neuro No focal deficits - Psych No abnormalities ASSESSMENT: Pt. is a 85 yo white male.On 06/21/2021 [facility] L Pelvic Fracture after mechanical fall.His impairment category is Orthopa edic Disorders 08 - Pelvic Fracture (08.3).Pre-morbidly, Pt. was independent/mod-I in Locomotion, So cial Cognition, Sphincter Control, Communication, and Endurance; and he had good Locomotion, Social C ognition, Sphincter Control, Communication, and Endurance.Currently, he has deficits of Locomotion, S afety Awareness, Balance, Transfers Control, Self-Care, and Endurance.Pt. is now referred to [facility] for acute in-patient rehabilitation in order to maximize patient's function al independence in activities of daily living, strength, ROM, and mobility.- Rehab Goal Patient has realistic goal of being discharged at assistance level partial assist to set up to reside at Home with Family/Relatives. MDM/PLAN: - Physical Therapy Decreased range of motion - to improve, our physical therapists will perform initial evaluation of p t's status upon admission and devise an individualized program for increasing patient's Range of [place] on. Gait dysfunction - to improve, our physical therapists will perform initial evaluation of pt's statu s upon admission and devise an individualized program for Gait Training, and Wheel Chair mobility Inability to transfer - to improve, our physical therapists will perform initial evaluation of pt's status upon admission and devise an individualized program for Bed mobility Need for home safety evaluation - to improve, our physical therapists will perform initial evaluatio n of pt's status upon admission and devise an individualized program for Home Evaluation Need in caregiver upon discharge - to improve, our physical therapists will perform initial evaluati on of pt's status upon admission and devise an individualized program for Caregiver Training New precaution - to improve, our physical therapists will perform initial evaluation of pt's status upon admission and devise an individualized program for Patient precaution education Edema - to improve, our physical therapists will perform initial evaluation of pt's status upon admi ssion and devise an individualized program for Elevation Training, and Lymphedema Therapy Poor balance - to improve, our physical therapists will perform initial evaluation of pt's status up on admission and devise an individualized program for Balance Training Poor endurance - to improve, our physical therapists will perform initial evaluation of pt's status upon admission and devise an individualized program for Endurance Training Weakness - to improve, our physical therapists will perform initial evaluation of pt's status upon a dmission and devise an individualized program for Aquatic Therapy, Neuromuscular Reeducation, and Str engthening Achieving independence - to improve, our physical therapists will perform initial evaluation of pt's status upon admission and devise an individualized program for Community Reintegration Activities - Occupational Therapy ADL deficits - to improve, our occupation therapists will perform initial evaluation of pt's status upon admission and devise an individualized program for Bathing, Bed mobility, Community Reintegratio n, Cooking, Dressing, Eating, Fine Motor Skills, Grooming, Homemaking, Kitchen Mobility, Laundry, Pat ient Education, Safety Awareness, Splinting - Positioning, Transfers(Toilet, Tub, Shower), and Wheel Chair Management Need for rn critical care - to improve, our occupation therapists will perform initial evaluation of pt's status upon admission and devise an individualized program for Caregiver Training Weakness - to improve, our occupation therapists will perform initial evaluation of pt's status upon admission and devise an individualized program for Aquatic Therapy, Balance, Endurance, UE ROM, and UE strengthening - Other See attached MAR (Medication Administration Record) - Diet Type Continue Clear Liquid Diet per MD progress note on 06/25/2021 - Diet - Liquid Texture Continue Regular - Tube Feed Continue N/A - Fall Precaution Bed alarm TABS alarm Wheel chair alarm - Skin care per protocol - Diet - Solid Texture Continue Regular - Shower allowing shower - Pelvis fracture WBAT per OT note, pt cleared by Ortho FUNCTIONAL STATUS: UPDATED AT WEEKLY TEAM CONFERENCE - Bladder Same accident frequency: 7-Ind - No accidents in the past 7 days - Bowel Same accident frequency: 7-Ind - No accidents in the past 7 days - Walking Same score based on distance walked: 0(N/A) - Wheelchair Same score based on distance traveled: 0(N/A) FUNCTIONAL STATUS: - Self-Care A. Eating Ind B. Grooming sup C. Bathing modA D. Dressing - [place] E. Dressing - Lower modA F. Toileting Monika - Sphincter Control G. Bladder control sup H. Bowel control Monika - Transfers Control I. Bed/Chair/Wheelchair maxA J. Toilet maxA K. Tub/Shower maxA - Locomotion L. Walk/Wheelchair (B) maxA M. Stairs maxA - Communication N. Comprehension (B) Ind O. Expression (B) Ind - Social Cognition P. Social Interaction Monika Q. Problem Solving Monika R. Memory Ind - Endurance Poor - Balance Poor - Safety Awareness Good QI SCORES: - Self-Care A. Eating 05-Setup or clean-up assistance B. Oral hygiene 04-Supervision or touching assistance C. Toileting hygiene 02-Substantial/maximal assistance E. Shower/bathe self 02-Substantial/maximal assistance F. Upper body dressing 02-Substantial/maximal assistance G. Lower body dressing 02-Substantial/maximal assistance H. Putting on/taking off footwear 02-Substantial/maximal assistance - Mobility A. Roll left and right 01-Dependent B. Sit to lying 01-Dependent C. Lying to sitting on side of bed 01-Dependent D. Sit to stand 01-Dependent E. Chair/[id number] transfer 88-Not attempted due to medical condition or safety concerns F. Toilet transfer 88-Not attempted due to medical condition or safety concerns G. Car transfer 88-Not attempted due to medical condition or safety concerns I. Walk 10 feet 88-Not attempted due to medical condition or safety concerns J. Walk 50 feet with two turns 88-Not attempted due to medical condition or safety concerns K. Walk 150 feet 88-Not attempted due to medical condition or safety concerns L. Walking 10 feet on uneven surfaces 88-Not attempted due to medical condition or safety concerns M. 1 step (curb) 88-Not attempted due to medical condition or safety concerns N. 4 steps 88-Not attempted due to medical condition or safety concerns O. 12 steps 88-Not attempted due to medical condition or safety concerns P. Picking up object 88-Not attempted due to medical condition or safety concerns R. Wheel 50 feet with two turns 09-Not applicable S. Wheel 150 feet 09-Not applicable - Bladder and Bowel Bladder continence Bowel continence - Endurance Poor - Balance Poor - Safety Awareness Poor CURRENT FUNC. 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
[2021-07-07] MEDS: WARFARIN SODIUM 4 MG TAB PO SCH (18:16)
[2021-07-07] MEDS: ATORVASTATIN 20 MG TAB PO SCH (20:42)
[2021-07-08] MEDS: HYDROCODONE/APAP 5/325 MG TAB PO PRN ×4 (04:15→20:27)
[2021-07-08] MEDS: SOTALOL HCL 80 MG TAB PO SCH ×2 (05:03→17:30)
[2021-07-08] MEDS: LEVOTHYROXINE SOD 0.05 MG TABLET PO SCH (07:05)
[2021-07-08] MEDS: POLYETHYL GLY 3350 17 GM/DOSE PO SCH ×2 (07:41→08:00)
[2021-07-08] MEDS: LIDOCAINE 4% PATCH TOP SCH ×2 (07:41→08:00)
[2021-07-08] MEDS: SILVER SULFADIAZINE 1% 25 GM TOP SCH (07:41)
[2021-07-08] MEDS: GABAPENTIN 300 MG CAP PO SCH ×2 (07:41→20:28)
[2021-07-08] MEDS: CRANBERRY FRUIT EXTRACT 400 MG CAP PO SCH ×2 (07:41→20:28)
[2021-07-08] MEDS: DOCUSATE NA/SENNA CONC 1 TAB PO PRN (09:07)
[2021-07-08] MEDS: WARFARIN SODIUM 4 MG TAB PO SCH (17:30)
[2021-07-08] MEDS: ATORVASTATIN 20 MG TAB PO SCH (20:27)
[2021-07-09] MEDS: SOTALOL HCL 80 MG TAB PO SCH ×2 (05:59→17:29)
[2021-07-09] MEDS: CRANBERRY FRUIT EXTRACT 400 MG CAP PO SCH ×2 (07:20→20:05)
[2021-07-09] MEDS: TRAMADOL HCL 50 MG TAB PO PRN ×2 (07:20→20:05)
[2021-07-09] MEDS: GABAPENTIN 300 MG CAP PO SCH ×2 (07:20→20:05)
[2021-07-09] MEDS: LEVOTHYROXINE SOD 0.05 MG TABLET PO SCH (07:20)
[2021-07-09] MEDS: POLYETHYL GLY 3350 17 GM/DOSE PO SCH (08:00)
[2021-07-09] MEDS: LIDOCAINE 4% PATCH TOP SCH (08:00)
[2021-07-09] MEDS: SILVER SULFADIAZINE 1% 25 GM TOP SCH (08:37)
[2021-07-09] MEDS: WARFARIN SODIUM 4 MG TAB PO SCH (17:29)
--- NOTE | 2021-07-09 18:04 | R.PN ---
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 Pt denied any Shortness of Breath. CBC with differential is normal. INR is 2.52. Prealbumin 17.0, Na is 131. UA: bacteria 20-50. COVID-1 9 is negative. Left elbow superficial scrap is improving while being treated by wound care with Silver Sulfadiazine application and wet to dry dressing daily. Mobilized wheelchair 245' with verbal cues. Ambulated 24' with standby assistance using a rolling walker. VITAL SIGNS Temperature: 97.6 F SBP/DBP: 121/62 Pulse: 50 Resp: 17 MEDICATION ALLERGIES: ENVIRONMENTAL ALLERGIES: - Substance Allergies - Other Allergies NURSING: - Shower allowing shower - Skin care per protocol PRECAUTIONS: - Fall Precaution Bed alarm TABS alarm Wheel chair alarm - Pelvis fracture WBAT per OT note, pt cleared by Ortho ACTIVITIES OOB only with supervision THERAPIES: - Dietary and Nutrition Adequate Nutrition. Nutritional Education. Nutritional Supplements. - Occupational Therapy Cognitive Retraining. Visual Perceptual Training. ADL Training. Adaptive Equipment. Community Reinteg ration. Evaluate and Treat. Household Tasks. Patient/Family Education. Safety Awareness. Transfer Tra ining. UE ROM. UE Strengthening. - Speech Therapy Cognitive Training. Expressive Language Skills. Memory Strategies. Receptive Language Skills. Speech Intelligibility Training. - Physical Therapy Balance Training. Evaluate and Treat. Gait Training. LE ROM. LE Strengthening. Medical Equipment Asse ssment and Evaluation. Mobility Training. Patient/Family Education. Safety Awareness. Transfer Traini ng. PHYSICAL EXAM - Gen Alert and awake Lying in bed No apparent distress Oriented to: person, time, and place - Skin Left elbow superficial scrap after falling. Normacephalic - Eyes No abnormalities - ENMT No abnormalities - Neck No abnormalities - CVS RRR - Chest No abnormalities - Abd Soft - GI Non distended Deferred - No abnormalities - Ext Mild bilateral lower extremity edema. - MSK 4+/5 weakness in both lower extremities. - Neuro No focal deficits - Psych No abnormalities ASSESSMENT: Pt. is a 85 yo white male.On 06/21/2021 [facility] with diagnosis L Pelvic Fracture after mechanical fall.His impairment category is Orthopa edic Disorders 08 - Pelvic Fracture (08.3).Pre-morbidly, Pt. was independent/mod-I in Locomotion, So cial Cognition, Sphincter Control, Communication, and Endurance; and he had good Locomotion, Social C ognition, Sphincter Control, Communication, and Endurance.Currently, he has deficits of Locomotion, S afety Awareness, Balance, Transfers Control, Self-Care, and Endurance.Pt. is now referred to [facility] for acute in-patient rehabilitation in order to maximize patient's function al independence in activities of daily living, strength, ROM, and mobility.- Rehab Goal Patient has realistic goal of being discharged at assistance level partial assist to set up to reside at Home with Family/Relatives. MDM/PLAN: - Physical Therapy Decreased range of motion - to improve, our physical therapists will perform initial evaluation of p t's status upon admission and devise an individualized program for increasing patient's Range of [place] on. Gait dysfunction - to improve, our physical therapists will perform initial evaluation of pt's statu s upon admission and devise an individualized program for Gait Training, and Wheel Chair mobility Inability to transfer - to improve, our physical therapists will perform initial evaluation of pt's status upon admission and devise an individualized program for Bed mobility Need for home safety evaluation - to improve, our physical therapists will perform initial evaluatio n of pt's status upon admission and devise an individualized program for Home Evaluation Need in caregiver upon discharge - to improve, our physical therapists will perform initial evaluati on of pt's status upon admission and devise an individualized program for Caregiver Training New precaution - to improve, our physical therapists will perform initial evaluation of pt's status upon admission and devise an individualized program for Patient precaution education Edema - to improve, our physical therapists will perform initial evaluation of pt's status upon admi ssion and devise an individualized program for Elevation Training, and Lymphedema Therapy Poor balance - to improve, our physical therapists will perform initial evaluation of pt's status up on admission and devise an individualized program for Balance Training Poor endurance - to improve, our physical therapists will perform initial evaluation of pt's status upon admission and devise an individualized program for Endurance Training Weakness - to improve, our physical therapists will perform initial evaluation of pt's status upon a dmission and devise an individualized program for Aquatic Therapy, Neuromuscular Reeducation, and Str engthening Achieving independence - to improve, our physical therapists will perform initial evaluation of pt's status upon admission and devise an individualized program for Community Reintegration Activities - Occupational Therapy ADL deficits - to improve, our occupation therapists will perform initial evaluation of pt's status upon admission and devise an individualized program for Bathing, Bed mobility, Community Reintegratio n, Cooking, Dressing, Eating, Fine Motor Skills, Grooming, Homemaking, Kitchen Mobility, Laundry, Pat ient Education, Safety Awareness, Splinting - Positioning, Transfers(Toilet, Tub, Shower), and Wheel Chair Management Need for senior care manager - to improve, our occupation therapists will perform initial evaluation of pt's status upon admission and devise an individualized program for Caregiver Training Weakness - to improve, our occupation therapists will perform initial evaluation of pt's status upon admission and devise an individualized program for Aquatic Therapy, Balance, Endurance, UE ROM, and UE strengthening - Other See attached MAR (Medication Administration Record) - Diet Type Continue Clear Liquid Diet per MD progress note on 06/25/2021 - Diet - Liquid Texture Continue Regular - Tube Feed Continue N/A - Fall Precaution Bed alarm TABS alarm Wheel chair alarm - Skin care per protocol - Diet - Solid Texture Continue Regular - Shower allowing shower - Pelvis fracture WBAT per OT note, pt cleared by Ortho FUNCTIONAL STATUS: UPDATED AT WEEKLY TEAM CONFERENCE - Bladder Same accident frequency: 7-Ind - No accidents in the past 7 days - Bowel Same accident frequency: 7-Ind - No accidents in the past 7 days - Walking Same score based on distance walked: 0(N/A) - Wheelchair Same score based on distance traveled: 0(N/A) FUNCTIONAL STATUS: - Self-Care A. Eating Ind B. Grooming sup C. Bathing modA D. Dressing - [place] E. Dressing - Lower modA F. Toileting Monika - Sphincter Control G. Bladder control sup H. Bowel control Monika - Transfers Control I. Bed/Chair/Wheelchair maxA J. Toilet maxA K. Tub/Shower maxA - Locomotion L. Walk/Wheelchair (B) maxA M. Stairs maxA - Communication N. Comprehension (B) Ind O. Expression (B) Ind - Social Cognition P. Social Interaction Monika Q. Problem Solving Monika R. Memory Ind - Endurance Poor - Balance Poor - Safety Awareness Good QI SCORES: - Self-Care A. Eating 05-Setup or clean-up assistance B. Oral hygiene 04-Supervision or touching assistance C. Toileting hygiene 02-Substantial/maximal assistance E. Shower/bathe self 02-Substantial/maximal assistance F. Upper body dressing 02-Substantial/maximal assistance G. Lower body dressing 02-Substantial/maximal assistance H. Putting on/taking off footwear 02-Substantial/maximal assistance - Mobility A. Roll left and right 01-Dependent B. Sit to lying 01-Dependent C. Lying to sitting on side of bed 01-Dependent D. Sit to stand 01-Dependent E. Chair/[id number] transfer 88-Not attempted due to medical condition or safety concerns F. Toilet transfer 88-Not attempted due to medical condition or safety concerns G. Car transfer 88-Not attempted due to medical condition or safety concerns I. Walk 10 feet 88-Not attempted due to medical condition or safety concerns J. Walk 50 feet with two turns 88-Not attempted due to medical condition or safety concerns K. Walk 150 feet 88-Not attempted due to medical condition or safety concerns L. Walking 10 feet on uneven surfaces 88-Not attempted due to medical condition or safety concerns M. 1 step (curb) 88-Not attempted due to medical condition or safety concerns N. 4 steps 88-Not attempted due to medical condition or safety concerns O. 12 steps 88-Not attempted due to medical condition or safety concerns P. Picking up object 88-Not attempted due to medical condition or safety concerns R. Wheel 50 feet with two turns 09-Not applicable S. Wheel 150 feet 09-Not applicable - Bladder and Bowel Bladder continence Bowel continence - Endurance Poor - Balance Poor - Safety Awareness Poor CURRENT FUNC. 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
[2021-07-09] MEDS: ATORVASTATIN 20 MG TAB PO SCH (20:05)
[2021-07-10 04:52] LABS: Protime INR 3.48
[2021-07-10] MEDS: SOTALOL HCL 80 MG TAB PO SCH ×2 (05:14→17:38)
[2021-07-10] MEDS: LEVOTHYROXINE SOD 0.05 MG TABLET PO SCH (06:25)
[2021-07-10] MEDS: POLYETHYL GLY 3350 17 GM/DOSE PO SCH (08:00)
[2021-07-10] MEDS: LIDOCAINE 4% PATCH TOP SCH (08:00)
[2021-07-10] MEDS: CRANBERRY FRUIT EXTRACT 400 MG CAP PO SCH ×2 (08:23→20:50)
[2021-07-10] MEDS: SILVER SULFADIAZINE 1% 25 GM TOP SCH (08:23)
[2021-07-10] MEDS: GABAPENTIN 300 MG CAP PO SCH ×2 (08:23→20:50)
[2021-07-10] MEDS: TRAMADOL HCL 50 MG TAB PO PRN ×2 (08:24→20:50)
[2021-07-10] MEDS: DOCUSATE NA/SENNA CONC 1 TAB PO PRN (14:19)
[2021-07-10] MEDS: WARFARIN SODIUM 1 MG TAB PO SCH (17:00)
[2021-07-10] MEDS ORDERED: WARFARIN SODIUM 1 MG TAB PO SCH (17:00)
[2021-07-10] MEDS: WARFARIN SODIUM 2.5 MG TAB PO SCH (17:00)
[2021-07-10] MEDS ORDERED: WARFARIN SODIUM 2.5 MG TAB PO SCH (17:00)
[2021-07-10] MEDS: ATORVASTATIN 20 MG TAB PO SCH (20:50)
[2021-07-11] MEDS: SOTALOL HCL 80 MG TAB PO SCH ×2 (05:32→17:07)
[2021-07-11] MEDS: LEVOTHYROXINE SOD 0.05 MG TABLET PO SCH (06:39)
[2021-07-11] MEDS: POLYETHYL GLY 3350 17 GM/DOSE PO SCH (08:00)
[2021-07-11] MEDS: LIDOCAINE 4% PATCH TOP SCH (08:00)
[2021-07-11] MEDS: GABAPENTIN 300 MG CAP PO SCH ×2 (08:20→20:24)
[2021-07-11] MEDS: CRANBERRY FRUIT EXTRACT 400 MG CAP PO SCH ×2 (08:20→20:24)
[2021-07-11] MEDS: TRAMADOL HCL 50 MG TAB PO PRN ×2 (08:20→20:24)
[2021-07-11] MEDS: SILVER SULFADIAZINE 1% 25 GM TOP SCH (11:06)
[2021-07-11] MEDS: WARFARIN SODIUM 2.5 MG TAB PO SCH (17:30)
[2021-07-11] MEDS: WARFARIN SODIUM 1 MG TAB PO SCH (17:30)
--- NOTE | 2021-07-11 18:15 | R.PN ---
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 Pt denied any Shortness of Breath. CBC with differential is normal. INR is 3.48. Coumadin held for one day and decreased to 3.5 mg daily . Prealbumin 17.0, Na is 131. UA: bacteria 20-50. COVID-19 is negative. Left elbow superficial scrap is improving while being treated by wound care with Silver Sulfadiazine application and wet to dry dressing daily. Ambulated 283' with supervision using a rolling walker. VITAL SIGNS Temperature: 97.9 F SBP/DBP: 116/78 Pulse: 88 Resp: 16 MEDICATION ALLERGIES: ENVIRONMENTAL ALLERGIES: - Substance Allergies - Other Allergies NURSING: - Shower allowing shower - Skin care per protocol PRECAUTIONS: - Fall Precaution Bed alarm TABS alarm Wheel chair alarm - Pelvis fracture WBAT per OT note, pt cleared by Ortho ACTIVITIES OOB only with supervision THERAPIES: - Dietary and Nutrition Adequate Nutrition. Nutritional Education. Nutritional Supplements. - Occupational Therapy Cognitive Retraining. Visual Perceptual Training. ADL Training. Adaptive Equipment. Community Reinteg ration. Evaluate and Treat. Household Tasks. Patient/Family Education. Safety Awareness. Transfer Tra ining. UE ROM. UE Strengthening. - Speech Therapy Cognitive Training. Expressive Language Skills. Memory Strategies. Receptive Language Skills. Speech Intelligibility Training. - Physical Therapy Balance Training. Evaluate and Treat. Gait Training. LE ROM. LE Strengthening. Medical Equipment Asse ssment and Evaluation. Mobility Training. Patient/Family Education. Safety Awareness. Transfer Traini ng. PHYSICAL EXAM - Gen Alert and awake Lying in bed No apparent distress Oriented to: person, time, and place - Skin Left elbow superficial scrap after falling. Normacephalic - Eyes No abnormalities - ENMT No abnormalities - Neck No abnormalities - CVS RRR - Chest No abnormalities - Abd Soft - GI Non distended Deferred - No abnormalities - Ext Mild bilateral lower extremity edema. - MSK 4+/5 weakness in both lower extremities. - Neuro No focal deficits - Psych No abnormalities ASSESSMENT: Pt. is a 85 yo white male.On 06/21/2021 he was admitted to [facility] with diagnosis L Pelvic Fracture after mechanical fall.His impairment category is Orthopa edic Disorders 08 - Pelvic Fracture (08.3).Pre-morbidly, Pt. was independent/mod-I in Locomotion, So cial Cognition, Sphincter Control, Communication, and Endurance; and he had good Locomotion, Social C ognition, Sphincter Control, Communication, and Endurance.Currently, he has deficits of Locomotion, S afety Awareness, Balance, Transfers Control, Self-Care, and Endurance.Pt. is now referred to [facility] for acute in-patient rehabilitation in order to maximize patient's function al independence in activities of daily living, strength, ROM, and mobility.- Rehab Goal Patient has realistic goal of being discharged at assistance level partial assist to set up to reside at Home with Family/Relatives. MDM/PLAN: - Physical Therapy Decreased range of motion - to improve, our physical therapists will perform initial evaluation of p t's status upon admission and devise an individualized program for increasing patient's Range of [place] on. Gait dysfunction - to improve, our physical therapists will perform initial evaluation of pt's statu s upon admission and devise an individualized program for Gait Training, and Wheel Chair mobility Inability to transfer - to improve, our physical therapists will perform initial evaluation of pt's status upon admission and devise an individualized program for Bed mobility Need for home safety evaluation - to improve, our physical therapists will perform initial evaluatio n of pt's status upon admission and devise an individualized program for Home Evaluation Need in caregiver upon discharge - to improve, our physical therapists will perform initial evaluati on of pt's status upon admission and devise an individualized program for Caregiver Training New precaution - to improve, our physical therapists will perform initial evaluation of pt's status upon admission and devise an individualized program for Patient precaution education Edema - to improve, our physical therapists will perform initial evaluation of pt's status upon admi ssion and devise an individualized program for Elevation Training, and Lymphedema Therapy Poor balance - to improve, our physical therapists will perform initial evaluation of pt's status up on admission and devise an individualized program for Balance Training Poor endurance - to improve, our physical therapists will perform initial evaluation of pt's status upon admission and devise an individualized program for Endurance Training Weakness - to improve, our physical therapists will perform initial evaluation of pt's status upon a dmission and devise an individualized program for Aquatic Therapy, Neuromuscular Reeducation, and Str engthening Achieving independence - to improve, our physical therapists will perform initial evaluation of pt's status upon admission and devise an individualized program for Community Reintegration Activities - Occupational Therapy ADL deficits - to improve, our occupation therapists will perform initial evaluation of pt's status upon admission and devise an individualized program for Bathing, Bed mobility, Community Reintegratio n, Cooking, Dressing, Eating, Fine Motor Skills, Grooming, Homemaking, Kitchen Mobility, Laundry, Pat ient Education, Safety Awareness, Splinting - Positioning, Transfers(Toilet, Tub, Shower), and Wheel Chair Management Need for hospice spiritual care coordinator - to improve, our occupation therapists will perform initial evaluation of pt's status upon admission and devise an individualized program for Caregiver Training Weakness - to improve, our occupation therapists will perform initial evaluation of pt's status upon admission and devise an individualized program for Aquatic Therapy, Balance, Endurance, UE ROM, and UE strengthening - Other See attached MAR (Medication Administration Record) - Diet Type Continue Clear Liquid Diet per MD progress note on 06/25/2021 - Diet - Liquid Texture Continue Regular - Tube Feed Continue N/A - Fall Precaution Bed alarm TABS alarm Wheel chair alarm - Skin care per protocol - Diet - Solid Texture Continue Regular - Shower allowing shower - Pelvis fracture WBAT per OT note, pt cleared by Ortho FUNCTIONAL STATUS: UPDATED AT WEEKLY TEAM CONFERENCE - Bladder Same accident frequency: 7-Ind - No accidents in the past 7 days - Bowel Same accident frequency: 7-Ind - No accidents in the past 7 days - Walking Same score based on distance walked: 0(N/A) - Wheelchair Same score based on distance traveled: 0(N/A) FUNCTIONAL STATUS: - Self-Care A. Eating Ind B. Grooming sup C. Bathing modA D. Dressing - [place] E. Dressing - Lower modA F. Toileting Monika - Sphincter Control G. Bladder control sup H. Bowel control Monika - Transfers Control I. Bed/Chair/Wheelchair maxA J. Toilet maxA K. Tub/Shower maxA - Locomotion L. Walk/Wheelchair (B) maxA M. Stairs maxA - Communication N. Comprehension (B) Ind O. Expression (B) Ind - Social Cognition P. Social Interaction Monika Q. Problem Solving Monika R. Memory Ind - Endurance Poor - Balance Poor - Safety Awareness Good QI SCORES: - Self-Care A. Eating 05-Setup or clean-up assistance B. Oral hygiene 04-Supervision or touching assistance C. Toileting hygiene 02-Substantial/maximal assistance E. Shower/bathe self 02-Substantial/maximal assistance F. Upper body dressing 02-Substantial/maximal assistance G. Lower body dressing 02-Substantial/maximal assistance H. Putting on/taking off footwear 02-Substantial/maximal assistance - Mobility A. Roll left and right 01-Dependent B. Sit to lying 01-Dependent C. Lying to sitting on side of bed 01-Dependent D. Sit to stand 01-Dependent E. Chair/[id number] transfer 88-Not attempted due to medical condition or safety concerns F. Toilet transfer 88-Not attempted due to medical condition or safety concerns G. Car transfer 88-Not attempted due to medical condition or safety concerns I. Walk 10 feet 88-Not attempted due to medical condition or safety concerns J. Walk 50 feet with two turns 88-Not attempted due to medical condition or safety concerns K. Walk 150 feet 88-Not attempted due to medical condition or safety concerns L. Walking 10 feet on uneven surfaces 88-Not attempted due to medical condition or safety concerns M. 1 step (curb) 88-Not attempted due to medical condition or safety concerns N. 4 steps 88-Not attempted due to medical condition or safety concerns O. 12 steps 88-Not attempted due to medical condition or safety concerns P. Picking up object 88-Not attempted due to medical condition or safety concerns R. Wheel 50 feet with two turns 09-Not applicable S. Wheel 150 feet 09-Not applicable - Bladder and Bowel Bladder continence Bowel continence - Endurance Poor - Balance Poor - Safety Awareness Poor CURRENT FUNC. 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
[2021-07-11] MEDS: ATORVASTATIN 20 MG TAB PO SCH (20:24)
[2021-07-12] MEDS: SOTALOL HCL 80 MG TAB PO SCH ×2 (05:09→18:02)
[2021-07-12 06:38] LABS: Absolute Lymphocytes (CBC) 1.1 K/uL (0.7-4.9); Hematocrit 37.2 % (39.6-49.0); Lymphocytes % 23.1 % (15.3-44.8); MPV 7.8 fL (7.6-11.3)
[2021-07-12 06:39] LABS: Protime INR 2.26
[2021-07-12 06:57] LABS: Albumin 2.8 g/dL (3.4-5.0); BUN Blood Urea Nitrogen 15 mg/dL (7-18); Bicarbonate 24 mmol/L (21-32); Glucose Level 88 mg/dL (74-106); Magnesium 2.1 mg/dL (1.8-2.4); Phosphorus 3.3 mg/dL (2.5-4.9); Potassium 3.9 mmol/L (3.5-5.1); Sodium Level 138 mmol/L (136-145)
[2021-07-12] MEDS: SILVER SULFADIAZINE 1% 25 GM TOP SCH (07:34)
[2021-07-12] MEDS: TRAMADOL HCL 50 MG TAB PO PRN ×2 (07:34→21:15)
[2021-07-12] MEDS: GABAPENTIN 300 MG CAP PO SCH ×2 (07:34→21:15)
[2021-07-12] MEDS: LEVOTHYROXINE SOD 0.05 MG TABLET PO SCH (07:34)
[2021-07-12] MEDS: CRANBERRY FRUIT EXTRACT 400 MG CAP PO SCH ×2 (07:34→21:15)
[2021-07-12] MEDS: POLYETHYL GLY 3350 17 GM/DOSE PO SCH (07:35)
[2021-07-12] MEDS: LIDOCAINE 4% PATCH TOP SCH (07:35)
[2021-07-12] MEDS: MAGNESIUM CITRATE 300 ML BOT PO SCH (10:59)
[2021-07-12] MEDS ORDERED: WARFARIN SODIUM 3 MG TAB PO SCH (17:00)
[2021-07-12] MEDS: WARFARIN SODIUM 2.5 MG TAB PO SCH (17:00)
[2021-07-12] MEDS: WARFARIN SODIUM 1 MG TAB PO SCH (17:00)
[2021-07-12] MEDS ORDERED: WARFARIN SODIUM 2.5 MG TAB PO SCH (18:00)
[2021-07-12] MEDS ORDERED: WARFARIN SODIUM 1 MG TAB PO SCH (18:00)
--- NOTE | 2021-07-12 18:32 | R.PN ---
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 Pt denied any Shortness of Breath. WBC 4.6, Hgb 12.5, INR is 2.26. Coumadin 3.5 mg daily. Prealbumin 14.0, Na is 138. UA: bacteria 20-50 . COVID-19 is negative. Left elbow superficial scrap is improving well while being treated by wound care with Silver Sulfadia zine application and wet to dry dressing daily. Ambulated 390' with supervision using a rolling walker. Self-propelled wheelchair 500' with modified independence. VITAL SIGNS Temperature: 97.0 F SBP/DBP: 109/70 Pulse: 87 Resp: 16 MEDICATION ALLERGIES: ENVIRONMENTAL ALLERGIES: - Substance Allergies - Other Allergies NURSING: - Shower allowing shower - Skin care per protocol PRECAUTIONS: - Fall Precaution Bed alarm TABS alarm Wheel chair alarm - Pelvis fracture WBAT per OT note, pt cleared by Ortho ACTIVITIES OOB only with supervision THERAPIES: - Dietary and Nutrition Adequate Nutrition. Nutritional Education. Nutritional Supplements. - Occupational Therapy Cognitive Retraining. Visual Perceptual Training. ADL Training. Adaptive Equipment. Community Reinteg ration. Evaluate and Treat. Household Tasks. Patient/Family Education. Safety Awareness. Transfer Tra ining. UE ROM. UE Strengthening. - Speech Therapy Cognitive Training. Expressive Language Skills. Memory Strategies. Receptive Language Skills. Speech Intelligibility Training. - Physical Therapy Balance Training. Evaluate and Treat. Gait Training. LE ROM. LE Strengthening. Medical Equipment Asse ssment and Evaluation. Mobility Training. Patient/Family Education. Safety Awareness. Transfer Traini ng. PHYSICAL EXAM - Gen Alert and awake Lying in bed No apparent distress Oriented to: person, time, and place - Skin Left elbow superficial scrap after falling. Normacephalic - Eyes No abnormalities - ENMT No abnormalities - Neck No abnormalities - CVS RRR - Chest No abnormalities - Abd Soft - GI Non distended Deferred - No abnormalities - Ext Mild bilateral lower extremity edema. - MSK 4+/5 weakness in both lower extremities. - Neuro No focal deficits - Psych No abnormalities ASSESSMENT: Pt. is a 85 yo white male.On 06/21/2021 he was admitted to [facility] with diagnosis L Pelvic Fracture after mechanical fall.His impairment category is Orthopa edic Disorders 08 - Pelvic Fracture (08.3).Pre-morbidly, Pt. was independent/mod-I in Locomotion, So cial Cognition, Sphincter Control, Communication, and Endurance; and he had good Locomotion, Social C ognition, Sphincter Control, Communication, and Endurance.Currently, he has deficits of Locomotion, S afety Awareness, Balance, Transfers Control, Self-Care, and Endurance.Pt. is now referred to [facility] for acute in-patient rehabilitation in order to maximize patient's function al independence in activities of daily living, strength, ROM, and mobility.- Rehab Goal Patient has realistic goal of being discharged at assistance level partial assist to set up to reside at Home with Family/Relatives. MDM/PLAN: - Physical Therapy Decreased range of motion - to improve, our physical therapists will perform initial evaluation of p t's status upon admission and devise an individualized program for increasing patient's Range of [place] on. Gait dysfunction - to improve, our physical therapists will perform initial evaluation of pt's statu s upon admission and devise an individualized program for Gait Training, and Wheel Chair mobility Inability to transfer - to improve, our physical therapists will perform initial evaluation of pt's status upon admission and devise an individualized program for Bed mobility Need for home safety evaluation - to improve, our physical therapists will perform initial evaluatio n of pt's status upon admission and devise an individualized program for Home Evaluation Need in caregiver upon discharge - to improve, our physical therapists will perform initial evaluati on of pt's status upon admission and devise an individualized program for Caregiver Training New precaution - to improve, our physical therapists will perform initial evaluation of pt's status upon admission and devise an individualized program for Patient precaution education Edema - to improve, our physical therapists will perform initial evaluation of pt's status upon admi ssion and devise an individualized program for Elevation Training, and Lymphedema Therapy Poor balance - to improve, our physical therapists will perform initial evaluation of pt's status up on admission and devise an individualized program for Balance Training Poor endurance - to improve, our physical therapists will perform initial evaluation of pt's status upon admission and devise an individualized program for Endurance Training Weakness - to improve, our physical therapists will perform initial evaluation of pt's status upon a dmission and devise an individualized program for Aquatic Therapy, Neuromuscular Reeducation, and Str engthening Achieving independence - to improve, our physical therapists will perform initial evaluation of pt's status upon admission and devise an individualized program for Community Reintegration Activities - Occupational Therapy ADL deficits - to improve, our occupation therapists will perform initial evaluation of pt's status upon admission and devise an individualized program for Bathing, Bed mobility, Community Reintegratio n, Cooking, Dressing, Eating, Fine Motor Skills, Grooming, Homemaking, Kitchen Mobility, Laundry, Pat ient Education, Safety Awareness, Splinting - Positioning, Transfers(Toilet, Tub, Shower), and Wheel Chair Management Need for care assistant - to improve, our occupation therapists will perform initial evaluation of pt's status upon admission and devise an individualized program for Caregiver Training Weakness - to improve, our occupation therapists will perform initial evaluation of pt's status upon admission and devise an individualized program for Aquatic Therapy, Balance, Endurance, UE ROM, and UE strengthening - Other See attached MAR (Medication Administration Record) - Diet Type Continue Clear Liquid Diet per MD progress note on 06/25/2021 - Diet - Liquid Texture Continue Regular - Tube Feed Continue N/A - Fall Precaution Bed alarm TABS alarm Wheel chair alarm - Skin care per protocol - Diet - Solid Texture Continue Regular - Shower allowing shower - Pelvis fracture WBAT per OT note, pt cleared by Ortho FUNCTIONAL STATUS: UPDATED AT WEEKLY TEAM CONFERENCE - Bladder Same accident frequency: 7-Ind - No accidents in the past 7 days - Bowel Same accident frequency: 7-Ind - No accidents in the past 7 days - Walking Same score based on distance walked: 0(N/A) - Wheelchair Same score based on distance traveled: 0(N/A) FUNCTIONAL STATUS: - Self-Care A. Eating Ind B. Grooming sup C. Bathing modA D. Dressing - [place] E. Dressing - Lower modA F. Toileting Monika - Sphincter Control G. Bladder control sup H. Bowel control Monika - Transfers Control I. Bed/Chair/Wheelchair maxA J. Toilet maxA K. Tub/Shower maxA - Locomotion L. Walk/Wheelchair (B) maxA M. Stairs maxA - Communication N. Comprehension (B) Ind O. Expression (B) Ind - Social Cognition P. Social Interaction Monika Q. Problem Solving Monika R. Memory Ind - Endurance Poor - Balance Poor - Safety Awareness Good QI SCORES: - Self-Care A. Eating 05-Setup or clean-up assistance B. Oral hygiene 04-Supervision or touching assistance C. Toileting hygiene 02-Substantial/maximal assistance E. Shower/bathe self 02-Substantial/maximal assistance F. Upper body dressing 02-Substantial/maximal assistance G. Lower body dressing 02-Substantial/maximal assistance H. Putting on/taking off footwear 02-Substantial/maximal assistance - Mobility A. Roll left and right 01-Dependent B. Sit to lying 01-Dependent C. Lying to sitting on side of bed 01-Dependent D. Sit to stand 01-Dependent E. Chair/[id number] transfer 88-Not attempted due to medical condition or safety concerns F. Toilet transfer 88-Not attempted due to medical condition or safety concerns G. Car transfer 88-Not attempted due to medical condition or safety concerns I. Walk 10 feet 88-Not attempted due to medical condition or safety concerns J. Walk 50 feet with two turns 88-Not attempted due to medical condition or safety concerns K. Walk 150 feet 88-Not attempted due to medical condition or safety concerns L. Walking 10 feet on uneven surfaces 88-Not attempted due to medical condition or safety concerns M. 1 step (curb) 88-Not attempted due to medical condition or safety concerns N. 4 steps 88-Not attempted due to medical condition or safety concerns O. 12 steps 88-Not attempted due to medical condition or safety concerns P. Picking up object 88-Not attempted due to medical condition or safety concerns R. Wheel 50 feet with two turns 09-Not applicable S. Wheel 150 feet 09-Not applicable - Bladder and Bowel Bladder continence Bowel continence - Endurance Poor - Balance Poor - Safety Awareness Poor CURRENT FUNC. 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
[2021-07-12] MEDS: ATORVASTATIN 20 MG TAB PO SCH (21:15)
[2021-07-13] MEDS: SOTALOL HCL 80 MG TAB PO SCH (05:20)
[2021-07-13] MEDS: LEVOTHYROXINE SOD 0.05 MG TABLET PO SCH (06:39)
[2021-07-13 07:53] VITALS: BP 128/78; TEMP 97
[2021-07-13] MEDS: POLYETHYL GLY 3350 17 GM/DOSE PO SCH (08:00)
[2021-07-13] MEDS: LIDOCAINE 4% PATCH TOP SCH (08:00)
[2021-07-13] MEDS: SILVER SULFADIAZINE 1% 25 GM TOP SCH (08:00)
[2021-07-13] MEDS: GABAPENTIN 300 MG CAP PO SCH (09:30)
[2021-07-13] MEDS: TRAMADOL HCL 50 MG TAB PO PRN (09:30)
[2021-07-13] MEDS: CRANBERRY FRUIT EXTRACT 400 MG CAP PO SCH (09:30)
--- NOTE | 2021-07-13 09:53 | P.RH.PN ---
Estimated Length of Stay: 15 Expected Discharge Date: 07/13/21 Discharge Disposition Plan: Home Family Support: Yes Snf Goal: Mobility, Transfers, Self Care Vital Signs: Last Vital Signs Temp 97 F 07/13/21 07:52 Pulse 88 07/13/21 07:52 Resp 16 07/13/21 09:30 BP 128/78 07/13/21 07:52 Pulse Ox 99 07/13/21 09:30 Laboratory: Laboratory Last Values WBC 4.60 K/uL (4.3-10.9) D 07/12/21 06:15 RBC 3.90 M/uL (4.33-5.43) L 07/12/21 06:15 Hgb 12.5 g/dL (13.6-17.9) L 07/12/21 06:15 Hct 37.2 % (39.6-49.0) L 07/12/21 06:15 MCV 95.4 fL (80-100) 07/12/21 06:15 MCH 32.0 pg (27.0-35.0) 07/12/21 06:15 MCHC 33.6 g/dL (32.0-36.0) 07/12/21 06:15 RDW 13.8 % (12.1-15.2) 07/12/21 06:15 Plt Count 230 K/uL (152-406) D 07/12/21 06:15 MPV 7.8 fL (7.6-11.3) 07/12/21 06:15 Neutrophils % 59.8 % (41.7-73.7) 07/12/21 06:15 Lymphocytes % 23.1 % (15.3-44.8) 07/12/21 06:15 Monocytes % 11.5 % (3.3-12.3) 07/12/21 06:15 Eosinophils % 4.6 % (0-4.4) H 07/12/21 06:15 Basophils % 1.0 % (0-1.3) 07/12/21 06:15 Absolute Neutrophils 2.8 K/uL (1.8-8.0) 07/12/21 06:15 Absolute Lymphocytes 1.1 K/uL (0.7-4.9) 07/12/21 06:15 Absolute Monocytes 0.5 K/uL (0.1-1.3) 07/12/21 06:15 Absolute Eosinophils 0.2 K/uL (0-0.5) 07/12/21 06:15 Absolute Basophils 0.0 K/uL (0-0.5) 07/12/21 06:15 PT 26.2 SECONDS (9.5-12.5) H 07/12/21 06:15 INR 2.26 07/12/21 06:15 Sodium 138 mmol/L (136-145) 07/12/21 06:15 Potassium 3.9 mmol/L (3.5-5.1) 07/12/21 06:15 Chloride 108 mmol/L (98-107) H 07/12/21 06:15 Carbon Dioxide 24 mmol/L (21-32) 07/12/21 06:15 BUN 15 mg/dL (7-18) 07/12/21 06:15 Creatinine 0.61 mg/dL (0.55-1.3) 07/12/21 06:15 Estimated GFR > 90 mL/min (=/>90) 07/12/21 06:15 Glucose 88 mg/dL (74-106) 07/12/21 06:15 Calcium 8.4 mg/dL (8.5-10.1) L 07/12/21 06:15 Phosphorus 3.3 mg/dL (2.5-4.9) 07/12/21 06:15 Magnesium 2.1 mg/dL (1.8-2.4) 07/12/21 06:15 Albumin 2.8 g/dL (3.4-5.0) L 07/12/21 06:15 Prealbumin 14.0 mg/dL (20-40) L 07/12/21 06:15 Urine Color Dk yellow (Yellow) 06/29/21 04:50 Urine Appearance Clear (Clear) 06/29/21 04:50 Urine pH 5.5 (5.0-7.0) 06/29/21 04:50 Ur Specific [place] 1.025 (1.005-1.030) 06/29/21 04:50 Glucose (UA)(Auto) Negative (Negative) 06/29/21 04:50 Urine Ketones 2+ (Negative) H 06/29/21 04:50 Urine Blood Negative (Negative) 06/29/21 04:50 Urine Nitrite Negative (Negative) 06/29/21 04:50 Urine Bilirubin Negative (Negative) 06/29/21 04:50 Urine Urobilinogen 0.2 mg/dL (0.2-1.0) 06/29/21 04:50 Ur Leukocyte Esterase Negative (Negative) 06/29/21 04:50 Urine RBC <5 /HPF (NONE SEEN) 06/29/21 04:50 Urine WBC <5 /HPF (<5) 06/29/21 04:50 Ur Squamous Epith Cells <5 /HPF (NONE SEEN) 06/29/21 04:50 Urine Bacteria 20-50 /HPF (NONE SEEN) H 06/29/21 04:50 Urine Mucus 3+ /HPF (NONE SEEN) H 06/29/21 04:50 Urine Culture Reflexed Not needed 06/29/21 04:50 Urine Total Protein Negative (Negative) 06/29/21 04:50 SARS-CoV-2 Rap RNA(RT-PCR) Negative (NEGATIVE) 07/05/21 01:30 Weight: 177 lb 9.6 oz Wound Present: Yes Closed Surgical Incision Present: No Negative Pressure Wound Therapy Present: No Physician Update: He is going to [facility] today. Labs were reviewed and are stable. Walked 120' with supervision, independent transfers, 250' wheelchair propulsion. With OT: toilet transfers contact guard, shower is contact guard needs verbal cues for grab bars. Grooming was min assistance. Upper body was min assistance. Lower body dressing contact guard. Functional Improvement: Patient has met all short-term goals and has progressed well toward long-term goals. Patient has presented w/ marked improvement physically, however is self-limited, due to lack of confidence. Patient continues to arredondo anxiety w/ falls. Summary: Patient's care plan and chcf goals have been reviewed and revised as necessary. Please see the Rehabilitation Signature page for all necessary signatures.
[2021-07-13] MEDS: MAGNESIUM CITRATE 300 ML BOT PO SCH (11:00)
== END 2021-07-13 14:30 | DRG 561 ==
LOC: 5TH 06-28 20:00
PROVIDERS: ADMIT Psychiatry & Neurology Neurology with Special Qualifications in Child Neurology; ATTEND Psychiatry & Neurology Neurology with Special Qualifications in Child Neurology
DX: S32.9XXD Fracture of unspecified parts of lumbosacral spine and pelvis, subsequent encounter for fracture with routine healing (principal); I48.91 Unspecified atrial fibrillation; M19.90 Unspecified osteoarthritis, unspecified site; S50.312A Abrasion of left elbow, initial encounter; E03.9 Hypothyroidism, unspecified; Z96.643 Presence of artificial hip joint, bilateral; Z95.0 Presence of cardiac pacemaker; Z20.822 Contact with and (suspected) exposure to COVID-19
CPT/HCPCS: 36415; 80048; 81001; 82040; 83735; 84100; 84134; 85025; 85610; 87077; 87086; 87088; 87186; 97110; 97112; 97116; 97161; 97530; 97542; 99251; U0003

== ENCOUNTER 2022-02-06 16:06 | Emergency (ER) | payer OTHER, BC ==
[2022-02-06] MEDS ORDERED: dexAMETHasone 10 MG/ML VIAL ONE (17:01)
[2022-02-06] MEDS ORDERED: DIAZEPAM 5 MG TABLET ONE (17:01)
[2022-02-06] MEDS ORDERED: MORPHINE 4 MG/ML SYR ONE (17:01)
[2022-02-06] MEDS ORDERED: ONDANSETRON 4 MG/2 ML VIAL ONE (17:02)
[2022-02-06] MEDS ORDERED: KETOROLAC 30 MG/ML INJ ONE (17:02)
[2022-02-06] MEDS ORDERED: NA CHLORIDE 0.9% 500 ML ONE (17:02)
[2022-02-06 17:04] LABS: Absolute Lymphocytes (CBC) 0.8 K/uL (0.7-4.9); Hematocrit 39.8 % (39.6-49.0); Lymphocytes % 16.1 % (15.3-44.8); MCV 93.4 fL (80-100); MPV 7.6 fL (7.6-11.3); RBC Red Blood Cell Count 4.26 M/uL (4.33-5.43)
[2022-02-06 17:19] LABS: Albumin 3.5 g/dL (3.4-5.0); Bilirubin Total 0.4 mg/dL (0.2-1.0); Potassium 3.8 mmol/L (3.5-5.1); Protein, Total 6.5 g/dL (6.4-8.2)
[2022-02-06] MEDS ORDERED: DIAZEPAM 10 MG/2 ML INJ SYRINGE ONE (17:27)
--- NOTE | 2022-02-06 18:33 | RAD REPORT ---
EXAM DESCRIPTION: CT - Spine Lumbar Wo Con - 02/06/2022 5:58 pm CLINICAL HISTORY: Bone mass or bone pain, lumbar spine, no prior imaging COMPARISON: CT lumbar spine 02/16/2021 TECHNIQUE: Thin section axial imaging of the lumbar spine was performed. Sagittal and coronal recon struction images were generated and reviewed. All CT scans are performed using dose optimization technique as appropriate and may include automated exposure control or mA/KV adjustment according to patient size. FINDINGS: T11-L1 compression fractures, previously treated with vertebroplasty, have shown no interv al change from comparison. C2 superior endplate concavity is present new from prior imaging. Posterior wall height is preserved. There is only minimal overall loss in vertebral body height. An acute fracture line is not identifia ble. Biconcave contour of the superior and inferior endplates L3 noted new from prior imaging. Slight loss in overall body height. Posterior wall height is maintained. Again, no acute fracture line is seen. L4 biconcave contour with minimal overall body height loss noted. No acute fracture line seen on CT i maging. L5 partial compression the remain stable from January 2021. No lytic, blastic or expansile destructive c hange. S1-S4 are normal in height. No acute sacral ala finding. SI joint degenerative changes are present. No paraspinal mass or hematom a. Central canal detail is inherently limited. Patient has significant central spinal stenosis L3-4 and L4-5 primarily from ligamentous thickening and facet hypertrophic degenerative change. Spinal stenosi s does not appear significantly different from comparison. IMPRESSION: L2-L4 vertebrae all show mild loss in height when compared to January 2021. Age of these co mpression fractures is uncertain. No acute fracture lines are seen to say convincingly that any of th ford are acute. T11-L1 compression fractures, previously treated with vertebroplasty, are stable. L3-4 and L4-5 central spinal stenosis not substantially different from comparison.
--- NOTE | 2022-02-06 18:59 | ER ---
Nurse's Notes [facility] Name: Rashida Blank Age: 86 yrs Sex: Male : 1935 Arrival Date: 02/06/2022 Time: 16:17 Bed 19 Private MD: Diagnosis: Low back pain;Strain of muscle, fascia and tendon of lower back;Strain of muscle and tendon of back wall of thorax;Other chronic pain-LUMBAR Presentation: 02/06 16:20 Chief complaint: EMS states: FALL TO KNEES WHILE USING WALKER, EXACERBATED CHRONIC BACK bp PAIN. Coronavirus screen: At this time, the client does not indicate any symptoms associated with coronavirus-19. Ebola Screen: No symptoms or risks identified at this time. Initial Sepsis Screen: Does the patient meet any 2 criteria? No. Patient's initial sepsis screen is negative. Does the patient have a suspected source of infection? No. Patient's initial sepsis screen is negative. Risk Assessment: Do you want to hurt yourself or someone else? Patient reports no desire to harm self or others. Onset of symptoms was February 06, 2022 at 16:00. 16:20 Method Of Arrival: EMS: [facility] bp 16:20 Acuity: IVONNE 3 bp Triage Assessment: 16:41 General: Appears distressed, uncomfortable, Behavior is cooperative, appropriate for bp age, anxious. Pain: Complains of pain in back. EENT: No deficits noted. Neuro: No deficits noted. Cardiovascular: No deficits noted. Respiratory: No deficits noted. GI: No signs and/or symptoms were reported involving the gastrointestinal system. : No signs and/or symptoms were reported regarding the genitourinary system. Derm: No deficits noted. Musculoskeletal: Circulation, motion, and sensation intact. Range of motion: intact in all extremities, Reports pain in back. Historical: - Allergies: 16:41 No Known Allergies; bp - Home Meds: 16:41 levothyroxine 50 mcg tab 1 tab once daily [Active]; simvastatin 40 mg Oral tab 1 tab bp once daily [Active]; sotalol 80 mg Oral tab 1 tab 2 times per day [Active]; warfarin 4 mg Oral tab 1 tab once daily [Active]; - PMHx: 16:41 Arthritis; Atrial Fib; Back pain; benign positional vertigo; Hypothyroidism; bp incontinence; tinnitus; - Immunization history:: Adult Immunizations up to date. - Social history:: Smoking status: Patient denies any tobacco usage or history of. - Family history:: not pertinent. Screenin:20 Abuse screen: Denies threats or abuse. Denies injuries from another. Nutritional bp screening: No deficits noted. Tuberculosis screening: No symptoms or risk factors identified. Fall Risk None identified. Assessment: 16:20 General: SEE TRIAGE NOTE. bp 17:30 Reassessment: No changes from previously documented assessment. Patient and/or family bp updated on plan of care and expected duration. Pain level reassessed. 18:30 Reassessment: PT RETURNED FROM CT. bp 18:30 Neuro: Level of Consciousness is awake, alert, obeys commands, Oriented to Appropriate bp for age. 19:36 Reassessment: Patient and/or family updated on plan of care and expected duration. Pain kd3 level reassessed. Patient is alert, oriented x 3, equal unlabored respirations, skin warm/dry/pink. Vital Signs: 16:20 BP 139 / 84; Pulse 82; Resp 16; Temp 98; Pulse Ox 97% ; bp 17:30 BP 147 / 87; Pulse 86; Resp 16; Pulse Ox 99% ; bp 18:30 BP 115 / 72; Pulse 84; Resp 16; Pulse Ox 96% ; bp ED Course: 16:17 Patient arrived in ED. bp 16:20 Patient has correct armband on for positive identification. Bed in low position. Call bp light in reach. Side rails up X2. Adult w/ patient. 16:21 Omid Garcia MD is Attending Physician. shea 16:39 Gerard Ocampo, MAGNUS is Primary Nurse. bp 16:41 Triage completed. bp 16:41 Arm band placed on. bp 17:15 Inserted saline lock: 22 gauge in left antecubital area, using aseptic technique. Blood bp collected. 17:59 CT Lumbar Spine Wo Con In Process Unspecified. EDMS 18:58 Gato Vasquez MD is Referral Physician. shea 19:36 No provider procedures requiring assistance completed. IV discontinued, intact, kd3 bleeding controlled, No redness/swelling at site. Pressure dressing applied. Administered Medications: 17:15 Drug: NS 0.9% 500 ml Route: IV; Rate: bolus; Site: left antecubital; bp 19:38 Follow up: IV Status: Completed infusion kd3 17:15 Drug: Zofran (Ondansetron) 4 mg Route: IVP; Site: left antecubital; bp 19:38 Follow up: Response: No adverse reaction kd3 17:15 Drug: morphine 4 mg Route: IVP; Infused Over: 4 mins; Site: left antecubital; bp 19:38 Follow up: Response: No adverse reaction kd3 17:15 Drug: Valium (diazepam) 10 mg Route: PO; bp 19:38 Follow up: Response: No adverse reaction kd3 17:15 Drug: Ketorolac 15 mg Route: IVP; Site: left antecubital; bp 19:38 Follow up: Response: No adverse reaction kd3 17:15 Drug: Decadron - Dexamethasone 10 mg Route: IVP; Site: left antecubital; bp 19:38 Follow up: Response: No adverse reaction kd3 17:15 Drug: NS 0.9% 1000 ml Route: IV; Rate: 125 ml/hr; Site: left antecubital; bp 19:38 Follow up: IV Status: Completed infusion kd3 17:30 Drug: Valium (diazepam) 2 mg Route: IVP; Site: left antecubital; bp 19:39 Follow up: Response: No adverse reaction kd3 Medication: 16:20 VIS not applicable for this client. bp Outcome: 18:59 Discharge ordered by . shea 19:37 Discharged to home via wheelchair. kd3 19:37 Condition: stable 19:37 Discharge instructions given to patient, Instructed on discharge instructions, follow up and referral plans. Demonstrated understanding of instructions, follow-up care, Prescriptions given X 4. 19:39 Patient left the ED. kd3 Signatures: Dispatcher [employer] EDOmid Fernandez MD MD cha Peltier, Brian, RN RN Ronit Hayes RN RN kd3
--- NOTE | 2022-02-06 18:59 | EDPHYS ---
Physician Documentation [facility] Name: Rashida Blank Age: 86 yrs Sex: Male : 1935 Arrival Date: 02/06/2022 Time: 16:17 Bed 19 Private MD: LORENZO Physician Omid Garcia HPI: 02/06 17:01 This 86 yrs old Male presents to ER via EMS with complaints of Back Pain. shea 17:01 The patient presents with pain that is chronic, with no known mechanism of injury. The shea symptoms are located in the low back, lumbar area, left low back and right low back. Onset: The symptoms/episode began/occurred 3 day(s) ago. The pain does not radiate. Associated signs and symptoms: The patient has no apparent associated signs or symptoms. The problem was sustained from a chronic condition, from unknown cause. Modifying factors: The patient symptoms are alleviated by nothing, remaining still, rest, the patient symptoms are aggravated by any movement. The patient has not experienced similar symptoms in the past. Historical: - Allergies: 16:41 No Known Allergies; bp - Home Meds: 16:41 levothyroxine 50 mcg tab 1 tab once daily [Active]; simvastatin 40 mg Oral tab 1 tab bp once daily [Active]; sotalol 80 mg Oral tab 1 tab 2 times per day [Active]; warfarin 4 mg Oral tab 1 tab once daily [Active]; - PMHx: 16:41 Arthritis; Atrial Fib; Back pain; benign positional vertigo; Hypothyroidism; bp incontinence; tinnitus; - Immunization history:: Adult Immunizations up to date. - Social history:: Smoking status: Patient denies any tobacco usage or history of. - Family history:: not pertinent. ROS: 17:01 Constitutional: Negative for fever, chills, and weight loss, Eyes: Negative for injury, shea pain, redness, and discharge, ENT: Negative for injury, pain, and discharge, Neck: Negative for injury, pain, and swelling, Cardiovascular: Negative for chest pain, palpitations, and edema, Respiratory: Negative for shortness of breath, cough, wheezing, and pleuritic chest pain, Abdomen/GI: Negative for abdominal pain, nausea, vomiting, diarrhea, and constipation, : Negative for injury, bleeding, discharge, and swelling, MS/Extremity: Negative for injury and deformity, Skin: Negative for injury, rash, and discoloration, Neuro: Negative for headache, weakness, numbness, tingling, and seizure, Psych: Negative for depression, anxiety, suicide ideation, homicidal ideation, and hallucinations, Allergy/Immunology: Negative for hives, rash, and allergies, Endocrine: Negative for neck swelling, polydipsia, polyuria, polyphagia, and marked weight changes, Hematologic/Lymphatic: Negative for swollen nodes, abnormal bleeding, and unusual bruising. 17:01 Back: Positive for decreased range of motion, pain at rest, pain with movement. Exam: 17:01 Constitutional: This is a well developed, well nourished patient who is awake, alert, shea and in no acute distress. Head/Face: Normocephalic, atraumatic. Eyes: Pupils equal round and reactive to light, extra-ocular motions intact. Lids and lashes normal. Conjunctiva and sclera are non-icteric and not injected. Cornea within normal limits. Periorbital areas with no swelling, redness, or edema. ENT: Nares patent. No nasal discharge, no septal abnormalities noted. Tympanic membranes are normal and external auditory canals are clear. Oropharynx with no redness, swelling, or masses, exudates, or evidence of obstruction, uvula midline. Mucous membranes moist. Neck: Trachea midline, no thyromegaly or masses palpated, and no cervical lymphadenopathy. Supple, full range of motion without nuchal rigidity, or vertebral point tenderness. No Meningismus. Chest/axilla: Normal chest wall appearance and motion. Nontender with no deformity. No lesions are appreciated. Cardiovascular: Regular rate and rhythm with a normal S1 and S2. No gallops, murmurs, or rubs. Normal PMI, no JVD. No pulse deficits. Respiratory: Lungs have equal breath sounds bilaterally, clear to auscultation and percussion. No rales, rhonchi or wheezes noted. No increased work of breathing, no retractions or nasal flaring. Abdomen/GI: Soft, non-tender, with normal bowel sounds. No distension or tympany. No guarding or rebound. No evidence of tenderness throughout. Male : Normal genitalia with no discharge or lesions. Skin: Warm, dry with normal turgor. Normal color with no rashes, no lesions, and no evidence of cellulitis. MS/ Extremity: Pulses equal, no cyanosis. Neurovascular intact. Full, normal range of motion. Neuro: Awake and alert, GCS 15, oriented to person, place, time, and situation. Cranial nerves II-XII grossly intact. Motor strength 5/5 in all extremities. Sensory grossly intact. Cerebellar exam normal. Normal gait. Psych: Awake, alert, with orientation to person, place and time. Behavior, mood, and affect are within normal limits. 17:01 Back: pain, that is mild, that is moderate, ROM is painful, normal spinal alignment noted, no scoliosis, CVA tenderness, is absent, vertebral tenderness, is not appreciated, muscle spasm, is appreciated in the left low back, left mid back, right mid back and right low back. Vital Signs: 16:20 BP 139 / 84; Pulse 82; Resp 16; Temp 98; Pulse Ox 97% ; bp 17:30 BP 147 / 87; Pulse 86; Resp 16; Pulse Ox 99% ; bp 18:30 BP 115 / 72; Pulse 84; Resp 16; Pulse Ox 96% ; bp MDM: 16:21 Patient medically screened. shea 17:12 Differential diagnosis: chronic back pain, Fatigue Fracture Neoplasm Obesity shea Osteoarthritis Osteoporosis Scoliosis spinal injury, sprain, vertebral fracture. Data reviewed: vital signs, nurses notes, lab test result(s), CBC, electrolytes, radiologic studies, CT scan. Data interpreted: drawer in plain loom: rate is 82 beats/min, rhythm is regular, Pulse oximetry: on room air is 97 %. Counseling: I had a detailed discussion with the patient and/or guardian regarding: the historical points, exam findings, and any diagnostic results supporting the discharge/admit diagnosis, lab results, radiology results, the need for outpatient follow up, for definitive care, a family practitioner, a neurologist. 02/06 16:29 Order name: CBC with Diff; Complete Time: 17:20 [facility] 02/06 16:29 Order name: Comprehensive Metabolic Panel; Complete Time: 17:20 [facility] 02/06 16:30 Order name: CT Lumbar Spine Wo Con; Complete Time: 18:57 shea Administered Medications: 17:15 Drug: NS 0.9% 500 ml Route: IV; Rate: bolus; Site: left antecubital; bp 19:38 Follow up: IV Status: Completed infusion kd3 17:15 Drug: Zofran (Ondansetron) 4 mg Route: IVP; Site: left antecubital; bp 19:38 Follow up: Response: No adverse reaction kd3 17:15 Drug: morphine 4 mg Route: IVP; Infused Over: 4 mins; Site: left antecubital; bp 19:38 Follow up: Response: No adverse reaction kd3 17:15 Drug: Valium (diazepam) 10 mg Route: PO; bp 19:38 Follow up: Response: No adverse reaction kd3 17:15 Drug: Ketorolac 15 mg Route: IVP; Site: left antecubital; bp 19:38 Follow up: Response: No adverse reaction kd3 17:15 Drug: Decadron - Dexamethasone 10 mg Route: IVP; Site: left antecubital; bp 19:38 Follow up: Response: No adverse reaction kd3 17:15 Drug: NS 0.9% 1000 ml Route: IV; Rate: 125 ml/hr; Site: left antecubital; bp 19:38 Follow up: IV Status: Completed infusion kd3 17:30 Drug: Valium (diazepam) 2 mg Route: IVP; Site: left antecubital; bp 19:39 Follow up: Response: No adverse reaction kd3 Disposition Summary: 02/06/22 18:59 Discharge Ordered Location: Home shea Problem: new shea Symptoms: have improved shea Condition: Stable shea Diagnosis - Low back pain shea - Strain of muscle, fascia and tendon of lower back shea - Strain of muscle and tendon of back wall of thorax shea - Other chronic pain - LUMBAR shea Followup: shea - With: Private Physician - When: 2 - 3 days - Reason: Recheck today's complaints, Continuance of care, Re-evaluation by your physician Followup: shea - With: - When: 2 - 3 days - Reason: Recheck today's complaints, Re-evaluation by your physician Discharge Instructions: - Discharge Summary Sheet shea - Acute Back Pain, Adult shea - Chronic Back Pain shea - Musculoskeletal Pain shea - Back Injury Prevention, [id number] shea - Chronic Back Pain, [id number] shea - Radicular Pain shea Forms: - Medication Reconciliation Form shea - Thank You Letter shea - Antibiotic Education shea - Prescription Opioid Use shea Prescriptions: - Valium 2 mg Oral Tablet - take 1 tablet by ORAL route every 8 hours As needed; 20 tablet; Refills: 0, shea Product Selection Permitted - Motrin IB 200 mg Oral Tablet - take 2 tablet by ORAL route every 6 hours As needed as needed with food; 30 shea tablet; Refills: 0, Product Selection Permitted - Tylenol-Codeine #3 300 mg-30 mg Oral - take 1 tablet by ORAL route every 4 hours; 20 tablet; Refills: 0, Product shea Selection Permitted - dexamethasone 2 mg Oral tablet - take 1 tablet by ORAL route 2 times per day; 12 tablet; Refills: 0, Product shea Selection Permitted Signatures: Dispatcher [employer] Omid Obrien MD MD cha Peltier, Brian, RN RN bp Rnoit Harden RN kd3
[2022-02-06 19:46] VITALS: TEMP 98
[2022-02-06 19:53] VITALS: BP 115/72; O2SAT 96
== END 2022-02-06 19:39 | disposition home or self-care (01) ==
LOC: ER 16:06
DX: S39.012A Strain of muscle, fascia and tendon of lower back, initial encounter (principal); S29.012A Strain of muscle and tendon of back wall of thorax, initial encounter; G89.29 Other chronic pain; E03.9 Hypothyroidism, unspecified; I48.91 Unspecified atrial fibrillation; Z79.01 Long term (current) use of anticoagulants
CPT/HCPCS: 85025; 36415; 80053; 72131; J3360; J1100; J7040; J2405